=== PATIENT | female | born 1970 | race Caucasian/White ===

== ENCOUNTER 2020-02-22 18:00 | Emergency (ER) | payer SELFPAY ==
[2020-02-22 18:02] VITALS: BP 200/100; PULSE 97; RESP 18; TEMP 36.9; O2SAT 97; BMI 32.9
--- NOTE | 2020-02-22 18:05 | XRR_ITS ---
PROCEDURE INFORMATION: Exam: XR Right Foot Complete Exam date and time: 02/22/2020 7:10 PM Age: 49 years old Clinical indication: Other: Blister /sore right 4th toe; Patient HX: Noticed blister 02/21/20. Was cleaning it and it popped. HX of diabetic neuropathy. ; Additional info: Injury TECHNIQUE: Imaging protocol: XR Right foot. Views: Frontal, lateral, and oblique views. COMPARISON: No relevant prior studies available. FINDINGS: Bones/joints: Lateral soft tissue ulceration of the 4th digit at the level of the proximal interphalangeal joint. Bony destructive changes of the lateral proximal 4th middle phalanx. Ectopic soft tissue gas suggested medial to the 4th proximal interphalangeal joint. Nonspecific lucency medial 5th middle phalanx. Anterior tibial marginal hypertrophy at the tibiotalar articulation. A small Achilles' tendon enthesis of the calcaneus is present. Soft tissues: Fourth digit soft tissue swelling. XR/XR foot RT min 3V* [id number] IMPRESSION: 1. Fourth digit soft tissue swelling. Cellulitis not excluded. Clinical correlation is recommended. 2. Lateral soft tissue ulceration of the 4th digit. 3. Bony destructive changes proximal 4th middle phalanx. The findings are consistent with osteomyelitis. 4. Nonspecific lucency medial 5th middle phalanx. Comparison with prior studies recommended, if available. Otherwise followup may be helpful. 5. Tibiotalar primary osteoarthritis. 6. Achilles tendon insertional enthesopathy.
--- NOTE | 2020-02-22 18:51 | W.ED.WOUNDLC ---
HPI - Wound/Laceration General: Chief Complaint: Wound/Laceration Stated Complaint: right foot wound Time Seen by Provider: 02/22/20 18:49 History of Present Illness: HPI narrative: Patient is a 49-year-old female comes to the ED with a blister/sore on right fourth toe. Patient noticed blister yesterday and she cleaned it. Patient has a past medical history of diabetes with diabetic neuropathy of both feet.. Today patient was cleaning around the blister and it popped and clear fluid and bladder drained out. The blood has dried up and makes the blister looked black. Patient says the open blister is now causing her some pain and she currently rates it about an 8 out of 10. Denies any fever, chills, nausea, vomiting, chest pain, shortness of breath, abdominal pain, bladder or bowel symptoms. Associated symptoms: Denies chills, fever(s), nausea or vomiting Review of Systems Const: Denies: fever(s), chills or fatigue Eyes: Denies: change in vision or eye discomfort ENMT: Denies: throat pain, odynophagia, nasal discharge or nasal congestion Card: Denies: chest pain, palpitations, edema, swelling of feet/ankles, dyspnea on exertion or orthopnea Resp: Denies: dyspnea, productive cough or non-productive cough GI: Denies: abdominal pain, nausea, vomiting, diarrhea, constipation or hematochezia : Denies: flank pain, dysuria or hematuria Musc: Denies: neck pain, back pain or extremity swelling Skin/Breast: Reports: new lesions (wound/blister on right 4th toe.); Denies: rash Neuro: Denies: headache(s), numbness in extremities or weakness in extremities Physical Exam Const: COMMON NORMALS: no acute distress, patient oriented x3 and alert GENERAL APPEARANCE: cooperative and comfortable HENMT: COMMON NORMALS: normocephalic HEAD & SCALP: normocephalic MOUTH: Normal oral and palatal mucosa present THROAT: posterior oropharynx normal and uvula midline Eye: COMMON NORMALS: Equal, round and reactive pupils present PUPIL: Yes Equal, round and reactive pupils present Neck/C-Spine: COMMON NORMALS: supple GENERAL: Yes normal visual inspection Resp: COMMON NORMALS: normal respiratory effort, No retractions, No use of accessory muscles and clear to auscultation bilaterally AUSCULTATION: clear to auscultation bilaterally Cardio: COMMON NORMALS: regular rate, regular rhythm, S1 normal heart sound present, S2 normal heart sound present, No gallops present (Cardio), No clicks present (Cardio), No murmurs present (Cardio) and Peripheral pulses 2+ throughout RATE: regular rate RHYTHM: regular rhythm HEART SOUNDS: S1 normal heart sound present and S2 normal heart sound present PERIPHERAL PULSES: Peripheral pulses 2+ throughout GI: COMMON NORMALS: Normal to inspection, nondistended, normoactive bowel sounds present, Soft to palpation, non-tender and no masses PALPATION: Yes Soft to palpation : COMMON NORMALS: Yes no CVA tenderness BLADDER/KIDNEY EXAM: Yes no CVA tenderness Back/Pelvis: COMMON NORMALS: no CVA tenderness Extremity: COMMON NORMALS: capillary refill normal and no pedal edema RIGHT LOWER EXTREMITY: Yes foot & digits Right foot and digits: Yes inspection (Patient has an open blister on fourth digit right foot. There is dried blood in the blister that appears black. There is also some red blood that is dried up in between the fourth and fifth toe. Patient does have some erythema and warmth around blister area. Small red streak going up midfoot. No purulent drainage seen.), Yes palpation (tender over proximal aspect of 4th toe), Yes ROM (full) and Yes neurovascular exam (cap refill normal and pedal pulse normal. pt has no sensation to toes, but that is normal for her due to diabetic neuropathy.) Neuro: COMMON NORMALS: patient oriented x3 and moves all extremities SENSORIUM/ORIENTATION: Yes alert Skin: NARRATIVE SKIN EXAM: Blister and skin findings on right foot are detailed out in the extremity section of exam. Patient has an open blister with some surrounding erythema and warmth. GENERAL SKIN EXAM: dry skin Course Vital Signs: Vital signs: Vital Signs Temperature 98.5 F 02/22/20 18:02 Pulse Rate 81 02/22/20 22:45 Respiratory Rate 18 02/22/20 22:45 Blood Pressure 107/72 02/22/20 22:45 Pulse Oximetry 99 02/22/20 22:45 MDM - Wound/Laceration MDM Narrative: Medical decision making narrative: Patient is a 49-year-old female with past medical history of diabetes and diabetic neuropathy, who presents to the ED with sore on right fourth toe. Physical exam showed an open blister with surrounding erythema and warmth. White blood cell count 14.5, ESR 88 and CRP 93.6. XR of right foot showed no acute fractures or signs of osteomyelitis pending final radiology report. I placed an order with case management for patient to be set up with wound clinic. While here in the ED patient was given an IM dose of Rocephin and oral dose of Bactrim. Patient was told that Case management or [facility] wound care clinic will be contacting them in the next several days to set up an appointment. Patient was discharged with a prescription for Bactrim. Patient was told to return to ED if symptoms worsen. Patient understood and agreed with plan. Lab Data: Attestation: I reviewed the patient's lab results. Labs: Lab Results 02/22/20 02/22/20 02/22/20 Range/Units 19:15 19:15 19:15 WBC 14.5 H (4.0-10.0) 10^3/ uL RBC 4.95 (4.1-5.3) 10^6/u L Hgb 13.9 (11.5-15.3) g/dL Hct 43.5 (37.0-47.0) % MCV 87.9 (81-99) fL MCH 28.1 (28.0-34.0) pg MCHC 32.0 (30.0-36.0) g/dL RDW 12.9 (12.1-15.1) % Plt Count 353 (130-400) 10^3/c mm MPV 10.4 (7.4-10.4) fL Neut % (Auto) 70.3 % Lymph % (Auto) 22.2 % [place] % (Auto) 6.0 % Eos % (Auto) 0.8 % Baso % (Auto) 0.3 % Neut # (Auto) 10.2 H (1.8-7.7) 10^3/u L Lymph # (Auto) 3.2 (0.8-4.8) 10^3/u L [place] # (Auto) 0.9 (0.2-0.9) 10^3/u L Eos # (Auto) 0.1 (0.0-0.8) 10^3/u L Baso # (Auto) 0.0 (0.0-0.1) 10^3/u L Nucleated RBC % (a uto) 0 % Nucleated RBCs # 0.0 /100WBC ESR 88 H (0-15) mm/hr Sodium 133 L (136-145) mmol/L Potassium 3.9 (3.5-5.1) mmol/L Chloride 93 L (98-107) mmol/L Carbon Dioxide 25 (22-29) mmol/L Anion Gap 18.9 (5-19) BUN 14 (6-20) mg/dL Creatinine 0.9 (0.5-0.9) mg/dL GFR Calculation 66.8 L (90-130) mL/min Glucose 434 H (65-115) mg/dL Calculated Osmolal ity 291 (285-295) mOsm/k g Calcium 9.6 (8.5-10.5) mg/dL Total Bilirubin 0.3 (0.15-1.2) mg/dL AST 11 (0-32) U/L ALT 13 (0-33) U/L Alkaline Phosphata se 107 H (35-105) IU/L C-Reactive Protein 93.6 H (0.0-4.9) mg/L Total Protein 8.4 (6.6-8.7) g/dL Albumin 3.8 (3.5-5.2) g/dL Globulin 4.6 (1.3-4.6) g/dL Imaging Data^: Xray Ortho: Attestation: I personally reviewed and interpreted this imaging study as follows: My impression: Right foot x-ray shows no acute fractures. No signs of bone destruction on fourth digit seen. Pending final radiology report. Discharge Plan Discharge Patient Disposition: Home, Self-Care Clinical Impression: Diabetic ulcer of foot associated with diabetes mellitus due to underlying condition, limited to breakdown of skin Qualifiers: Diabetic foot ulcer location: toe Laterality: right Qualified Code(s): E08.621 - Diabetes mellitus due to underlying condition with foot ulcer Condition: Stable Prescriptions: New Bactrim DS 800-160 mg tablet 1 tab PO BID 14 Days Qty: 28 RF: 0 No Action ibuprofen 200 mg Tablet 200 mg PO Q6H PRN (Reason: Pain) RF: 0 Benicar See Rx Instructions .ROUTE .COMPLEX RF: 0 Discharge Orders: Discharge Order (Routine); Ordered 02/22/20 Ordered By: Guido Mckay: Jhoana Hennessy, [employer] FITTER[employer]nie[employer] [Primary Care Provider] - Discharge Diet: Regular Discharge Activity: Resume usual activity Patient Instructions: Diabetic Foot Ulcers (ED) Activity Restrictions/Additional Instructions: Follow-up with medical provider as directed. Someone should be contacting you in the next several days to set up an appointment with wound clinic. Take medications as prescribed. Take Tylenol for pain or fevers. Return to the ER or your medical provider if condition worsens. Please read and understand discharge instructions. If any questions ask please. Stand Alone Forms: Work/School Release Discharge Date/Time: 02/22/20 22:59 Coding Level of Care Code ED Riveter Hand for Chg Fwd Exam Comprehensive
[2020-02-22] MEDS: HYDROcodone-acetaminophen 7.5-325 mg Tablet 1 TAB PO ×2 (19:16→22:00)
[2020-02-22 19:20] VITALS: BP 149/85; PULSE 88; RESP 22; O2SAT 99
[2020-02-22 19:25] LABS: Basophils % 0.3 %; Eosinophils # 0.1 10^3/uL (0.0-0.8); Eosinophils % 0.8 %; Hematocrit 43.5 % (37.0-47.0); Hemoglobin 13.9 g/dL (11.5-15.3); Lymphocytes # 3.2 10^3/uL (0.8-4.8); Lymphocytes % 22.2 %; Mean Corpuscular Hemoglobin 28.1 pg (28.0-34.0); Mean Corpuscular Volume 87.9 fL (81-99); Mean Platelet Volume 10.4 fL (7.4-10.4); Monocytes # 0.9 10^3/uL (0.2-0.9); Neutrophils # 10.2 10^3/uL (1.8-7.7); Neutrophils % 70.3 %; Nucleated Red Blood Cells % 0 %; Platelet Count 353 10^3/cmm (130-400); Red Blood Count 4.95 10^6/uL (4.1-5.3); Red Cell Distribution Width 12.9 % (12.1-15.1); White Blood Count 14.5 10^3/uL (4.0-10.0)
[2020-02-22] MEDS: sulfamethoxazole-trimeth DS 160-800 mg Tablet 1 TAB PO (19:30)
[2020-02-22 19:42] LABS: Alanine Aminotransferase 13 U/L (0-33); Albumin Level 3.8 g/dL (3.5-5.2); Alkaline Phosphatase 107 IU/L (35-105); Anion Gap 18.9 (5-19); Aspartate Amino Transferase 11 U/L (0-32); Blood Urea Nitrogen 14 mg/dL (6-20); C Reactive Protein 93.6 mg/L (0.0-4.9); Calcium 9.6 mg/dL (8.5-10.5); Carbon Dioxide 25 mmol/L (22-29); Chloride 93 mmol/L (98-107); Globulin 4.6 g/dL (1.3-4.6); Glomerular Filtration Rate 66.8 mL/min (90-130); Glucose 434 mg/dL (65-115); Osmolality Calculated 291 mOsm/kg (285-295); Potassium 3.9 mmol/L (3.5-5.1); Sodium 133 mmol/L (136-145); Total Bilirubin 0.3 mg/dL (0.15-1.2); Total Protein 8.4 g/dL (6.6-8.7)
[2020-02-22 21:28] LABS: Erythrocyte Sedimentation Rate 88 mm/hr (0-15)
[2020-02-22] MEDS: lidocaine 1% INJ 20 mL 2.1 ML IM (21:50)
[2020-02-22] MEDS: cefTRIAXone 1,000 mg SDV 1000 MG IM (21:50)
[2020-02-22 22:45] VITALS: BP 107/72; PULSE 81; RESP 18; O2SAT 99
--- NOTE | 2020-02-23 08:56 | DCPLANNER ---
phone manager had message to schedule a follow up appointment for patient with Wound Care. phone manager called the Wound Care clinic, spoke with Marimar, gave clinic patients appointment information. A follow up appointment was scheduled for Friday, February 28, 2020 at 2:[address] Green. Clinic will call patient with appointment information.
--- NOTE | 2020-03-05 14:31 | DCPLANNER ---
Patient did attend appointment scheduled for 02.22.20 with Wound Care.
== END 2020-02-22 22:59 | disposition home or self-care (01) ==
PROVIDERS: Emergency Provider Physician Assistant; PCP Nurse Practitioner
DX: E08.621 Diabetes mellitus due to underlying condition with foot ulcer (principal)
CPT/HCPCS: 12345; 36415; 73630; 80053; 85025; 85651; 86140; 96372; 99281; 99283; J0696; J2001

== ENCOUNTER 2020-02-28 13:52 | Outpatient (CLI) | payer SELFPAY | END 2020-02-28 13:53 | disposition home or self-care (01) | LOC: WOUND 13:52 | PROVIDERS: PCP Nurse Practitioner; Visit Provider Surgery | DX: E11.621 Type 2 diabetes mellitus with foot ulcer (principal); L97.519 Non-pressure chronic ulcer of other part of right foot with unspecified severity | CPT/HCPCS: 11044; 87070; 87077; 87176; 87186; 87205; G0463 ==

== ENCOUNTER 2020-02-28 17:29 | Inpatient (IN) | payer SELFPAY ==
[2020-02-28 17:35] VITALS: BMI 32.9
[2020-02-28 17:38] VITALS: BP 148/79; PULSE 91; RESP 18; TEMP 37.1; O2SAT 99
[2020-02-28 18:27] LABS: Basophils % 0.2 %; Eosinophils # 0.1 10^3/uL (0.0-0.8); Eosinophils % 0.5 %; Hematocrit 44.6 % (37.0-47.0); Hemoglobin 14.1 g/dL (11.5-15.3); Lymphocytes # 2.6 10^3/uL (0.8-4.8); Mean Corpuscular HGB Conc 31.6 g/dL (30.0-36.0); Mean Corpuscular Volume 88.5 fL (81-99); Mean Platelet Volume 10.1 fL (7.4-10.4); Monocytes # 0.9 10^3/uL (0.2-0.9); Monocytes % 5.3 %; Neutrophils # 13.5 10^3/uL (1.8-7.7); Neutrophils % 78.5 %; Nucleated Red Blood Cells % 0 %; Platelet Count 478 10^3/cmm (130-400); Red Blood Count 5.04 10^6/uL (4.1-5.3); White Blood Count 17.2 10^3/uL (4.0-10.0)
--- NOTE | 2020-02-28 18:30 | ECG_ITS ---
[facility] Test Date: 2020-02-28 Pat Name: Adrianne Carranza Department: Room: Gender: Female Clerk Funeral Detail: : 1970 Requested By: Nikki Figueroa Order Number: [id number] Franklin MD: Trina Dillon M.D. Measurements Intervals [place] Rate: 89 P: 52 AL: 166 QRS: 34 QRSD: 109 T: 65 QT: 341 QTc: 416 Interpretive Statements SINUS RHYTHM POSSIBLE LEFT ATRIAL ENLARGEMENT [-0.1mV P WAVE IN V1/V2] Compared to ECG 11/27/2016 10:58:39 No significant changes Electronically Signed On 03-01-2020 17:13:48 CDT by Trina Dillon M.D. [email or web address] [email or web address]/store/[id number]
--- NOTE | 2020-02-28 18:31 | W.ED.EXTPRO ---
HPI - Extremity Problem General: Chief complaint: Extremity Injury, Lower Stated complaint: wound check Time Seen by Provider: 02/28/20 18:25 Source: patient Mode of arrival: ambulatory Limitations: no limitations History of Present Illness: HPI Narrative: Ms. Carranza is a very nice 49-year-old female who comes in complaining of a right fourth toe infection. Patient had a problem with a blister in the affected area since the very end of January. She was seen here on the first and felt to have just a small infection was placed on antibiotics and referred to wound care. Since that time the wound is become progressively more swollen and has areas of ecchymosis. Patient denies any fevers, chills, nausea or vomiting. She is unaware of anything that makes her symptoms better or worse. Patient was seen at wound care and felt that this was no longer amenable to outpatient therapy and she was referred here for admission with a consult by Dr. Bal for probable amputation. Associated symptoms: Deny chest pain or fever(s) Review of Systems Const: Denies: fever(s), chills, body aches, fatigue, malaise or diaphoresis Eyes: Denies: change in vision, blurry vision, blind spots, photophobia, eye discharge or eye redness ENMT: Denies: throat pain, odynophagia, hoarseness, swelling of lips/tongue, oral sores, ear or mastoid pain, ear discharge, change in hearing or nasal discharge Card: Denies: chest pain, palpitations, irregular heart rhythm, edema, lightheadedness, syncope, pre-syncope, dyspnea on exertion or orthopnea Resp: Denies: dyspnea, productive cough, non-productive cough, wheezing, hemoptysis or chest congestion GI: Denies: abdominal pain, nausea, vomiting, hematemesis, coffee ground emesis, heartburn, diarrhea, constipation, GI cramping, hematochezia or melena : Denies: flank pain, dysuria, urinary frequency, urinary urgency or hematuria Musc: Denies: neck pain, back pain, extremity pain, extremity swelling, joint pain, joint swelling, joint redness, joint warmth or joint stiffness Skin/Breast: Reports: other (See HPI) Neuro: Denies: headache(s), numbness in extremities, weakness in extremities, sensory changes, lack of coordination, difficulty walking, dizziness, vertigo, confusion, Slurred speech present or seizure-like activity Johnny/Lymph: Denies: easy bruising, easy bleeding, petechiae, purpura or enlarged lymph nodes All/Imm: Denies: urticaria, throat swelling, tongue swelling, facial swelling or acute wheezing PFSH ED PFSH: Medical History (Updated 02/28/20 @ 21:30 by Mayda Galicia MD) Diabetes mellitus, type II History of gestational diabetes Hypertension Surgical History (Updated 02/28/20 @ 20:29 by Mayda Galicia MD) History of 2 sections History of carpal tunnel repair bilateral Family History (Updated 02/28/20 @ 21:16 by Mayda Galicia MD) Other Diabetes Hypertension Lung disease Denies family history of CAD (coronary artery disease) Chronic kidney disease (CKD) Anesthesia complication Social History (Updated 02/28/20 @ 20:30 by Mayda Galicia MD) Smoking and tobacco status: current every day smoker cigarettes Number of cigarettes per day: 11-20 Alcohol intake: never Substance/Drug Use: never Household members: spouse, family and children Physical Exam Const: COMMON NORMALS: no acute distress, patient oriented x3, no limitations, healthy appearing and well nourished GENERAL APPEARANCE: cooperative, well kempt and well developed HENMT: COMMON NORMALS: normocephalic, atraumatic, external ears normal, EAC's normal and Normal external nose present HEAD & SCALP: normal to inspection, normocephalic and atraumatic FACE & SINUS: normal facial exam and face symmetric NOSE: Normal external nose present and Normal nares present EXTERNAL EAR: Yes external ears normal EXTERNAL AUDITORY CANAL: EAC's normal MOUTH: Normal oral and palatal mucosa present, lip normal and tongue normal Eye: COMMON NORMALS: Equal, round and reactive pupils present and conjunctivae normal GENERAL EYE: appearance normal, both eyes and all related structures ALIGNMENT: Yes alignment normal PERIORBITAL: periorbital findings normal EYELID: eyelids normal CONJUNCTIVA: Yes conjunctivae normal SCLERA: sclerae normal PUPIL: Yes Equal, round and reactive pupils present Neck/C-Spine: COMMON NORMALS: full ROM, no lymphadenopathy, supple, no meningeal signs and no JVD GENERAL: Yes normal visual inspection and Yes trachea midline Chest: COMMONS NORMALS: normal inspection of the chest and normal palpation of entire chest wall Resp: COMMON NORMALS: normal respiratory effort, No retractions and No use of accessory muscles EFFORT & INSPECTION: Yes able to speak in complete sentences and Yes symmetric chest movement AUSCULTATION: no crackles, no rales, no rhonchi and no wheezes Cardio: COMMON NORMALS: no JVD, regular rate, regular rhythm, S1 normal heart sound present and S2 normal heart sound present RATE: regular rate RHYTHM: regular rhythm HEART SOUNDS: S1 normal heart sound present, S2 normal heart sound present, no click, no gallops, no murmurs, no rubs and abnormal split S2 GI: COMMON NORMALS: Soft to palpation and No hepatosplenomegaly present PALPATION: Yes Soft to palpation, No Tenderness to palpation present (GI), No Guarding due to palpation present (GI), No Rigid due to palpation, Yes No hepatosplenomegaly present, No Hernia present, No Palpable mass present and No Pulsatile mass present : COMMON NORMALS: Yes no CVA tenderness BLADDER/KIDNEY EXAM: Yes no CVA tenderness EXTERNAL FEMALE EXAM: No Hernia present Back/Pelvis: COMMON NORMALS: no CVA tenderness, thoracic and lumbar spine normal to inspection, no thoracic nor lumbar tenderness and thoraco-lumbar ROM normal Extremity: COMMON NORMALS: normal to inspection, full ROM, capillary refill normal, no joint enlargement, no clubbing, cyanosis or edema and no calf tenderness Neuro: COMMON NORMALS: patient oriented x3, CN's II-XII intact bilaterally, moves all extremities, no focal motor deficits and no sensory deficits noted MENINGEAL SIGNS: Yes no meningeal signs SPEECH: speech normal Psych: COMMON NORMALS: mental status grossly normal, Normal thought process present, cooperative, normal affect, speech normal and activity/motor behavior normal APPEARANCE: Yes well kempt SPEECH: Yes normal speech THOUGHT PROCESS: Normal thought process present Skin: COMMON NORMALS: no rashes or lesions noted, turgor normal, no jaundice, no petechiae and no mottling NARRATIVE SKIN EXAM: Right fourth toe with ecchymosis and swelling. Obvious infection of the skin of the toe. GENERAL SKIN EXAM: no rashes or lesions noted and turgor normal Course Vital Signs: Vital signs: Vital Signs Temperature 99.0 F 02/28/20 23:53 Pulse Rate 69 02/28/20 23:53 Respiratory Rate 18 02/28/20 23:53 Blood Pressure 165/95 02/28/20 23:53 Pulse Oximetry 99 02/28/20 23:53 MDM - Extremity (Nontraumatic) MDM Narrative: Medical decision making narrative: Patient is a return to the ER/direct admit. Patient has obvious diabetic foot infection. The case was discussed with Dr. Bal and he wants the patient admitted to the hospitalist service and he will consult and plans to perform amputation. He agrees with vancomycin and Zosyn. Case will be reviewed with the night hospitalist with the above plan. Lab Data: Labs: Lab Results 02/28/20 02/28/20 02/28/20 Range/Units 18:05 18:05 18:05 WBC 17.2 H (4.0-10.0) 10^3/ uL RBC 5.04 (4.1-5.3) 10^6/u L Hgb 14.1 (11.5-15.3) g/dL Hct 44.6 (37.0-47.0) % MCV 88.5 (81-99) fL MCH 28.0 (28.0-34.0) pg MCHC 31.6 (30.0-36.0) g/dL RDW 13.0 (12.1-15.1) % Plt Count 478 H (130-400) 10^3/c mm MPV 10.1 (7.4-10.4) fL Neut % (Auto) 78.5 % Lymph % (Auto) 15.0 % [place] % (Auto) 5.3 % Eos % (Auto) 0.5 % Baso % (Auto) 0.2 % Neut # (Auto) 13.5 H (1.8-7.7) 10^3/u L Lymph # (Auto) 2.6 (0.8-4.8) 10^3/u L [place] # (Auto) 0.9 (0.2-0.9) 10^3/u L Eos # (Auto) 0.1 (0.0-0.8) 10^3/u L Baso # (Auto) 0.0 (0.0-0.1) 10^3/u L Nucleated RBC % (a uto) 0 % Nucleated RBCs # 0.0 /100WBC PT 13.40 H (10.5-13.3) SECO NDS INR 0.99 (0.8-1.2) APTT 31.3 (23.9-36.7) SECO NDS Sodium 132 L (136-145) mmol/L Potassium 4.2 (3.5-5.1) mmol/L Chloride 96 L (98-107) mmol/L Carbon Dioxide 22 (22-29) mmol/L Anion Gap 18.2 (5-19) BUN 24 H (6-20) mg/dL Creatinine 1.5 H (0.5-0.9) mg/dL GFR Calculation 37.1 L (90-130) mL/min Glucose 284 H (65-115) mg/dL Calculated Osmolal ity 281 L (285-295) mOsm/k g Calcium 10.2 (8.5-10.5) mg/dL Total Bilirubin 0.3 (0.15-1.2) mg/dL AST 11 (0-32) U/L ALT 11 (0-33) U/L Alkaline Phosphata se 107 H (35-105) IU/L Total Protein 9.0 H (6.6-8.7) g/dL Albumin 3.9 (3.5-5.2) g/dL Globulin 5.1 H (1.3-4.6) g/dL Discharge Plan Discharge Patient Disposition: Admitted As Inpatient Admit Provider: Mayda Galicia Clinical Impression: Diabetic ulcer of foot associated with diabetes mellitus due to underlying condition, limited to breakdown of skin Qualifiers: Diabetic foot ulcer location: toe Laterality: right Qualified Code(s): E08.621 - Diabetes mellitus due to underlying condition with foot ulcer Condition: Stable Referrals: Jhoana Hennessy, DEVELOPMENTAL SERVICES WORKER-C [Primary Care Provider] - Discharge Date/Time: 02/28/20 23:20 Coding Level of Care Code ED Egg Trayer for g Fwd Exam Comprehensive
[2020-02-28 18:42] LABS: Alanine Aminotransferase 11 U/L (0-33); Albumin Level 3.9 g/dL (3.5-5.2); Alkaline Phosphatase 107 IU/L (35-105); Anion Gap 18.2 (5-19); Aspartate Amino Transferase 11 U/L (0-32); Blood Urea Nitrogen 24 mg/dL (6-20); Calcium 10.2 mg/dL (8.5-10.5); Carbon Dioxide 22 mmol/L (22-29); Chloride 96 mmol/L (98-107); Globulin 5.1 g/dL (1.3-4.6); Glomerular Filtration Rate 37.1 mL/min (90-130); Glucose 284 mg/dL (65-115); Osmolality Calculated 281 mOsm/kg (285-295); Potassium 4.2 mmol/L (3.5-5.1); Sodium 132 mmol/L (136-145); Total Bilirubin 0.3 mg/dL (0.15-1.2)
[2020-02-28] MEDS: piperacillin-tazobactam 3.375 GM in sodium chloride 0.9% (plus) 50 ML IV (18:57)
[2020-02-28] MEDS: sodium chloride 0.9% 1,000 ML 100 ML IV (18:57)
--- NOTE | 2020-02-28 19:24 | PM.HP ---
Providers/Chief Complaint Admitting Physician: Mayda Galicia Primary Care Provider: Jhoana Henenssy, TITLE ASSISTANT-C Chief Complaint: wound check History of Present Illness Adrianne Carranza is a 49 year old female came from wound care clinic for admission. On February 21, noticed a blister on side of right 4th toe. Few days before had inadvertently had an extra sock in shoe and it rubbed on foot. Denies having had any other injuries to the foot that she is aware of. She works at [employer] and is on her feet a lot. Denies any history of swelling or pain in her feet prior to this event. On February 22, patient said that the blister she had seen popped. She showed me a picture. Tissue looked a bit necrotic at that point in time. Because of the underlying raw skin and pain that she developed, she came to the emergency room. She was evaluated and given a prescription for some Bactrim and referred to wound care clinic. With the weekend, she was seen in wound care clinic today. Dr. Bal saw her. Total was noted to be necrotic. Official read on the imaging of the right foot showed findings of osteomyelitis in the bone of the fourth digit. She was sent for admission with plan for surgical intervention/amputation in the morning. She denies any fevers. She has had some nausea and vomiting today. Also describes general malaise, aches, fatigue. She has a history of gestational diabetes. She has not been diagnosed with diabetes mellitus type 2 otherwise. She does try to follow a consistent carbohydrate diet. She has hypertension and she smokes. She describes having had what was probably ultrasound evaluation/ABIs at wound care clinic today. I do not have a formal report. She received some Zosyn in the emergency room and is being admitted for further care. Review of Systems Const: Reports: chills (in ED), body aches, change in appetite, fatigue and malaise; Denies: fever(s) Eyes: Denies: change in vision or blurry vision ENMT: Denies: throat pain or nasal discharge Card: Denies: chest pain or palpitations Resp: Denies: dyspnea GI: Reports: nausea and vomiting; Denies: abdominal pain, diarrhea or constipation : Denies: difficulty voiding or urinary frequency Musc: Reports: joint pain, joint swelling, joint redness and joint warmth Skin/Breast: Reports: new lesions; Denies: pruritus Neuro: Denies: headache(s), numbness in extremities or weakness in extremities Psych: Reports: other (anxiety and sad about situation) Johnny/Lymph: Denies: easy bruising or easy bleeding Medications/Allergies Home Medications Medication Instructions Recorded Confirmed Last Taken Type Benicar See Rx Instructions .ROUTE .COMPLEX 02/22/20 02/28/20 02/27/20 History ibuprofen 200 mg PO Q6H PRN 02/22/20 02/28/20 02/22/20 History sulfamethoxazole-trimethoprim 1 tab PO BID 14 Days #28 tab 02/22/20 02/28/20 02/27/20 Rx [Bactrim DS] Allergies Allergy/AdvReac Type Severity Reaction Status Date / Time morphine Allergy ALGY-Hives Verified 02/28/20 18:39 PFSH Acute PFSH: Medical History (Updated 02/28/20 @ 21:30 by Mayda Galicia MD) Diabetes mellitus, type II History of gestational diabetes Hypertension Surgical History (Updated 02/28/20 @ 20:29 by Mayda Galicia MD) History of 2 sections History of carpal tunnel repair bilateral Family History (Updated 02/28/20 @ 21:16 by Mayda Galicia MD) Other Diabetes Hypertension Lung disease Denies family history of CAD (coronary artery disease) Chronic kidney disease (CKD) Anesthesia complication Social History (Updated 02/28/20 @ 20:30 by Mayda Galicia MD) Smoking and tobacco status: current every day smoker cigarettes Number of cigarettes per day: 11-20 Alcohol intake: never Substance/Drug Use: never Household members: spouse, family and children Vitals/I&O/Wt Last Vital Signs Temp 98.7 F 02/28/20 17:38 Pulse 91 02/28/20 17:38 Resp 18 02/28/20 17:38 BP 148/79 02/28/20 17:38 Pulse Ox 99 02/28/20 17:38 Weight last 48 hrs Weight 81.647 kg Physical Exam Const: OTHER: Alert, oriented x3, cooperative HENMT: OTHER: Normocephalic atraumatic, moist mucus membranes, poor dentition with lots of broken/missing teeth. No posterior pharyngeal erythema. No significant nasal drainage. Eye: OTHER: Pupils equally round and reactive to light Neck/C-Spine: OTHER: Supple, no thyromegaly or lymphadenopathy Resp: OTHER: Clear to auscultation bilaterally, no rales, rhonchi or wheezes noted, no accessory muscle use noted Cardio: OTHER: Regular rate and rhythm, faint murmur, no gallops or rubs. 1+ dorsalis pedis right foot and left foot. 2+ radial pulses. GI: OTHER: Abdomen soft, nontender, nondistended with positive bowel sounds : OTHER: Deferred Extremity: NARRATIVE EXTREMITY EXAM: No edema. Right foot with erythema beyond base of 4th toe about 1 cm. Neuro: OTHER: Face symmetric, speech clear, moves all extremities Psych: OTHER: Appropriate affect, anxious and sad at times. Skin: NARRATIVE SKIN EXAM: Necrotic/gangrenous 4th toe right foot, malodorous, medial sides of surrounding toes with moisture and cracked skin in intertriginous spaces but do not look otherwise involved at moment. Erythema extends about 1 cm beyond base of toe both sides. Sore with scab left elbow 2cm x 1cm. Sore with scab 1cm x 2.5 cm lateral ankle above malleolus. Dried sore 1cm medial area above right ankle. Data : 02/28/20 18:05 02/28/20 18:05 Other Labs: Laboratory Tests 02/22/20 02/22/20 02/22/20 19:15 19:15 19:15 WBC 14.5 H ESR 88 H BUN 14 Creatinine 0.9 Glucose 434 H C-Reactive Protein 93.6 H Liver Function 02/28/20 Range/Units 18:05 Total Bilirubin 0.3 (0.15-1.2) mg/dL AST 11 (0-32) U/L ALT 11 (0-33) U/L Alkaline Phosphatase 107 H (35-105) IU/L Albumin 3.9 (3.5-5.2) g/dL Micro: Microbiology 02/28/20 18:06 Blood Culture - Preliminary Blood SPECIMEN COLLECTED 02/28/20 18:05 Blood Culture - Preliminary Blood SPECIMEN COLLECTED EKG 1: I personally reviewed and interpreted this EKG as follows: My Interpretation: Sinus rhythm 89, no ischemic changes noted, borderline criteria for LAE Other data: RIGHT foot xray from 02/22/2020 IMPRESSION: 1. Fourth digit soft tissue swelling. Cellulitis not excluded. Clinical correlation is recommended. 2. Lateral soft tissue ulceration of the 4th digit. 3. Bony destructive changes proximal 4th middle phalanx. The findings are consistent with osteomyelitis. 4. Nonspecific lucency medial 5th middle phalanx. Comparison with prior studies recommended, if available. Otherwise followup may be helpful. 5. Tibiotalar primary osteoarthritis. 6. Achilles tendon insertional enthesopathy. A&P Assessment and plan (1) Acute osteomyelitis of toe: With elevated ESR and CRP noted on 02/22/20. Has WBC of 17,000. Not currently exihibiting evidence of sepsis otherwise but high risk for progression to such. Status: Acute Qualifiers: Laterality: right Qualified Code(s): M86.171 - Other acute osteomyelitis, right ankle and foot (2) Diabetic ulcer of foot associated with diabetes mellitus due to underlying condition, with necrosis of bone: Status: Acute (3) Acute kidney injury: Likely related to Bactrim/motrin/infection Status: Acute (4) Diabetes mellitus, type II: new formal diagnosis Status: Acute Qualifiers: Diabetes mellitus complication detail: with foot ulcer Diabetes mellitus complication status: with skin complications Diabetes mellitus longterm insulin use: without termite exterminator helper use Qualified Code(s): E11.621 - Type 2 diabetes mellitus with foot ulcer; L97.509 - Non-pressure chronic ulcer of other part of unspecified foot with unspecified severity (5) Hypertension: usually on benicar Status: Acute Qualifiers: Hypertension type: essential hypertension Qualified Code(s): I10 - Essential (primary) hypertension (6) Nicotine dependence, cigarettes, uncomplicated: Status: Acute Additional A&P Information Inpatient admission Vancomycin and zosyn IVFs Dr Lagunas to consult Sounds like had vascular eval at wound care clinic today Plan is for OR in am NPO for procedure Hold for now on start of VTE prophylaxis due to planned procedure Check A1c Insulin acutely and will need start of oral diabetes control, education Hold home benicar currently given EDDI Monitor blood pressures for need to add interim coverage Pain control as needed Discussed with pt importance of smoking cessation in light of vascular issues, recommended otc options and/or working with pcp. 5 minutes discussion. Supportive care otherwise Plans discussed with patient and she was given opportunity to ask questions technical services specialist due to financial situation Full Code Anticipate DC home with follow up to wound care Attestations Medical Necessity Statement*: Dissipated stay greater than 2 midnights in a patient with gangrenous toe and evidence of osteomyelitis. She will undergo amputation. She needs to be started on insulin and will be on IV antibiotics. Additionally she will be on some IV fluids for acute kidney injury. She does have some evidence of systemic infection apparent today but will hopefully improve after surgery. Plans are as indicated. Coding Level of Care Code Acute Academic Services Professional for [facility] Fwd Diagnoses Acute osteomyelitis of toe M86.171 Laterality: right Diabetic ulcer of foot associated with diabetes mellitus due to underlying condition, with necrosis of bone E08.621; L97.504 Acute kidney injury N17.9 Diabetes mellitus, type II E11.621; L97.509 Diabetes mellitus complication detail: with foot ulcer Diabetes mellitus complication status: with skin complications Diabetes mellitus longterm insulin use: without termite exterminator helper use Hypertension I10 Hypertension type: essential hypertension Nicotine dependence, cigarettes, uncomplicated F17.210
[2020-02-28 19:48] VITALS: BP 136/72; PULSE 84; RESP 18; TEMP 37.3; O2SAT 99
--- NOTE | 2020-02-28 20:02 | PC.NURSE ---
Attempted to call report- no staff available @ 1954
[2020-02-28 20:03] VITALS: BP 110/74; PULSE 84; RESP 18
[2020-02-28 20:30] LABS: INR 0.99 (0.8-1.2); Partial Thromboplastin Time 31.3 SECONDS (23.9-36.7)
[2020-02-28 21:22] LABS: Glucose Point of Care 235 mg/dL (70-110)
[2020-02-28 22:50] VITALS: BP 152/75; PULSE 82; RESP 18; TEMP 36.6; O2SAT 100
[2020-02-28 23:51] VITALS: RESP 18; O2SAT 100
[2020-02-28] MEDS: HYDROmorphone 1 mg/mL INJ 1 mL 0.25 MG IVP (23:51)
--- NOTE | 2020-02-28 23:52 | PC.PHAR ---
Vancomycin is dosed at 100mg IVPB ever 24 hours to produce a predicted trough level of 14.04 (population based pharmacokinetic analysis). A trough level has been ordered from the lab to be obtained before the fourth dose to confirm and adjust if needed. The Zosyn is dosed at 3.375gm IVPB every 8 hours based on creatinine clearance of 45.4, each dose to be infused over four hours per extended infusion protocol.
[2020-02-28 23:53] VITALS: BP 165/95; PULSE 69; RESP 18; TEMP 37.2; O2SAT 99
[2020-02-29] VITALS (16 sets, daily range): BP systolic 99–185; BP diastolic 51–99; PULSE 62–82; RESP 12–20; TEMP 36.2–37.4; O2SAT 94–98
[2020-02-29] MEDS: sodium chlor 0.9% + KCl 20 mEq 20 MEQ/1,000 ML BAG 100 MEQ IV ×2 (00:13→13:32)
[2020-02-29] MEDS: vancomycin 1,000 MG in sodium chloride 0.9% 250 ML 250 MG IV (00:19)
[2020-02-29 00:45] LABS: Glucose Point of Care 258 mg/dL (70-110)
[2020-02-29 00:56] LABS: Vancomycin Trough < 4.0 ug/mL (10-15)
[2020-02-29] MEDS: piperacillin-tazobactam 3.375 GM in sodium chloride 0.9% (plus) 50 ML IV ×3 (02:23→18:17)
[2020-02-29 03:10] LABS: Anion Gap 16.9 (5-19); Blood Urea Nitrogen 25 mg/dL (6-20); Calcium 9.2 mg/dL (8.5-10.5); Carbon Dioxide 21 mmol/L (22-29); Chloride 100 mmol/L (98-107); Glomerular Filtration Rate 47.9 mL/min (90-130); Glucose 280 mg/dL (65-115); Osmolality Calculated 285 mOsm/kg (285-295); Potassium 3.9 mmol/L (3.5-5.1); Sodium 134 mmol/L (136-145)
[2020-02-29 03:21] LABS: Basophils # 0.1 10^3/uL (0.0-0.1); Basophils % 0.4 %; Eosinophils # 0.1 10^3/uL (0.0-0.8); Eosinophils % 0.4 %; Hematocrit 39.6 % (37.0-47.0); Hemoglobin 12.9 g/dL (11.5-15.3); Lymphocytes # 2.3 10^3/uL (0.8-4.8); Lymphocytes % 13.9 %; Mean Corpuscular HGB Conc 32.6 g/dL (30.0-36.0); Mean Corpuscular Hemoglobin 28.7 pg (28.0-34.0); Mean Platelet Volume 10.1 fL (7.4-10.4); Neutrophils # 13.1 10^3/uL (1.8-7.7); Neutrophils % 78.6 %; Nucleated Red Blood Cells % 0 %; Platelet Count 420 10^3/cmm (130-400); Red Cell Distribution Width 12.9 % (12.1-15.1); White Blood Count 16.6 10^3/uL (4.0-10.0)
[2020-02-29 05:10] LABS: Estmated Average Glucose 349; Hemoglobin A1C 13.8 % (4.0-6.0)
[2020-02-29] MEDS: ondansetron 2 mg/ML SDV 2 mL 4 MG IVP (05:35)
--- NOTE | 2020-02-29 05:38 | USCV_ITS ---
Adrianne Carranza Age: 49 Gender: F : 1970 Exam Date: 02/29/2020 09:27 Ordering Phys: Francisco Bal MD Technologist: Abbey Cannon [place] [facility] [place] Indication: GANGRENOUS CHANGES OF RIGHT FOURTH TOE Risk Factors: Previous Vascular Surgery: RIGHT LEFT BP: 172.0 / BP: 175.0/ 0 0 Waveform Velocity (cm/s) Velocity (cm/s) Waveform Triphasic 111.2 Iliac Prox 158.2 Biphasic Triphasic 105.7 Iliac Mid 174.0 Biphasic Triphasic 86.9 Iliac Distal 149.4 Biphasic Biphasic 90.4 GRASSROOTS ORGANIZER 116.0 Biphasic Monophasic 156.8 SFA Prox 76.9 Biphasic Monophasic 35.6 SFA Mid 79.9 Biphasic Monophasic SFA Dist Biphasic 87.5 72.4 Monophasic 56.7 POP 70.9 Biphasic Monophasic 48.1 PARTS SALVAGER 25.6 Monophasic Monophasic 21.1 DPA 15.3 Monophasic 0.8 RUBY 0.9 FINDINGS RT PARTS SALVAGER = 147, RT DPA = 124 LT PARTS SALVAGER = 154, LT DPA = 116 Mild to moderate diffuse plaques bilaterally in the iliac and the femoral arteries. Slightly diminished resting ABIs bilaterally CONCLUSIONS 1. Abnormal resting ABIs bilaterally, consistent with mild peripheral artery disease 2. Mild to moderate diffuse plaques in the iliac and femoral arteries bilaterally Dr Radha Grant MD [facility] (Electronically Signed) Final Date: 29 February 2020 17:37 S
--- NOTE | 2020-02-29 05:39 | P.PN_ITS ---
Subjective Subjective: Interval history: Patient overall complain of nausea Patient was seen and evaluated by me at the wound care center with a full H&P per Wound care records 02/28/20,patient reported that she had a trauma to her right foot and went to the emergency department February 22 and an x-ray was done that showed osteomyelitis of the right fourth toe, patient apparently was placed on oral antibiotics with the plan to follow-up at the wound care center,, yesterday she was seen by me and evaluated and I elected to send the patient for direct admission through the ER on the hospitalist service to start IV antibiotics and the plan is to take the patient for surgical intervention and amputate the right fourth toe. Currently the patient shows uncontrolled diabetes and not clear who is managing her as an outpatient. Dr. Galicia accepted the patient kindly to be admitted on her service and I will continue to follow as a consult Vitals/I&O/Wt Last Vital Signs Temp 99.0 F 02/28/20 23:53 Pulse 82 02/29/20 01:50 Resp 18 02/28/20 23:53 BP 165/95 02/28/20 23:53 Pulse Ox 98 02/29/20 01:50 02/28/20 02/28/20 02/29/20 14:59 22:59 06:59 Output Total 300 / 300 Balance -300 / -300 Weight last 48 hrs Weight 180 lb Physical Exam Narrative: EXAM NARRATIVE: Patient is conscious alert oriented X3 BMI 33 Head and neck examination PERRLA no masses no cervical lymphadenopathy no jaundice Right foot shows less cellulitis with worsening gangrenous changes of the right fourth toe with bone exposure on the lateral aspect. Data : 02/29/20 02:35 02/29/20 02:35 Micro: Microbiology 02/28/20 18:06 Blood Culture - Preliminary Blood SPECIMEN COLLECTED 02/28/20 18:05 Blood Culture - Preliminary Blood SPECIMEN COLLECTED A&P Assessment and plan (1) Diabetic ulcer of foot associated with diabetes mellitus due to underlying condition, with necrosis of bone: We will plan to send the patient for CT scan of the right foot with IV contrast to rule out other segments of osteomyelitis of the foot. The plan today to take the patient for surgery in the form of amputation of the right fourth toe after further evaluation of the CT scan. We will order bilateral duplex arterial studies. Pharmacologic DVT prophylaxis. Confirmation of tetanus update will defer to hospitalist service. I highly recommend to have the patient evaluated by cardiac services for potential revascularization of the foot. I do appreciate Dr. Galicia's input with regard to patient's diabetes management 06:[address] scan report comes back IMPRESSION: 1. Air and inflammation adjacent to the distal middle and to a lesser degree the proximal phalanges of the 4th ray. Poor cortical definition of the middle phalanx. Possible osteomyelitis. Consider MRI. 2. Remainder of the phalanges unremarkable. Metatarsals unremarkable. 3. Spur formation at the insertion of the Achilles' tendon and plantar aponeurosis. We will proceed with surgery Assurance and education All questions have been answered and all concerns have been addressed to patient's satisfaction. Status: Acute Attestations Medical Necessity Statement*: Medical necessity care is expected to cross 2 midnights Time Spent in Patient Care: 16 - 35 minutes (>than 50% of time spent in counselling and/or direct pt care on unit) . Coding Level of Care Code Acute Oyster Harvester for [facility] Diagnoses Diabetic ulcer of foot associated with diabetes mellitus due to underlying condition, with necrosis of bone E08.621; L97.504
--- NOTE | 2020-02-29 05:43 | CTR_ITS ---
PROCEDURE INFORMATION: Exam: CT Right Lower Extremity With Contrast, Foot Exam date and time: 02/29/2020 5:57 AM Age: 49 years old Clinical indication: Other: Osteomylitis 4th toe; Additional info: Osteomyelitis of the right fourth toe and concerning of other segments of the foot could potentially have TECHNIQUE: Imaging protocol: CT of the Right lower extremity with intravenous contrast was performed. Exam focused on the foot. Radiation optimization: All CT scans at this facility use at least one of these dose optimization techniques: automated exposure control; mA and/or kV adjustment per patient size (includes targeted exams where dose is matched to clinical indication); or iterative reconstruction. Contrast material: VISI; Contrast volume: 95 ml; Contrast route: INTRAVENOUS (IV); COMPARISON: CR XR foot RT min 3V* [id number] 02/22/2020 7:00 PM RADIATION DOSE METRICS: Total DLP (mGy-cm): 214.89 FINDINGS: Bones/joints: Air and inflammation adjacent to the distal middle and to a lesser degree the proximal phalanges of the 4th ray. Poor cortical definition of the middle phalanx. Possible osteomyelitis. Remainder of the phalanges unremarkable. Metatarsals unremarkable. Medial and lateral malleoli are normal. Ankle mortise is symmetrical. No fracture. Hindfoot is unremarkable. Tibiotalar joint and the subtalar joint appears normal. Soft tissues: Spur formation at the insertion of the Achilles' tendon and plantar aponeurosis. CT/CT foot RT w con [id number] IMPRESSION: 1. Air and inflammation adjacent to the distal middle and to a lesser degree the proximal phalanges of the 4th ray. Poor cortical definition of the middle phalanx. Possible osteomyelitis. Consider MRI. 2. Remainder of the phalanges unremarkable. Metatarsals unremarkable. 3. Spur formation at the insertion of the Achilles' tendon and plantar aponeurosis. Radiation Dose CTDIVOL = (mGy): DLP = 214.89 (mGy-cm)
[2020-02-29] MEDS: iodixanol 320 mg/mL 100mL Btl IV (05:55)
[2020-02-29] MEDS: HYDROmorphone 1 mg/mL INJ 1 mL 0.25 MG IVP ×4 (06:08→22:26)
[2020-02-29 06:39] LABS: Glucose Point of Care 239 mg/dL (70-110)
--- NOTE | 2020-02-29 09:54 | PC.CHAP ---
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 speed belt sander tender visit [] Patient/Family/Request visit [] Outpatient visit [] Follow-up visit [] Physician referral [] Code/Alert [x] Routine visit [] Staff referral [] Actively dying [] Patient sleeping [] Family support [] [] Out of room [] Palliative care [] [] Receiving care in room [] Pre-surgical visit [] Trauma [] Long length of stay [] ICU visit [] Other: Relational/Emotional Strength [] Patient feels connected with others/family/visitors/staff [] Distress [] Loneliness/isolation [] Abandonment Spirituality of Patient [] Person of Claritza [] Attends Druze of their Claritza [] Believes in Prayer [] Reads Bible or Congregation materials [] There are Spiritual issues to be addressed Radiologist Physician Interventions [x] Prayer [x] Active listening [x] Non-anxious presence [x] Spiritual/emotional support [] Crisis/trauma care [] Spiritual counseling [] Bereavement support [] Provided bereavement packet [] Provided Bible/devotional materials [] Provided toy/stuffed animal, coloring book to patient or family member [] Provided Communion [] Anointing/[place] [] Salvation [x] Completed spiritual assessment [] Other: Impact on Illness or Injury [] Angry [] Fearful [] Anxious [] Often cries [] Exhaustion [] Unable to work [] Unable to attend denominational [] Unable to walk/stand [] Unable to read [] Unable to drive [] Unable to eat/drink [] Unable to sleep [] Unable to be with family [] Patient intubated [] Other: Summary Patient receiving care in room. Time spent with patient 5 min
--- NOTE | 2020-02-29 10:34 | PC.NURSE ---
Patient to surgery at this time.
--- NOTE | 2020-02-29 10:43 | ANES.PREANE2 ---
Pre-Anesthetic Assessment Pre-Anesthetic Assessment: Height/Weight: Height 1.57 m Weight 81.647 kg Temp Pulse Resp BP Pulse Ox 98.8 F 73 12 144/79 97 02/29/20 07:45 02/29/20 07:45 02/29/20 07:45 02/29/20 07:45 02/29/20 07:45 Proposed Procedure: Operation Date: 02/29/20 10:45 Proposed Procedures p amputation of the right 4th toe(Right) - Francisco Bal MD Last intake: Intake Last Liquid Date 02/28/20 Last Liquid Time 23:50 Last Solid Date 02/28/20 Last Solid Time 23:50 Social: Social History: Tobacco and No alcohol Exam: Pre-Anes Outpt Exam: alert, oriented x 3, clear to auscultation bilaterally and regular rate & rhythm Airway: Submandibular: WNL Cervical ROM: WNL MP: 3 Dentition: Other (very poor dentation) History/ROS: No significant history except as noted Pulmonary: Pulmonary: None reported CV/HEM: CV/HEM: HTN : : None reported Hepatic: Hepatic: None reported GI: GI: None reported Metabolic: Metabolic: DM Musc/skel: Musc/skel: None reported Neuropsych: Neuropsych: Anxiety and Neuropathy (bilat feet) Anesthetic Plan: ASA status: 3 Anesthesia: Anesthesia Evaluation and General Risk of > 500 ml blood loss (7ml/kg in children): No Meds/Allergies Current Medications: Current Medications Generic Name Dose Route Start Last Admin Trade Name Freq PRN Reason Stop Dose Admin Docusate Sodium 100 mg 02/29/20 09:00 02/29/20 10:17 Colace PO Not Given BID LENA Heparin Sodium (Be ef Lung) 5,000 unit 02/29/20 06:30 02/29/20 10:16 Heparin SUBCUT Not Given Q12H LENA Hydromorphone HCl 0.25 mg 02/28/20 23:27 02/29/20 06:08 Dilaudid Inj IVP 0.25 mg Q4H PRN Administration SEVERE PAIN Potassium Chloride /Sodium Chloride 20 meq in 1,000 m ls @ 100 mls/hr 02/28/20 23:27 02/29/20 00:13 Sodium Chlor 0.9 % + Kcl 20 Meq IV 100 mls/hr .Q10H LENA Administration Vancomycin HCl 1,0 00 mg/ 250 mls @ 250 mls /hr 02/29/20 00:00 02/29/20 00:19 Sodium Chloride IV 250 mls/hr Q24H LENA Administration Protocol As Directed Piperacillin Sod/T azobactam 50 mls @ 12.5 mls /hr 02/29/20 02:30 02/29/20 02:23 Sod 3.375 gm/ So dium Chloride IV 12.5 mls/hr Q8H LENA Administration Protocol As Directed Insulin Aspart 0 unit 02/28/20 23:27 02/29/20 00:51 Novolog SUBCUT Not Given BEDTIME LENA Protocol Insulin Aspart 0 unit 02/29/20 08:00 02/29/20 10:16 Novolog SUBCUT Not Given TIDWM LENA Protocol Ondansetron HCl 4 mg 02/28/20 23:27 02/29/20 05:35 Zofran IVP 4 mg Q6H PRN Administration NAUSEA AND VOMITI NG PFSH Anesthesia PFSH: Medical History Diabetes mellitus, type II History of gestational diabetes Hypertension Surgical History History of 2 sections History of carpal tunnel repair bilateral Family History Other Diabetes Hypertension Lung disease Denies family history of CAD (coronary artery disease) Chronic kidney disease (CKD) Anesthesia complication Social History Smoking and tobacco status: current every day smoker cigarettes Number of cigarettes per day: 11-20 Alcohol intake: never Substance/Drug Use: never Household members: spouse, family and children Data Anesthesia CBC & Chem 7: 02/29/20 02:35 02/29/20 02:35 Other Labs: Laboratory Results - last 48 hr 02/28/20 02/28/20 02/28/20 18:05 18:05 18:05 WBC 17.2 H RBC 5.04 Hgb 14.1 Hct 44.6 MCV 88.5 MCH 28.0 MCHC 31.6 RDW 13.0 Plt Count 478 H MPV 10.1 Neut % (Auto) 78.5 Lymph % (Auto) 15.0 [place] % (Auto) 5.3 Eos % (Auto) 0.5 Baso % (Auto) 0.2 Neut # (Auto) 13.5 H Lymph # (Auto) 2.6 [place] # (Auto) 0.9 Eos # (Auto) 0.1 Baso # (Auto) 0.0 Nucleated RBC % (auto) 0 Nucleated RBCs # 0.0 PT 13.40 H INR 0.99 APTT 31.3 Sodium 132 L Potassium 4.2 Chloride 96 L Carbon Dioxide 22 Anion Gap 18.2 BUN 24 H Creatinine 1.5 H GFR Calculation 37.1 L Glucose 284 H POC Glucose Estimat Average Glucose Hemoglobin A1c Calculated Osmolality 281 L Calcium 10.2 Total Bilirubin 0.3 AST 11 ALT 11 Alkaline Phosphatase 107 H Total Protein 9.0 H Albumin 3.9 Globulin 5.1 H Vancomycin Trough 02/28/20 02/28/20 02/29/20 21:18 23:40 00:41 WBC RBC Hgb Hct MCV MCH MCHC RDW Plt Count MPV Neut % (Auto) Lymph % (Auto) [place] % (Auto) Eos % (Auto) Baso % (Auto) Neut # (Auto) Lymph # (Auto) [place] # (Auto) Eos # (Auto) Baso # (Auto) Nucleated RBC % (auto) Nucleated RBCs # PT INR APTT Sodium Potassium Chloride Carbon Dioxide Anion Gap BUN Creatinine GFR Calculation Glucose POC Glucose 235 258 Estimat Average Glucose Hemoglobin A1c Calculated Osmolality Calcium Total Bilirubin AST ALT Alkaline Phosphatase Total Protein Albumin Globulin Vancomycin Trough < 4.0 L 02/29/20 02/29/20 02/29/20 02:35 02:35 02:35 WBC 16.6 H RBC 4.50 Hgb 12.9 Hct 39.6 MCV 88.0 MCH 28.7 MCHC 32.6 RDW 12.9 Plt Count 420 H MPV 10.1 Neut % (Auto) 78.6 Lymph % (Auto) 13.9 [place] % (Auto) 6.0 Eos % (Auto) 0.4 Baso % (Auto) 0.4 Neut # (Auto) 13.1 H Lymph # (Auto) 2.3 [place] # (Auto) 1.0 H Eos # (Auto) 0.1 Baso # (Auto) 0.1 Nucleated RBC % (auto) 0 Nucleated RBCs # 0.0 PT INR APTT Sodium 134 L Potassium 3.9 Chloride 100 Carbon Dioxide 21 L Anion Gap 16.9 BUN 25 H Creatinine 1.2 H GFR Calculation 47.9 L Glucose 280 H POC Glucose Estimat Average Glucose 349 Hemoglobin A1c 13.8 H Calculated Osmolality 285 Calcium 9.2 Total Bilirubin AST ALT Alkaline Phosphatase Total Protein Albumin Globulin Vancomycin Trough 02/29/20 06:27 WBC RBC Hgb Hct MCV MCH MCHC RDW Plt Count MPV Neut % (Auto) Lymph % (Auto) [place] % (Auto) Eos % (Auto) Baso % (Auto) Neut # (Auto) Lymph # (Auto) [place] # (Auto) Eos # (Auto) Baso # (Auto) Nucleated RBC % (auto) Nucleated RBCs # PT INR APTT Sodium Potassium Chloride Carbon Dioxide Anion Gap BUN Creatinine GFR Calculation Glucose POC Glucose 239 Estimat Average Glucose Hemoglobin A1c Calculated Osmolality Calcium Total Bilirubin AST ALT Alkaline Phosphatase Total Protein Albumin Globulin Vancomycin Trough Micro: Microbiology 02/28/20 18:06 Blood Culture - Preliminary Blood SPECIMEN COLLECTED 02/28/20 18:05 Blood Culture - Preliminary Blood SPECIMEN COLLECTED Cardiac Studies: No Data to Display
[2020-02-29 11:13] LABS: Glucose Point of Care 241 mg/dL (70-110)
[2020-02-29] MEDS: sodium chloride 0.9% 1,000 ML 30 ML IV (11:26)
[2020-02-29] MEDS: insulin regular-human 100 units/1 mL 5 UNIT IVP (11:42)
--- NOTE | 2020-02-29 11:50 | P.PN_ITS ---
Subjective Subjective: Interval history: History and physical was reviewed. Patient reports she already feels a little bit better. She is awaiting surgery. Medications: Reviewed: Yes Vitals/I&O/Wt Last Vital Signs Temp 97.8 F 02/29/20 10:41 Pulse 79 02/29/20 10:41 Resp 18 02/29/20 10:41 BP 173/99 02/29/20 10:41 Pulse Ox 98 02/29/20 10:41 02/28/20 02/29/20 02/29/20 22:59 06:59 14:59 Intake Total 50 / 50 Output Total 300 / 300 Balance -300 / -300 50 / 50 Weight last 48 hrs Weight 81.647 kg Physical Exam Narrative: EXAM NARRATIVE: General exam no apparent distress Cardiovascular regular in rhythm without murmur Lungs clear Abdomen is soft with positive bowel sounds Extremities right fourth toe necrotic, with some surrounding erythema. Odor noted. Data : 02/29/20 02:35 02/29/20 02:35 Micro: Microbiology 02/28/20 18:06 Blood Culture - Preliminary Blood SPECIMEN COLLECTED 02/28/20 18:05 Blood Culture - Preliminary Blood SPECIMEN COLLECTED A&P Assessment and plan (1) Acute osteomyelitis of toe: No evidence of sepsis. White blood cell count is elevated. Continue vancomycin and Zosyn Status: Acute Qualifiers: Laterality: right Qualified Code(s): M86.171 - Other acute osteomyel itis, right ankle and foot (2) Diabetic ulcer of foot associated with diabetes mellitus due to underlying condition, with necrosis of bone: Surgery has been consulted. Amputation planned today. Arterial duplex has been ordered and pending. Status: Acute (3) Acute kidney injury: Likely related to Bactrim/motrin/infection Already improving Status: Acute (4) Diabetes mellitus, type II: Sliding scale insulin A1c 13.8 showing poor control New diagnosis and will need teaching, meds at discharge. Initiate Lantus at night Status: Acute Qualifiers: Diabetes mellitus senior living insulin use: without senior living use Diabetes mellitus complication status: with skin complications Diabetes mellitus complication detail: with foot ulcer Qualified Code(s): E11.621 - Type 2 diabetes mellitus with foot ulcer; L97.509 - Non-pressure chronic ulcer of other part of unspecified foot with unspecified severity (5) Hypertension: Significantly elevated. ARB being held secondary to renal injury. Start Norvasc. 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 [facility] Fwd Diagnoses Acute osteomyelitis of toe M86.171 Laterality: right Diabetic ulcer of foot associated with diabetes mellitus due to underlying condition, with necrosis of bone E08.621; L97.504 Acute kidney injury N17.9 Diabetes mellitus, type II E11.621; L97.509 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
[2020-02-29] MEDS: lidocaine 2% INJ 20 mL INJECTION (12:15)
--- NOTE | 2020-02-29 12:54 | P.OP_ITS ---
Operative Report Date of procedure: February 29, 2020 Pre-op Diagnosis: Osteomyelitis of the right fourth toe Post-op diagnosis: same Procedure Done: Ray amputation of right fourth toe Specimens removed/disposition: 1-tissues for cultures and sensitivities 2-right fourth toe to the level of the right fourth metatarsal bone 3-proximal right fourth metatarsal bone Surgeon: Francisco Bal Food Service Tray Attendant: Elmira Brown Circulating nurse Cee Anesthesia: MAC (Adrienne Cortes) Estimated blood loss (mL): 10 Complications: No immediate complication Condition: stable Disposition: floor Brief History: This is a pleasant 49 years old female patient with complicated diabetic foot infection with gangrenous changes in the form of what gangrene of the right fourth toe, patient presented to the wound care center yesterday giving a history of trauma and cellulitic changes was appreciated during clinical examination, I elected to send the patient immediately to the hospital for admission to receive parenteral antimicrobial therapy with the plan to perform amputation of the right fourth toe the following day. Informed consent per Procedure: Patient after being identified in the holding area and her right lower extremity was marked by me, and informed consent per chart ,patient was then taken back to the OR placed in supine position got IV propofol by the anesthesia provider. Time-out was done verifying the patient's name/date of /planned procedure and destination after the procedure, all were in agreement.patient was already on therapeutic antibiotics , and beta dena protocol was confirmed. prep and drape of the right lower extremity including the right foot was done under the usual sterile technique. I started by a mouth fish transverse incision,the skin incision was created at the base of the right fourth was done and extended for approximately onto the dorsal aspect of the base of the right fourth toe including infected skin that showed purulent discharge and macerated wet gangrenous tissues all the way to the bone, dissection was carried down all the way to the distal part of the right fourth metatarsal bone, soft tissues were retracted proximally using a freerer, to expose the healthy part of the mid metatarsal were a electric bone saw was applied to amputate the toe, the specimen was then passed to the circulating nurse for permanent pathology, yet I felt that there is a proximal part of the fourth metatarsal bone needed to be removed and I did that to allow soft tissue coverage of the remaining bone, a rongure was used to remove extra bone spur a bone rasp was then used to Sooth the edges of the amputated bone, hemostasis was achieved followed by Pulsavac using 3 L of irrigation, 3-0 PDS were used to cover the bone with the surrounding soft tissues, followed by mass closure using figure of 2-0 nylon sutures sparing as space enough to pack the wound with half inch iodophor gauze. That was followed by ABD ,Kerlix and Errol wrap. Specimens: 1-tissues for cultures and sensitivities 2-right fourth toe to the level of the right fourth metatarsal bone 3-proximal right fourth metatarsal bone Count was completed at the end of the procedure I was present for the whole entire procedure Patient was then taken to the recovery in stable condition
--- NOTE | 2020-02-29 13:21 | PC.NURSE ---
Patient returned from surgery at this time
--- NOTE | 2020-02-29 15:37 | PC.RESP ---
Smoking Cessation information and a schedule of classes sent to patient.
[2020-02-29 17:04] LABS: Glucose Point of Care 239 mg/dL (70-110)
[2020-02-29] MEDS: heparin 5,000 unit/mL INJ 1 mL 5000 UNIT SUBCUT (18:17)
[2020-02-29] MEDS: docusate sodium 100 mg Capsule PO (18:22)
[2020-02-29 21:12] LABS: Glucose Point of Care 203 mg/dL (70-110)
[2020-02-29] MEDS: insulin glargine 100 units/1 mL 10 UNIT SUBCUT (22:25)
[2020-03-01] MEDS: vancomycin 1,000 MG in sodium chloride 0.9% 250 ML 250 MG IV (00:48)
[2020-03-01] MEDS: sodium chlor 0.9% + KCl 20 mEq 20 MEQ/1,000 ML BAG 100 MEQ IV (02:22)
[2020-03-01] MEDS: piperacillin-tazobactam 3.375 GM in sodium chloride 0.9% (plus) 50 ML IV ×2 (02:23→10:34)
[2020-03-01 02:27] VITALS: RESP 18; O2SAT 95
[2020-03-01] MEDS: HYDROmorphone 1 mg/mL INJ 1 mL 0.25 MG IVP ×2 (02:27→07:48)
[2020-03-01 04:00] VITALS: BP 160/81; PULSE 74; RESP 13; TEMP 36.5; O2SAT 97
[2020-03-01 04:07] LABS: Basophils # 0.1 10^3/uL (0.0-0.1); Basophils % 0.4 %; Eosinophils # 0.2 10^3/uL (0.0-0.8); Eosinophils % 1.3 %; Hematocrit 35.6 % (37.0-47.0); Hemoglobin 11.2 g/dL (11.5-15.3); Lymphocytes # 2.7 10^3/uL (0.8-4.8); Lymphocytes % 21.5 %; Mean Corpuscular HGB Conc 31.5 g/dL (30.0-36.0); Mean Corpuscular Hemoglobin 28.1 pg (28.0-34.0); Mean Corpuscular Volume 89.2 fL (81-99); Mean Platelet Volume 10.2 fL (7.4-10.4); Monocytes # 0.9 10^3/uL (0.2-0.9); Monocytes % 7.2 %; Neutrophils # 8.59 10^3/uL (1.8-7.7); Neutrophils % 69.3 %; Nucleated Red Blood Cells % 0 %; Platelet Count 361 10^3/cmm (130-400); Red Blood Count 3.99 10^6/uL (4.1-5.3); Red Cell Distribution Width 12.8 % (12.1-15.1); White Blood Count 12.4 10^3/uL (4.0-10.0)
[2020-03-01 04:36] LABS: Anion Gap 12.5 (5-19); Blood Urea Nitrogen 17 mg/dL (6-20); Carbon Dioxide 22 mmol/L (22-29); Chloride 105 mmol/L (98-107); Glomerular Filtration Rate 59.2 mL/min (90-130); Glucose 163 mg/dL (65-115); Osmolality Calculated 280 mOsm/kg (285-295); Potassium 4.5 mmol/L (3.5-5.1); Sodium 135 mmol/L (136-145)
[2020-03-01] MEDS: heparin 5,000 unit/mL INJ 1 mL 5000 UNIT SUBCUT (05:36)
[2020-03-01] MEDS: TRAMadol 50 mg Tablet PO (05:39)
--- NOTE | 2020-03-01 06:18 | PM.PN ---
Subjective Subjective: Interval history: Patient overall feels better No acute events overnight Undergone an arterial duplex that showed: CONCLUSIONS 1. Abnormal resting ABIs bilaterally, consistent with mild peripheral artery disease 2. Mild to moderate diffuse plaques in the iliac and femoral arteries bilaterally Vitals/I&O/Wt Last Vital Signs Temp 97.7 F 03/01/20 04:00 Pulse 74 03/01/20 04:00 Resp 13 03/01/20 04:00 BP 160/81 03/01/20 04:00 Pulse Ox 97 03/01/20 04:00 02/29/20 02/29/20 03/01/20 14:59 22:59 06:59 Intake Total 1428.75 / 1428.75 50 / 1478.75 1000 / 2478.75 Output Total 1250 / 1260 Balance 1418.75 / 1418.75 -1200 / 218.75 1000 / 1218.75 Weight last 48 hrs Weight 180 lb Physical Exam Narrative: EXAM NARRATIVE: Patient is conscious alert oriented X3 BMI Head and neck examination PERRLA no masses no cervical lymphadenopathy no jaundice Right foot wound is clean and intact without surrounding cellulitis or drainage and sutures in place and no crepitus Capillary refill less than 3 seconds Dressing was done bedside by me the form of repacking of the wound with half-inch iodoform followed by ABDs Kerlix and Errol wrap. Data : 03/01/20 03:40 03/01/20 03:40 Micro: Microbiology 02/28/20 18:05 Blood Culture - Preliminary Blood NEGATIVE TO DATE 02/28/20 18:06 Blood Culture - Preliminary Blood NEGATIVE TO DATE 02/29/20 12:20 Gram Stain - Final Toe - #3 A&P Assessment and plan (1) Gangrenous toe: Condition resolved Per cardiology no intervention required at this point Open wound will require packing on daily basis at least once a day using half inch iodophor followed by ABD Kerlix and Errol wrap Non-weightbearing right forefoot Diabetes management and education Cessation of smoking Follow nutritious diet with particular focus on protein to help the healing process Will defer to hospitalist service for cultures and sensitivities narrow the patient's antimicrobial therapy upon discharge Return to wound care center upon discharge Assurance and education All questions have been answered and all concerns have been addressed to patient's satisfaction. Status: Resolved Attestations Medical Necessity Statement*: Per hospital service Time Spent in Patient Care: 16 - 35 minutes (>than 50% of time spent in counselling and/or direct pt care on unit). 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
[2020-03-01 06:36] LABS: Glucose Point of Care 134 mg/dL (70-110)
[2020-03-01 07:48] VITALS: RESP 16
[2020-03-01 08:00] VITALS: BP 185/97; PULSE 76; RESP 20; TEMP 36.9; O2SAT 96
--- NOTE | 2020-03-01 09:41 | P.DS_ITS ---
Discharge Providers Date of Admission: 02/28/20 18:46 Date of Discharge: March 01, 2020 Attending Provider at Admission: Mayda Galicia MD Attending Provider at Discharge: Alexis Brown MD Primary Care Provider: ROSMERY Goetz Diagnoses at Discharge Discharge Diagnosis (1) Gangrenous toe: Status: Resolved Problem details: Status post amputation Reason for Visit Reason for Visit: wound check Hospital Course Hospital Course: Adrianne is a 49-year-old white female who presents with a gangrenous right fourth toe. White blood cell count was elevated but she did not appear septic. Surgery was consulted, and took the patient to the OR on February 28 to a right fourth toe amputation at the level of the right fourth metatarsal bone. The following day the patient was doing well it was thought she could be discharged home. While in the hospital her GAIL inhibitor was held secondary to elevated creatinine. She was initiated on Norvasc. New diagnosis of diabetes was noted and a consistent carb diet started. Long-acting insulin Lantus was initiated. On discharge she will continue on Lantus, as well as metformin. GAIL inhibitor was changed to Norvasc for her hypertension. 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 She will follow-up with wound care next week. She will follow-up with her primary care provider in 3 to 5 days. She will need a BMP on follow- up. Blood cultures were negative at time of discharge and culture results pending. Arterial studies were done while patient was in the hospital, which d emonstrated mild to moderate peripheral vascular disease. Aspirin will be initiated. Statin will be initiated. Physical Exam Narrative: EXAM NARRATIVE: General exam no apparent distress Cardiovascular regular rate and rhythm without murmur Lungs clear Abdomen is soft and positive bowel sounds Extremities no cyanosis clubbing or edema, bandage in place right foot Discharge Data Data Completed and Pending: Completed Studies During Hospitalization Category Date Time Status CT foot RT w con [id number] Stat Cat Scan 02/29/20 05:43 [place] [id number] Rout ine Ultrasound 02/29/20 05:38 Completed Pending at discharge Category Date Time Status Blood Culture Sta t Lab 02/28/20 18:06 Results Tissue Culture an d Gram Stain Routi ne Lab 02/29/20 12:20 Results Vancomycin Trough Timed Lab 03/02/20 23:00 Ordered Pathology: Surgic al [PTH] Routine Pth 02/29/20 13:09 Ordered Labs from last 24 hours 03/01/20 03/01/20 03/01/20 06:22 03:40 03:40 WBC 12.4 H RBC 3.99 L Hgb 11.2 L Hct 35.6 L MCV 89.2 MCH 28.1 MCHC 31.5 RDW 12.8 Plt Count 361 MPV 10.2 Neut % (Auto) 69.3 Lymph % (Auto) 21.5 [place] % (Auto) 7.2 Eos % (Auto) 1.3 Baso % (Auto) 0.4 Neut # (Auto) 8.59 H Lymph # (Auto) 2.7 [place] # (Auto) 0.9 Eos # (Auto) 0.2 Baso # (Auto) 0.1 Nucleated RBC % (a uto) 0 Nucleated RBCs # 0.0 Sodium 135 L Potassium 4.5 Chloride 105 Carbon Dioxide 22 Anion Gap 12.5 BUN 17 Creatinine 1.0 H GFR Calculation 59.2 L Glucose 163 H POC Glucose 134 Calculated Osmolal ity 280 L Calcium 9.0 02/29/20 02/29/20 02/29/20 21:01 16:51 10:53 WBC RBC Hgb Hct MCV MCH MCHC RDW Plt Count MPV Neut % (Auto) Lymph % (Auto) [place] % (Auto) Eos % (Auto) Baso % (Auto) Neut # (Auto) Lymph # (Auto) [facility] # (Auto) Eos # (Auto) Baso # (Auto) Nucleated RBC % (a uto) Nucleated RBCs # Sodium Potassium Chloride Carbon Dioxide Anion Gap BUN Creatinine GFR Calculation Glucose POC Glucose 203 239 241 Calculated Osmolal ity Calcium Vitals: Last Vital Signs Temp 98.5 F 03/01/20 08:00 Pulse 76 03/01/20 08:00 Resp 20 H 03/01/20 08:00 BP 185/97 03/01/20 08:00 Pulse Ox 96 03/01/20 08:00 Discharge Plan Discharge Patient Disposition: Home, Self-Care Condition: Stable Prescriptions: New hydrocodone-acetaminophen 5-325 mg tablet 1 tab PO Q6H PRN (Reason: pain) Qty: 20 RF: 0 metformin 500 mg tablet 500 mg PO BID Qty: 60 RF: 0 sulfamethoxazole-trimethoprim [Bactrim DS] 800-160 mg tablet 1 tab PO BID Qty: 14 RF: 0 atorvastatin [Lipitor] 20 mg tablet 20 mg PO DAILY Qty: 30 RF: 0 amlodipine [Norvasc] 10 mg tablet 10 mg PO DAILY Qty: 30 RF: 0 Lantus Solostar U-100 Insulin 100 unit/mL (3 mL) insulin pen 10 unit SUBCUT DAILY Qty: 15 RF: 0 aspirin [Adult Aspirin Regimen] 81 mg tablet,delayed release (DR/EC) 81 mg PO DAILY Qty: 30 RF: 0 Discontinued ibuprofen 200 mg Tablet 200 mg PO Q6H PRN (Reason: Pain) RF: 0 sulfamethoxazole-trimethoprim [Bactrim DS] 800-160 mg tablet 1 tab PO BID 14 Days Qty: 28 RF: 0 Benicar 20 mg Tablet 20 mg PO DAILY RF: 0 Discharge Orders: Discharge Order (Routine); Ordered 03/01/20 Ordered By: Alexis Brown Referrals: Francisco Bal MD [Physician] - 7-10 days Jhoana Hennessy FNP-C [Primary Care Provider] - 4-7 days Discharge Diet: Diabetic Discharge Activity: Increase activity as tolerated and Limit activity as instructed Activity Restrictions/Additional Instructions: Weightbearing limitations as per surgery as well as packing instructions regarding wound.. Patient to receive packing daily. She will need to get a glucose monitor with test strips and lancets [id number] for monitoring blood sugars every morning before breakfast and every night before bed and bring to her primary care provider for further adjustment of insulin products Return for any worsening, fever, increased erythema at surgical site.. 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
[2020-03-01] MEDS: amlodipine 5 mg Tablet PO (10:15)
[2020-03-01] MEDS: docusate sodium 100 mg Capsule PO (10:15)
[2020-03-01 12:46] VITALS: BP 185/97; PULSE 76; RESP 20; TEMP 36.9; O2SAT 96
--- NOTE | 2020-03-01 12:47 | PC.NURSE ---
Patient discharged by Radha SALGUERO . Patient was taken to her to private car by this health science writer and assisted into her private car. IV was removed prior to discharge.
== END 2020-03-01 12:40 | disposition home or self-care (01) | DRG 256 ==
LOC: ER 18:59 → MEDSURG 19:37
PROVIDERS: Emergency Medicine; Surgery; Admitting Provider Hospitalist; PCP Nurse Practitioner; Visit Provider Internal Medicine
PROC: 0Y6V0Z0 Detachment at Right 4th Toe, Complete, Open Approach (ICD-10-PCS; principal; 2020-02-29 10:45)
DX: E11.52 Type 2 diabetes mellitus with diabetic peripheral angiopathy with gangrene (principal); I96 Gangrene, not elsewhere classified; N17.9 Acute kidney failure, unspecified; M86.8X8 Other osteomyelitis, other site; Z79.84 Long term (current) use of oral hypoglycemic drugs; I10 Essential (primary) hypertension; F17.210 Nicotine dependence, cigarettes, uncomplicated; E11.621 Type 2 diabetes mellitus with foot ulcer; L97.514 Non-pressure chronic ulcer 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; E11.69 Type 2 diabetes mellitus with other specified complication
CPT/HCPCS: 12345; 36415; 36416; 73701; 80048; 80053; 80202; 82962; 83036; 85025; 85610; 85730; 87040; 87070; 87077; 87176; 87186; 87205; 88304; 88305; 93005; 93925; 96365; 96372; 96374; 96375; 97161; 99283; J1170; J1644; J1815; J2001; J2405; J2543; J2704; J3010; J3370; J7030; J7050; L3260; Q9967

== ENCOUNTER → 2020-03-07 13:15 | Outpatient (BNVA) | payer SELFPAY | PROVIDERS: PCP Nurse Practitioner Family; Visit Provider Nurse Practitioner Family | DX: E11.621 Type 2 diabetes mellitus with foot ulcer (principal); L97.509 Non-pressure chronic ulcer of other part of unspecified foot with unspecified severity; I10 Essential (primary) hypertension; F17.210 Nicotine dependence, cigarettes, uncomplicated; L97.504 Non-pressure chronic ulcer of other part of unspecified foot with necrosis of bone | CPT/HCPCS: 80053; 85025 ==

== ENCOUNTER 2020-03-09 09:03 | Outpatient (CLI) | payer SELFPAY | END 2020-03-09 09:04 | disposition home or self-care (01) | LOC: WOUND 09:04 | PROVIDERS: PCP Nurse Practitioner Family; Visit Provider Surgery | DX: T81.89XA Other complications of procedures, not elsewhere classified, initial encounter (principal); Z89.421 Acquired absence of other right toe(s) | CPT/HCPCS: 11043 ==

== ENCOUNTER 2020-03-16 09:08 | Outpatient (CLI) | payer SELFPAY | END 2020-03-16 09:09 | disposition home or self-care (01) | LOC: WOUND 09:10 | PROVIDERS: PCP Nurse Practitioner Family; Visit Provider Surgery | DX: T81.89XA Other complications of procedures, not elsewhere classified, initial encounter (principal); E11.622 Type 2 diabetes mellitus with other skin ulcer; L97.812 Non-pressure chronic ulcer of other part of right lower leg with fat layer exposed | CPT/HCPCS: 11042; 11043 ==

== ENCOUNTER 2020-03-23 08:48 | Outpatient (CLI) | payer SELFPAY | END 2020-03-23 08:49 | disposition home or self-care (01) | LOC: WOUND 08:49 | PROVIDERS: PCP Nurse Practitioner Family; Visit Provider Surgery | DX: T81.89XA Other complications of procedures, not elsewhere classified, initial encounter (principal); E11.622 Type 2 diabetes mellitus with other skin ulcer; L97.812 Non-pressure chronic ulcer of other part of right lower leg with fat layer exposed | CPT/HCPCS: 11042; 11043 ==

== ENCOUNTER → 2020-03-26 10:55 | Outpatient (BNVA) | payer MEDICAID, SELFPAY | PROVIDERS: PCP Nurse Practitioner Family; Visit Provider Nurse Practitioner Family | DX: E08.621 Diabetes mellitus due to underlying condition with foot ulcer (principal); L97.504 Non-pressure chronic ulcer of other part of unspecified foot with necrosis of bone; I10 Essential (primary) hypertension | CPT/HCPCS: 80048; 85025 ==

== ENCOUNTER 2020-03-30 08:47 | Outpatient (CLI) | payer MEDICAID, SELFPAY | END 2020-03-30 08:48 | disposition home or self-care (01) | LOC: WOUND 08:47 | PROVIDERS: PCP Nurse Practitioner Family; Visit Provider Thoracic Surgery (Cardiothoracic Vascular Surgery) | DX: E11.621 Type 2 diabetes mellitus with foot ulcer (principal); L97.512 Non-pressure chronic ulcer of other part of right foot with fat layer exposed; E11.622 Type 2 diabetes mellitus with other skin ulcer; L97.812 Non-pressure chronic ulcer of other part of right lower leg with fat layer exposed; Z89.421 Acquired absence of other right toe(s) | CPT/HCPCS: 11043 ==

== ENCOUNTER 2020-04-06 08:42 | Outpatient (CLI) | payer MEDICAID, SELFPAY | END 2020-04-06 08:43 | disposition home or self-care (01) | LOC: WOUND 08:42 | PROVIDERS: PCP Nurse Practitioner Family; Visit Provider Surgery | DX: E11.621 Type 2 diabetes mellitus with foot ulcer (principal); L97.515 Non-pressure chronic ulcer of other part of right foot with muscle involvement without evidence of necrosis; E11.622 Type 2 diabetes mellitus with other skin ulcer; L97.812 Non-pressure chronic ulcer of other part of right lower leg with fat layer exposed; Z89.421 Acquired absence of other right toe(s) | CPT/HCPCS: 11042; 11043 ==

== ENCOUNTER 2020-04-13 09:04 | Outpatient (CLI) | payer MEDICAID, SELFPAY | END 2020-04-13 09:05 | disposition home or self-care (01) | LOC: WOUND 09:05 | PROVIDERS: PCP Nurse Practitioner Family; Visit Provider Surgery | DX: E11.621 Type 2 diabetes mellitus with foot ulcer (principal); L97.515 Non-pressure chronic ulcer of other part of right foot with muscle involvement without evidence of necrosis; Z89.421 Acquired absence of other right toe(s); E11.622 Type 2 diabetes mellitus with other skin ulcer; L97.812 Non-pressure chronic ulcer of other part of right lower leg with fat layer exposed | CPT/HCPCS: 11043 ==

== ENCOUNTER 2020-04-16 10:13 | Outpatient (CLI) | payer MEDICAID, SELFPAY | END 2020-04-16 10:14 | disposition home or self-care (01) | LOC: WOUND 10:13 | PROVIDERS: PCP Nurse Practitioner Family; Visit Provider Emergency Medicine | DX: E11.621 Type 2 diabetes mellitus with foot ulcer (principal); L97.512 Non-pressure chronic ulcer of other part of right foot with fat layer exposed; E11.622 Type 2 diabetes mellitus with other skin ulcer; L97.812 Non-pressure chronic ulcer of other part of right lower leg with fat layer exposed; Z89.421 Acquired absence of other right toe(s) | CPT/HCPCS: G0463 ==

== ENCOUNTER 2020-04-16 12:43 | Inpatient (IN) | payer MEDICAID, SELFPAY ==
[2020-04-16] VITALS (9 sets, daily range): BP systolic 100–172; BP diastolic 67–91; PULSE 71–94; RESP 14–20; TEMP 36.6–37.3; O2SAT 95–98; BMI 31.6
--- NOTE | 2020-04-16 13:03 | XRR_ITS ---
PROCEDURE INFORMATION: Exam: XR Right Foot Complete Exam date and time: 04/16/2020 1:14 PM Age: 50 years old Clinical indication: Condition or disease; Other: Foot ulcer; Patient HX: Ulcers on right foot, PT diabetic TECHNIQUE: Imaging protocol: XR Right foot. Views: 3 or more views. COMPARISON: CT foot RT w con [id number] 02/29/2020 5:43 AM FINDINGS: Bones/joints: Status post 4th toe transmetatarsal amputation. No obvious bony destruction to indicate acute osteomyelitis. Soft tissues: Apparent soft tissue wound or ulceration between the 3rd and 5th toes. XR/XR foot RT min 3V* [id number] IMPRESSION: Status post 4th toe transmetatarsal amputation. No obvious bony destruction to indicate acute osteomyelitis. Apparent soft tissue wound or ulceration between the 3rd and 5th toes.
--- NOTE | 2020-04-16 13:06 | ED_ITS ---
HPI - Skin/Abscess/Foreign Bdy General: Chief complaint: Skin/Abscess/Foreign Body Stated complaint: RIGHT FOOT PAIN Time Seen by Provider: 04/16/20 12:44 History of Present Illness: HPI narrative: 50 yo female presents emergency room with complaint of infection in her right foot she previously had a fourth toe amputation about 6 weeks ago there is a open wound on the dorsum of her foot that is packed as well as on the lateral aspect of her lower leg these were all dressed. She did have some osteomyelitis she has been off of antibiotics for the last 3 weeks. Her blood sugars have been fairly well controlled till this morning she had a blood sugar of 225 she denies any fever at home there is not really been any drainage the wounds have been open. She is concerned it may be infected and it is noted the left fifth toe is significantly discolored. complaint: abscess/boil Onset (ago): week(s) Location: R foot Severity: moderate Quality: sharp Pain Consistency: constant Relieving factors: none Exacerbating factors: none Context: none Associated symptoms: Reports arthralgias, chills and nausea Treatments prior to arrival: bandages and other (wound care clinic) Review of Systems Const: Reports: chills ENMT: Denies: throat pain, ear or mastoid pain, nasal discharge or nasal congestion Card: Denies: chest pain, edema, dyspnea on exertion or orthopnea Resp: Denies: dyspnea, productive cough or non-productive cough GI: Reports: nausea : Denies: flank pain, difficulty voiding, dysuria, urinary frequency or urinary urgency Skin/Breast: Denies: rash or pruritus PFSH ED PFSH: Medical History Diabetes mellitus, type II Gangrenous toe Status post amputation History of gestational diabetes Hypertension Surgical History History of 2 sections History of carpal tunnel repair bilateral Family History Other Diabetes Hypertension Lung disease Denies family history of CAD (coronary artery disease) Chronic kidney disease (CKD) Anesthesia complication Social History Smoking and tobacco status: current every day smoker cigarettes Packs smoked per day: 1 Years cigarettes smoked: 34 Second hand smoke exposure: Yes Alcohol intake: never Household members: spouse, family and children Current occupational status: employed Current occupation: [employer] History of recent travel: No Current gender identity: Female Physical Exam Const: COMMON NORMALS: no acute distress GENERAL APPEARANCE: cooperative and comfortable ORIENTATION/CONSCIOUSNESS: Yes awake, Yes oriented to person, Yes oriented to place and Yes oriented to time HENMT: COMMON NORMALS: normocephalic, atraumatic and hearing grossly normal bilaterally HEAD & SCALP: normocephalic and atraumatic Eye: COMMON NORMALS: Equal, round and reactive pupils present, EOMs intact bilaterally, conjunctivae normal and no scleral icterus CONJUNCTIVA: Yes conjunctivae normal PUPIL: Yes Equal, round and reactive pupils present Neck/C-Spine: COMMON NORMALS: full ROM, no lymphadenopathy, supple and no JVD Lymph: LYMPHATIC: no lymphadenopathy noted and no lymphedema noted Resp: COMMON NORMALS: normal respiratory effort, No retractions, No use of accessory muscles and clear to auscultation bilaterally AUSCULTATION: clear to auscultation bilaterally Cardio: COMMON NORMALS: no JVD, regular rate, regular rhythm and No murmurs present (Cardio) RATE: regular rate RHYTHM: regular rhythm GI: COMMON NORMALS: Soft to palpation and No hepatosplenomegaly present AUSCULTATION: Yes normoactive bowel sounds PALPATION: Yes Soft to palpation, No Tenderness to palpation present (GI), No Guarding due to palpation present (GI) and Yes No hepatosplenomegaly present Extremity: OTHER: Wound has a clean base with some mucousy eschar in place granulation tissue at the edges. There is dry black eschar on the wound on the lateral aspect of the leg no popliteal lymphadenopathy. The right fifth toe appears gangrenous is discolored dark across the entire toe. Neuro: SENSORIUM/ORIENTATION: Yes oriented to person, Yes oriented to place and Yes oriented to time Skin: COMMON NORMALS: no rashes or lesions noted GENERAL SKIN EXAM: no rashes or lesions noted Course Vital Signs: Vital signs: Vital Signs Temperature 98.2 F 04/17/20 04:00 Pulse Rate 69 04/17/20 04:00 Respiratory Rate 20 H 04/17/20 04:00 Blood Pressure 107/69 04/17/20 04:00 Pulse Oximetry 97 08/25/20 04:00 MDM - Skin/Abscess/Foreign Bdy MDM Narrative: Medical decision making narrative: CT shows osteomyelitis of the fifth digit. Patient been started on vancomycin will admit consult podiatry Lab Data: Labs: Lab Results 04/16/20 04/16/20 04/16/20 Range/Units 13:19 13:19 13:19 WBC 16.0 H (4.0-10.0) 10^3/ uL RBC 4.30 (4.1-5.3) 10^6/u L Hgb 12.0 (11.5-15.3) g/dL Hct 37.5 (37.0-47.0) % MCV 87.2 (81-99) fL MCH 27.9 L (28.0-34.0) pg MCHC 32.0 (30.0-36.0) g/dL RDW 13.8 (12.1-15.1) % Plt Count 458 H (130-400) 10^3/c mm MPV 9.5 (7.4-10.4) fL Neut % (Auto) 74.8 % Lymph % (Auto) 17.7 % [place] % (Auto) 5.6 % Eos % (Auto) 1.1 % Baso % (Auto) 0.4 % Neut # (Auto) 11.92 H (1.8-7.7) 10^3/u L Lymph # (Auto) 2.8 (0.8-4.8) 10^3/u L [place] # (Auto) 0.9 (0.2-0.9) 10^3/u L Eos # (Auto) 0.2 (0.0-0.8) 10^3/u L Baso # (Auto) 0.1 (0.0-0.1) 10^3/u L Nucleated RBC % (a uto) 0 % Nucleated RBCs # 0.0 /100WBC ESR (0-15) mm/hr Sodium 132 L (136-145) mmol/L Potassium 4.1 (3.5-5.1) mmol/L Chloride 96 L (98-107) mmol/L Carbon Dioxide 24 (22-29) mmol/L Anion Gap 16.1 (5-19) BUN 11 (6-20) mg/dL Creatinine 0.9 (0.5-0.9) mg/dL GFR Calculation 66.5 L (90-130) mL/min Glucose 200 H (65-115) mg/dL Calculated Osmolal ity 276 L (285-295) mOsm/k g Lactic Acid 2.6 H (0.5-2.2) mmol/L Calcium 9.8 (8.5-10.5) mg/dL Total Bilirubin 0.4 (0.15-1.2) mg/dL AST 16 (0-32) U/L ALT 21 (0-33) U/L Alkaline Phosphata se 104 (35-105) IU/L C-Reactive Protein (0.0-4.9) mg/L Total Protein 8.5 (6.6-8.7) g/dL Albumin 3.8 (3.5-5.2) g/dL Globulin 4.7 H (1.3-4.6) g/dL Procalcitonin (0-0.5) ng/mL TSH (0.27-4.20) uIU/ mL 04/16/20 04/16/20 04/16/20 Range/Units 13:19 13:19 13:19 WBC (4.0-10.0) 10^3/ uL RBC (4.1-5.3) 10^6/u L Hgb (11.5-15.3) g/dL Hct (37.0-47.0) % MCV (81-99) fL MCH (28.0-34.0) pg MCHC (30.0-36.0) g/dL RDW (12.1-15.1) % Plt Count (130-400) 10^3/c mm MPV (7.4-10.4) fL Neut % (Auto) % Lymph % (Auto) % [place] % (Auto) % Eos % (Auto) % Baso % (Auto) % Neut # (Auto) (1.8-7.7) 10^3/u L Lymph # (Auto) (0.8-4.8) 10^3/u L [place] # (Auto) (0.2-0.9) 10^3/u L Eos # (Auto) (0.0-0.8) 10^3/u L Baso # (Auto) (0.0-0.1) 10^3/u L Nucleated RBC % (a uto) % Nucleated RBCs # /100WBC ESR 56 H (0-15) mm/hr Sodium (136-145) mmol/L Potassium (3.5-5.1) mmol/L Chloride (98-107) mmol/L Carbon Dioxide (22-29) mmol/L Anion Gap (5-19) BUN (6-20) mg/dL Creatinine (0.5-0.9) mg/dL GFR Calculation (90-130) mL/min Glucose (65-115) mg/dL Calculated Osmolal ity (285-295) mOsm/k g Lactic Acid (0.5-2.2) mmol/L Calcium (8.5-10.5) mg/dL Total Bilirubin (0.15-1.2) mg/dL AST (0-32) U/L ALT (0-33) U/L Alkaline Phosphata se (35-105) IU/L C-Reactive Protein 102.2 H (0.0-4.9) mg/L Total Protein (6.6-8.7) g/dL Albumin (3.5-5.2) g/dL Globulin (1.3-4.6) g/dL Procalcitonin (0-0.5) ng/mL TSH 1.24 (0.27-4.20) uIU/ mL 04/16/20 Range/Units 13:19 WBC (4.0-10.0) 10^3/ uL RBC (4.1-5.3) 10^6/u L Hgb (11.5-15.3) g/dL Hct (37.0-47.0) % MCV (81-99) fL MCH (28.0-34.0) pg MCHC (30.0-36.0) g/dL RDW (12.1-15.1) % Plt Count (130-400) 10^3/c mm MPV (7.4-10.4) fL Neut % (Auto) % Lymph % (Auto) % [place] % (Auto) % Eos % (Auto) % Baso % (Auto) % Neut # (Auto) (1.8-7.7) 10^3/u L Lymph # (Auto) (0.8-4.8) 10^3/u L [place] # (Auto) (0.2-0.9) 10^3/u L Eos # (Auto) (0.0-0.8) 10^3/u L Baso # (Auto) (0.0-0.1) 10^3/u L Nucleated RBC % (a uto) % Nucleated RBCs # /100WBC ESR (0-15) mm/hr Sodium (136-145) mmol/L Potassium (3.5-5.1) mmol/L Chloride (98-107) mmol/L Carbon Dioxide (22-29) mmol/L Anion Gap (5-19) BUN (6-20) mg/dL Creatinine (0.5-0.9) mg/dL GFR Calculation (90-130) mL/min Glucose (65-115) mg/dL Calculated Osmolal ity (285-295) mOsm/k g Lactic Acid (0.5-2.2) mmol/L Calcium (8.5-10.5) mg/dL Total Bilirubin (0.15-1.2) mg/dL AST (0-32) U/L ALT (0-33) U/L Alkaline Phosphata se (35-105) IU/L C-Reactive Protein (0.0-4.9) mg/L Total Protein (6.6-8.7) g/dL Albumin (3.5-5.2) g/dL Globulin (1.3-4.6) g/dL Procalcitonin 0.05 (0-0.5) ng/mL TSH (0.27-4.20) uIU/ mL Discharge Plan Discharge Patient Disposition: Admitted As Inpatient Admit Provider: Jose Alfredo Smith Clinical Impression: Osteomyelitis Condition: Stable Discharge Diet: Advance as tolerated Discharge Activity: Increase activity as tolerated Interventions: ED Discharge Assessment Last Done: 04/16/20 17:09 ED Charges Last Done: 04/16/20 17:09 Discharge Date/Time: 04/16/20 17:19 Coding Level of Care Code ED Orthodontic Band Maker for Petrag Fwd Exam Comprehensive
[2020-04-16] MEDS: HYDROmorphone 1 mg/mL INJ 1 mL 0.5 MG IVP (13:22)
[2020-04-16 13:25] LABS: Basophils # 0.1 10^3/uL (0.0-0.1); Basophils % 0.4 %; Eosinophils # 0.2 10^3/uL (0.0-0.8); Eosinophils % 1.1 %; Hematocrit 37.5 % (37.0-47.0); Lymphocytes # 2.8 10^3/uL (0.8-4.8); Lymphocytes % 17.7 %; Mean Corpuscular Hemoglobin 27.9 pg (28.0-34.0); Mean Corpuscular Volume 87.2 fL (81-99); Mean Platelet Volume 9.5 fL (7.4-10.4); Monocytes # 0.9 10^3/uL (0.2-0.9); Monocytes % 5.6 %; Neutrophils # 11.92 10^3/uL (1.8-7.7); Neutrophils % 74.8 %; Nucleated Red Blood Cells % 0 %; Platelet Count 458 10^3/cmm (130-400); Red Cell Distribution Width 13.8 % (12.1-15.1)
--- NOTE | 2020-04-16 13:39 | CT_ITS ---
WS: [id number] Contrast-enhanced CT right foot TECHNIQUE: Contrast-enhanced with coronal and sagittal reformatted images. CLINICAL INFORMATION: abscess/ s/p amputation COMPARISON: CT February 29, 2020 DLP: 195.[address] scans at [facility] use at least one of these dose optimization techniques: automat ed exposure control; mA and/or kV adjustment per patient size (includes targeted exams where dose is matched to clinical indication); or iterative reconstruction. FINDINGS: Postoperative changes amputation of the fourth digits and metatarsal at the mid metatarsal shaft. Lar ge soft tissue defect with surrounding inflammatory stranding and edema. Small fluid collection or ab scess measuring 6 x 7 mm just deep to the soft tissue defect at the level of the fourth metatarsal am putation. Evidence of suspected osteomyelitis involving the base of the fifth proximal phalanx and he ad of the fifth metatarsal. Normal ankle mortise. Achilles enthesophyte. Small plantar calcaneal spur. CT/CT foot RT w con [id number] IMPRESSION: 1. Postoperative changes with a wide soft tissue defect at the mid fourth meta tarsal. 2. Small amount of fluid/abscess measuring 6 x 7 mm just deep to the soft tiss ue defect. Surrounding soft tissue induration and edema. 3. Suspected osteomyelitis involving the base of the fifth proximal phalanx an d head of the fifth metatarsal. Notified Abdelrahman Brown DO at 04/16/2020 2:47 PM.
[2020-04-16 13:43] LABS: Alanine Aminotransferase 21 U/L (0-33); Albumin Level 3.8 g/dL (3.5-5.2); Alkaline Phosphatase 104 IU/L (35-105); Anion Gap 16.1 (5-19); Aspartate Amino Transferase 16 U/L (0-32); Blood Urea Nitrogen 11 mg/dL (6-20); Calcium 9.8 mg/dL (8.5-10.5); Carbon Dioxide 24 mmol/L (22-29); Chloride 96 mmol/L (98-107); Globulin 4.7 g/dL (1.3-4.6); Glomerular Filtration Rate 66.5 mL/min (90-130); Glucose 200 mg/dL (65-115); Osmolality Calculated 276 mOsm/kg (285-295); Potassium 4.1 mmol/L (3.5-5.1); Sodium 132 mmol/L (136-145); Total Bilirubin 0.4 mg/dL (0.15-1.2); Total Protein 8.5 g/dL (6.6-8.7)
[2020-04-16 13:45] LABS: Lactic Sepsis W/Reflex 2.6 mmol/L (0.5-2.2)
[2020-04-16 14:03] LABS: C Reactive Protein 102.2 mg/L (0.0-4.9)
[2020-04-16] MEDS: iohexol 300 mg/mL 100 mL Btl IV (14:24)
[2020-04-16] MEDS: vancomycin 1,000 MG in sodium chloride 0.9% 250 ML 250 MG IV (14:33)
[2020-04-16 15:09] LABS: Reflex Lactate Order REFLEX LACTIC ORDERD
[2020-04-16] MEDS: HYDROcodone-acetaminophen 5-325 mg Tablet 2 TAB PO (15:36)
--- NOTE | 2020-04-16 16:46 | PM.HP ---
Providers/Chief Complaint Primary Care Provider: CLIFF Bellamy Chief Complaint: RIGHT FOOT PAIN History of Present Illness Adrianne Carranza is a 50 year old female with a past medical history of poorly controlled type 2 diabetes mellitus, last hemoglobin A1c 13.8, history of peripheral arterial disease, hypertension, hyperlipidemia, recent history of gangrenous toe right fourth fourth digit, status post amputation at the level of the fourth metatarsal bone by Dr. Bal. Patient is managed through wound care, was actually seen by Dr. Bal on Thursday, for the fourth metatarsal amputation site, received local debridement, according to patient and Dr. Bal area has been healing well, but there is been concern for poor blood flow and delayed healing given her her peripheral arterial disease. Patient states that over the weekend, particularly on Thursday, she noticed that the fifth digit on that foot started to look more kieran, this morning looked black, and the metatarsal amputation site had a more foul smell to it. No fevers, no chills, no nausea, no vomiting, no lightheadedness, dizziness. No significant cardiac history. No significant lung disease. But does have a over [id number] history of smoking. Currently has quit smoking, using a nicotine patch. Review of Systems Const: Denies: fever(s), chills, fatigue or malaise Eyes: Denies: change in vision or blurry vision ENMT: Denies: nasal congestion Resp: Denies: dyspnea, productive cough, non-productive cough or wheezing GI: Denies: abdominal pain, nausea, vomiting, hematemesis, diarrhea, constipation, hematochezia or melena : Denies: flank pain, dysuria or urinary frequency Musc: Denies: neck pain or back pain Skin/Breast: Denies: rash Neuro: Denies: headache(s), dizziness or vertigo Psych: Denies: anxiety or depression Endo: Denies: polyuria or polydipsia Medications/Allergies Home Medications Medication Instructions Recorded Confirmed Last Taken Type aspirin [Adult Aspirin Regimen] 81 mg PO DAILY #30 tab 03/01/20 04/16/20 04/16/20 Rx amlodipine 10 mg tablet 10 mg PO DAILY #30 tab 04/02/20 04/16/20 04/16/20 Rx atorvastatin 20 mg tablet 20 mg PO DAILY #30 tab 0804/16/20 04/16/20 Rx lisinopril 10 mg tablet 10 mg PO DAILY #30 tab 04/02/20 04/16/20 04/16/20 Rx metformin 500 mg tablet 500 mg PO BID #60 tab 04/02/20 04/16/20 04/16/20 Rx insulin glargine [Lantus Solostar 10 unit SUBCUT BEDTIME 04/16/20 04/16/20 04/15/20 History U-100 Insulin] Allergies Allergy/AdvReac Type Severity Reaction Status Date / Time morphine Allergy ALGY-Hives Verified 04/16/20 13:37 PFSH Acute PFSH: Medical History Diabetes mellitus, type II Gangrenous toe Status post amputation History of gestational diabetes Hypertension Surgical History History of 2 sections History of carpal tunnel repair bilateral Family History Other Diabetes Hypertension Lung disease Denies family history of CAD (coronary artery disease) Chronic kidney disease (CKD) Anesthesia complication Social History Smoking and tobacco status: current every day smoker cigarettes Packs smoked per day: 1 Years cigarettes smoked: 34 Second hand smoke exposure: Yes Alcohol intake: never Household members: spouse, family and children Current occupational status: employed Current occupation: [employer] History of recent travel: No Current gender identity: Female Vitals/I&O/Wt Last Vital Signs Temp 99.1 F 04/16/20 12:48 Pulse 86 04/16/20 14:00 Resp 16 04/16/20 13:22 BP 130/85 04/16/20 14:00 Pulse Ox 97 04/16/20 14:00 Weight last 48 hrs Weight 78.471 kg Physical Exam Const: COMMON NORMALS: no acute distress and patient oriented x3 GENERAL APPEARANCE: cooperative and comfortable HENMT: COMMON NORMALS: normocephalic HEAD & SCALP: normocephalic Eye: COMMON NORMALS: Equal, round and reactive pupils present and EOMs intact bilaterally GENERAL EYE: appearance normal, both eyes and all related structures PUPIL: Yes Equal, round and reactive pupils present Neck/C-Spine: COMMON NORMALS: full ROM, no lymphadenopathy, no JVD and Thyroid normal THYROID: Thyroid normal Lymph: LYMPHATIC: no lymphadenopathy noted Resp: COMMON NORMALS: normal respiratory effort, No retractions, No use of accessory muscles and clear to auscultation bilaterally AUSCULTATION: clear to auscultation bilaterally Cardio: COMMON NORMALS: no JVD, regular rate, regular rhythm, S1 normal heart sound present, S2 normal heart sound present, No gallops present (Cardio), No clicks present (Cardio) and No murmurs present (Cardio) RATE: regular rate RHYTHM: regular rhythm HEART SOUNDS: S1 normal heart sound present and S2 normal heart sound present GI: COMMON NORMALS: Normal to inspection, nondistended, normoactive bowel sounds present, Soft to palpation, non-tender and No hepatosplenomegaly present PALPATION: Yes Soft to palpation and Yes No hepatosplenomegaly present Extremity: COMMON NORMALS: normal to inspection, full ROM and no pedal edema NARRATIVE EXTREMITY EXAM: Right foot fifth digit, dusky in appearance, black, gangrenous Right foot fourth digit amputation site, at the level of metatarsal, has serosanguineous discharge, foul order Neuro: COMMON NORMALS: patient oriented x3, CN's II-XII intact bilaterally, moves all extremities and no focal motor deficits Psych: COMMON NORMALS: mental status grossly normal, Normal thought process present and cooperative THOUGHT PROCESS: Normal thought process present Data : 04/16/20 13:19 04/16/20 13:19 Micro: Microbiology 04/16/20 13:15 Blood Culture - Preliminary Blood SPECIMEN COLLECTED 04/16/20 13:19 Blood Culture - Preliminary Blood SPECIMEN COLLECTED A&P Assessment and plan (1) Toe gangrene: -Right foot, fifth digit, toe gangrene -Right foot, fourth digit amputation site, base of metatarsal, serosanguineous discharge, foul odor -Foot CT showed suspected osteomyelitis involving the base of the fifth proximal phalanx and the head of the fifth metatarsal -White blood cell count 16.0, lactic acid 2.6, CRP 102.2 he, hemodynamically stable -Cultures in the past have grown Enterococcus faecalis, staph epidermidis, strep group B, blood cultures negative for last admission -ABIs showed abnormal resting ABIs bilaterally, consistent with mild peripheral arterial disease, -Concerns for right foot, fifth digit, toe gangrene, osteomyelitis, poor blood flow with peripheral arterial disease Plan: -I have consulted Dr. Vance from podiatry for surgical intervention -I have consulted Dr. Preciado from cardiology for vascular intervention -Place the patient on broad-spectrum antibiotics vancomycin and Zosyn -Blood cultures, wound cultures -Monitor clinical response, monitor hemodynamics, monitor for fevers -Needs better blood sugar control -We will get ESR, pro-Glenn Status: Acute (2) Toe osteomyelitis, right: Status: Acute (3) Diabetes mellitus, type II: -Continue Lantus 10 units at bedtime, low-dose sliding scale, uptitrate insulin based on blood sugars Status: Acute Qualifiers: Diabetes mellitus watermelon inspector insulin use: without watermelon inspector use Diabetes mellitus complication status: with skin complications Diabetes mellitus complication detail: with foot ulcer Qualified Code(s): E11.621 - Type 2 diabetes mellitus with foot ulcer; L97.509 - Non-pressure chronic ulcer of other part of unspecified foot with unspecified severity (4) Hypertension: Status: Acute Qualifiers: Hypertension type: essential hypertension Qualified Code(s): I10 - Essential (primary) hypertension (5) Hyperlipidemia: Status: Acute (6) Peripheral arterial disease: Status: Acute Additional A&P Information Full code, heparin for DVT prophylaxis Attestations Medical Necessity Statement*: Requires hospitalization, inpatient, greater than 2 midnights, right foot toe gangrene, osteomyelitis Coding Level of Care Code Acute Telephonic Nurse Case Manager for [facility] Diagnoses Toe gangrene I96 Toe osteomyelitis, right M86.9 Diabetes mellitus, type II E11.621; L97.509 Diabetes mellitus fdc insulin use: without watermelon inspector use Diabetes mellitus complication status: with skin complications Diabetes mellitus complication detail: with foot ulcer Hypertension I10 Hypertension type: essential hypertension Hyperlipidemia E78.5 Peripheral arterial disease I73.9
--- NOTE | 2020-04-16 17:55 | P.CONIM_ITS ---
Providers/Reason For Consult Consulting Physican/Specialty*: Barber Vance D.P.M. Reason for Consult*: Right foot and leg wound Attending Physician: Jose Alfredo Smith MD Primary Care Provider: CLIFF Bellamy History of Present Illness History of Present Illness Adrianne Carranza is a 50 year old poorly controlled diabetic female with history of peripheral arterial disease admitted for ischemic changes of her right fifth toe. She was seen by wound care today and subsequently referred to the emergency department for possible surgical intervention. Patient has a wound at surgical amputation site healing by means of secondary intention, right fourth toe and partial fourth metatarsal amputated on 02/29/2020 secondary to osteomyelitis. Patient endorses ischemic type pain states that if she holds her foot externally rotated and in a gravity dependent position her pain is more m anageable in this position. Patient states she has a history of smoking for over 30 years pack a day she is currently made efforts to quit she is utilizing a nicotine patch however she ran out of patches yesterday states that she smoked 1 cigarette yesterday. Last A1c 13.8 on 02/29/2020. Patient denies any subjective nausea, vomiting, fever, chills, shortness of breath or chest pain. Review of Systems General: Reports: 10 or more systems reviewed and unremarkable except in HPI and below Const: Denies: fever(s) or chills Card: Denies: chest pain or palpitations Resp: Denies: productive cough GI: Denies: abdominal pain, nausea or vomiting : Denies: flank pain Musc: Reports: extremity swelling, joint pain, joint stiffness, limited range of motion and deformity Skin/Breast: Reports: skin tenderness, sores, dry skin, surgical incision, nail changes and change in hair Neuro: Reports: numbness in extremities, sensory changes and difficulty walking Psych: Denies: suicidal ideation Johnny/Lymph: Denies: easy bruising Meds/Allergies Home Medications and Allergies Home Medications Medication Instructions Recorded Confirmed Last Taken Type aspirin [Adult Aspirin Regimen] 81 mg PO DAILY #30 tab 03/01/20 04/16/20 04/16/20 Rx amlodipine 10 mg tablet 10 mg PO DAILY #30 tab 04/02/20 04/16/20 04/16/20 Rx atorvastatin 20 mg tablet 20 mg PO DAILY #30 tab 04/02/20 04/16/20 04/16/20 Rx lisinopril 10 mg tablet 10 mg PO DAILY #30 tab 04/02/20 04/16/20 04/16/20 Rx metformin 500 mg tablet 500 mg PO BID #60 tab 04/02/20 04/16/20 04/16/20 Rx insulin glargine [Lantus Solostar 10 unit SUBCUT BEDTIME 04/16/20 04/16/20 04/15/20 History U-100 Insulin] Allergies Allergy/AdvReac Type Severity Reaction Status Date / Time morphine Allergy ALGY-Hives Verified 04/16/20 13:37 PFSH Acute PFSH: Medical History Diabetes mellitus, type II Gangrenous toe Status post amputation History of gestational diabetes Hypertension Surgical History History of 2 sections History of carpal tunnel repair bilateral Family History Other Diabetes Hypertension Lung disease Denies family history of CAD (coronary artery disease) Chronic kidney disease (CKD) Anesthesia complication Social History Smoking and tobacco status: current every day smoker cigarettes Packs smoked per day: 1 Years cigarettes smoked: 34 Second hand smoke exposure: Yes Alcohol intake: never Household members: spouse, family and children Current occupational status: employed Current occupation: [employer] History of recent travel: No Current gender identity: Female Vitals/I&O/Wt Last Vital Signs Temp 98.6 F 04/16/20 17:19 Pulse 79 04/16/20 17:19 Resp 20 H 04/16/20 17:19 BP 100/67 04/16/20 17:19 Pulse Ox 98 04/16/20 17:19 Weight last 48 hrs Weight 173 lb Physical Exam Narrative: EXAM NARRATIVE: GENERAL: Patient is alert and oriented ?3 and in no acute distress. The following is a focused bilateral lower extremity exam. VASCULAR: Dorsalis pedis and posterior tibial arteries nonpalpable. Capillary refill time less than 5 seconds to the distal hallux bilaterally. Calf is supple and nontender proximally and distally. Diminished hair growth at bilateral legs and feet. Unable to palpate popliteal artery at the right lower extremity. NEUROLOGICAL: Protective sensation intact 0/10 sites, tested with [place] Valerie monofilament to bilateral feet. DERMATOLOGICAL: Thickened with wound at right leg and right foot. Right leg wound is located at the distal lateral aspect measures 3.2 cm x 2.4 cm x 0.2 cm has eschar and fibrotic base without purulent drainage there is localized periwound erythema without proximal lymphangitic streaking, no underlying flu ctuance palpated. Her right foot wound is at the level of amputation of the right fourth toe and distal fourth metatarsal has a mixture of fibrotic and granular base with serous drainage no regulo purulence or malodor has epithelialized margin. Diffusely dry skin to bilateral feet. Dystrophic nail changes at remaining toenails x9. Lower extremity integument is thin and atrophic has shiny appearance is decreased texture and turgor. Decreased elasticity noted. Right fifth toe is cool to the touch compared to contralateral limb is dusky purple and ischemic in appearance. Dependent rubor to the right lateral foot without proximal lymphangitic streaking. MUSCULOSKELETAL: Post partial right fifth ray resection, right foot. Tenderness to palp patient at right foot laterally as well as right lateral leg. Ankle joint dorsiflexion is to neutral bilaterally. Data Micro: Micro: Microbiology 04/16/20 13:15 Blood Culture - Pr eliminary Blood [facility] 04/16/20 13:19 Blood Culture - Pr eliminary Blood SPE[facility] A&P Assessment and plan (1) Peripheral arterial disease: Status: Acute (2) 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: Status: Acute Qualifiers: Diabetes mellitus type: type 2 Diabetes mellitus detention insulin use: with detention use Qualified Code(s): E11.52 - Type 2 diabetes mellitus with diabetic peripheral angiopathy with gangrene; Z79.4 - terminal clerk (current) use of insulin (3) Non-pressure chronic ulcer 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: Status: Acute Ms. Carranza is a 50-year-old poorly controlled diabetic female with ischemic changes to her right fifth toe. X-ray and CT scan positive for osteo myelitis at the proximal phalanx and fifth metatarsal head, to me this appears low-grade and chronic in nature changes were appreciated on x-ray dated 02/22 2020 most notably at the medial aspect of the fifth metatarsal head. Patient has clinically stable gangrenous changes at her right fifth toe I would avoid surgical intervention at this time and recommend vascular work-up. She did have a duplex scan performed 02/29/2020 which demonstrated monophasic popliteal, posterior tibial artery and dorsalis pedis arteries with abnormal resting ABIs bilaterally. Approximately 6-week status post partial fourth ray amputation of the right foot healing by secondary intention currently being followed at wound care. I explained to the patient that there is a high likelihood of transmetatarsal amputation versus below-knee amputation given her ischemic wounds both at her forefoot as well as lateral leg. Recommend vascular work-up prior to proceeding for any level of amputation at this time as she is clinically stable. Recommend following up in wound care at currently scheduled follow-up appointment. Consult Attestations Medical Necessity Statement: Right foot wound with ischemia Coding Level of Care Code Acute [employer] for [employer] Diagnoses Peripheral arterial disease I73.9 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 E11.52; Z79.4 Diabetes mellitus type: type 2 Diabetes mellitus detention insulin use: with detention use Non-pressure chronic ulcer 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 L97.514
[2020-04-16 18:05] LABS: Procalcitonin 0.05 ng/mL (0-0.5)
[2020-04-16 18:10] LABS: Thyroid Stimulating Hormone 1.24 uIU/mL (0.27-4.20)
[2020-04-16 18:11] LABS: Glucose Point of Care 117 mg/dL (70-110)
[2020-04-16] MEDS: piperacillin-tazobactam 3.375 GM in sodium chloride 0.9% (plus) 50 ML IV (18:16)
[2020-04-16] MEDS: heparin 5,000 unit/mL INJ 1 mL 5000 UNIT SUBCUT (18:18)
[2020-04-16 19:10] LABS: Erythrocyte Sedimentation Rate 56 mm/hr (0-15)
--- NOTE | 2020-04-16 19:22 | P.CONIM_ITS ---
Providers/Reason For Consult Consulting Physican/Specialty*: Interventional cardiology Reason for Consult*: Worsening of right foot ulcer, fourth metatarsal status post amputation, dusky black gangrenous fifth toe with possibility of gangrene Requesting Physcian: Dr. Veliz Attending Physician: Jose Alfredo Smith MD Primary Care Provider: CLIFF Bellamy History of Present Illness History of Present Illness Adrianne Carranza is a 50 year old female past medical history significant for continuous tobacco abuse, uncontrolled diabetes mellitus hypertension hyperlipidemia history of gangrenous right foot status post amputation of fourth metatarsal and now presented with gangrenous fifth toe and intubated wound healing suspicious for vascular compromise. In February patient had RUBY 0.8 0.9 right and left respectively. There is monophasic flow below right femoral and iliac vessels all the way from SFA popliteal to distal arteries. Patient admits to pain at rest. Right leg appears to be warm and of normal color. Right foot is wrapped dressing. Review of Systems General: Reports: 10 or more systems reviewed and unremarkable except in HPI and below Const: Denies: fever(s), chills, fatigue or malaise Eyes: Denies: change in vision, blurry vision or photophobia ENMT: Denies: throat pain, ear or mastoid pain, nasal discharge or nasal congestion Card: Denies: chest pain, palpitations, edema, dyspnea on exertion or orthopnea Resp: Denies: dyspnea, productive cough, non-productive cough or wheezing GI: Denies: abdominal pain, nausea, vomiting, hematemesis, diarrhea, constipation, hematochezia or melena : Denies: flank pain, difficulty voiding, dysuria, urinary frequency or urinary urgency Musc: Reports: extremity swelling, joint pain, joint warmth, joint stiffness, limited range of motion and deformity; Denies: neck pain or back pain Skin/Breast: Reports: skin tenderness, sores, dry skin, surgical incision, nail changes and change in hair; Denies: rash or pruritus Neuro: Reports: numbness in extremities, sensory changes and difficulty walking; Denies: headache(s), dizziness or vertigo Psych: Denies: anxiety, depression or suicidal ideation Endo: Denies: polyuria or polydipsia Johnny/Lymph: Denies: easy bruising All/Imm: Denies: acute wheezing Meds/Allergies Home Medications and Allergies Home Medications Medication Instructions Recorded Confirmed Last Taken Type aspirin [Adult Aspirin Regimen] 81 mg PO DAILY #30 tab 03/01/20 04/16/20 04/16/20 Rx amlodipine 10 mg tablet 10 mg PO DAILY #30 tab 04/02/20 04/16/20 04/16/20 Rx atorvastatin 20 mg tablet 20 mg PO DAILY #30 tab 04/02/20 04/16/20 04/16/20 Rx lisinopril 10 mg tablet 10 mg PO DAILY #30 tab 04/02/20 04/16/20 04/16/20 Rx metformin 500 mg tablet 500 mg PO BID #60 tab 04/02/20 04/16/20 04/16/20 Rx insulin glargine [Lantus Solostar 10 unit SUBCUT BEDTIME 04/16/20 04/16/20 04/15/20 History U-100 Insulin] Allergies Allergy/AdvReac Type Severity Reaction Status Date / Time morphine Allergy ALGY-Hives Verified 04/16/20 13:37 Current Medications Current Medications Generic Name Dose Route Start Last Admin Trade Name Peyton PRN Reason Stop Dose Admin Heparin Sodium (Beef Lung) 5,000 unit 04/16/20 17:19 04/16/20 18:18 Heparin SUBCUT 5,000 unit Q12H LENA Administration Piperacillin Sod/Tazobactam 50 mls @ 12.5 mls/hr 04/16/20 18:00 04/16/20 18:16 Sod 3.375 gm/ Sodium Chloride IV 12.5 mls/hr Q8H LENA Administration Protocol Insulin Aspart 0 unit 04/16/20 18:00 04/16/20 18:12 Novolog SUBCUT Not Given TIDWM LENA Protocol PFSH Acute PFSH: Medical History Diabetes mellitus, type II Gangrenous toe Status post amputation History of gestational diabetes Hypertension Surgical History History of 2 sections History of carpal tunnel repair bilateral Family History Other Diabetes Hypertension Lung disease Denies family history of CAD (coronary artery disease) Chronic kidney disease (CKD) Anesthesia complication Social History Smoking and tobacco status: current every day smoker cigarettes Packs smoked per day: 1 Years cigarettes smoked: 34 Second hand smoke exposure: Yes Alcohol intake: never Household members: spouse, family and children Current occupational status: employed Current occupation: [employer] History of recent travel: No Current gender identity: Female Female Reproductive History: Date of last menstrual period: 03/24/18 Vitals/I&O/Wt Last Vital Signs Temp 98.6 F 04/16/20 17:19 Pulse 79 04/16/20 17:19 Resp 20 H 04/16/20 17:19 BP 100/67 04/16/20 17:19 Pulse Ox 98 04/16/20 17:19 Weight last 48 hrs Weight 173 lb Physical Exam Narrative: EXAM NARRATIVE: GENERAL: Patient is alert, awake and oriented x3. NECK: No jugular vein distension. HEENT: No cyanosis. No icterus. No pallor. HEART: Regular S1 and S2. No murmur, rub or gallop. LUNGS: Clear to auscultate bilaterally. ABDOMEN: Soft, nontender and nondistended. Positive bowel sounds. No guarding, rebound or tenderness. CENTRAL NERVOUS SYSTEM: Grossly nonfocal. EXTREMITIES: Lower extremities without edema bilaterally. Right foot wrapped. Black eschar leg wound with amputated unhealed wound of right fourth metatarsal with gangrenous fifth toe Data Micro: Micro: Microbiology 04/16/20 13:15 Blood Culture - Pr eliminary Blood SPE[facility] 04/16/20 13:19 Blood Culture - Pr eliminary Blood [facility] A&P Assessment and plan (1) Toe gangrene: Patient has monophasic flow by RUBY couple of months ago below right common femoral. Patient has worsening of right foot wound with gangrenous toe. It is suspicious for vascular insufficiency. Continue antibiotics. We will proceed with peripheral angiogram and intervention if indicated. I have detailed discussion with the patient regarding risk-benefit and alternative for the procedure. She understand the risk of further vascular compromise after intervention through embolic phenomena, she is aware of risk of her acute leg leading to urgent/emergent vascular surgery and in worse case scenario loss of limb. She would like to proceed with it. We will schedule her for peripheral angiogram in the morning. Further plan will be advised as per progress of the patient. Patient has been consented for drug-coated balloon. She understand the risk of the drug-coated balloon use understand the FDA warning regarding increased mortality in that subgroup. She would like to use it if required Status: Acute (2) Diabetes mellitus, type II: As per medicine Status: Acute Qualifiers: Diabetes mellitus superintendent terminal insulin use: without superintendent terminal use Diabetes mellitus complication status: with skin complications Diabetes mellitus complication detail: with foot ulcer Qualified Code(s): E11.621 - Type 2 diabetes mellitus with foot ulcer; L97.509 - Non-pressure chronic ulcer of other part of unspecified foot with unspecified severity Coding Level of Care Code New Pt Acute Cable [facility]ager for [facility] Fwd Patient Type New History Expanded Problem Focused Exam Expanded Problem Focused Medical Decision Making Moderate Complexity Diagnoses Toe gangrene I96 Diabetes mellitus, type II E11.621; L97.509 Diabetes mellitus superintendent terminal insulin use: without halfway use Diabetes mellitus complication status: with skin complications Diabetes mellitus complication detail: with foot ulcer
[2020-04-16] MEDS: ondansetron 2 mg/ML SDV 2 mL 4 MG IVP (19:29)
[2020-04-16] MEDS: HYDROmorphone 1 mg/mL INJ 1 mL 2 MG IVP (19:30)
[2020-04-16 19:49] LABS: Glucose Point of Care 137 mg/dL (70-110)
[2020-04-17] VITALS (16 sets, daily range): BP systolic 107–179; BP diastolic 69–103; PULSE 64–81; RESP 5–23; TEMP 36.6–36.8; O2SAT 92–97
[2020-04-17] MEDS: HYDROmorphone 1 mg/mL INJ 1 mL 2 MG IVP ×2 (01:47→08:03)
[2020-04-17] MEDS: vancomycin 1,000 MG in sodium chloride 0.9% 250 ML 250 MG IV ×2 (02:06→15:31)
[2020-04-17] MEDS: piperacillin-tazobactam 3.375 GM in sodium chloride 0.9% (plus) 50 ML IV ×3 (03:49→21:00)
[2020-04-17] MEDS: heparin 5,000 unit/mL INJ 1 mL 5000 UNIT SUBCUT (04:24)
[2020-04-17 06:07] LABS: Basophils # 0.1 10^3/uL (0.0-0.1); Basophils % 0.4 %; Eosinophils # 0.3 10^3/uL (0.0-0.8); Eosinophils % 2.4 %; Hematocrit 34.3 % (37.0-47.0); Hemoglobin 10.7 g/dL (11.5-15.3); Lymphocytes # 3.1 10^3/uL (0.8-4.8); Lymphocytes % 25.1 %; Mean Corpuscular HGB Conc 31.2 g/dL (30.0-36.0); Mean Corpuscular Hemoglobin 27.6 pg (28.0-34.0); Mean Corpuscular Volume 88.4 fL (81-99); Mean Platelet Volume 9.8 fL (7.4-10.4); Monocytes # 0.8 10^3/uL (0.2-0.9); Monocytes % 6.7 %; Neutrophils # 7.92 10^3/uL (1.8-7.7); Neutrophils % 65.2 %; Nucleated Red Blood Cells % 0 %; Platelet Count 430 10^3/cmm (130-400); Red Blood Count 3.88 10^6/uL (4.1-5.3); Red Cell Distribution Width 13.9 % (12.1-15.1); White Blood Count 12.2 10^3/uL (4.0-10.0)
[2020-04-17 06:17] LABS: INR 1.04 (0.8-1.2)
[2020-04-17 06:33] LABS: Alanine Aminotransferase 17 U/L (0-33); Albumin Level 3.4 g/dL (3.5-5.2); Alkaline Phosphatase 80 IU/L (35-105); Anion Gap 14.1 (5-19); Aspartate Amino Transferase 13 U/L (0-32); Blood Urea Nitrogen 15 mg/dL (6-20); Calcium 8.8 mg/dL (8.5-10.5); Carbon Dioxide 25 mmol/L (22-29); Chloride 98 mmol/L (98-107); Globulin 4.8 g/dL (1.3-4.6); Glomerular Filtration Rate 88.9 mL/min (90-130); Glucose 140 mg/dL (65-115); Osmolality Calculated 275 mOsm/kg (285-295); Potassium 4.1 mmol/L (3.5-5.1); Sodium 133 mmol/L (136-145); Total Bilirubin 0.3 mg/dL (0.15-1.2); Total Protein 8.2 g/dL (6.6-8.7)
[2020-04-17 06:48] LABS: Glucose Point of Care 152 mg/dL (70-110)
[2020-04-17 06:54] LABS: Chol HDL Ratio 4.95 mg/dL (0.0-4.40); Cholesterol 94 mg/dL (0-200); HDL Cholesterol 19 mg/dL (60-100); LDL Cholesterol Calculated 48 mg/dL (50-129); LDL HDL Ratio 2.53 RATIO (0.00-3.22); Magnesium 1.6 mg/dL (1.7-2.3); Phosphorus 4.1 mg/dL (2.5-4.5); Triglycerides 134 mg/dL (0-150)
--- NOTE | 2020-04-17 09:37 | PC.NURSE ---
Chad SALGUERO from [employer] here to transfer patient for Angio. Patient transported via wheelchair
--- NOTE | 2020-04-17 09:39 | XACV_ITS ---
Ht: 157 cm Wt: 79 kg BSA: 1.88 m2 Any Known Allergies: Morphine Gender: Female : 1970 Exam Type: Invasive Peripheral Vascular Procedure(s): Procedure Description: Peripheral Cath Diagnostic Procedure Procedure Description: Abdominal aortic angiography Procedure Description: Lower extremities' angiography Exam Priority: Routine Conclusions Indication for peripheral angiogram: Osteomyelitis nonhealing ulcer of right foot with critical limb ischemiaLeft common femoral artery was used for abdominal aortogram. Abdominal aorta has luminal irregularity without significant stenosis or aneurysm. Bilateral renal arteries are patent without significant stenosis. Bilateral common iliac, internal and external iliac artery has luminal irregularities. Bilateral common femoral artery has luminal irregularities. Left SFA has distal right significant stenosis at the junction of popliteal artery. Right superficial femoral artery has luminal irregularity. Bilateral profunda femoral arteries has luminal irregularities. Right tibioperoneal trunk has moderate disease. Two-vessel runoff was noted below right knee. Right anterior tibial artery has long proximal chronic occlusion which reconstitute at the mid through collaterals. Right posterior tibial and peroneal artery has luminal irregularity with good flow until the foot. Lateral part of foot does not have good blood supply due to the small vessel disease not amenable to treatment.Left below the knee two-vessel runoff noted. Recommendations Usual post-cath care, follow-up with wound care and surgery . Continue medical management. Hemodynamic Data Phase:Rest AO : 144.0 mmHg / 73.0 mmHg ( 101.0 mmHg ) @ 5:23:00 AM Access Site Site: Left Femoral artery Sheath Size: 6 Fr Hemost... Method: Manual Compression Hemost... Success: Successful Procedure Details Findings Procedure Consent Obtained. Pre-Procedure Time Out. Identified patient by full name and date of as verbalized by the patient/guarantor. Does the consent match the physician's order: Yes. Accurate & Complete Informed Consent: Yes. Inpatient/Outpatient History & Physical on Chart: Yes. If H&P is completed, is and addenduem needed: No; If yes, is the addendum complete: N/A. Visualize and Verify Site with Patient/Guarantor: N/A. Relevant Radiology Images available: N/A. Pre-op teaching completed and patient verbalized understanding. The risks, benefits, and alternatives of sedation and/or procedure were discussed by physician. The patient agrees to continue. Procedure started. Correct patient, site and procedure confirmed by cath team. PERRLA. Strong, equal hand auto service dispatcher bilaterally. Lungs clear x 5 lobes. IV Site on Arrival: 20 gauge in the left wrist. IV Fluids: 0.9% NaCl at KVO. 0 mL infused prior to collaborative physician. Pre Procedural Pulses: bilateral dorsalis pedis was Doppled. Pre Procedural Pulses: bilateral posterior tibial was Doppled. Oxygen started at 2liters/min via nasal canula. bilateral groins was prepped with chloroprep then draped in the usual sterile fashion. Baseline sample Acquired. HR: 72 BPM. Equipment: Peripheral. Cardiac Cath Pack. ACIST Manifold Kit Model BT 2000. Heparinized Saline (2 units/mL), 1000 mL bag. Physician notified. Physician arrived. Physician scrubbed in. Time out performed with cath team. Lidocaine 1% infiltrated to the left groin. Arterial access obtained with micropuncture set. Inventory is JJ 6F 11cm Krystal Plus Sheath. A CORDIS 5F UF catheter 65cm was advanced over the wire and used for Lower extremity arteriography. Abdominal aortogram performed in AP @ 10 mL/sec for a total of 30 mL. Catheter removed over the glide wire. A JJ 5F RIM 65 cm Diagnostic Catheter was advanced over the wire and used for Lower extremity arteriography. Glidewire out. Right leg runoff 10 ml for total of 15 ml. Digital picture right lower leg. Digital picture of right ankle. Digital picture of right foot. Left leg runoff through sheath 10 ml for total of 30 ml. Physician scrubbed out. A Manual Compression was successful obtaining hemostatsis at the Left Femoral artery insertion site. Sheath(s) removed and manual pressure held until hemostasis was achieved. Sterile 4x4 and Op-site applied to the puncture site. No oozing or hematoma noted. Post sheath removal instructions were given and the patient verbalized understanding. Post Procedure: Pulses reassessed and unchanged. PERRLA. Strong, equal hand auto service dispatcher bilaterally. No VTE prophylaxis required. Medication's Wasted: Lidocaine 1% = 2 mL. Medication's Wasted: Heparin = 1000 units. Total IV fluids: 60 mL. Medication's Wasted: Other = versed 1 mg. Contrast type used: Visipaque 320 mgI/mL, 500 mL bottle. Complications: none. Post-op diagnosis: critical limb ischemia, PVD. Estimated blood loss: 5mL-10mL. Procedure completed. Patient transferred by bed to 1st floor. Vital chart was stopped. Procedure Medications Start: 9:59 AM Stop: 9:59 AM Medication: Versed Amount: 1 mg Route: I.V. Start: 9:59 AM Stop: 9:59 AM Medication: Fentanyl Amount: 50 mcg Route: I.V. Start: 10:06 AM Stop: 10:06 AM Medication: Versed Amount: 1 mg Route: I.V. Start: 10:06 AM Stop: 10:06 AM Medication: Fentanyl Amount: 50 mcg Route: I.V. Start: 10:20 AM Stop: 10:20 AM Medication: Versed Amount: 1 mg Route: I.V. Start: 10:20 AM Stop: 10:20 AM Medication: Fentanyl Amount: 50 mcg Route: I.V. Start: 10:43 AM Stop: 10:43 AM Medication: Fentanyl Amount: 50 mcg Route: I.V. I, the attending physician, have reviewed and verified all procedure medications. Yes, all medications given per verbal order History/Risk Factors Hypertension: Yes Dyslipidemia: Yes Diabetic Therapy: Oral Peripheral Arterial Disease (PAD): Yes Myocardial Infarction (OK): No Obesity: No Renal Disease: No Tobacco Use: Current/Recent(w/in 1 year) Prior Interventions PCI: No CABG: No Valve Surgery: No Report Signatures Finalized by:Asha Quan MD on 05/02/2020 12:55:14 PM
--- NOTE | 2020-04-17 10:59 | PM.PN ---
Subjective Subjective: Interval history: Patient is status post peripheral angiogram which showed no significant obstruction and iliac, femoral, SFA, popliteal tibial anterior tibial arteries. There is a good two-vessel runoff noted up to the foot. There appeared to be reasonable good blood supply of the arch. Small vessel disease in 4th-5th toe when lateral part of the foot noted which is almost avascular. Findings were discussed with Dr. Bal and Dr. Vance. Since it is a small vessel disease involving digital and small vessel in the foot . Vitals/I&O/Wt Last Vital Signs Temp 98.2 F 04/17/20 04:00 Pulse 69 04/17/20 04:00 Resp 20 H 04/17/20 08:03 BP 107/69 04/17/20 04:00 Pulse Ox 97 04/17/20 04:00 04/16/20 04/17/20 04/17/20 22:59 06:59 14:59 Intake Total 50 / 50 Output Total 350 / 350 800 / 1150 Balance -300 / -300 -800 / -1100 Weight last 48 hrs Weight 173 lb Physical Exam Narrative: EXAM NARRATIVE: GENERAL: Patient is alert, awake and oriented x3. NECK: No jugular vein distension. HEENT: No cyanosis. No icterus. No pallor. HEART: Regular S1 and S2. No murmur, rub or gallop. LUNGS: Clear to auscultate bilaterally. ABDOMEN: Soft, nontender and nondistended. Positive bowel sounds. No guarding, rebound or tenderness. CENTRAL NERVOUS SYSTEM: Grossly nonfocal. EXTREMITIES: Lower extremities without edema bilaterally. Right foot wrapped. Black eschar leg wound with amputated unhealed wound of right fourth metatarsal with gangrenous fifth toe Data : 04/17/20 05:17 04/17/20 05:17 Micro: Microbiology 04/16/20 18:00 Gram Stain - Final Toe - #1 04/16/20 13:15 Blood Culture - Preliminary Blood SPECIMEN COLLECTED 04/16/20 13:19 Blood Culture - Preliminary Blood SPECIMEN COLLECTED A&P Assessment and plan (1) Toe gangrene: Patient is status post peripheral angiogram which showed no significant obstruction and iliac, femoral, SFA, popliteal tibial anterior tibial arteries. There is a good two-vessel runoff noted up to the foot. There appeared to be reasonable good blood supply of the arch. Small vessel disease in 4th-5th toe when lateral part of the foot noted which is almost avascular. Findings were discussed with Dr. Bal and Dr. Vance. Since it is a small vessel disease involving digital and small vessel in the foot . Continue medical treatment and debridement Status: Acute (2) Diabetes mellitus, type II: As per medicine Status: Acute Qualifiers: Diabetes mellitus intermediate insulin use: without intermediate use Diabetes mellitus complication status: with skin complications Diabetes mellitus complication detail: with foot ulcer Qualified Code(s): E11.621 - Type 2 diabetes mellitus with foot ulcer; L97.509 - Non-pressure chronic ulcer of other part of unspecified foot with unspecified severity Attestations Medical Necessity Statement*: Require continuation hospitalization for above defined care. 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
[2020-04-17 11:14] LABS: Glucose Point of Care 127 mg/dL (70-110)
--- NOTE | 2020-04-17 11:40 | PM.PN ---
Subjective Subjective: Interval history: This morning patient was examined in the second floor, just before her peripheral angiogram procedure, she states that she was not able to sleep much last night, has no particular complaints this morning, no nausea, no vomiting, no lightheadedness, no dizziness, no chest pain, no palpitations Vitals/I&O/Wt Last Vital Signs Temp 98.2 F 04/17/20 04:00 Pulse 69 04/17/20 04:00 Resp 20 H 04/17/20 08:03 BP 107/69 04/17/20 04:00 Pulse Ox 97 04/17/20 04:00 04/16/20 04/17/20 04/17/20 22:59 06:59 14:59 Intake Total 50 / 50 Output Total 350 / 350 800 / 1150 Balance -300 / -300 -800 / -1100 Weight last 48 hrs Weight 78.471 kg Physical Exam Const: COMMON NORMALS: no acute distress and patient oriented x3 HENMT: COMMON NORMALS: normocephalic HEAD & SCALP: normocephalic Neck/C-Spine: COMMON NORMALS: no JVD Resp: COMMON NORMALS: normal respiratory effort, No retractions, No use of accessory muscles and clear to auscultation bilaterally AUSCULTATION: clear to auscultation bilaterally Cardio: COMMON NORMALS: no JVD, regular rate, regular rhythm, S1 normal heart sound present and S2 normal heart sound present RATE: regular rate RHYTHM: regular rhythm HEART SOUNDS: S1 normal heart sound present and S2 normal heart sound present GI: COMMON NORMALS: Normal to inspection, nondistended, normoactive bowel sounds present, Soft to palpation, non-tender, No hepatosplenomegaly present, no masses and no bruits PALPATION: Yes Soft to palpation and Yes No hepatosplenomegaly present Extremity: NARRATIVE EXTREMITY EXAM: Right lower extremity currently in a dressing, right fifth digit dusky and black appearance, gangrenous, fourth digit metatarsal site, currently clean and dry Neuro: COMMON NORMALS: patient oriented x3 Psych: COMMON NORMALS: mental status grossly normal Data : 04/17/20 05:17 04/17/20 05:17 Micro: Microbiology 04/16/20 18:00 Gram Stain - Final Toe - #1 04/16/20 13:15 Blood Culture - Preliminary Blood SPECIMEN COLLECTED 04/16/20 13:19 Blood Culture - Preliminary Blood SPECIMEN COLLECTED A&P Assessment and plan (1) Toe gangrene: -Right foot, fifth digit, toe gangrene -Right foot, fourth digit amputation site, base of metatarsal, serosanguineous discharge, foul odor -Foot CT showed suspected osteomyelitis involving the base of the fifth proximal phalanx and the head of the fifth metatarsal -White blood cell count 12.2, ESR 56 CRP 102.2, is hemodynamically stable -Cultures in the past have grown Enterococcus faecalis, staph epidermidis, strep group B, blood cultures negative for last admission -ABIs showed abnormal resting ABIs bilaterally, consistent with mild peripheral arterial disease, -Concerns for right foot, fifth digit, toe gangrene, osteomyelitis, poor blood flow with peripheral arterial disease Plan: -I have consulted Dr. Vance from podiatry for surgical intervention -I have consulted Dr. Preciado from cardiology for vascular intervention -Place the patient on broad-spectrum antibiotics vancomycin and Zosyn -Blood cultures, wound cultures -Monitor clinical response, monitor hemodynamics, monitor for fevers -Needs better blood sugar control Status: Acute (2) Toe osteomyelitis, right: Status: Acute (3) Diabetes mellitus, type II: -Continue Lantus 10 units at bedtime, low-dose sliding scale, uptitrate insulin based on blood sugars Status: Acute Qualifiers: Diabetes mellitus shelter insulin use: without shelter use Diabetes mellitus complication status: with skin complications Diabetes mellitus complication detail: with foot ulcer Qualified Code(s): E11.621 - Type 2 diabetes mellitus with foot ulcer; L97.509 - Non-pressure chronic ulcer of other part of unspecified foot with unspecified severity (4) Hypertension: Status: Acute Qualifiers: Hypertension type: essential hypertension Qualified Code(s): I10 - Essential (primary) hypertension (5) Hyperlipidemia: Status: Acute (6) Peripheral arterial disease: Status: Acute Additional A&P Information Full code, heparin for DVT prophylaxis Attestations Medical Necessity Statement*: Patient requires hospitalization for toe gangrene, peripheral arterial disease Coding Level of Care Code 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
--- NOTE | 2020-04-17 12:47 | PC.NURSE ---
Patient arrived to [facility] at 1111. Left femoral access site covered in dressing. Sheath removed in cathlab. Pulses present. No bleeding or hematoma.
[2020-04-17] MEDS: HYDROmorphone 1 mg/mL INJ 1 mL IVP ×2 (14:02→20:19)
[2020-04-17 14:25] LABS: Vancomycin Trough 12.1 ug/mL (10-15)
--- NOTE | 2020-04-17 14:28 | PC.NURSE ---
All v/s WNL and femoral site still dry and intact, no bleeding or hematoma. Orders to transfer back to [facility] floor. Brisa Gonzalez RN called report to [facility] at [phone].
--- NOTE | 2020-04-17 17:38 | P.PN_ITS ---
Subjective Subjective: Interval history: Patient seen bedside today. Underwent angiography with intervention. Two-vessel runoff appreciated at the right lower extremity with adequate flow to the plantar arch artery. Compromised flow at the microvasculature to the fourth and fifth metatarsals distally. Patient states that she is doing well denies any pain to the right lower extremity at this time. Patient denies any subjective nausea, vomiting, fever, chills, shortness of breath or chest pain. Vitals/I&O/Wt Last Vital Signs Temp 97.9 F 04/17/20 12:00 Pulse 76 04/17/20 14:00 Resp 13 04/17/20 14:02 BP 136/89 04/17/20 14:00 Pulse Ox 93 04/17/20 12:00 04/17/20 04/17/20 04/17/20 06:59 14:59 22:59 Intake Total 250 / 300 290 / 290 Output Total 800 / 1150 Balance -550 / -850 290 / 290 Weight last 48 hrs Weight 173 lb Physical Exam Narrative: EXAM NARRATIVE: GENERAL: Patient is alert and oriented ?3 and in no acute distress. The following is a focused bilateral lower extremity exam. VASCULAR: Dorsalis pedis nonpalpable, posterior tibial artery palpable. Capillary refill time less than 5 seconds to the distal hallux bilaterally. Calf is supple and nontender proximally and distally. Diminished hair growth at bilateral legs and feet. NEUROLOGICAL: Protective sensation intact 0/10 sites, tested with [place] Valerie monofilament to bilateral feet. DERMATOLOGICAL: Thickened with wound at right leg and right foot. Right leg wound is located at the distal lateral aspect measures 3.2 cm x 2.4 cm x 0.2 cm has eschar and fibrotic base without purulent drainage there is localized periwound erythema without proximal lymphangitic streaking, no underlying fluctuance palpated. Her right foot wound is at the level of amputation of the right fourth toe and distal fourth metatarsal has a mixture of fibrotic and granular base with serous drainage no regulo purulence or malodor has epithelialized margin. Diffusely dry skin to bilateral feet. Dystrophic nail changes at remaining toenails x9. Lower extremity integument is thin and atrophic has shiny appearance is decreased texture and turgor. Decreased elasticity noted. Right fifth toe is cool to the touch compared to contralateral limb is dusky purple and ischemic in appearance. Dependent rubor to the right lateral foot without proximal lymphangitic streaking. MUSCULOSKELETAL: Post partial right fifth ray resection, right foot. Tenderness to palp patient at right foot laterally as well as right lateral leg. Ankle joint dorsiflexion is to neutral bilaterally. Data : 04/17/20 05:17 04/17/20 05:17 Micro: Microbiology 04/16/20 13:15 Blood Culture - Preliminary Blood NEGATIVE TO DATE 04/16/20 13:19 Blood Culture - Preliminary Blood NEGATIVE TO DATE 04/16/20 18:00 Gram Stain - Final Toe - #1 A&P Assessment and plan (1) Toe gangrene: Status: Acute (2) Diabetes mellitus, type II: Status: Acute Qualifiers: Diabetes mellitus complication detail: with foot ulcer Diabetes mellitus complication status: with skin complications Diabetes mellitus jail insulin use: without intermodal truck driver use Qualified Code(s): E11.621 - Type 2 diabetes mellitus with foot ulcer; L97.509 - Non-pressure chronic ulcer of other part of unspecified foot with unspecified severity (3) Peripheral arterial disease: Status: Acute Patient seen bedside this afternoon status post angiography shows two- vessel runoff with patent posterior tibial artery with and perfusion through the plantar arch artery of the right lower extremity. I discussed various options with the patient including following up wound care, this will likely yield poor results with delayed and nonhealing right distal forefoot wound. Also offered transmetatarsal amputation given her angiography results she has a potential for healing at a transmetatarsal level of amputation. Also discussed below-knee amputation is a viable option. Patient expressed interest in a transmetatarsal amputation. She would like to discuss this with her and son who she lives with. I was very explicit with the patient that a transmetatarsal amputation still has potential for nonhealing delayed healing and persistent infection requiring below the knee amputation she is prepared to move forward with understanding this risk and states that the below-knee amputation as a fallback plan would be acceptable she would like to preserve as much of her legs possible and is willing to undergo transmetatarsal amputation as initial procedure. Should she wish to proceed I would plan for surgery on morning with primary closure versus delayed closure pending intraoperative findings. 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
[2020-04-17 17:49] LABS: Glucose Point of Care 150 mg/dL (70-110)
[2020-04-17] MEDS: sodium chloride 0.9% 1,000 ML 100 ML IV (21:02)
[2020-04-17 21:56] LABS: Glucose Point of Care 142 mg/dL (70-110)
[2020-04-17] MEDS: insulin glargine 100 units/1 mL 10 UNIT SUBCUT (22:31)
[2020-04-18] VITALS (26 sets, daily range): BP systolic 120–163; BP diastolic 57–87; PULSE 66–78; RESP 10–20; TEMP 36.7–37.3; O2SAT 93–100
[2020-04-18] MEDS: HYDROmorphone 1 mg/mL INJ 1 mL IVP ×5 (00:44→18:54)
[2020-04-18] MEDS: vancomycin 1,000 MG in sodium chloride 0.9% 250 ML 250 MG IV (01:08)
[2020-04-18] MEDS: piperacillin-tazobactam 3.375 GM in sodium chloride 0.9% (plus) 50 ML IV ×2 (04:01→20:25)
[2020-04-18 05:20] LABS: Basophils # 0.1 10^3/uL (0.0-0.1); Basophils % 0.5 %; Eosinophils # 0.2 10^3/uL (0.0-0.8); Eosinophils % 1.7 %; Hematocrit 35.8 % (37.0-47.0); Hemoglobin 11.4 g/dL (11.5-15.3); Lymphocytes # 2.5 10^3/uL (0.8-4.8); Lymphocytes % 21.7 %; Mean Corpuscular HGB Conc 31.8 g/dL (30.0-36.0); Mean Corpuscular Hemoglobin 28.4 pg (28.0-34.0); Mean Corpuscular Volume 89.1 fL (81-99); Mean Platelet Volume 9.6 fL (7.4-10.4); Monocytes # 0.8 10^3/uL (0.2-0.9); Monocytes % 7.1 %; Neutrophils # 7.86 10^3/uL (1.8-7.7); Neutrophils % 68.4 %; Nucleated Red Blood Cells % 0 %; Platelet Count 417 10^3/cmm (130-400); Red Blood Count 4.02 10^6/uL (4.1-5.3); Red Cell Distribution Width 13.6 % (12.1-15.1); White Blood Count 11.5 10^3/uL (4.0-10.0)
[2020-04-18 05:44] LABS: Magnesium 1.8 mg/dL (1.7-2.3); Phosphorus 3.7 mg/dL (2.5-4.5)
[2020-04-18 05:45] LABS: Alanine Aminotransferase 19 U/L (0-33); Albumin Level 3.4 g/dL (3.5-5.2); Alkaline Phosphatase 92 IU/L (35-105); Anion Gap 14.2 (5-19); Aspartate Amino Transferase 16 U/L (0-32); Blood Urea Nitrogen 13 mg/dL (6-20); Calcium 8.7 mg/dL (8.5-10.5); Carbon Dioxide 24 mmol/L (22-29); Chloride 100 mmol/L (98-107); Globulin 4.8 g/dL (1.3-4.6); Glomerular Filtration Rate 76.2 mL/min (90-130); Glucose 140 mg/dL (65-115); Osmolality Calculated 276 mOsm/kg (285-295); Potassium 4.2 mmol/L (3.5-5.1); Sodium 134 mmol/L (136-145); Total Bilirubin 0.3 mg/dL (0.15-1.2); Total Protein 8.2 g/dL (6.6-8.7)
--- NOTE | 2020-04-18 07:12 | PM.PN ---
Subjective Subjective: Interval history: Patient seen bedside this morning to further discuss treatment options. Denies any acute events overnight. Endorses pain to the right foot. Deep throbbing pain consistent with ischemia. Pain is localized at her fifth toe. She discussed treatment options with her and she would like to proceed with a transmetatarsal amputation with the understanding that due to underlying arterial disease this may not heal requiring a below-knee amputation. She has been n.p.o. since midnight. Vitals/I&O/Wt Last Vital Signs Temp 98.3 F 04/18/20 07:07 Pulse 74 04/18/20 07:07 Resp 18 04/18/20 07:07 BP 143/76 04/18/20 07:07 Pulse Ox 97 04/18/20 07:07 04/17/20 04/18/20 04/18/20 22:59 06:59 14:59 Intake Total 300 / 590 50 / 640 Output Total 1200 / 1200 550 / 1750 Balance -900 / -610 -500 / -1110 Weight last 48 hrs Weight 173 lb Physical Exam Narrative: EXAM NARRATIVE: GENERAL: Patient is alert and oriented ?3 and in no acute distress. The following is a focused bilateral lower extremity exam. VASCULAR: Dorsalis pedis nonpalpable, posterior tibial artery palpable. Capillary refill time less than 5 seconds to the distal hallux bilaterally. Calf is supple and nontender proximally and distally. Diminished hair growth at bilateral legs and feet. NEUROLOGICAL: Protective sensation intact 0/10 sites, tested with [place] Valerie monofilament to bilateral feet. DERMATOLOGICAL: Full-thickness wound at right leg and right foot. Right leg wound is located at the distal lateral aspect measures 3.2 cm x 2.4 cm x 0.2 cm has eschar and fibrotic base without purulent drainage there is localized periwound erythema without proximal lymphangitic streaking, no underlying fluctuance palpated. Her right foot wound is at the level of amputation of the right fourth toe and distal fourth metatarsal has a mixture of fibrotic and granular base with serous drainage no regulo purulence or malodor has epithelialized margin. Malodor present to amputation site. Diffusely dry skin to bilateral feet. Dystrophic nail changes at remaining toenails x9. Lower extremity integument is thin and atrophic has shiny appearance is decreased texture and turgor. Decreased elasticity noted. Right fifth toe is cool to the touch compared to contralateral limb is dusky purple and ischemic in appearance. Dependent rubor to the right lateral foot without proximal lymphangitic streaking. MUSCULOSKELETAL: Post partial right fifth ray resection, right foot. Tenderness to palp patient at right foot laterally as well as right lateral leg. Ankle joint dorsiflexion is to neutral bilaterally. Data : 04/18/20 04:59 04/18/20 04:59 Micro: Microbiology 04/16/20 13:15 Blood Culture - Preliminary Blood NEGATIVE TO DATE 04/16/20 13:19 Blood Culture - Preliminary Blood NEGATIVE TO DATE 04/16/20 18:00 Gram Stain - Final Toe - #[address]: My impression: Osteolysis medial aspect of right fifth metatarsal head with erosive changes also appreciated at the medial condyle at the base of the proximal phalanx of the fifth toe consistent with osteomyelitis this is advanced from previous images in comparison to CT scan on 02/29/2020. Radiologist's impression: CT/CT foot RT w con [id number] IMPRESSION: 1. Postoperative changes with a wide soft tissue defect at the mid fourth metatarsal. 2. Small amount of fluid/abscess measuring 6 x 7 mm just deep to the soft tissue defect. Surrounding soft tissue induration and edema. 3. Suspected osteomyelitis involving the base of the fifth proximal phalanx and head of the fifth metatarsal. Dictated By: Gagan Luque MD Other Xray: Radiologist's impression: XR/XR foot RT min 3V* [id number] IMPRESSION: Status post 4th toe transmetatarsal amputation. No obvious bony destruction to indicate acute osteomyelitis. Apparent soft tissue wound or ulceration between the 3rd and 5th toes. Dictated By: Albert Clifton MD Signed By: Albert Clifton MD Signed Date/Time: 04/16/20 1339 Vascular: Radiologist's impression: Ordering Provider/Ordering MD: Francisco Bal MD Date of Service: 02/29/20 Procedure(s): [place] [id number] Accession Number(s): [id number] Report Number: [id number] Adrianne Carranza Age: 49 Gender: F : 1970 Exam Date: 02/29/2020 09:27 Ordering Phys: Francisco Bal MD Technologist: Abbey Cannon Exam Location: [facility] [place]_ Indication: GANGRENOUS CHANGES OF RIGHT FOURTH TOE Risk Factors: Previous Vascular Surgery: RIGHT LEFT BP: 172.0 / BP: 175.0/ 0 0 Waveform Velocity (cm/s) Velocity (cm/s) Waveform Triphasic 111.2 Iliac Prox 158.2 Biphasic Triphasic 105.7 Iliac Mid 174.0 Biphasic Triphasic 86.9 Iliac Distal 149.4 Biphasic Biphasic 90.4 CAP PARTS CUTTER 116.0 Biphasic Monophasic 156.8 SFA Prox 76.9 Biphasic Monophasic 35.6 SFA Mid 79.9 Biphasic Monophasic SFA Dist Biphasic 87.5 72.4 Monophasic 56.7 POP 70.9 Biphasic Monophasic 48.1 COMMERCIAL OR INSTITUTIONAL CLEANER 25.6 Monophasic Monophasic 21.1 DPA 15.3 Monophasic 0.8 RUBY 0.9 FINDINGS RT COMMERCIAL OR INSTITUTIONAL CLEANER = 147, RT DPA = 124 LT COMMERCIAL OR INSTITUTIONAL CLEANER = 154, LT DPA = 116 Mild to moderate diffuse plaques bilaterally in the iliac and the femoral arteries. Slightly diminished resting ABIs bilaterally CONCLUSIONS 1. Abnormal resting ABIs bilaterally, consistent with mild peripheral artery disease 2. Mild to moderate diffuse plaques in the iliac and femoral arteries bilaterally Dr Radha Grant MD [facility] (Electronically Signed) Final Date: 29 February 2020 A&P Assessment and plan (1) Toe gangrene: Status: Acute (2) Diabetes mellitus, type II: Status: Acute Qualifiers: Diabetes mellitus group home insulin use: without group home use Diabetes mellitus complication status: with skin complications Diabetes mellitus complication detail: with foot ulcer Qualified Code(s): E11.621 - Type 2 diabetes mellitus with foot ulcer; L97.509 - Non-pressure chronic ulcer of other part of unspecified foot with unspecified severity (3) Peripheral arterial disease: Status: Acute Status post angiography 04/17/2020 shows two-vessel runoff with patent posterior tibial artery with and perfusion through the plantar arch artery of the right lower extremity. I discussed various options with the patient including following up wound care, this will likely yield poor results with delayed and nonhealing right distal forefoot wound. Also offered transmetatarsal amputation given her angiography results she has a potential for healing at a transmetatarsal level of amputation. Also discussed below-knee amputation is a viable option. After discussion and speaking with her family patient wishes to proceed with transmetatarsal amputation of her right foot with full understanding that this may not heal due to underlying peripheral arterial disease and infection and she is willing to move forward with a below-knee amputation should that happen. She has been n.p.o. since midnight in preparation for surgery today she is scheduled for right TMA at noon. I explained risks include pain, bleeding, numbness, infection, delayed healing, dehiscence, need for antibiotic therapy, loss of function, transfer pressure and development of new ulcerations, need for higher level of amputation. Also risks for DVT, PE, heart attack and stroke. She wishes to proceed. 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
[2020-04-18 07:16] LABS: Glucose Point of Care 122 mg/dL (70-110)
[2020-04-18] MEDS: sodium chloride 0.9% 1,000 ML 100 ML IV ×2 (09:05→21:52)
--- NOTE | 2020-04-18 09:11 | PC.NURSE ---
Hibiclens soap wash completed at this time.
[2020-04-18] MEDS: amlodipine 10 mg Tablet PO (09:39)
--- NOTE | 2020-04-18 11:04 | PC.NURSE ---
Patient to surgery at this time.
[2020-04-18 11:09] LABS: Glucose Point of Care 161 mg/dL (70-110)
--- NOTE | 2020-04-18 11:38 | ANES.PREANE2 ---
Pre-Anesthetic Assessment Pre-Anesthetic Assessment: Height/Weight: Height 1.57 m Weight 78.471 kg Temp Pulse Resp BP Pulse Ox 98.2 F 72 16 160/84 97 04/18/20 11:09 04/18/20 11:09 04/18/20 11:09 04/18/20 11:09 04/18/20 11:09 Preop Diagnosis: Osteomyelitis of the right fourth toe Proposed Procedure: Operation Date: 04/17/20 10:00 Proposed Procedures p Peripheral Diagnostic(Right) - Asha Quan MD Operation Date: 04/18/20 11:30 Proposed Procedures p Transmetatarsal Amputation of Right foot(Right) - Barber Vance DPM Familial anesthetic complications: none Was Beta Marky taken within 24 hours: N/A Last intake: Intake Last Liquid Date 04/17/20 Last Liquid Time 20:00 Last Solid Date 04/17/20 Last Solid Time 20:00 Social: Social History: Tobacco and No alcohol Comment: quit 3 weeksk ago Exam: Pre-Anes Outpt Exam: alert, oriented x 3, clear to auscultation bilaterally and regular rate & rhythm Airway: Cervical ROM: WNL MP: 2 Dentition: Other (missing) Pulmonary: Pulmonary: None reported CV/HEM: CV/HEM: None reported : : None reported Metabolic: Metabolic: DM and Hyperlipidemia Musc/skel: Musc/skel: None reported Neuropsych: Neuropsych: None reported Anesthetic Plan: ASA status: 3 Anesthesia: General Risk of > 500 ml blood loss (7ml/kg in children): No Meds/Allergies Current Medications: Current Medications Generic Name Dose Route Start Last Admin Trade Name Peyton PRN Reason Stop Dose Admin Amlodipine Besylat e 10 mg 04/17/20 09:00 04/18/20 09:39 Norvasc PO 10 mg DAILY [facility] Administration Aspirin 81 mg 04/17/20 09:00 04/17/20 10:02 Aspirin Ec PO Not Given DAILY [facility] Atorvastatin Calci um 20 mg 04/17/20 09:00 04/17/20 10:01 Lipitor PO Not Given DAILY [facility] Heparin Sodium (Be ef Lung) 5,000 unit 04/16/20 17:19 04/18/20 06:26 Heparin SUBCUT Not Given Q12H [facility] Hydromorphone HCl 1 mg 04/17/20 21:09 04/18/20 09:05 Dilaudid Inj IVP 1 mg Q4H PRN Administration [facility] Piperacillin Sod/T azobactam 50 mls @ 12.5 mls /hr 04/16/20 18:00 04/18/20 04:01 Sod 3.375 gm/ So dium Chloride IV 12.5 mls/hr Q8H [facility] Administration Protocol Vancomycin HCl 1,0 00 mg/ 250 mls @ 250 mls /hr 04/17/20 02:00 04/18/20 01:08 Sodium Chloride IV 250 mls/hr Q12H LENA Administration Protocol Sodium Chloride 1,000 mls @ 100 m ls/hr 04/17/20 11:15 04/18/20 09:05 Sodium Chloride 0.9% IV 100 mls/hr .Q10H LENA Administration Insulin Aspart 0 unit 04/16/20 18:00 04/18/20 09:02 Novolog SUBCUT Not Given TIDWM LENA Protocol Insulin Glargine 10 unit 04/16/20 21:00 04/17/20 22:31 Lantus SUBCUT 10 unit BEDTIME [facility] Administration Lisinopril 10 mg 04/17/20 09:00 04/17/20 10:02 Prinivil PO Not Given DAILY [facility] Ondansetron HCl 4 mg 04/16/20 17:19 04/16/20 19:29 Zofran IVP 4 mg Q8H PRN Administration vomiting, or N/V if npo PFSH Anesthesia PFSH: Medical History Diabetes mellitus, type II Gangrenous toe Status post amputation History of gestational diabetes Hypertension Surgical History History of 2 sections History of carpal tunnel repair bilateral Family History Other Diabetes Hypertension Lung disease Denies family history of CAD (coronary artery disease) Chronic kidney disease (CKD) Anesthesia complication Social History Smoking and tobacco status: current every day smoker cigarettes Packs smoked per day: 1 Years cigarettes smoked: 34 Second hand smoke exposure: Yes Alcohol intake: never Household members: spouse, family and children Current occupational status: employed Current occupation: [employer] History of recent travel: No Current gender identity: Female Female Reproductive History: Date of last menstrual period: 03/24/18 Data Anesthesia CBC & Chem 7: 04/18/20 04:59 04/18/20 04:59 Other Labs: Laboratory Results - last 48 hr 04/16/20 04/16/20 04/16/20 13:19 13:19 13:19 WBC 16.0 H RBC 4.30 Hgb 12.0 Hct 37.5 MCV 87.2 MCH 27.9 L MCHC 32.0 RDW 13.8 Plt Count 458 H MPV 9.5 Neut % (Auto) 74.8 Lymph % (Auto) 17.7 [place] % (Auto) 5.6 Eos % (Auto) 1.1 Baso % (Auto) 0.4 Neut # (Auto) 11.92 H Lymph # (Auto) 2.8 [place] # (Auto) 0.9 Eos # (Auto) 0.2 Baso # (Auto) 0.1 Nucleated RBC % (auto) 0 Nucleated RBCs # 0.0 ESR PT INR Sodium 132 L Potassium 4.1 Chloride 96 L Carbon Dioxide 24 Anion Gap 16.1 BUN 11 Creatinine 0.9 GFR Calculation 66.5 L Glucose 200 H POC Glucose Calculated Osmolality 276 L Lactic Acid 2.6 H Calcium 9.8 Phosphorus Magnesium Total Bilirubin 0.4 AST 16 ALT 21 Alkaline Phosphatase 104 C-Reactive Protein Total Protein 8.5 Albumin 3.8 Globulin 4.7 H Triglycerides Cholesterol LDL Cholesterol, Calc HDL Cholesterol LDL/HDL Ratio Cholesterol/HDL Ratio Procalcitonin TSH Vancomycin Trough 04/16/20 04/16/20 04/16/20 13:19 13:19 13:19 WBC RBC Hgb Hct MCV MCH MCHC RDW Plt Count MPV Neut % (Auto) Lymph % (Auto) [place] % (Auto) Eos % (Auto) Baso % (Auto) Neut # (Auto) Lymph # (Auto) [place] # (Auto) Eos # (Auto) Baso # (Auto) Nucleated RBC % (auto) Nucleated RBCs # ESR 56 H PT INR Sodium Potassium Chloride Carbon Dioxide Anion Gap BUN Creatinine GFR Calculation Glucose POC Glucose Calculated Osmolality Lactic Acid Calcium Phosphorus Magnesium Total Bilirubin AST ALT Alkaline Phosphatase C-Reactive Protein 102.2 H Total Protein Albumin Globulin Triglycerides Cholesterol LDL Cholesterol, Calc HDL Cholesterol LDL/HDL Ratio Cholesterol/HDL Ratio Procalcitonin TSH 1.24 Vancomycin Trough 04/16/20 04/16/20 04/16/20 13:19 18:07 19:33 WBC RBC Hgb Hct MCV MCH MCHC RDW Plt Count MPV Neut % (Auto) Lymph % (Auto) [place] % (Auto) Eos % (Auto) Baso % (Auto) Neut # (Auto) Lymph # (Auto) [place] # (Auto) Eos # (Auto) Baso # (Auto) Nucleated RBC % (auto) Nucleated RBCs # ESR PT INR Sodium Potassium Chloride Carbon Dioxide Anion Gap BUN Creatinine GFR Calculation Glucose POC Glucose 117 137 Calculated Osmolality Lactic Acid Calcium Phosphorus Magnesium Total Bilirubin AST ALT Alkaline Phosphatase C-Reactive Protein Total Protein Albumin Globulin Triglycerides Cholesterol LDL Cholesterol, Calc HDL Cholesterol LDL/HDL Ratio Cholesterol/HDL Ratio Procalcitonin 0.05 TSH Vancomycin Trough 04/17/20 04/17/20 04/17/20 05:17 05:17 05:17 WBC 12.2 H RBC 3.88 L Hgb 10.7 L Hct 34.3 L MCV 88.4 MCH 27.6 L MCHC 31.2 RDW 13.9 Plt Count 430 H MPV 9.8 Neut % (Auto) 65.2 Lymph % (Auto) 25.1 [place] % (Auto) 6.7 Eos % (Auto) 2.4 Baso % (Auto) 0.4 Neut # (Auto) 7.92 H Lymph # (Auto) 3.1 [place] # (Auto) 0.8 Eos # (Auto) 0.3 Baso # (Auto) 0.1 Nucleated RBC % (auto) 0 Nucleated RBCs # 0.0 ESR PT 13.90 INR 1.04 Sodium 133 L Potassium 4.1 Chloride 98 Carbon Dioxide 25 Anion Gap 14.1 BUN 15 Creatinine 0.7 GFR Calculation 88.9 L Glucose 140 H POC Glucose Calculated Osmolality 275 L Lactic Acid Calcium 8.8 Phosphorus Magnesium Total Bilirubin 0.3 AST 13 ALT 17 Alkaline Phosphatase 80 C-Reactive Protein Total Protein 8.2 Albumin 3.4 L Globulin 4.8 H Triglycerides Cholesterol LDL Cholesterol, Calc HDL Cholesterol LDL/HDL Ratio Cholesterol/HDL Ratio Procalcitonin TSH Vancomycin Trough 04/17/20 04/17/20 04/17/20 05:17 05:17 06:36 WBC RBC Hgb Hct MCV MCH MCHC RDW Plt Count MPV Neut % (Auto) Lymph % (Auto) [place] % (Auto) Eos % (Auto) Baso % (Auto) Neut # (Auto) Lymph # (Auto) [place] # (Auto) Eos # (Auto) Baso # (Auto) Nucleated RBC % (auto) Nucleated RBCs # ESR PT INR Sodium Potassium Chloride Carbon Dioxide Anion Gap BUN Creatinine GFR Calculation Glucose POC Glucose 152 Calculated Osmolality Lactic Acid Calcium Phosphorus 4.1 Magnesium 1.6 L Total Bilirubin AST ALT Alkaline Phosphatase C-Reactive Protein Total Protein Albumin Globulin Triglycerides 134 Cholesterol 94 LDL Cholesterol, Calc 48 L HDL Cholesterol 19 L LDL/HDL Ratio 2.53 Cholesterol/HDL Ratio 4.95 H Procalcitonin TSH Vancomycin Trough 04/17/20 04/17/20 04/17/20 11:11 13:09 13:45 WBC RBC Hgb Hct MCV MCH MCHC RDW Plt Count MPV Neut % (Auto) Lymph % (Auto) [place] % (Auto) Eos % (Auto) Baso % (Auto) Neut # (Auto) Lymph # (Auto) [place] # (Auto) Eos # (Auto) Baso # (Auto) Nucleated RBC % (auto) Nucleated RBCs # ESR PT INR Sodium Potassium Chloride Carbon Dioxide Anion Gap BUN Creatinine GFR Calculation Glucose POC Glucose 127 Calculated Osmolality Lactic Acid Calcium Phosphorus Magnesium Total Bilirubin AST ALT Alkaline Phosphatase C-Reactive Protein Total Protein Albumin Globulin Triglycerides Cholesterol LDL Cholesterol, Calc HDL Cholesterol LDL/HDL Ratio Cholesterol/HDL Ratio Procalcitonin TSH Vancomycin Trough Cancelled 12.1 04/17/20 04/17/20 04/18/20 17:46 21:11 04:59 WBC 11.5 H RBC 4.02 L Hgb 11.4 L Hct 35.8 L MCV 89.1 MCH 28.4 MCHC 31.8 RDW 13.6 Plt Count 417 H MPV 9.6 Neut % (Auto) 68.4 Lymph % (Auto) 21.7 [place] % (Auto) 7.1 Eos % (Auto) 1.7 Baso % (Auto) 0.5 Neut # (Auto) 7.86 H Lymph # (Auto) 2.5 [place] # (Auto) 0.8 Eos # (Auto) 0.2 Baso # (Auto) 0.1 Nucleated RBC % (auto) 0 Nucleated RBCs # 0.0 ESR PT INR Sodium Potassium Chloride Carbon Dioxide Anion Gap BUN Creatinine GFR Calculation Glucose POC Glucose 150 142 Calculated Osmolality Lactic Acid Calcium Phosphorus Magnesium Total Bilirubin AST ALT Alkaline Phosphatase C-Reactive Protein Total Protein Albumin Globulin Triglycerides Cholesterol LDL Cholesterol, Calc HDL Cholesterol LDL/HDL Ratio Cholesterol/HDL Ratio Procalcitonin TSH Vancomycin Trough 04/18/20 04/18/20 04/18/20 04:59 04:59 07:09 WBC RBC Hgb Hct MCV MCH MCHC RDW Plt Count MPV Neut % (Auto) Lymph % (Auto) [place] % (Auto) Eos % (Auto) Baso % (Auto) Neut # (Auto) Lymph # (Auto) [place] # (Auto) Eos # (Auto) Baso # (Auto) Nucleated RBC % (auto) Nucleated RBCs # ESR PT INR Sodium 134 L Potassium 4.2 Chloride 100 Carbon Dioxide 24 Anion Gap 14.2 BUN 13 Creatinine 0.8 GFR Calculation 76.2 L Glucose 140 H POC Glucose 122 Calculated Osmolality 276 L Lactic Acid Calcium 8.7 Phosphorus 3.7 Magnesium 1.8 Total Bilirubin 0.3 AST 16 ALT 19 Alkaline Phosphatase 92 C-Reactive Protein Total Protein 8.2 Albumin 3.4 L Globulin 4.8 H Triglycerides Cholesterol LDL Cholesterol, Calc HDL Cholesterol LDL/HDL Ratio Cholesterol/HDL Ratio Procalcitonin TSH Vancomycin Trough 04/18/20 10:59 WBC RBC Hgb Hct MCV MCH MCHC RDW Plt Count MPV Neut % (Auto) Lymph % (Auto) [place] % (Auto) Eos % (Auto) Baso % (Auto) Neut # (Auto) Lymph # (Auto) [place] # (Auto) Eos # (Auto) Baso # (Auto) Nucleated RBC % (auto) Nucleated RBCs # ESR PT INR Sodium Potassium Chloride Carbon Dioxide Anion Gap BUN Creatinine GFR Calculation Glucose POC Glucose 161 Calculated Osmolality Lactic Acid Calcium Phosphorus Magnesium Total Bilirubin AST ALT Alkaline Phosphatase C-Reactive Protein Total Protein Albumin Globulin Triglycerides Cholesterol LDL Cholesterol, Calc HDL Cholesterol LDL/HDL Ratio Cholesterol/HDL Ratio Procalcitonin TSH Vancomycin Trough Micro: Microbiology 04/16/20 13:15 Blood Culture - Preliminary Blood NEGATIVE TO DATE 04/16/20 13:19 Blood Culture - Preliminary Blood NEGATIVE TO DATE 04/16/20 18:00 Gram Stain - Final Toe - #1 Cardiac Studies: No Data to Display
[2020-04-18] MEDS: sodium chloride 0.9% 1,000 ML 30 ML IV (11:52)
--- NOTE | 2020-04-18 12:39 | PM.PN ---
Subjective Subjective: Interval history: Patient is going down for [facility] by Dr. Vance, has no complaints overnight, blood sugars here have been reasonable Vitals/I&O/Wt Last Vital Signs Temp 98.2 F 04/18/20 11:09 Pulse 72 04/18/20 11:09 Resp 16 04/18/20 11:09 BP 160/84 04/18/20 11:09 Pulse Ox 97 04/18/20 11:09 04/17/20 04/18/20 04/18/20 22:59 06:59 14:59 Intake Total 300 / 590 50 / 640 1000 / 1000 Output Total 1200 / 1200 550 / 1750 500 / 500 Balance -900 / -610 -500 / -1110 500 / 500 Weight last 48 hrs Weight 78.471 kg Physical Exam Const: COMMON NORMALS: no acute distress and patient oriented x3 HENMT: COMMON NORMALS: normocephalic HEAD & SCALP: normocephalic Neck/C-Spine: COMMON NORMALS: no JVD Resp: COMMON NORMALS: normal respiratory effort, No retractions, No use of accessory muscles and clear to auscultation bilaterally AUSCULTATION: clear to auscultation bilaterally Cardio: COMMON NORMALS: no JVD, regular rate, regular rhythm, S1 normal heart sound present and S2 normal heart sound present RATE: regular rate RHYTHM: regular rhythm HEART SOUNDS: S1 normal heart sound present and S2 normal heart sound present GI: COMMON NORMALS: Normal to inspection, nondistended, normoactive bowel sounds present, Soft to palpation, non-tender, No hepatosplenomegaly present, no masses and no bruits PALPATION: Yes Soft to palpation and Yes No hepatosplenomegaly present Extremity: COMMON NORMALS: capillary refill normal, no clubbing, cyanosis or edema, no calf tenderness and no pedal edema NARRATIVE EXTREMITY EXAM: Right lower extremity currently in a dressing, right fifth digit dusky and black appearance, gangrenous, fourth digit metatarsal site, currently clean and dry Neuro: COMMON NORMALS: patient oriented x3 Psych: COMMON NORMALS: mental status grossly normal Data : 04/18/20 04:59 04/18/20 04:59 Micro: Microbiology 04/16/20 13:15 Blood Culture - Preliminary Blood NEGATIVE TO DATE 04/16/20 13:19 Blood Culture - Preliminary Blood NEGATIVE TO DATE 04/16/20 18:00 Gram Stain - Final Toe - #1 A&P Assessment and plan (1) Toe gangrene: -Right foot, fifth digit, toe gangrene -Right foot, fourth digit amputation site, base of metatarsa -Foot CT showed suspected osteomyelitis involving the base of the fifth proximal phalanx and the head of the fifth metatarsal -White blood cell count 11.5 ESR 56 CRP 102.2, is hemodynamically stable -Cultures in the past have grown Enterococcus faecalis, staph epidermidis, strep group B, blood cultures negative for last admission -ABIs showed abnormal resting ABIs bilaterally, consistent with mild peripheral arterial disease -Angiography on 04/17/2020, shows two-vessel runoff shows compromised flow to the fourth and fifth metatarsals, awaiting official report -Concerns for right foot, fifth digit, toe gangrene, osteomyelitis, poor blood flow with peripheral arterial disease Plan: -I have consulted Dr. Vance from podiatry for surgical intervention, patient has agreed to TMA -I have consulted Dr. Diaz from cardiology for vascular intervention -Place the patient on broad-spectrum antibiotics vancomycin and Zosyn -Blood cultures, wound cultures -Monitor clinical response, monitor hemodynamics, monitor for fevers -Needs better blood sugar control Status: Acute (2) Toe osteomyelitis, right: Status: Acute (3) Diabetes mellitus, type II: -Continue Lantus 10 units at bedtime, low-dose sliding scale, uptitrate insulin based on blood sugars Status: Acute Qualifiers: Diabetes mellitus joint terminal attack controller insulin use: without joint terminal attack controller use Diabetes mellitus complication status: with skin complications Diabetes mellitus complication detail: with foot ulcer Qualified Code(s): E11.621 - Type 2 diabetes mellitus with foot ulcer; L97.509 - Non-pressure chronic ulcer of other part of unspecified foot with unspecified severity (4) Hypertension: Status: Acute Qualifiers: Hypertension type: essential hypertension Qualified Code(s): I10 - Essential (primary) hypertension (5) Hyperlipidemia: Status: Acute (6) Peripheral arterial disease: Status: Acute Additional A&P Information Full code, heparin for DVT prophylaxis Attestations Medical Necessity Statement*: She requires continued hospitalization for right lower extremity osteomyelitis, concerns for ischemia, undergoing right TMA Coding Level of Care Code 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
[2020-04-18] MEDS: mupirocin oint 22 gm 1 APPLIC TOPICAL (13:15)
--- NOTE | 2020-04-18 13:29 | P.OP_ITS ---
Operative Report Date of procedure: April 18, 2020 Pre-op Diagnosis: Osteomyelitis right fifth metatarsal and proximal phalanx of fifth toe. Diabetic foot infection exposed bone with peripheral arterial disease right lower extremity. Post-op diagnosis: same Procedure Done: Right transmetatarsal amputation CPT code 80960 Implants: 2-0 Vicryl 3-0 nylon Specimens removed/disposition: Fifth metatarsal head right foot sent to microbiology for Gram stain and culture Pathology: Right forefoot remaining sent to pathology for permanent Surgeon: Barber Vance D.P.M. Gelatin Plant Supervisor: Bobbi Anesthesia: MAC Estimated blood loss: 50 mL Tourniquet time: No tourniquet utilized IV fluids: None Urine output: None Complications: None Findings: Clean margin at transmetatarsal appendectomy site at soft tissue and bone. Moderate bleeding at skin margins. Condition: stable Disposition: floor Brief History: Ms. Carranza is a 50-year-old diabetic female with history of smoking. Has peripheral arterial disease. Status post angiography performed 04/17/2020. As noted in progress note dated today I had lengthy discussion with the patient regarding her options. She is opted for transmetatarsal imitation with a full understanding that this may fail and require below-knee amputation she is willing to take this risk. She has been n.p.o. since midnight in preparation for right transmetatarsal amputation. Denies any concerns or complaints, ready to proceed. Procedure: Under mild sedation the patient was brought to the operating room and placed on the operating table in supine position. A timeout was performed. Anesthesia was administered by the anesthesia service. Local anesthesia was injected by myself consisting of 3.5% Marcaine plain total of 30 cc utilized for a right ankle block. Well-padded pneumatic tourniquet applied to high calf right lower extremity however this was never inflated or utilized during the duration of the procedure. The right lower extremity was scrubbed, prepped and draped utilizing normal aseptic technique. Attention was directed to the right foot where bony landmarks were palpated fifth metatarsal base and first metatarsal base/cuneiform joint. Skin marker was utilized to draw out a fishmouth incision maintaining a long plantar flap. Full-thickness incision was performed with a #10 blade down to bone and dorsal aspect of metatarsals 1 through 5 were exposed utilizing gentile elevator. Metatarsal parabola maintained and a transmetatarsal mutation carried out through metatarsals 1, 2, 3, 4 and 5 utilizing a sagittal saw and the forefoot was excised and passed to the operative field. Pulsatile bleeders at the dorsalis pedis and plan arch artery were tied off utilizing Vicryl. Copious amounts of sterile saline solution were utilized to irrigate the incision. No further pulsatile bleeders appreciated there was bleeding at the skin margin circumferentially. This was minimal but present. No devitalized bone or soft tissue within the incision remaining. All extensor and flexor tendons transected at the most proximal margin. Further irrigation performed with sterile saline solution followed by closure utilizing 2-0 Vicryl and 3-0 nylon. Incision was dressed with bacitracin, Adaptic, sterile 4 x 4's, ABD pad and Kerli, Errol wrap utilized without compression. Postop shoe applied. Patient tolerated the procedure well and was transferred to the PACU with vital signs stable vascular status intact. Following a period of postop monitoring she will be transferred back to the floor to continue empiric IV antibiotics. I am guarded on her ability to heal will monitor her closely with close follow-up on discharge. Okay for discharge from podiatry standpoint will follow-up on Thursday next week in podiatry clinic. She is to be nonweightbearing to the right lower extremity at this time may heel touch only for transfers. She is to elevate her right foot while at rest.
--- NOTE | 2020-04-18 13:41 | XRR_ITS ---
PROCEDURE INFORMATION: Exam: XR Right Foot Complete Exam date and time: 04/18/2020 2:09 PM Age: 50 years old Clinical indication: Condition or disease; Other: Post op; Prior surgery; Surgery date: Post-operative (0-2 days) TECHNIQUE: Imaging protocol: XR Right foot. Views: 3 or more views. COMPARISON: CT foot RT w con [id number] 04/16/2020 2:17 PM FINDINGS: Bones/joints: Status post interval transmetatarsal amputation. No radiographic evidence of acute fracture or dislocation. Alignment anatomic. Mild degenerative changes. No acute erosive or destructive changes. No lytic or blastic lesion. Small plantar calcaneal spur. Soft tissues: Soft tissue swelling and gas at the operative site. Mild enthesopathy at the Achilles insertion. XR/XR foot RT min 3V* [id number] IMPRESSION: Postsurgical changes associated with interval transmetatarsal amputation.
[2020-04-18] MEDS: ondansetron 2 mg/ML SDV 2 mL 4 MG IVP (13:46)
--- NOTE | 2020-04-18 14:21 | PC.NURSE ---
Patient returned to the floor at this time.
[2020-04-18 17:15] LABS: Glucose Point of Care 127 mg/dL (70-110)
[2020-04-18] MEDS: heparin 5,000 unit/mL INJ 1 mL 5000 UNIT SUBCUT (17:40)
--- NOTE | 2020-04-18 19:03 | PC.NURSE ---
End of shift summary Patient returned from surgery around 1430. Patient's daughter did visit today which helped patient's spirts. Patient's dressing is dry and intact. Patient is A&Ox3. Respirations even and non-labored on room air. Patient has been controlled on her pain today with the Dilaudid. Report to Dariana BRANCH.
[2020-04-18 20:51] LABS: Glucose Point of Care 174 mg/dL (70-110)
[2020-04-18] MEDS: insulin glargine 100 units/1 mL 10 UNIT SUBCUT (21:51)
[2020-04-19] VITALS (8 sets, daily range): BP systolic 138–150; BP diastolic 74–83; PULSE 60–82; RESP 16–24; TEMP 36.8–37.2; O2SAT 92–99
[2020-04-19] MEDS: HYDROmorphone 1 mg/mL INJ 1 mL IVP ×4 (00:39→12:22)
[2020-04-19] MEDS: ALPRAZolam 0.25 mg Tablet PO (00:43)
[2020-04-19] MEDS: vancomycin 1,000 MG in sodium chloride 0.9% 250 ML 250 MG IV (02:44)
[2020-04-19] MEDS: piperacillin-tazobactam 3.375 GM in sodium chloride 0.9% (plus) 50 ML IV (04:25)
[2020-04-19 05:50] LABS: Basophils # 0.1 10^3/uL (0.0-0.1); Basophils % 0.6 %; Eosinophils # 0.2 10^3/uL (0.0-0.8); Eosinophils % 1.5 %; Hematocrit 33.3 % (37.0-47.0); Hemoglobin 10.5 g/dL (11.5-15.3); Lymphocytes # 2.5 10^3/uL (0.8-4.8); Lymphocytes % 22.9 %; Mean Corpuscular HGB Conc 31.5 g/dL (30.0-36.0); Mean Corpuscular Hemoglobin 27.9 pg (28.0-34.0); Mean Corpuscular Volume 88.3 fL (81-99); Mean Platelet Volume 9.4 fL (7.4-10.4); Monocytes # 0.8 10^3/uL (0.2-0.9); Monocytes % 7.1 %; Neutrophils # 7.42 10^3/uL (1.8-7.7); Neutrophils % 67.5 %; Nucleated Red Blood Cells % 0 %; Platelet Count 444 10^3/cmm (130-400); Red Blood Count 3.77 10^6/uL (4.1-5.3); Red Cell Distribution Width 13.5 % (12.1-15.1)
[2020-04-19] MEDS: heparin 5,000 unit/mL INJ 1 mL 5000 UNIT SUBCUT (06:04)
[2020-04-19 06:18] LABS: Alanine Aminotransferase 24 U/L (0-33); Albumin Level 3.4 g/dL (3.5-5.2); Alkaline Phosphatase 104 IU/L (35-105); Anion Gap 12.9 (5-19); Aspartate Amino Transferase 27 U/L (0-32); Blood Urea Nitrogen 9 mg/dL (6-20); Calcium 8.6 mg/dL (8.5-10.5); Carbon Dioxide 25 mmol/L (22-29); Chloride 101 mmol/L (98-107); Globulin 4.2 g/dL (1.3-4.6); Glomerular Filtration Rate 66.5 mL/min (90-130); Glucose 145 mg/dL (65-115); Osmolality Calculated 279 mOsm/kg (285-295); Potassium 3.9 mmol/L (3.5-5.1); Sodium 135 mmol/L (136-145); Total Bilirubin 0.3 mg/dL (0.15-1.2); Total Protein 7.6 g/dL (6.6-8.7)
[2020-04-19 06:29] LABS: Glucose Point of Care 125 mg/dL (70-110)
[2020-04-19 07:03] LABS: Magnesium 1.8 mg/dL (1.7-2.3); Phosphorus 3.2 mg/dL (2.5-4.5)
--- NOTE | 2020-04-19 07:04 | PM.PN ---
Subjective Subjective: Interval history: 1 day status post transmetatarsal imitation right lower extremity. Patient denies any acute events overnight. States that her pain is well managed. Patient is afebrile, no leukocytosis. Vitals/I&O/Wt Last Vital Signs Temp 99.0 F 04/19/20 03:28 Pulse 82 04/19/20 03:28 Resp 18 04/19/20 04:51 BP 145/77 04/19/20 03:28 Pulse Ox 95 04/19/20 03:28 04/18/20 04/19/20 04/19/20 22:59 06:59 14:59 Intake Total 1240 / 2290 290 / 2580 Output Total 1700 / 2850 1150 / 4000 Balance -460 / -560 -860 / -1420 Physical Exam Narrative: EXAM NARRATIVE: GENERAL: Patient is alert and oriented ?3 and in no acute distress. The following is a focused bilateral lower extremity exam. VASCULAR: Dorsalis pedis nonpalpable, posterior tibial artery palpable. Capillary refill time less than 5 seconds to the left distal hallux. Calf is supple and nontender proximally and distally. Diminished hair growth at bilateral legs and feet. NEUROLOGICAL: Protective sensation intact 0/10 sites. DERMATOLOGICAL: Dressings left intact transmetatarsal amputation site right foot no strikethrough bleeding, no proximal majority streaking. Dressings are clean and dry. Ulceration at the right lateral leg has granular base, epithelialized margin without purulent drainage or proximal streaking. MUSCULOSKELETAL: Status post right transmetatarsal amputation. No pain with posterior calf squeeze, right. Ankle joint dorsiflexion is to neutral bilaterally. Data : 04/19/20 05:17 04/19/20 05:17 Micro: Microbiology 04/18/20 13:38 Gram Stain - Final Toe - #1 04/16/20 18:00 Gram Stain - Final Toe - #1 Wound Culture - Preliminary Gram Negative Rods Staphylococcus species Corynebacterium species A&P Assessment and plan (1) Toe gangrene: Status: Acute (2) Diabetes mellitus, type II: Status: Acute Qualifiers: Diabetes mellitus snf insulin use: without snf use Diabetes mellitus complication status: with skin complications Diabetes mellitus complication detail: with foot ulcer Qualified Code(s): E11.621 - Type 2 diabetes mellitus with foot ulcer; L97.509 - Non-pressure chronic ulcer of other part of unspecified foot with unspecified severity (3) Peripheral arterial disease: Status: Acute Patient is 1 day status post transmetatarsal mutation of the right foot. Doing well postoperatively, hemodynamically stable, he she is afebrile no leukocytosis. States her pain is under control. -Patient okay for discharge from podiatry standpoint no further surgical intervention anticipated during this hospitalization. -She is fitted for a cam boot to the right lower extremity this was for positioning only. She is to remain strict nonweightbearing to the right lower extremity may heel touch only for transfers. -Patient to elevate her right foot while at rest. -2 weeks of oral antibiotics on discharge. -Patient to follow-up in podiatry clinic 04/26/2020 at 10:30 AM. Please leave amputation site dressings intact until follow-up visit 04/26/2020. Will require daily dressing change at her right lateral leg wound Santyl, 4 x 4, Kerlix and tape. Attestations Medical Necessity Statement*: Diabetic foot infection with osteomyelitis right foot. 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
[2020-04-19] MEDS: atorvastatin 40 mg Tablet 20 MG PO (08:38)
[2020-04-19] MEDS: aspirin 81 mg EC Tablet PO (08:38)
[2020-04-19] MEDS: lisinopril 10 mg Tablet PO (08:38)
[2020-04-19] MEDS: amlodipine 10 mg Tablet PO (08:38)
[2020-04-19] MEDS: collagenase oint 30 gm 1 APPLIC TOPICAL (10:49)
[2020-04-19] MEDS: sodium chloride 0.9% 1,000 ML 100 ML IV (10:53)
[2020-04-19 11:07] LABS: Glucose Point of Care 207 mg/dL (70-110)
--- NOTE | 2020-04-19 11:34 | PC.CHAP ---
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 lock tender chief operator visit [] Patient/Family/Request visit [] Outpatient visit [] Follow-up visit [] Physician referral [] Code/Alert [x] Routine visit [] Staff referral [] Actively dying [] Patient sleeping [] Family support [] [] Out of room [] Palliative care [] [] Receiving care in room [] Pre-surgical visit [] Trauma [] Long length of stay [] ICU visit [] Other: Relational/Emotional Strength [x] Patient feels connected with others/family/visitors/staff [] Distress [] Loneliness/isolation [] Abandonment Spirituality of Patient [x] Person of Claritza [] Attends Jain of their Claritza [] Believes in Prayer [] Reads Bible or Sabianism materials [] There are Spiritual issues to be addressed Brand Development Manager Interventions [x] Prayer [x] Active listening [x] Non-anxious presence [x] Spiritual/emotional support [] Crisis/trauma care [] Spiritual counseling [] Bereavement support [] Provided bereavement packet [] Provided Bible/devotional materials [] Provided toy/stuffed animal, coloring book to patient or family member [] Provided Communion [] Anointing/Atkins [] Salvation [] Completed spiritual assessment [] Other: Impact on Illness or Injury [] Angry [] Fearful [] Anxious [] Often cries [] Exhaustion [] Unable to work [] Unable to attend samaritan [] Unable to walk/stand [] Unable to read [] Unable to drive [] Unable to eat/drink [] Unable to sleep [] Unable to be with family [] Patient intubated [x] Other: Summary Patient was in distressful pain. Prayer was provided. Time spent with patient 2 minutes
--- NOTE | 2020-04-19 11:38 | P.DS_ITS ---
Discharge Providers Date of Admission: 04/16/20 15:56 Date of Discharge: April 19, 2020 Attending Provider at Admission: Jose Alfredo Smith MD Attending Provider at Discharge: Jose Alfredo Smith MD Primary Care Provider: CLIFF Bellamy Diagnoses at Discharge Discharge Diagnosis (1) Toe gangrene: Status: Acute (2) Toe osteomyelitis, right: Status: Acute (3) Diabetes mellitus, type II: Status: Acute Qualifiers: Diabetes mellitus longterm insulin use: without longterm use Diabetes mellitus complication status: with skin complications Diabetes mellitus complication detail: with foot ulcer Qualified Code(s): E11.621 - Type 2 diabetes mellitus with foot ulcer; L97.509 - Non-pressure chronic ulcer of other part of unspecified foot with unspecified severity (4) Hypertension: Status: Acute Qualifiers: Hypertension type: essential hypertension Qualified Code(s): I10 - Essential (primary) hypertension (5) Hyperlipidemia: Status: Acute (6) Peripheral arterial disease: Status: Acute Reason for Visit Reason for Visit: RIGHT FOOT PAIN Hospital Course Discharge Summary: This is a 50-year-old female with a past medical history of poorly controlled type 2 diabetes mellitus, last hemoglobin A1c 13.8, history of peripheral arterial disease, hypertension, hyperlipidemia, recent history of gangrenous toe right fourth digit status post amputation at the level of the fourth metatarsal bone by Dr. Bal, managed through wound care, who presents to [facility] due to concerns for fifth digit right foot gangrene, dusky appearance. Patient was admitted to [facility] for right foot fifth digit toe gangrene with underlying osteomyelitis, and concerns for ischemia. Patient was admitted to general medical floors, received IV fluids, broad-spectrum antibiotics, pain control. Dr. Diaz from cardiology was consulted for vascular intervention, patient had a peripheral angiogram performed, which showed small vessel disease in the fourth, fifth toe. Dr. Vance was consulted, patient underwent a transmetatarsal amputation, tolerated surgery well, received inpatient physical therapy, IV antibiotics as above. Patient will be discharged home, with oral antibiotics Levaquin and doxycycline for the next 14 days, follow-up with wound care, Dr. Vance as outpatient. For peripheral arterial disease discharged on aspirin, statin. For type 2 diabetes mellitus, patient was advised of the strict blood sugar control, I have discharged her on insulin sliding scale on top of her Lantus, per follow-up primary care in 1 to 2 weeks. Physical Exam Const: COMMON NORMALS: no acute distress and patient oriented x3 HENMT: COMMON NORMALS: normocephalic HEAD & SCALP: normocephalic Neck/C-Spine: COMMON NORMALS: no JVD Resp: COMMON NORMALS: normal respiratory effort, No retractions, No use of accessory muscles and clear to auscultation bilaterally AUSCULTATION: clear to auscultation bilaterally Cardio: COMMON NORMALS: no JVD, regular rate, regular rhythm, S1 normal heart sound present and S2 normal heart sound present RATE: regular rate RHYTHM: regular rhythm HEART SOUNDS: S1 normal heart sound present and S2 normal heart sound present GI: COMMON NORMALS: Normal to inspection, nondistended, normoactive bowel sounds present, Soft to palpation, non-tender, No hepatosplenomegaly present, no masses and no bruits PALPATION: Yes Soft to palpation and Yes No hepatosplenomegaly present Extremity: COMMON NORMALS: no calf tenderness and no pedal edema NARRATIVE EXTREMITY EXAM: Right lower extremity wrapped and bandaged in dressing, clean and dry Neuro: COMMON NORMALS: patient oriented x3 Psych: COMMON NORMALS: mental status grossly normal Discharge Data Data Completed and Pending: Completed Studies During Hospitalization Category Date Time Status CT foot RT w con [id number] Urgent Cat Scan 04/16/20 13:39 Completed XR foot RT min 3V * [id number] Routine Exams 04/18/20 13:41 Completed XR foot RT min 3V * [id number] Stat Exams 04/16/20 13:03 Completed Pending at discharge Category Date Time Status 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 Routin e Exams 04/17/20 09:39 Taken Blood Culture Sta t Lab 04/16/20 13:15 Results Complete Blood Co unt w/Auto AM LABS Lab 04/20/20 04:00 Ordered Comprehensive Met abolic Panel AM LA BS Lab 04/20/20 04:00 Ordered Tissue Culture an d Gram Stain Routi ne Lab 04/18/20 13:38 Results Wound Culture and Gram Stain Stat Lab 04/16/20 18:00 Results Pathology: Surgic al [PTH] Routine Pth 04/18/20 13:20 Received Labs from last 24 hours 04/19/20 04/19/20 04/19/20 10:45 06:15 05:17 WBC RBC Hgb Hct MCV MCH MCHC RDW Plt Count MPV Neut % (Auto) Lymph % (Auto) [place] % (Auto) Eos % (Auto) Baso % (Auto) Neut # (Auto) Lymph # (Auto) [place] # (Auto) Eos # (Auto) Baso # (Auto) Nucleated RBC % (a uto) Nucleated RBCs # Sodium Potassium Chloride Carbon Dioxide Anion Gap BUN Creatinine GFR Calculation Glucose POC Glucose 207 125 Calculated Osmolal ity Calcium Phosphorus 3.2 Magnesium 1.8 Total Bilirubin AST ALT Alkaline Phosphata se Total Protein Albumin Globulin 04/19/20 04/19/20 04/18/20 05:17 05:17 20:47 WBC 11.0 H RBC 3.77 L Hgb 10.5 L Hct 33.3 L MCV 88.3 MCH 27.9 L MCHC 31.5 RDW 13.5 Plt Count 444 H MPV 9.4 Neut % (Auto) 67.5 Lymph % (Auto) 22.9 [place] % (Auto) 7.1 Eos % (Auto) 1.5 Baso % (Auto) 0.6 Neut # (Auto) 7.42 Lymph # (Auto) 2.5 [place] # (Auto) 0.8 Eos # (Auto) 0.2 Baso # (Auto) 0.1 Nucleated RBC % (a uto) 0 Nucleated RBCs # 0.0 Sodium 135 L Potassium 3.9 Chloride 101 Carbon Dioxide 25 Anion Gap 12.9 BUN 9 Creatinine 0.9 GFR Calculation 66.5 L Glucose 145 H POC Glucose 174 Calculated Osmolal ity 279 L Calcium 8.6 Phosphorus Magnesium Total Bilirubin 0.3 AST 27 ALT 24 Alkaline Phosphata se 104 Total Protein 7.6 Albumin 3.4 L Globulin 4.2 04/18/20 17:06 WBC RBC Hgb Hct MCV MCH MCHC RDW Plt Count MPV Neut % (Auto) Lymph % (Auto) [place] % (Auto) Eos % (Auto) Baso % (Auto) Neut # (Auto) Lymph # (Auto) [place] # (Auto) Eos # (Auto) Baso # (Auto) Nucleated RBC % (a uto) Nucleated RBCs # Sodium Potassium Chloride Carbon Dioxide Anion Gap BUN Creatinine GFR Calculation Glucose POC Glucose 127 Calculated Osmolal ity Calcium Phosphorus Magnesium Total Bilirubin AST ALT Alkaline Phosphata se Total Protein Albumin Globulin Vitals: Last Vital Signs Temp 98.5 F 04/19/20 11:31 Pulse 74 04/19/20 11:31 Resp 17 04/19/20 11:31 BP 146/74 04/19/20 11:31 Pulse Ox 96 04/19/20 11:31 Discharge Plan Discharge Patient Disposition: Home Condition: Stable Prescriptions: New Santyl 250 unit/gram Ointment 1 applic topical DAILY Qty: 90 RF: 0 levofloxacin [Levaquin] 750 mg tablet 750 mg PO Q24H 14 Days Qty: 14 RF: 0 doxycycline hyclate 100 mg capsule 100 mg PO BID 14 Days Qty: 28 RF: 0 Continued Norvasc 10 mg tablet 10 mg PO DAILY Qty: 30 RF: 2 Lipitor 20 mg tablet 20 mg PO DAILY Qty: 30 RF: 2 lisinopril 10 mg tablet 10 mg PO DAILY Qty: 30 RF: 2 Lantus Solostar U-100 Insulin 100 unit/mL (3 mL) insulin pen 10 unit SUBCUT BEDTIME RF: 0 aspirin [Adult Aspirin Regimen] 81 mg tablet,delayed release (DR/EC) 81 mg PO DAILY Qty: 30 RF: 0 Changed metformin 500 mg tablet 1,000 mg PO BID Qty: 60 RF: 2 Discharge Orders: Discharge Order (Routine); Ordered 04/19/20 Ordered By: Jose Alfredo Smith Other Ambulatory Orders: Complete Blood Count w/Auto (Routine) Timeframe: 1 Week Location: Determined by Patient Ordered By: Jose Alfredo Smith Comprehensive Metabolic Panel (Routine) Timeframe: 1 Week Facility: [facility] - Location: Lab - Main Lab Ordered By: Jose Alfredo Smith Referrals: Barber Vance DPM [Physician] - 2 weeks [facility], [Staff Physician] - 1-3 days Discharge Diet: Advance as tolerated Discharge Activity: Increase activity as tolerated Discharge Attestations Time Spent in Discharge Care*: less than 30 min Quality Metrics Clinical Quality Measures During this hospital stay, did patient experience: None Coding Level of Care Code Acute Gauger Chief for 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
--- NOTE | 2020-04-19 12:10 | ANE.PACU2 ---
Inpatient post-anesthesia follow up: Airway intact: Yes Vital signs: Temperature 98.5 F Pulse Rate [Monito r] 94 Pulse Rate 74 Respiratory Rate 17 Blood Pressure [Le ft Arm] 172/91 Blood Pressure 146/74 Pulse Oximetry 96 Oxygen Delivery Me thod Room Air Oxygen Flow Rate 8 Fraction of Inspir ed Oxygen Hydration adequate: Yes Nausea and vomiting: No Pain level: 7 Mental status: Baseline
--- NOTE | 2020-04-19 13:30 | PC.NURSE ---
Reviewed patient's discharge with patient at this time. Patient verbalized understanding of follow ups and discharge instructions including how to take her medications. Patient received all her discharge medications here except her Hydrocodone because the [facility] pharmacy is out of Hydrocodone. Patient signed her discharge papers in front of me and this technical document writer left it on her bedside table to retrieve when I returned from taking her out to private car. When I returned the paperwork had accidentally been thrown in the shred box by environmental services so I am unable to place it in the chart. Patient is A&Ox3. Respirations even and non-labored on room air.
--- NOTE | 2020-04-20 08:39 | PC.RESP ---
SMOKING CESSATION INFORMATION SENT TO PATIENT.
--- NOTE | 2020-04-20 11:54 | PC.SOCIAL ---
[facility] called to indicate they have a narcotic script for [place] 1 tab Q8H that was printed on script paper but at bottom indicates COPY-Not valid for dispensing. Reviewed with Dr Smith and request he resend this script electronically to [facility]. He will do so once he has an opportunity. Updated MJ at [facility].
== END 2020-04-19 13:30 | disposition home or self-care (01) | DRG 617 ==
LOC: ER 16:08 → MEDSURG 16:57 → CSU 04-17 11:15 → MEDSURG 04-17 15:05
PROVIDERS: Family Medicine; Internal Medicine Cardiovascular Disease; Podiatrist Foot & Ankle Surgery; Admitting Provider Family Medicine; PCP Nurse Practitioner Family; Visit Provider Family Medicine
PROC: B41DYZZ Fluoroscopy of Aorta and Bilateral Lower Extremity Arteries using Other Contrast (ICD-10-PCS; principal; 2020-04-17 10:00)
PROC: 0Y6M0Z9 Detachment at Right Foot, Partial 1st Ray, Open Approach (ICD-10-PCS; principal; 2020-04-18 11:30)
DX: E11.69 Type 2 diabetes mellitus with other specified complication (principal); E11.52 Type 2 diabetes mellitus with diabetic peripheral angiopathy with gangrene; I96 Gangrene, not elsewhere classified; M86.9 Osteomyelitis, unspecified; I10 Essential (primary) hypertension; E78.5 Hyperlipidemia, unspecified; Z89.421 Acquired absence of other right toe(s); F17.210 Nicotine dependence, cigarettes, uncomplicated; E11.621 Type 2 diabetes mellitus with foot ulcer; L97.514 Non-pressure chronic ulcer 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; Z79.82 Long term (current) use of aspirin; Z79.4 Long term (current) use of insulin
CPT/HCPCS: 12345; 36415; 36416; 73630; 73701; 75625; 75716; 80053; 80061; 80202; 82962; 83605; 83735; 84100; 84145; 84443; 85025; 85610; 85651; 86140; 87040; 87070; 87077; 87176; 87186; 87205; 88305; 96372; 96375; 97161; 97760; 99282; C1769; C1887; C1894; J1170; J1644; J1815 ×2; J2250; J2405; J2543; J2704; J3010; J3370; J3490; J7030; J7050; L4361; Q9967

== ENCOUNTER → 2020-05-24 15:29 | Outpatient (BNVA) | payer MEDICAID, SELFPAY | PROVIDERS: PCP Nurse Practitioner Family; Visit Provider Podiatrist Foot & Ankle Surgery | DX: S99.921A Unspecified injury of right foot, initial encounter (principal); X58.XXXA Exposure to other specified factors, initial encounter; M79.89 Other specified soft tissue disorders | CPT/HCPCS: 73630 ==

== ENCOUNTER 2020-05-24 16:45 | Outpatient (CLI) | payer MEDICAID, SELFPAY | END 2020-05-24 16:46 | disposition home or self-care (01) | LOC: SPT 16:46 | PROVIDERS: PCP Nurse Practitioner Family; Visit Provider Podiatrist Foot & Ankle Surgery | DX: Z47.89 Encounter for other orthopedic aftercare (principal); L97.312 Non-pressure chronic ulcer of right ankle with fat layer exposed; Z89.431 Acquired absence of right foot; L97.514 Non-pressure chronic ulcer 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 | CPT/HCPCS: 97760; L4361 ==

== ENCOUNTER → 2020-06-06 15:37 | Outpatient (BNVA) | payer MEDICAID, SELFPAY | PROVIDERS: PCP Nurse Practitioner Family; Visit Provider Podiatrist Foot & Ankle Surgery | DX: L97.312 Non-pressure chronic ulcer of right ankle with fat layer exposed (principal); Z89.431 Acquired absence of right foot; L97.514 Non-pressure chronic ulcer 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; E11.52 Type 2 diabetes mellitus with diabetic peripheral angiopathy with gangrene; Z79.4 Long term (current) use of insulin; T81.32XA Disruption of internal operation (surgical) wound, not elsewhere classified, initial encounter | CPT/HCPCS: 73630 ==

== ENCOUNTER → 2020-06-11 10:03 | Outpatient (BNVA) | payer MEDICAID, SELFPAY | PROVIDERS: PCP Nurse Practitioner Family; Visit Provider Podiatrist Foot & Ankle Surgery | DX: L97.312 Non-pressure chronic ulcer of right ankle with fat layer exposed (principal); Z89.431 Acquired absence of right foot; L97.514 Non-pressure chronic ulcer 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; E11.52 Type 2 diabetes mellitus with diabetic peripheral angiopathy with gangrene; Z79.4 Long term (current) use of insulin; T81.32XA Disruption of internal operation (surgical) wound, not elsewhere classified, initial encounter | CPT/HCPCS: 73630; 87635 ==

== ENCOUNTER 2020-06-13 05:43 | Day surgery (SDC) | payer MEDICAID, SELFPAY ==
[2020-06-12 10:55] VITALS: BMI 31.6
[2020-06-13 06:04] VITALS: BP 145/92; PULSE 96; RESP 18; TEMP 36.6; O2SAT 97
[2020-06-13] MEDS: sodium chloride 0.9% 1,000 ML 30 ML IV (06:27)
[2020-06-13 06:29] LABS: Glucose Point of Care 115 mg/dL (70-110)
--- NOTE | 2020-06-13 06:38 | P.ANESASSM_ITS ---
Pre-Anesthetic Assessment Pre-Anesthetic Assessment: Height/Weight: Height 1.57 m Weight 78.471 kg Temp Pulse Resp BP Pulse Ox 97.8 F 96 18 145/92 97 06/13/20 06:04 06/13/20 06:04 06/13/20 06:04 06/13/20 06:04 06/13/20 06:04 Preop Diagnosis: Dehiscence of surgical stump Proposed Procedure: Operation Date: 06/13/20 07:20 Proposed Procedures p Lisfranc Amputation 79139 T81.3(Right) - Barber Vance DPM Familial anesthetic complications: none Was Beta Marky taken within 24 hour s: N/A Last intake: Intake Last Liquid Date 06/12/20 Last Liquid Time 22:30 Last Solid Date 06/12/20 Last Solid Time 22:30 Social: Social History: Tobacco and No alcohol Exam: Pre-Anes Outpt Exam: alert, oriented x 3, clear to auscultation bilaterally and regular rate & rhythm Airway: Cervical ROM: WNL MP: 3 Dentition: Chipped and Other (misisng) CV/HEM: CV/HEM: HTN Metabolic: Metabolic: DM and Hyperlipidemia Anesthetic Plan: ASA status: 3 Anesthesia: MAC Risk of > 500 ml blood loss (7ml/kg in children): No Meds/Allergies Current Medications: Current Medications Generic Name Dose Route Start Last Admin Trade Name Freq PRN Reason Stop Dose Admin Sodium Chloride 1,000 mls @ 30 ml s/hr 06/13/20 05:45 06/13/20 06:27 Sodium Chloride 0.9% IV 06/14/20 05:44 30 mls/hr .Q24H LENA Administration PFSH Anesthesia PFSH: Medical History Diabetes mellitus, type II Gangrenous toe Status post amputation History of gestational diabetes Hypertension Surgical History History of 2 sections History of carpal tunnel repair bilateral Family History Other Diabetes Hypertension Lung disease Denies family history of CAD (coronary artery disease) Chronic kidney disease (CKD) Anesthesia complication Social History Smoking and tobacco status: current every day smoker cigarettes Packs smoked per day: 1 Years cigarettes smoked: 34 Second hand smoke exposure: Yes Alcohol intake: never Household members: spouse, family and children Current occupational status: employed Current occupation: [employer] History of recent travel: No Current gender identity: Female Female Reproductive History: Date of last menstrual period: 03/24/18 Data Anesthesia Other Labs: Laboratory Results - last 48 hr 06/13/20 06:25 POC Glucose 115 Cardiac Studies: No Data to Display
--- NOTE | 2020-06-13 06:38 | W.PM.OPSUD ---
Surgery/Procedure H&P Update DATE OF PROCEDURE: June 13, 2020 DATE H&P PERFORMED: 06/11/20 H&P UPDATE INFORMATION: I have reviewed H&P completed within last 30 days, I have examined patient prior to procedure, No changes to prior documentation and H&P is in [facility] EMR on date indicated PREOP DIAGNOSIS: Dehiscence of surgical stump PLANNED PROCEDURE: Operation Date: 06/13/20 07:20 Proposed Procedures p Lisfranc Amputation 12706 T81.3(Right) - Barber Vance DPM
--- NOTE | 2020-06-13 06:39 | P.OP_ITS ---
Operative Report Date of procedure: June 13, 2020 Pre-op Diagnosis: Dehiscence of surgical stump Post-op diagnosis: same Post-op Findings: Devitalized tissue down to and including bone of the right foot. Procedure Done: Right Lisfranc Amputation [id number] Implants: 2-0 Vicryl, 3-0 nylon. Specimens removed/disposition: Metatarsal base 1, 2, 3, 4, 5 sent to microbiology for Gram stain and culture. Pathology: none sent Surgeon: Barber Vance D.P.M. 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 She has not open to below-knee amputation at this time would like to make all salvage efforts recommending Lisfranc amputation for more proximal margin and goal of bleeding skin margins. Risks include pain, bleeding, numbness, infection, loss of function, need for advanced bracing, transfer pressure, transfer lesion, need for higher level of amputation need for antibiotic therapy. Patient is agreeable wishes to proceed. Procedure: Under mild sedation the patient was brought to the operating room and placed on the operating table in supine position. A timeout was performed. Ane sthesia was then administered by the anesthesia service. Local anesthesia injected by myself 20 cc of 0.5% Marcaine plain and a right ankle block fashion. Well-padded pneumatic tourniquet was applied to the right ankle this was never inflated or utilized throughout the duration of the procedure. Right lower extremity was scrubbed, prepped and draped utilizing normal aseptic technique. Attention was directed to the transmetatarsal amputation stump of the right foot and was able to appreciate full-thickness dehiscence down to bone with devitalized tissue down to and including bone at the metatarsal remaining distally 1 through 5. Bone quality is poor density and slightly discolored. Lisfranc disarticulation was performed with a osteotome and a gentile elevator and metatarsal bases were sent to microbiology for Gram stain and culture. All bleeders were ligated and cauterized as necessary extensor and flexor tendons were transected at the most proximal margin. Incision site was flushed with copious amounts of sterile saline solution. Fresh margins of skin were incised to the level where the plantar flap was still closed without tension there was some skin bleeding appreciated. Peroneal brevis tendon was sutured to periosteum of the cuboid as a place singh. Further irrigation performed to the right foot with copious amounts of sterile saline solution. Myofascial and subcutaneous layer reapproximated utilizing 2-0 Vicryl. Skin reapproximated lysing 3-0 nylon. Incision site was dressed with Adaptic, sterile 4 x 4's, Kerlix and Errol wrap. Right lateral ankle wound covered with OpSite. Patient tolerated the procedure well and was transferred to the PACU with vital signs stable and vascular status intact. Following a period of postop monitoring she will be discharged home is to remain strict nonweightbearing to the right foot and elevate the right foot at all times while at rest encourage smoking cessation, adherence to diabetic medication regimen, nutritional diet and adequate hydration. Patient will follow up in podiatry clinic 06/20/2020 at 2 PM. She will continue her currently prescribed oral antibiotics which may be adjusted appropriately once current intraoperative cultures are finalized.
--- NOTE | 2020-06-13 07:52 | XRR_ITS ---
PROCEDURE INFORMATION: Exam: XR Right Foot Complete Exam date and time: 06/13/2020 8:06 AM Age: 50 years old Clinical indication: Condition or disease; Other: Post op; Prior surgery TECHNIQUE: Imaging protocol: XR Right foot. Views: 3 or more views. COMPARISON: CR (LOW EXM, ) 06/11/2020 10:08 AM FINDINGS: Bones/joints: Since the previous radiographs the patient has undergone additional amputation now through the level of the tarsal metatarsal joint space. Some gas is present in the soft tissues is distal to the metatarsal bones consistent with recent surgery. No acute fractures or definite destructive bony changes are seen. Soft tissues: There is soft tissue gas most likely due to the recent surgery. XR/XR foot RT min 3V* [id number] IMPRESSION: Since previous study the patient has undergone additional amputation now through the level of the tarsal metatarsal joints.
[2020-06-13 08:02] VITALS: BP 109/78; PULSE 105; RESP 18; TEMP 36.2; O2SAT 94
[2020-06-13 08:25] VITALS: BP 129/96; PULSE 95; RESP 18; O2SAT 96
--- NOTE | 2020-06-13 08:30 | ANE.PACU2 ---
Inpatient post-anesthesia follow up: Airway intact: Yes Vital signs: Temperature 97.2 F Pulse Rate 95 Respiratory Rate 18 Blood Pressure 129/96 Pulse Oximetry 96 Oxygen Delivery Me thod Room Air Oxygen Flow Rate Fraction of Inspir ed Oxygen Hydration adequate: Yes Nausea and vomiting: No Pain level: 1 Mental status: Baseline
== END 2020-06-13 08:33 | disposition home or self-care (01) ==
PROVIDERS: PCP Nurse Practitioner Family; Visit Provider Podiatrist Foot & Ankle Surgery
PROC: (CPT 28800; principal; 2020-06-13 07:00)
DX: T87.81 Dehiscence of amputation stump (principal); I10 Essential (primary) hypertension; E11.9 Type 2 diabetes mellitus without complications; E78.5 Hyperlipidemia, unspecified; F17.210 Nicotine dependence, cigarettes, uncomplicated
CPT/HCPCS: 28800; 12345; 36416; 73630; 82962; 87070; 87077; 87176; 87186; 87205; J0690; J2704; J3010; J3490; J7030

== ENCOUNTER → 2020-09-04 11:16 | Outpatient (BNVA) | payer MEDICAID, SELFPAY | PROVIDERS: PCP Nurse Practitioner Family; Visit Provider Nurse Practitioner Family | DX: E11.52 Type 2 diabetes mellitus with diabetic peripheral angiopathy with gangrene (principal); Z79.4 Long term (current) use of insulin; E11.621 Type 2 diabetes mellitus with foot ulcer; L97.509 Non-pressure chronic ulcer of other part of unspecified foot with unspecified severity; I10 Essential (primary) hypertension; F41.9 Anxiety disorder, unspecified; F32.9 Major depressive disorder, single episode, unspecified; G62.9 Polyneuropathy, unspecified | CPT/HCPCS: 80053; 80061; 82043; 83036; 84443; 85025 ==

== ENCOUNTER → 2020-09-17 13:30 | Outpatient (BNVA) | payer MEDICAID, SELFPAY | PROVIDERS: PCP Nurse Practitioner Family; Visit Provider Podiatrist Foot & Ankle Surgery | DX: Z89.431 Acquired absence of right foot; L97.312 Non-pressure chronic ulcer of right ankle with fat layer exposed; L97.514 Non-pressure chronic ulcer 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; E11.52 Type 2 diabetes mellitus with diabetic peripheral angiopathy with gangrene; Z79.4 Long term (current) use of insulin; Z48.89 Encounter for other specified surgical aftercare; L97.412 Non-pressure chronic ulcer of right heel and midfoot with fat layer exposed; L97.512 Non-pressure chronic ulcer of other part of right foot with fat layer exposed; T81.32XA Disruption of internal operation (surgical) wound, not elsewhere classified, initial encounter | CPT/HCPCS: 73630 ==

== ENCOUNTER → 2020-12-20 11:01 | Outpatient (BNVA) | payer MEDICAID, SELFPAY | PROVIDERS: PCP Nurse Practitioner Family; Visit Provider Nurse Practitioner Family | DX: E78.5 Hyperlipidemia, unspecified (principal); E11.621 Type 2 diabetes mellitus with foot ulcer; L97.509 Non-pressure chronic ulcer of other part of unspecified foot with unspecified severity; E11.42 Type 2 diabetes mellitus with diabetic polyneuropathy; E11.52 Type 2 diabetes mellitus with diabetic peripheral angiopathy with gangrene; F41.9 Anxiety disorder, unspecified; F32.9 Major depressive disorder, single episode, unspecified; I10 Essential (primary) hypertension; Z79.4 Long term (current) use of insulin | CPT/HCPCS: 80053; 80061; 83036; 85025 ==

== ENCOUNTER 2021-02-18 14:36 | Inpatient (IN) | payer MEDICAID, SELFPAY ==
[2021-02-18 15:16] VITALS: BP 72/53; PULSE 101; RESP 18; TEMP 36.9; O2SAT 100; BMI 31.8
[2021-02-18 15:22] VITALS: BP 96/49; PULSE 94; RESP 15; O2SAT 99
[2021-02-18 15:33] LABS: Glucose Point of Care 226 mg/dL (70-110)
--- NOTE | 2021-02-18 15:39 | XRR_ITS ---
PROCEDURE INFORMATION: Exam: XR Chest Exam date and time: 02/18/2021 3:39 PM Age: 50 years old Clinical indication: Shortness of breath and other: Dizziness; Patient HX: SOB x 3 days TECHNIQUE: Imaging protocol: XR of the chest. Views: 1 view. COMPARISON: CR Chest [address] [place] [id number] 11/27/2016 10:56 AM FINDINGS: Lungs: Lungs are clear bilaterally. Pleural spaces: No pleural effusion. No pneumothorax. Heart/Mediastinum: The cardiac silhouette and mediastinal contours are unremarkable. Bones/joints: Unremarkable for age. XR/XR chest 1V portable [id number] IMPRESSION: No acute cardiopulmonary process.
--- NOTE | 2021-02-18 15:41 | ECG_ITS ---
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 Measurements Intervals [place] Rate: 91 P: 55 WV: 157 QRS: 22 QRSD: 106 T: 65 QT: 356 QTc: 438 Interpretive Statements SINUS RHYTHM LOW QRS VOLTAGE [QRS DEFLECTION < 0.5/1.0 mV IN LIMB/CHEST LEADS] Possible old inferior wall MT PROBABLE LATERAL MYOCARDIAL INFARCTION [35 ms Q WAVE IN I/aVL/V5/V6], PROBABLY OLD Compared to ECG 02/28/2020 18:54:33 Low QRS voltage now present Myocardial infarct finding now present Electronically Signed On 02-18-2021 21:18:13 CDT by Radha Grant M.D. [email or web address] [email or web address].[employer]/[email or web address]/[id number]
[2021-02-18] MEDS: sodium chloride 0.9% 1,000 ML 999 ML IV ×2 (15:47→17:15)
[2021-02-18 15:57] LABS: Basophils # 0.1 10^3/uL (0.0-0.1); Basophils % 0.6 %; Eosinophils # 0.1 10^3/uL (0.0-0.8); Eosinophils % 0.8 %; Hematocrit 23.3 % (37.0-47.0); Hemoglobin 7.7 g/dL (11.5-15.3); Lymphocytes # 3.4 10^3/uL (0.8-4.8); Mean Corpuscular Hemoglobin 29.1 pg (28.0-34.0); Mean Corpuscular Volume 87.9 fL (81-99); Mean Platelet Volume 10.2 fL (7.4-10.4); Monocytes # 0.9 10^3/uL (0.2-0.9); Monocytes % 5.9 %; Neutrophils # 9.76 10^3/uL (1.8-7.7); Neutrophils % 68.3 %; Nucleated Red Blood Cells % 0 %; Platelet Count 406 10^3/cmm (130-400); Red Blood Count 2.65 10^6/uL (4.1-5.3); White Blood Count 14.3 10^3/uL (4.0-10.0)
[2021-02-18 16:08] LABS: Lactate (Lactic Acid level) 3.2 mmol/L (0.5-2.2)
[2021-02-18 16:11] VITALS: BP 104/70; PULSE 97; RESP 15; O2SAT 100
--- NOTE | 2021-02-18 16:14 | NUR.SHIFT ---
notified patient of need for urine specimen.
[2021-02-18 16:28] LABS: Troponin(5th) Baseline 50 ng/L (0-10)
--- NOTE | 2021-02-18 16:30 | W.ED.DIZZY ---
HPI - Dizziness General: Chief Complaint: ER Hold Stated Complaint: low BP, Dizzy, Lethargic Time Seen by Provider: 02/18/21 15:24 Source: patient Mode of arrival: wheelchair Limitations: no limitations History of Present Illness: HPI Narrative: Patient is a 50-year-old female with a history of diabetes mellitus status post partial foot amputation of her right lower extremity. She presents to the emergency department with complaints of nausea and vomiting of 3 days duration. She has multiple episodes of vomiting per day. She denies chest pain, shortness of breath, fever. She has not taken her medications in the last 3 days she says because she has been vomiting so much. On arrival to the emergency department her systolic blood pressure was in the 70s and she needed to be assisted to get into the bed. She endorses urinary frequency and urgency. MD elicited complaint: dizziness and near syncope Onset (ago): day(s) (3) Timing: gradual onset Severity: severe Description: lightheadedness Context: recent illness and other (nausea and vomiting) History of similar symptoms: No Exacerbating factors: nothing Relieving factors: nothing Associated symptoms: Reports malaise, nausea, vomiting and weakness; Denies abnormal vaginal bleeding, change in hearing, chest pain, chills, cough, diaphoresis, ear discharge, ear pressure, fevers/chills, headache(s), nasal congestion, palpitations, rash, short of breath, syncope or tinnitus Review of Systems General: Reports: 10 or more systems reviewed and unremarkable except in HPI and below Const: Reports: malaise; Denies: chills or diaphoresis ENMT: Denies: ear discharge, change in hearing, tinnitus or nasal congestion Card: Denies: chest pain, palpitations or syncope GI: Reports: nausea and vomiting Neuro: Denies: headache(s) 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 Diabetes mellitus, type II Diabetic peripheral neuropathy associated with type 2 diabetes mellitus Diabetic ulcer of foot associated with diabetes mellitus due to underlying condition, with necrosis of bone Dry gangrene Gangrenous toe Status post amputation History of gestational diabetes Hyperlipidemia Hypertension Nicotine dependence Nicotine dependence, cigarettes, uncomplicated Non-pressure chronic ulcer 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 Non-pressure chronic ulcer of right ankle with fat layer exposed Peripheral arterial disease Peripheral neuropathy Toe osteomyelitis, right Surgical History H/O esophagogastroduodenoscopy (02/20/21) History of 2 sections History of carpal tunnel repair bilateral Status post colonoscopy (02/20/21) Repeat in 10 years Status post transmetatarsal amputation of right foot Family History Other Diabetes Hypertension Lung disease Denies family history of CAD (coronary artery disease) Chronic kidney disease (CKD) Anesthesia complication Social History Smoking and tobacco status: former smoker Quit status (tobacco): has tried quititng Second hand smoke exposure: Yes Alcohol intake: never Substance/Drug Use: never Lives independently: Yes Household members: spouse, family and children Marital status: service: No Current occupational status: unemployed History of recent travel: No Current gender identity: Female Female Reproductive History: Date of last menstrual period: 03/24/18 Physical Exam Const: COMMON NORMALS: no acute distress, average body habitus, patient oriented x3, no limitations, healthy appearing, alert and well nourished HENMT: COMMON NORMALS: normocephalic, atraumatic and moist oral mucous membranes HEAD & SCALP: normocephalic and atraumatic Eye: COMMON NORMALS: Equal, round and reactive pupils present, EOMs intact bilaterally, conjunctivae normal and no scleral icterus CONJUNCTIVA: Yes conjunctivae normal PUPIL: Yes Equal, round and reactive pupils present Neck/C-Spine: COMMON NORMALS: no meningeal signs and no JVD Resp: COMMON NORMALS: normal respiratory effort, No retractions, No use of accessory muscles, clear to auscultation bilaterally and percussion normal AUSCULTATION: clear to auscultation bilaterally PERCUSSION: percussion normal Cardio: COMMON NORMALS: no JVD, regular rate, regular rhythm, S1 normal heart sound present, S2 normal heart sound present, No gallops present (Cardio), No clicks present (Cardio), No murmurs present (Cardio), No rub (Cardio) and Peripheral pulses 2+ throughout RATE: regular rate RHYTHM: regular rhythm HEART SOUNDS: S1 normal heart sound present and S2 normal heart sound present PERIPHERAL PULSES: Peripheral pulses 2+ throughout GI: COMMON NORMALS: Normal to inspection, nondistended, normoactive bowel sounds present, Soft to palpation, non-tender, No hepatosplenomegaly present, no masses and no bruits PALPATION: Yes Soft to palpation and Yes No hepatosplenomegaly present RECTAL EXAM: heme positive stool Extremity: COMMON NORMALS: normal to inspection, full ROM, capillary refill normal, no calf tenderness and no pedal edema Neuro: COMMON NORMALS: patient oriented x3 SENSORIUM/ORIENTATION: Yes alert MENINGEAL SIGNS: Yes no meningeal signs Skin: COMMON NORMALS: turgor normal, no jaundice, no petechiae and no mottling GENERAL SKIN EXAM: turgor normal Course Consultations: Consultation #1: Discussed the patient with Dr. Owens, hospitalist and he kindly accepted the patient to his service. Time: 20:10 Vital Signs: Vital signs: Vital Signs Temperature 98.7 F 02/20/21 18:49 Pulse Rate 75 02/20/21 18:49 Respiratory Rate 14 02/20/21 18:49 Blood Pressure 137/79 02/20/21 18:49 Pulse Oximetry 100 02/20/21 18:49 MDM - Dizziness MDM Narrative: Medical decision making narrative: 50-year-old female patient who presented today with complaints of nausea vomiting. In the emergency department she was noted to be hypotensive, tachycardic, has mild lactic acidosis, has a urinary tract infection. She meets the criteria for sepsis. She was given fluid resuscitation and started on IV antibiotics. In the emergency department occult blood was positive and she will be evaluated by the surgeon while she is in the hospital. Lab Data: Labs: Lab Results 02/18/21 02/18/21 02/18/21 Range/Units 15:30 15:30 15:30 WBC 14.3 H (4.0-10.0) 10^3/ uL RBC 2.65 L (4.1-5.3) 10^6/u L Hgb 7.7 L (11.5-15.3) g/dL Hct 23.3 L (37.0-47.0) % MCV 87.9 (81-99) fL MCH 29.1 (28.0-34.0) pg MCHC 33.0 (30.0-36.0) g/dL RDW 14.0 (12.1-15.1) % Plt Count 406 H (130-400) 10^3/c mm MPV 10.2 (7.4-10.4) fL Neut % (Auto) 68.3 % Lymph % (Auto) 24.0 % [place] % (Auto) 5.9 % Eos % (Auto) 0.8 % Baso % (Auto) 0.6 % Neut # (Auto) 9.76 H (1.8-7.7) 10^3/u L Lymph # (Auto) 3.4 (0.8-4.8) 10^3/u L [place] # (Auto) 0.9 (0.2-0.9) 10^3/u L Eos # (Auto) 0.1 (0.0-0.8) 10^3/u L Baso # (Auto) 0.1 (0.0-0.1) 10^3/u L Nucleated RBC % (a uto) 0 % Nucleated RBCs # 0.0 /100WBC Sodium 133 L (136-145) mmol/L Potassium 5.2 H (3.5-5.1) mmol/L Chloride 97 L (98-107) mmol/L Carbon Dioxide 20 L (22-29) mmol/L Anion Gap 21.2 H (5-19) BUN 69 H (6-20) mg/dL Creatinine 1.1 H (0.5-0.9) mg/dL GFR Calculation 52.8 L (90-130) mL/min Glucose 219 H (65-115) mg/dL POC Glucose 226 H (70-110) mg/dL Calculated Osmolal ity 303 H (285-295) mOsm/k g Lactate (0.5-2.2) mmol/L Calcium 9.1 (8.5-10.5) mg/dL Total Bilirubin 0.2 (0.15-1.2) mg/dL AST 11 (0-32) U/L ALT 12 (0-33) U/L Alkaline Phosphata se 72 (35-105) IU/L Creatine Kinase 31 (26-192) U/L Troponin T Baselin e (0-10) ng/L Troponin T 120 [place] (0-10) ng/L Delta Troponin T (0-10) ABS# Troponin T Hi Sens 6Hr (0-10) ng/L Troponin T Hi Sens 6Hr Delta (0-12) ng/L C-Reactive Protein 14.6 H (0.0-4.9) mg/L NT-Pro-B Natriuret Pep 68 (0-125) pg/mL Total Protein 6.7 (6.6-8.7) g/dL Albumin 3.7 (3.5-5.2) g/dL Globulin 3.0 (1.3-4.6) g/dL Lipase 17 (13-60) U/L Procalcitonin 0.06 (0-0.5) ng/mL Urine Color (Yellow) Urine Appearance (CLEAR) Urine pH (5-7) Ur Specific Gravit y (1.005-1.030) Urine Protein (Negative) Urine Glucose (UA) (Normal) Urine Ketones (Negative) Urine Blood (Negative) Urine Nitrate (Negative) Urine Bilirubin (Negative) Urine Urobilinogen (Negative) mg/dL Ur Leukocyte Charity ase (Negative) Urine RBC (0-2) /hpf Urine WBC (0-5) /hpf Ur Squamous Epith Cells (0-5) /hpf Amorphous Sediment Urine Bacteria (NONE) /hpf SARS-CoV-2 Ag (Rap id) (Negative) Blood Type Rho(D) Type Antibody Screen Crossmatch 02/18/21 02/18/21 02/18/21 Range/Units 15:30 15:30 16:50 WBC (4.0-10.0) 10^3/ uL RBC (4.1-5.3) 10^6/u L Hgb (11.5-15.3) g/dL Hct (37.0-47.0) % MCV (81-99) fL MCH (28.0-34.0) pg MCHC (30.0-36.0) g/dL RDW (12.1-15.1) % Plt Count (130-400) 10^3/c mm MPV (7.4-10.4) fL Neut % (Auto) % Lymph % (Auto) % [place] % (Auto) % Eos % (Auto) % Baso % (Auto) % Neut # (Auto) (1.8-7.7) 10^3/u L Lymph # (Auto) (0.8-4.8) 10^3/u L [place] # (Auto) (0.2-0.9) 10^3/u L Eos # (Auto) (0.0-0.8) 10^3/u L Baso # (Auto) (0.0-0.1) 10^3/u L Nucleated RBC % (a uto) % Nucleated RBCs # /100WBC Sodium (136-145) mmol/L Potassium (3.5-5.1) mmol/L Chloride (98-107) mmol/L Carbon Dioxide (22-29) mmol/L Anion Gap (5-19) BUN (6-20) mg/dL Creatinine (0.5-0.9) mg/dL GFR Calculation (90-130) mL/min Glucose (65-115) mg/dL POC Glucose (70-110) mg/dL Calculated Osmolal ity (285-295) mOsm/k g Lactate 3.2 H (0.5-2.2) mmol/L Calcium (8.5-10.5) mg/dL Total Bilirubin (0.15-1.2) mg/dL AST (0-32) U/L ALT (0-33) U/L Alkaline Phosphata se (35-105) IU/L Creatine Kinase (26-192) U/L Troponin T Baselin e 50 H (0-10) ng/L Troponin T 120 [place] (0-10) ng/L Delta Troponin T (0-10) ABS# Troponin T Hi Sens 6Hr (0-10) ng/L Troponin T Hi Sens 6Hr Delta (0-12) ng/L C-Reactive Protein (0.0-4.9) mg/L NT-Pro-B Natriuret Pep (0-125) pg/mL Total Protein (6.6-8.7) g/dL Albumin (3.5-5.2) g/dL Globulin (1.3-4.6) g/dL Lipase (13-60) U/L Procalcitonin (0-0.5) ng/mL Urine Color Yellow (Yellow) Urine Appearance Hazy A (CLEAR) Urine pH 5 (5-7) Ur Specific Gravit y 1.010 (1.005-1.030) Urine Protein Neg (Negative) Urine Glucose (UA) Norm (Normal) Urine Ketones Negative (Negative) Urine Blood Trace H (Negative) Urine Nitrate Negative (Negative) Urine Bilirubin Neg (Negative) Urine Urobilinogen Norm (Negative) mg/dL Ur Leukocyte Charity ase 1+ H (Negative) Urine RBC None (0-2) /hpf Urine WBC 25-40 H (0-5) /hpf Ur Squamous Epith Cells 25-40 H (0-5) /hpf Amorphous Sediment Not Reportable Urine Bacteria 2+ H (NONE) /hpf SARS-CoV-2 Ag (Rap id) (Negative) Blood Type Rho(D) Type Antibody Screen Crossmatch 02/18/21 02/18/21 02/18/21 Range/Units 17:33 17:39 19:32 WBC (4.0-10.0) 10^3/ uL RBC (4.1-5.3) 10^6/u L Hgb (11.5-15.3) g/dL Hct (37.0-47.0) % MCV (81-99) fL MCH (28.0-34.0) pg MCHC (30.0-36.0) g/dL RDW (12.1-15.1) % Plt Count (130-400) 10^3/c mm MPV (7.4-10.4) fL Neut % (Auto) % Lymph % (Auto) % [place] % (Auto) % Eos % (Auto) % Baso % (Auto) % Neut # (Auto) (1.8-7.7) 10^3/u L Lymph # (Auto) (0.8-4.8) 10^3/u L [place] # (Auto) (0.2-0.9) 10^3/u L Eos # (Auto) (0.0-0.8) 10^3/u L Baso # (Auto) (0.0-0.1) 10^3/u L Nucleated RBC % (a uto) % Nucleated RBCs # /100WBC Sodium (136-145) mmol/L Potassium (3.5-5.1) mmol/L Chloride (98-107) mmol/L Carbon Dioxide (22-29) mmol/L Anion Gap (5-19) BUN (6-20) mg/dL Creatinine (0.5-0.9) mg/dL GFR Calculation (90-130) mL/min Glucose (65-115) mg/dL POC Glucose (70-110) mg/dL Calculated Osmolal ity (285-295) mOsm/k g Lactate 2.0 (0.5-2.2) mmol/L Calcium (8.5-10.5) mg/dL Total Bilirubin (0.15-1.2) mg/dL AST (0-32) U/L ALT (0-33) U/L Alkaline Phosphata se (35-105) IU/L Creatine Kinase (26-192) U/L Troponin T Baselin e (0-10) ng/L Troponin T 120 [place] 49.36 H (0-10) ng/L Delta Troponin T -0.64 L (0-10) ABS# Troponin T Hi Sens 6Hr (0-10) ng/L Troponin T Hi Sens 6Hr Delta (0-12) ng/L C-Reactive Protein (0.0-4.9) mg/L NT-Pro-B Natriuret Pep (0-125) pg/mL Total Protein (6.6-8.7) g/dL Albumin (3.5-5.2) g/dL Globulin (1.3-4.6) g/dL Lipase (13-60) U/L Procalcitonin (0-0.5) ng/mL Urine Color (Yellow) Urine Appearance (CLEAR) Urine pH (5-7) Ur Specific Gravit y (1.005-1.030) Urine Protein (Negative) Urine Glucose (UA) (Normal) Urine Ketones (Negative) Urine Blood (Negative) Urine Nitrate (Negative) Urine Bilirubin (Negative) Urine Urobilinogen (Negative) mg/dL Ur Leukocyte Charity ase (Negative) Urine RBC (0-2) /hpf Urine WBC (0-5) /hpf Ur Squamous Epith Cells (0-5) /hpf Amorphous Sediment Urine Bacteria (NONE) /hpf SARS-CoV-2 Ag (Rap id) Negative (Negative) Blood Type Rho(D) Type Antibody Screen Crossmatch 06/28/21 06/28/21 06/28/21 Range/Units 21:33 22:00 22:34 WBC (4.0-10.0) 10^3/ uL RBC (4.1-5.3) 10^6/u L Hgb 6.7 L (11.5-15.3) g/dL Hct 20.5 L* (37.0-47.0) % MCV (81-99) fL MCH (28.0-34.0) pg MCHC (30.0-36.0) g/dL RDW (12.1-15.1) % Plt Count (130-400) 10^3/c mm MPV (7.4-10.4) fL Neut % (Auto) % Lymph % (Auto) % [place] % (Auto) % Eos % (Auto) % Baso % (Auto) % Neut # (Auto) (1.8-7.7) 10^3/u L Lymph # (Auto) (0.8-4.8) 10^3/u L [place] # (Auto) (0.2-0.9) 10^3/u L Eos # (Auto) (0.0-0.8) 10^3/u L Baso # (Auto) (0.0-0.1) 10^3/u L Nucleated RBC % (a uto) % Nucleated RBCs # /100WBC Sodium (136-145) mmol/L Potassium (3.5-5.1) mmol/L Chloride (98-107) mmol/L Carbon Dioxide (22-29) mmol/L Anion Gap (5-19) BUN (6-20) mg/dL Creatinine (0.5-0.9) mg/dL GFR Calculation (90-130) mL/min Glucose (65-115) mg/dL POC Glucose (70-110) mg/dL Calculated Osmolal ity (285-295) mOsm/k g Lactate (0.5-2.2) mmol/L Calcium (8.5-10.5) mg/dL Total Bilirubin (0.15-1.2) mg/dL AST (0-32) U/L ALT (0-33) U/L Alkaline Phosphata se (35-105) IU/L Creatine Kinase (26-192) U/L Troponin T Baselin e (0-10) ng/L Troponin T 120 [place] (0-10) ng/L Delta Troponin T (0-10) ABS# Troponin T Hi Sens 6Hr 42.45 H (0-10) ng/L Troponin T Hi Sens 6Hr Delta -7.55 L (0-12) ng/L C-Reactive Protein (0.0-4.9) mg/L NT-Pro-B Natriuret Pep (0-125) pg/mL Total Protein (6.6-8.7) g/dL Albumin (3.5-5.2) g/dL Globulin (1.3-4.6) g/dL Lipase (13-60) U/L Procalcitonin (0-0.5) ng/mL Urine Color (Yellow) Urine Appearance (CLEAR) Urine pH (5-7) Ur Specific Gravit y (1.005-1.030) Urine Protein (Negative) Urine Glucose (UA) (Normal) Urine Ketones (Negative) Urine Blood (Negative) Urine Nitrate (Negative) Urine Bilirubin (Negative) Urine Urobilinogen (Negative) mg/dL Ur Leukocyte Charity ase (Negative) Urine RBC (0-2) /hpf Urine WBC (0-5) /hpf Ur Squamous Epith Cells (0-5) /hpf Amorphous Sediment Urine Bacteria (NONE) /hpf SARS-CoV-2 Ag (Rap id) (Negative) Blood Type O Positive Rho(D) Type Positive / 4+ Antibody Screen Negative Crossmatch See Detail Imaging Data^: CT Abd/Pel: Attestation: I personally reviewed and interpreted this imaging study as follows: Radiologist's impression: [address] [id number] Scan ReportSigned Patient: Adrianne Carranza #: [id number]: 1970Acct#:[id number]/Sex: 50 / FADM Date: 02/18/21Loc: ERRoom/Bed:Attending Dr: Ordering Provider/Ordering MD: Katrin Casarez MD, [facility] Date of Service: 02/18/21 Procedure(s): CT abdomen pelvis w con* [id number] Accession Number(s): [id number] Report Number: [id number] PROCEDURE INFORMATION: Exam: CT Abdomen And Pelvis With Contrast Exam date and time: 02/18/2021 6:40 PM Age: 50 years old Clinical indication: Nausea and vomiting and other: Lethargy, weak, pale; Prior surgery; Surgery type: ; Additional info: Vomiting, sepsis TECHNIQUE: Imaging protocol: Computed tomography of the abdomen and pelvis with contrast. Sagittal and coronal reformatted images were created and reviewed. Radiation optimization: All CT scans at this facility use at least one of these dose optimization techniques: automated exposure control; mA and/or kV adjustment per patient size (includes targeted exams where dose is matched to clinical indication); or iterative reconstruction. Contrast material: OMNI 350; Contrast volume: 95 ml; Contrast route: INTRAVENOUS (IV); COMPARISON: CR Hips Huy 5v wwo Pelvis* [id number] 09/09/2016 3:04 PM RADIATION DOSE METRICS: Total DLP (mGy-cm): 1788.41 FINDINGS: Lungs: Visualized lungs are clear. Pleural spaces: No pleural effusion. Heart: Visualized portions of the heart are unremarkable. Liver: The liver is unremarkable. Gallbladder and bile ducts: The gallbladder is unremarkable. No biliary ductal dilatation. Pancreas: The pancreas is unremarkable. No pancreatic ductal dilatation. Spleen: The spleen is unremarkable. Adrenal glands: The right and left adrenal glands are unremarkable. Kidneys and ureters: The right and left kidneys are unremarkable. The right and left ureters are unremarkable. Stomach and bowel: Fluid within the small bowel without evidence of bowel wall thickening. No acute abnormality in the colon. Appendix: The appendix is visualized and is unremarkable. No findings to suggest acute appendicitis. Intraperitoneal space: No free intraperitoneal air. No ascites. No loculated fluid collections to suggest an abscess. Vasculature: Moderate calcified and moderate to severe noncalcified atherosclerotic disease. At least 75% stenosis in the visualized right femoral artery and 50% stenosis in the visualized left femoral artery. At least 60% stenosis in the right and left internal iliac arteries. No evidence for aortic aneurysm or aortic dissection. Hepatic veins, portal veins, splenic vein, and SMV are patent. Lymph nodes: No lymphadenopathy. Urinary bladder: Diffuse, mild wall thickening of the bladder. Reproductive: The uterus, right ovary, and left ovary are unremarkable. Bones/joints: Mild degenerative changes at both the right and left hips. Multilevel degenerative changes of varying severity in the visualized spine. Bilateral pars defects at L5-S1 with grade 1 anterolisthesis of L5 on S1. Mild spinal canal stenosis at L2-L3, L3-L4, and L4-L5. Multilevel foraminal stenosis of varying severity in the lumbar spine. Soft tissues: No acute abnormality in the extra-abdominal soft tissues. CT/CT abdomen pelvis w con* [id number] IMPRESSION: 1. Fluid within the small bowel without evidence of bowel wall thickening. This may reflect viral gastroenteritis in the appropriate clinical situation. 2. Diffuse, mild wall thickening of the bladder. In the correct clinical setting, this may suggest cystitis. Recommend correlation with laboratory findings. Alternatively, this may be secondary to chronic outlet obstruction. 3. Atherosclerotic disease. At least 75% stenosis in the visualized right femoral artery and 50% stenosis in the visualized left femoral artery. At least 60% stenosis in the right and left internal iliac arteries. 4. Incidental/nonacute findings are listed in the report. Radiation Dose CTDIVOL = (mGy): DLP = 1788.41 (mGy-cm) Dictated By:Viviana Jackson MDSigned By:Viviana Jackson MDSigned Date/Time:02/18/211919DD/ 17 CXR: Attestation: I personally reviewed and interpreted this imaging study as follows: Radiologist's impression: [email or web address] [address]ETxz ReportSigned Patient: Adrianne Carranza #: [id number]: 1970Acct#:[id number]/Sex: 50 / FADM Date: 02/18/21Loc: ERRoom/Bed:Attending Dr: Ordering Provider/Ordering MD: Katrin Casarez MD, [facility] Date of Service: 02/18/21 Procedure(s): XR chest 1V portable [id number] Accession Number(s): [id number] Report Number: [id number] PROCEDURE INFORMATION: Exam: XR Chest Exam date and time: 02/18/2021 3:39 PM Age: 50 years old Clinical indication: Shortness of breath and other: Dizziness; Patient HX: SOB x 3 days TECHNIQUE: Imaging protocol: XR of the chest. Views: 1 view. COMPARISON: CR Chest 1 [place] [id number] 11/27/2016 10:56 AM FINDINGS: Lungs: Lungs are clear bilaterally. Pleural spaces: No pleural effusion. No pneumothorax. Heart/Mediastinum: The cardiac silhouette and mediastinal contours are unremarkable. Bones/joints: Unremarkable for age. XR/XR chest 1V portable [id number] IMPRESSION: No acute cardiopulmonary process. Dictated By:Viviana Jackson MDSigned By:Viviana Jackson MDSigned Date/Time:02/18/211656DD/ 55 EKG Data^: EKG 1: Attestation: I personally reviewed and interpreted this EKG as follows: EKG interpretation date: 02/18/21 EKG interpretation time: 16:07 Prior EKG tracings: not available for review Interpretation: Sinus rhythm. Heart rate [address] changes. EKG 2: Attestation: I personally reviewed and interpreted this EKG as follows: EKG interpretation date: 02/18/21 EKG interpretation time: 18:01 Prior EKG tracings: available for review Interpretation: Sinus rhythm heart rate [address] changes no significant changes from earlier EKG 3: Attestation: I personally reviewed and interpreted this EKG as follows: EKG interpretation date: 02/18/21 EKG interpretation time: 21:24 Prior EKG tracings: available for review Interpretation: sinus rhythm hr [address] changes. no significant changes from earlier Critical Care Time Critical Care Time: Critical Care Time: Yes Total Critical Care Time: 60 Attestation: This case had a high probability of a clinically significant, sudden, or life threatening deterioration of this patient's condition which required my full and direct attention, intervention and personal management. Discharge Plan Discharge Patient Disposition: Admitted As Inpatient Admit Provider: Asha Owens Clinical Impression: Cystitis, Gastroenteritis, Anemia Sepsis Qualifiers: Sepsis type: sepsis due to unspecified organism Sepsis acute organ dysfunction status: with acute organ dysfunction Severe sepsis acute organ dysfunction type: acute renal failure Acute renal failure type: unspecified Severe sepsis shock status: with septic shock Qualified Code(s): A41.9 - Sepsis, unspecified organism Condition: Stable Discharge Diet: Advance as tolerated, Cardiac, Diabetic and Full LIquid Discharge Activity: Resume usual activity Coding Level of Care Code ED Physician'S Assistant for Chg Jorge
[2021-02-18 16:38] LABS: NT Pro B Type Natriuretic Pept 68 pg/mL (0-125); Procalcitonin 0.06 ng/mL (0-0.5)
[2021-02-18 16:59] LABS: Alanine Aminotransferase 12 U/L (0-33); Albumin Level 3.7 g/dL (3.5-5.2); Alkaline Phosphatase 72 IU/L (35-105); Anion Gap 21.2 (5-19); Aspartate Amino Transferase 11 U/L (0-32); Blood Urea Nitrogen 69 mg/dL (6-20); C Reactive Protein 14.6 mg/L (0.0-4.9); Calcium 9.1 mg/dL (8.5-10.5); Carbon Dioxide 20 mmol/L (22-29); Chloride 97 mmol/L (98-107); Creatine Phosphokinase 31 U/L (26-192); Glomerular Filtration Rate 52.8 mL/min (90-130); Glucose 219 mg/dL (65-115); Lipase 17 U/L (13-60); Osmolality Calculated 303 mOsm/kg (285-295); Potassium 5.2 mmol/L (3.5-5.1); Sodium 133 mmol/L (136-145); Total Bilirubin 0.2 mg/dL (0.15-1.2); Total Protein 6.7 g/dL (6.6-8.7)
[2021-02-18 17:30] LABS: Add Urine Microscopic? YES; Bilirubin Urine Neg (Negative); Blood Urine Trace (Negative); Glucose Urine UA Norm (Normal); Ketones Urine Negative (Negative); Leukocyte Esterase Urine 1+ (Negative); Nitrate Urine Negative (Negative); Protein Urine Neg (Negative); Urine Appearance Hazy (CLEAR); Urine Color Yellow (Yellow); Urobilinogen Urine Norm (Negative); pH Urine 5 (5-7)
[2021-02-18 17:32] LABS: Add Urine Culture? No; Bacteria Urine 2+ /hpf; Squamous Epithelial Cell Urine 25-40 /hpf (0-5); WBC Urine 25-40 /hpf (0-5)
--- NOTE | 2021-02-18 17:41 | ECG_ITS ---
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 Measurements Intervals [place] Rate: 85 P: 60 UT: 184 QRS: 39 QRSD: 90 T: 64 QT: 372 QTc: 444 Interpretive Statements SINUS RHYTHM LOW QRS VOLTAGE IN EXTREMITY LEADS [QRS DEFLECTION < 0.5 mV IN LIMB LEADS] Possible old inferior wall [place] Compared to ECG 02/18/2021 16:07:11 Myocardial infarct finding no longer present Electronically Signed On 02-20-2021 0:43:38 CDT by Radha Garnt M.D. [email or web address] health st[id number]
[2021-02-18 18:07] LABS: SARS Covid-2 Antigen Negative (Negative)
[2021-02-18 18:09] LABS: Troponin 5 2HR 49.36 ng/L (0-10); Troponin 5 2HR Delta -0.64 ABS# (0-10)
[2021-02-18 18:24] VITALS: BP 125/82; PULSE 88; RESP 16; O2SAT 100
--- NOTE | 2021-02-18 18:40 | CTR_ITS ---
PROCEDURE INFORMATION: Exam: CT Abdomen And Pelvis With Contrast Exam date and time: 02/18/2021 6:40 PM Age: 50 years old Clinical indication: Nausea and vomiting and other: Lethargy, weak, pale; Prior surgery; Surgery type: ; Additional info: Vomiting, sepsis TECHNIQUE: Imaging protocol: Computed tomography of the abdomen and pelvis with contrast. Sagittal and coronal reformatted images were created and reviewed. Radiation optimization: All CT scans at this facility use at least one of these dose optimization techniques: automated exposure control; mA and/or kV adjustment per patient size (includes targeted exams where dose is matched to clinical indication); or iterative reconstruction. Contrast material: OMNI 350; Contrast volume: 95 ml; Contrast route: INTRAVENOUS (IV); COMPARISON: CR Hips Huy 5v wwo Pelvis* [id number] 09/09/2016 3:04 PM RADIATION DOSE METRICS: Total DLP (mGy-cm): 1788.41 FINDINGS: Lungs: Visualized lungs are clear. Pleural spaces: No pleural effusion. Heart: Visualized portions of the heart are unremarkable. Liver: The liver is unremarkable. Gallbladder and bile ducts: The gallbladder is unremarkable. No biliary ductal dilatation. Pancreas: The pancreas is unremarkable. No pancreatic ductal dilatation. Spleen: The spleen is unremarkable. Adrenal glands: The right and left adrenal glands are unremarkable. Kidneys and ureters: The right and left kidneys are unremarkable. The right and left ureters are unremarkable. Stomach and bowel: Fluid within the small bowel without evidence of bowel wall thickening. No acute abnormality in the colon. Appendix: The appendix is visualized and is unremarkable. No findings to suggest acute appendicitis. Intraperitoneal space: No free intraperitoneal air. No ascites. No loculated fluid collections to suggest an abscess. Vasculature: Moderate calcified and moderate to severe noncalcified atherosclerotic disease. At least 75% stenosis in the visualized right femoral artery and 50% stenosis in the visualized left femoral artery. At least 60% stenosis in the right and left internal iliac arteries. No evidence for aortic aneurysm or aortic dissection. Hepatic veins, portal veins, splenic vein, and SMV are patent. Lymph nodes: No lymphadenopathy. Urinary bladder: Diffuse, mild wall thickening of the bladder. Reproductive: The uterus, right ovary, and left ovary are unremarkable. Bones/joints: Mild degenerative changes at both the right and left hips. Multilevel degenerative changes of varying severity in the visualized spine. Bilateral pars defects at L5-S1 with grade 1 anterolisthesis of L5 on S1. Mild spinal canal stenosis at L2-L3, L3-L4, and L4-L5. Multilevel foraminal stenosis of varying severity in the lumbar spine. Soft tissues: No acute abnormality in the extra-abdominal soft tissues. CT/CT abdomen pelvis w con* [id number] IMPRESSION: 1. Fluid within the small bowel without evidence of bowel wall thickening. This may reflect viral gastroenteritis in the appropriate clinical situation. 2. Diffuse, mild wall thickening of the bladder. In the correct clinical setting, this may suggest cystitis. Recommend correlation with laboratory findings. Alternatively, this may be secondary to chronic outlet obstruction. 3. Atherosclerotic disease. At least 75% stenosis in the visualized right femoral artery and 50% stenosis in the visualized left femoral artery. At least 60% stenosis in the right and left internal iliac arteries. 4. Incidental/nonacute findings are listed in the report. Radiation Dose CTDIVOL = (mGy): DLP = 1788.41 (mGy-cm)
[2021-02-18] MEDS: iohexol 300 mg/mL 100 mL Btl IV (18:57)
[2021-02-18 19:34] VITALS: BP 95/57; PULSE 93; RESP 21; O2SAT 100
[2021-02-18] MEDS: cefTRIAXone 1,000 MG in sodium chloride 0.9% (plus) 50 ML 100 MG IV (20:29)
--- NOTE | 2021-02-18 20:41 | PM.HP ---
Providers/Chief Complaint Primary Care Provider: CLIFF Bellamy Chief Complaint: low BP, Dizzy, Lethargic History of Present Illness Adrianne Carranza is a 50 year old female who presented today with chief complaint of recurrent nausea vomiting. Patient is stating that her symptoms started on with nausea and vomiting. In total she has had 5 episodes of emesis. She has not noticed any fever, blood in stool. No recent use of antibiotics. She ate chicken from [employer] on Thursday, no one else is sick at home. She has not noticed any chest pain, shortness of breath. Because of recurrent emesis she decided to come to the hospital for further evaluation. Diagnostics in the ER revealed hypotension her systolic blood pressure was in 70s which improved after 3 L of normal saline current blood pressure 125/88 mmHg, she is afebrile mild EDDI, clinically looks dehydrated, her tachycardia improved with fluid resuscitation, has leukocytosis without increasing lactic acid, EDDI with hyperkalemia, hyperglycemia without DKA, high anion gap secondary to lactic acid troponin trending down, UA shows pyuria with positive leukocyte esterase Patient is denying dysuria however endorsing urinary frequency and urgency. 1. Fluid within the small bowel without evidence of bowel wall thickening. This may reflect viral gastroenteritis in the appropriate clinical situation. 2. Diffuse, mild wall thickening of the bladder. In the correct clinical setting, this may suggest cystitis. Recommend correlation with laboratory findings. Alternatively, this may be secondary to chronic outlet obstruction. 3. Atherosclerotic disease. At least 75% stenosis in the visualized right femoral artery and 50% stenosis in the visualized left femoral artery. At least 60% stenosis in the right and left internal iliac arteries. 4. Incidental/nonacute findings are listed in the repo Review of Systems Const: Reports: chills, body aches and fatigue; Denies: fever(s) Eyes: Denies: change in vision ENMT: Denies: throat pain Card: Denies: chest pain Resp: Denies: dyspnea GI: Reports: nausea and vomiting; Denies: abdominal pain : Denies: flank pain Musc: Denies: neck pain Skin/Breast: Denies: rash Neuro: Denies: headache(s) Psych: Denies: anxiety Endo: Denies: polyuria Johnny/Lymph: Reports: easy bruising All/Imm: Denies: urticaria Medications/Allergies Home Medications Medication Instructions Recorded Confirmed Last Taken Type aspirin [Adult Aspirin Regimen] 81 mg PO DAILY #30 tab 03/01/20 02/18/21 02/16/21 Rx CAM WALKER #1 each 05/24/20 02/18/21 Unknown Rx DIABETIC SHOES #1 ea 11/28/20 02/18/21 Unknown Rx amlodipine 10 mg tablet 10 mg PO DAILY #30 tab 12/20/20 02/18/21 02/15/21 Rx atorvastatin 20 mg tablet 20 mg PO DAILY #30 tab 12/20/20 02/18/21 02/16/21 Rx lisinopril 20 mg tablet 20 mg PO DAILY #30 tab 12/20/20 02/18/21 02/15/21 Rx metformin 1,000 mg tablet 1,000 mg PO BID #60 tab 12/20/20 02/18/21 02/16/21 Rx sertraline 50 mg tablet 50 mg PO DAILY #30 tab 12/20/20 02/18/21 02/16/21 Rx insulin glargine 100 unit/mL (3 30 unit SUBCUT QPM #15 ml 12/24/20 02/18/21 02/16/21 Rx mL) subcutaneous pen clopidogrel 75 mg PO DAILY 02/18/21 02/18/21 02/16/21 History gabapentin 300 mg PO TID 02/18/21 02/18/21 02/16/21 History insulin aspart U-100 [Novolog 6 unit SUBCUT TID 02/18/21 02/18/21 02/16/21 History Flexpen U-100 Insulin] Allergies Allergy/AdvReac Type Severity Reaction Status Date / Time morphine Allergy ALGY-Hives Verified 02/18/21 15:16 PFSH Acute PFSH: Medical History 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 Controlled diabetes mellitus with diabetic polyneuropathy Diabetes mellitus, type II Diabetic peripheral neuropathy associated with type 2 diabetes mellitus Gangrenous toe Status post amputation History of gestational diabetes Hypertension Nicotine dependence Non-pressure chronic ulcer of right ankle with fat layer exposed Peripheral neuropathy Surgical History History of 2 sections History of carpal tunnel repair bilateral Status post transmetatarsal amputation of right foot Family History Other Diabetes Hypertension Lung disease Denies family history of CAD (coronary artery disease) Chronic kidney disease (CKD) Anesthesia complication Social History Smoking and tobacco status: current every day smoker cigarettes Packs smoked per day: 1 Years cigarettes smoked: 34 Quit status (tobacco): has tried quititng Second hand smoke exposure: Yes Alcohol intake: never Household members: spouse, family and children Current occupational status: unemployed Current occupation: [employer] History of recent travel: No Current gender identity: Female Female Reproductive History: Date of last menstrual period: 03/24/18 Vitals/I&O/Wt Last Vital Signs Temp 98.5 F 02/18/21 15:16 Pulse 93 02/18/21 19:34 Resp 21 H 02/18/21 19:34 BP 95/57 02/18/21 19:34 Pulse Ox 100 02/18/21 19:34 02/18/21 02/18/21 02/18/21 06:59 14:59 22:59 Intake Total 1999 Balance 1999 Weight last 48 hrs Weight 81.647 kg Physical Exam Narrative: EXAM NARRATIVE: Pleasant cooperative middle-aged female Clinically looks dehydrated no active abdominal pain signs of peritonitis, S1, S2 sinus tachycardia Soft abdomen Low symmetry no edema gangrene ulcer Right foot metatarsal amputation noted no active cellulitis or edema Dry mucous membranes, sunken eyes No active stridor or wheezing no acute respiratory distress Appropriate mood and affect EOMI, PERRLA GCS 15 awake alert oriented x3 Data : 02/18/21 22:00 02/18/21 15:30 A&P Assessment and plan (1) Cystitis: Status: Acute (2) Gastroenteritis: Status: Acute (3) EDDI (acute kidney injury): Status: Acute (4) Dehydration: Status: Acute Additional A&P Information Gastroenteritis Patient is endorsing nausea vomiting, she is afebrile, no active sepsis, lactic acid is normal, complaining of urinary urgency and frequency as well, start ceftriaxone, her blood pressure improved after 2 L normal saline fluid resuscitation in the ER, continue normal saline maintenance rate Requested urine culture, stool studies, no recent use of antibiotics, FOBT positive Normocytic anemia Hypotension improved with fluid resuscitation She has leukocytosis without active signs of peritonitis her abdominal exam is benign, her lactic acid is normal I do not suspect mesenteric ischemia at this point We will keep her n.p.o. FOBT positive, ER doctor notified and consulted Dr. Shoemaker Protonix 40 IV twice daily no previous history of liver disorders or portal hypertension EDDI secondary to dehydration continue maintenance fluid rate anticipating provement with resuscitation Hyperkalemia, stop lisinopril, this seems secondary to nephrotoxic agents and dehydration Full code N.p.o. DVT prophylaxis SCD Attestations Medical Necessity Statement*: Anticipating stay in the hospital cross more than 2 midnights for dehydration, hypertension, active anemia requiring blood Time Spent in Patient Care: 30mins Coding Level of Care Code Acute Pulp Machine Operator for Chg Fwd Diagnoses Cystitis N30.90 Gastroenteritis K52.9 EDDI (acute kidney injury) N17.9 Dehydration E86.0
--- NOTE | 2021-02-18 21:41 | ECG_ITS ---
[facility] Test Date: 2021-02-18 Pat Name: Adrianne Carranza Department: Room: Gender: Female [employer] Designer: : 1970 Requested By: Katrin Casarez I Order Number: [id number] Noemi MD: Radha Grant M.D. Measurements Intervals Harrison Rate: 91 P: 49 OK: 166 QRS: 22 QRSD: 102 T: 57 QT: 377 QTc: 465 Interpretive Statements SINUS RHYTHM LOW QRS VOLTAGE IN PRECORDIAL LEADS [QRS DEFLECTION < 1.0 mV IN CHEST LEADS] Possible old inferior HI Compared to ECG 02/18/2021 18:01:36 No significant changes Electronically Signed On 02-20-2021 0:48:12 CDT by Radha Grant M.D. [id number]
[2021-02-18 21:57] LABS: Troponin 5 6HR 42.45 ng/L (0-10)
[2021-02-18 22:01] LABS: Troponin 5 6HR Delta -7.55 ng/L (0-12)
[2021-02-18 22:09] LABS: Hemoglobin 6.7 g/dL (11.5-15.3)
[2021-02-18 22:22] LABS: Hematocrit 20.5 % (37.0-47.0)
[2021-02-18 22:27] VITALS: BP 139/63; PULSE 95; RESP 17; O2SAT 100
[2021-02-19] VITALS (11 sets, daily range): BP systolic 100–140; BP diastolic 67–87; PULSE 80–97; RESP 12–23; TEMP 37.1–37.4; O2SAT 97–100
[2021-02-19] MEDS: dextrose 5%-sod chloride 0.45% 1,000 ML 75 ML IV ×2 (02:21→15:52)
[2021-02-19] MEDS: pantoprazole 40 mg SDV IVP ×2 (02:21→14:29)
[2021-02-19 02:36] LABS: Glucose Point of Care 193 mg/dL (70-110)
[2021-02-19 05:15] LABS: Basophils # 0.1 10^3/uL (0.0-0.1); Basophils % 0.6 %; Eosinophils # 0.1 10^3/uL (0.0-0.8); Eosinophils % 1.3 %; Hematocrit 23.6 % (37.0-47.0); Hemoglobin 7.7 g/dL (11.5-15.3); Mean Corpuscular HGB Conc 32.6 g/dL (30.0-36.0); Mean Corpuscular Hemoglobin 29.4 pg (28.0-34.0); Mean Corpuscular Volume 90.1 fL (81-99); Monocytes # 0.8 10^3/uL (0.2-0.9); Monocytes % 7.4 %; Neutrophils # 7.04 10^3/uL (1.8-7.7); Neutrophils % 63.3 %; Nucleated Red Blood Cells % 0 %; Platelet Count 302 10^3/cmm (130-400); Red Blood Count 2.62 10^6/uL (4.1-5.3); White Blood Count 11.1 10^3/uL (4.0-10.0)
[2021-02-19 05:31] LABS: Anion Gap 15.2 (5-19); Blood Urea Nitrogen 44 mg/dL (6-20); Calcium 7.7 mg/dL (8.5-10.5); Carbon Dioxide 21 mmol/L (22-29); Chloride 107 mmol/L (98-107); Glomerular Filtration Rate 58.9 mL/min (90-130); Glucose 164 mg/dL (65-115); Osmolality Calculated 303 mOsm/kg (285-295); Potassium 4.2 mmol/L (3.5-5.1); Sodium 139 mmol/L (136-145)
[2021-02-19 07:47] LABS: Glucose Point of Care 153 mg/dL (70-110)
--- NOTE | 2021-02-19 12:00 | PC.NURSE ---
HAND OF REPORT CALLED TO JOSE M DONG.
[2021-02-19] MEDS: magnesium citrate Btl 296 mL PO ×2 (13:07→20:01)
--- NOTE | 2021-02-19 13:09 | P.CONIM_ITS ---
Providers/Reason For Consult Consulting Physician/Specialty*: General Surgery Dr. Shoemaker Reason for Consult*: Anemia Attending Physician: Kain Lopez MD Primary Care Provider: CLIFF Bellamy History of Present Illness History of Present Illness Adrianen Carranza is a 50 year old female to the emergency room last night with dizziness. Apparently she has been in bed for the last 3 days. The patient denies abdominal pain, nausea, vomiting, loss of appetite, change in bowel habits, blood in stools, weight loss, constipation or diarrhea. The patient has no family history of colon cancer and has never had a colonoscopy before. She denies any melena or hematemesis. No prior EGD or history of peptic ulcer disease. Review of Systems General: Reports: 10 or more systems reviewed and unremarkable except in HPI and below Meds/Allergies Home Medications and Allergies Home Medications Medication Instructions Recorded Confirmed Last Taken Type aspirin [Adult Aspirin Regimen] 81 mg PO DAILY #30 tab 03/01/20 02/18/21 02/16/21 Rx CAM WALKER #1 each 05/24/20 02/18/21 Unknown Rx DIABETIC SHOES #1 ea 11/28/20 02/18/21 Unknown Rx amlodipine 10 mg tablet 10 mg PO DAILY #30 tab 12/20/20 02/18/21 02/15/21 Rx atorvastatin 20 mg tablet 20 mg PO DAILY #30 tab 12/20/20 02/18/21 02/16/21 Rx lisinopril 20 mg tablet 20 mg PO DAILY #30 tab 12/20/20 02/18/21 02/15/21 Rx metformin 1,000 mg tablet 1,000 mg PO BID #60 tab 12/20/20 02/18/21 02/16/21 Rx sertraline 50 mg tablet 50 mg PO DAILY #30 tab 12/20/20 02/18/21 02/16/21 Rx insulin glargine 100 unit/mL (3 30 unit SUBCUT QPM #15 ml 12/24/20 02/18/21 02/16/21 Rx mL) subcutaneous pen clopidogrel 75 mg PO DAILY 02/18/21 02/18/21 02/16/21 History gabapentin 300 mg PO TID 02/18/21 02/18/21 02/16/21 History insulin aspart U-100 [Novolog 6 unit SUBCUT TID 0602/18/21 02/16/21 History Flexpen U-100 Insulin] Allergies Allergy/AdvReac Type Severity Reaction Status Date / Time morphine Allergy ALGY-Hives Verified 02/18/21 15:16 Current Medications Current Medications Generic Name Dose Route Start Last Admin Trade Name Freq PRN Reason Stop Dose Admin Dextrose/Sodium Chloride 1,000 mls @ 75 mls/hr 02/19/21 01:23 02/19/21 02:21 Dextrose 5%-Sod Chloride 0.45% IV 75 mls/hr .[id number] LENA Administration Insulin Aspart 0 unit 02/19/21 02:00 02/19/21 07:54 Insulin Aspart 100 Unit/1 Ml SUBCUT 2 unit Q6H LENA Administration Protocol Magnesium Citrate 296 ml 02/19/21 12:00 02/19/21 13:07 Magnesium Citrate Btl 296 Ml PO 02/19/21 20:01 296 ml 1200,2000 LENA Administration Pantoprazole Sodium 40 mg 02/19/21 02:00 02/19/21 02:21 Pantoprazole 40 Mg Sdv IVP 40 mg Q12H LENA Administration PFSH Acute PFSH: Medical History 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 Controlled diabetes mellitus with diabetic polyneuropathy Diabetes mellitus, type II Diabetic peripheral neuropathy associated with type 2 diabetes mellitus Gangrenous toe Status post amputation History of gestational diabetes Hypertension Nicotine dependence Non-pressure chronic ulcer of right ankle with fat layer exposed Peripheral neuropathy Surgical History History of 2 sections History of carpal tunnel repair bilateral Status post transmetatarsal amputation of right foot Family History Other Diabetes Hypertension Lung disease Denies family history of CAD (coronary artery disease) Chronic kidney disease (CKD) Anesthesia complication Social History Smoking and tobacco status: current every day smoker cigarettes Packs smoked per day: 1 Years cigarettes smoked: 34 Quit status (tobacco): has tried quititng Second hand smoke exposure: Yes Alcohol intake: never Household members: spouse, family and children Current occupational status: unemployed Current occupation: [employer] History of recent travel: No Current gender identity: Female Female Reproductive History: Date of last menstrual period: 03/24/18 Vitals/I&O/Wt Last Vital Signs Temp 98.7 F 02/19/21 09:59 Pulse 93 02/19/21 11:19 Resp 15 02/19/21 11:19 BP 125/78 02/19/21 11:19 Pulse Ox 99 02/19/21 09:59 02/18/21 02/19/21 02/19/21 22:59 06:59 14:59 Intake Total 2000 / 2400 400 / 2400 Balance 2000 / 2400 400 / 2400 Weight last 48 hrs Weight 180 lb Physical Exam Narrative: EXAM NARRATIVE: HEENT: Normocephalic Eye: Sclera /conjunctiva normal Respiratory and chest: Bilateral clear breath sounds on auscultation Cardiovascular: Normal S1 and S2 heart sounds Abdomen: Soft to palpation Neurological: Oriented to place person and time Skin: Intact, no lesions appreciated on gross exam A&P Assessment and plan (1) Anemia: 50-year-old female who presents with 3-day history of weakness and dizziness noted to have a hemoglobin of 7.7. No evidence of active GI bleed The patient is scheduled for EGD/colonoscopy under MAC tomorrow. The procedure risks and benefits, including infection, bleeding and bowel injury, has been explained to the patient, who has consented to the procedure. Information about the prep has been provided to the patient. 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
[2021-02-19] MEDS: bisacodyl 5 mg Tablet 40 MG PO (14:24)
--- NOTE | 2021-02-19 15:44 | P.PN_ITS ---
Subjective Subjective: Interval history: Admitted overnight. Attempting abdomen. Patient uncomfortable in bed. Denies any further nausea, vomiting, diarrhea. Denies abdominal pain. States feeling okay today without any dizziness. Denies any sick contacts or anybody else in house having similar problems. Vitals/I&O/Wt Last Vital Signs Temp 98.7 F 02/19/21 15:14 Pulse 80 02/19/21 15:14 Resp 17 02/19/21 15:14 BP 100/67 02/19/21 15:14 Pulse Ox 100 02/19/21 15:14 02/19/21 02/19/21 02/19/21 06:59 14:59 22:59 Intake Total 400 / 2400 Balance 400 / 2400 Weight last 48 hrs Weight 81.647 kg Physical Exam Narrative: EXAM NARRATIVE: Pleasant cooperative middle-aged female S1, S2 sinus tachycardia Soft abdomen, bowel sounds sluggish Low symmetry no edema gangrene ulcer Right foot metatarsal amputation noted no active cellulitis or edema Dry mucous membranes, sunken eyes No active stridor or wheezing no acute respiratory distress Appropriate mood and affect EOMI, PERRLA GCS 15 awake alert oriented x3 Data : 02/19/21 05:08 02/19/21 05:08 A&P Assessment and plan (1) Cystitis: Status: Acute (2) Gastroenteritis: Status: Acute (3) EDDI (acute kidney injury): Status: Acute (4) Dehydration: Status: Acute Additional A&P Information Gastroenteritis: Patient is endorsing nausea vomiting, she is afebrile, no active sepsis, lactic acid is normal, complaining of urinary urgency and frequency as well, Switch over to Zosyn. Continue with IV fluids 75 cc/h. Stool studies, blood culture, urine culture. Normocytic anemia: No active bleeding. FOBT positive. Surgery consulted. Plan for EGD/colonoscopy. Protonix 40 mg twice daily. Check iron panel, vitamin B12, folate levels to the first labs from yesterday. Hypotension: Secondary to dehydration. Improved with fluid resuscitation. Continue with IV fluids. EDDI secondary to dehydration: Baseline creatinine 0.9. Resolving. Continue maintenance normal saline at 75 cc/h. Medical reconciliation done for nephrotoxic drugs. Hyperkalemia: Stop lisinopril, this seems secondary to nephrotoxic agents and dehydration. Hypertension: Continue to hold off on antihypertensive because of hypotension admission. Type II diabetes mellitus: Insulin sliding scale every 6 hours patient is n.p.o. Continue other chronic oral medications including sertraline, atorvastatin, gabapentin. Full code N.p.o. DVT prophylaxis SCD Attestations Medical Necessity Statement*: Requires further hospitalization for management of gastroenteritis, acute blood loss anemia requiring EGD/colonoscopy. Time Spent in Patient Care: Greater than 35 minutes (>than 50% of time spent in counselling and/or direct pt care on unit) . Coding Level of Care Code Acute Outpatient Surgery Rn for Chg Fwd Diagnoses Cystitis N30.90 Gastroenteritis K52.9 EDDI (acute kidney injury) N17.9 Dehydration E86.0
[2021-02-19] MEDS: piperacillin-tazobactam 3.375 GM in sodium chloride 0.9% (plus) 50 ML IV (15:52)
[2021-02-19 17:05] LABS: Folate Level 14.6 ng/mL (4.8-37.3)
[2021-02-19 17:06] LABS: Iron 43 ug/dL (37-145); Percent Saturation 17.2 % (20-50); Total Iron Binding Capacity 250 mcg/dl; Unsaturated Iron Binding 207 ug/dL (112-347); Vitamin B12 160 pg/mL (232-1245)
[2021-02-19 18:22] LABS: Glucose Point of Care 223 mg/dL (70-110)
[2021-02-19] MEDS: gabapentin 300 mg Capsule PO (20:24)
[2021-02-19 20:46] LABS: Glucose Point of Care 236 mg/dL (70-110)
[2021-02-20] VITALS (13 sets, daily range): BP systolic 92–159; BP diastolic 57–82; PULSE 72–82; RESP 14–18; TEMP 36.1–37.1; O2SAT 99–100
[2021-02-20] MEDS: piperacillin-tazobactam 3.375 GM in sodium chloride 0.9% (plus) 50 ML IV (00:19)
[2021-02-20] MEDS: pantoprazole 40 mg SDV IVP ×2 (03:43→14:06)
[2021-02-20] MEDS: dextrose 5%-sod chloride 0.45% 1,000 ML 75 ML IV (05:25)
--- NOTE | 2021-02-20 05:48 | PC.NURSE ---
SHIFT SUMMARY Pt was moved at beginning of shift due to roommate being disruptive. Has had prep for Colonoscopy with many liquid BM's. Stool is tarry black colored. Has been NPO since midnight. Has denied pain. IV fluids infusing without difficulty and receiving IV antibiotics
[2021-02-20 06:19] LABS: Glucose Point of Care 147 mg/dL (70-110)
[2021-02-20] MEDS: sodium chloride 0.9% 1,000 ML 30 ML IV (08:00)
--- NOTE | 2021-02-20 08:15 | ANES.PREANE2 ---
Pre-Anesthetic Assessment Pre-Anesthetic Assessment: Height/Weight: Height 1.6 m Weight 81.647 kg Temp Pulse Resp BP Pulse Ox 97.7 F 75 16 135/76 100 02/20/21 08:12 02/20/21 08:12 02/20/21 08:12 02/20/21 08:12 02/20/21 08:12 Preop Diagnosis: anemia Proposed Procedure: Operation Date: 02/20/21 08:00 Proposed Procedures p EGD(Not Applicable) - Armen Shoemaker MD s Colonoscopy(Not Applicable) - Armen Shoemaker MD Was Beta Marky taken within 24 hours: N/A Was Clonidine taken within 24 hours: N/A Last intake: Intake Last Liquid Date 02/19/21 Last Liquid Time 23:50 Last Solid Date 02/18/21 Social: Social History: Tobacco and No alcohol Airway: Submandibular: WNL Cervical ROM: WNL MP: 2 Dentition: Chipped Additional comments: Poor dentition, multiple missing Pulmonary: Pulmonary: COPD CV/HEM: CV/HEM: Anemia, HTN and PVD Metabolic: Metabolic: DM, Hyperlipidemia and Morbid obesity Neuropsych: Neuropsych: Anxiety and Depression Anesthetic Plan: ASA status: 3 Anesthesia: MAC Risk of > 500 ml blood loss (7ml/kg in children): No Meds/Allergies Current Medications: Current Medications Generic Name Dose Route Start Last Admin Trade Name Freq PRN Reason Stop Dose Admin Gabapentin 300 mg 02/19/21 21:00 02/19/21 20:24 Gabapentin 300 M g Capsule PO 300 mg TID LENA Administration Dextrose/Sodium Ch loride 1,000 mls @ 75 ml s/hr 02/19/21 01:23 02/20/21 05:25 Dextrose 5%-Sod Chloride 0.45% IV 75 mls/hr .[id number] LENA Administration Sodium Chloride 1,000 mls @ 30 ml s/hr 02/19/21 12:18 02/19/21 20:16 Sodium Chloride 0.9% IV 02/20/21 12:17 Not Given .Q24H ONE Piperacillin Sod/T azobactam 50 mls @ 12.5 mls /hr 02/19/21 16:00 02/20/21 05:24 Sod 3.375 gm/ So dium Chloride IV Infused Q8H LENA Infusion Protocol Insulin Aspart 0 unit 02/19/21 18:00 02/19/21 21:29 Insulin Aspart 1 00 Unit/1 Ml SUBCUT 6 unit WM&BEDTIME LENA Administration Protocol Pantoprazole Sodiu m 40 mg 02/19/21 02:00 02/20/21 03:43 Pantoprazole 40 Mg Sdv IVP 40 mg Q12H LENA Administration PFSH Anesthesia PFSH: Medical History 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 Controlled diabetes mellitus with diabetic polyneuropathy Diabetes mellitus, type II Diabetic peripheral neuropathy associated with type 2 diabetes mellitus Gangrenous toe Status post amputation History of gestational diabetes Hypertension Nicotine dependence Non-pressure chronic ulcer of right ankle with fat layer exposed Peripheral neuropathy Surgical History History of 2 sections History of carpal tunnel repair bilateral Status post transmetatarsal amputation of right foot Family History Other Diabetes Hypertension Lung disease Denies family history of CAD (coronary artery disease) Chronic kidney disease (CKD) Anesthesia complication Social History Smoking and tobacco status: current every day smoker cigarettes Packs smoked per day: 1 Years cigarettes smoked: 34 Quit status (tobacco): has tried quititng Second hand smoke exposure: Yes Alcohol intake: never Household members: spouse, family and children Current occupational status: unemployed Current occupation: [employer] History of recent travel: No Current gender identity: Female Female Reproductive History: Date of last menstrual period: 03/24/18 Data Anesthesia CBC & Chem 7: 02/19/21 05:08 02/19/21 05:08 Other Labs: Laboratory Results - last 48 hr 02/18/21 02/18/21 02/18/21 15:30 15:30 15:30 WBC 14.3 H RBC 2.65 L Hgb 7.7 L Hct 23.3 L MCV 87.9 MCH 29.1 MCHC 33.0 RDW 14.0 Plt Count 406 H MPV 10.2 Neut % (Auto) 68.3 Lymph % (Auto) 24.0 Ralls % (Auto) 5.9 Eos % (Auto) 0.8 Baso % (Auto) 0.6 Neut # (Auto) 9.76 H Lymph # (Auto) 3.4 Ralls # (Auto) 0.9 Eos # (Auto) 0.1 Baso # (Auto) 0.1 Nucleated RBC % (auto) 0 Nucleated RBCs # 0.0 Sodium 133 L Potassium 5.2 H Chloride 97 L Carbon Dioxide 20 L Anion Gap 21.2 H BUN 69 H Creatinine 1.1 H GFR Calculation 52.8 L Glucose 219 H POC Glucose 226 H Calculated Osmolality 303 H Lactate Calcium 9.1 Iron TIBC % Saturation Unsat Iron Binding Total Bilirubin 0.2 AST 11 ALT 12 Alkaline Phosphatase 72 Creatine Kinase 31 Troponin T Baseline Troponin T 120 Minute Delta Troponin T Troponin T Hi Sens 6Hr Troponin T Hi Sens 6Hr Delta C-Reactive Protein 14.6 H NT-Pro-B Natriuret Pep 68 Total Protein 6.7 Albumin 3.7 Globulin 3.0 Lipase 17 Vitamin B12 Folate Procalcitonin 0.06 Urine Color Urine Appearance Urine pH Ur Specific [place] Urine Protein Urine Glucose (UA) Urine Ketones Urine Blood Urine Nitrate Urine Bilirubin Urine Urobilinogen Ur Leukocyte Esterase Urine RBC Urine WBC Ur Squamous Epith Cells Amorphous Sediment Urine Bacteria SARS-CoV-2 Ag (Rapid) Blood Type Rho(D) Type Antibody Screen Crossmatch 02/18/21 02/18/21 02/18/21 15:30 15:30 16:50 WBC RBC Hgb Hct MCV MCH MCHC RDW Plt Count MPV Neut % (Auto) Lymph % (Auto) Ralls % (Auto) Eos % (Auto) Baso % (Auto) Neut # (Auto) Lymph # (Auto) Ralls # (Auto) Eos # (Auto) Baso # (Auto) Nucleated RBC % (auto) Nucleated RBCs # Sodium Potassium Chloride Carbon Dioxide Anion Gap BUN Creatinine GFR Calculation Glucose POC Glucose Calculated Osmolality Lactate 3.2 H Calcium Iron TIBC % Saturation Unsat Iron Binding Total Bilirubin AST ALT Alkaline Phosphatase Creatine Kinase Troponin T Baseline 50 H Troponin T 120 Minute Delta Troponin T Troponin T Hi Sens 6Hr Troponin T Hi Sens 6Hr Delta C-Reactive Protein NT-Pro-B Natriuret Pep Total Protein Albumin Globulin Lipase Vitamin B12 Folate Procalcitonin Urine Color Yellow Urine Appearance Hazy A Urine pH 5 Ur Specific [place] 1.010 Urine Protein Neg Urine Glucose (UA) Norm Urine Ketones Negative Urine Blood Trace H Urine Nitrate Negative Urine Bilirubin Neg Urine Urobilinogen Norm Ur Leukocyte Esterase 1+ H Urine RBC None Urine WBC 25-40 H Ur Squamous Epith Cells 25-40 H Amorphous Sediment Not Reportable Urine Bacteria 2+ H SARS-CoV-2 Ag (Rapid) Blood Type Rho(D) Type Antibody Screen Crossmatch 02/18/21 02/18/21 02/18/21 17:33 17:39 19:32 WBC RBC Hgb Hct MCV MCH MCHC RDW Plt Count MPV Neut % (Auto) Lymph % (Auto) Ralls % (Auto) Eos % (Auto) Baso % (Auto) Neut # (Auto) Lymph # (Auto) Ralls # (Auto) Eos # (Auto) Baso # (Auto) Nucleated RBC % (auto) Nucleated RBCs # Sodium Potassium Chloride Carbon Dioxide Anion Gap BUN Creatinine GFR Calculation Glucose POC Glucose Calculated Osmolality Lactate 2.0 Calcium Iron TIBC % Saturation Unsat Iron Binding Total Bilirubin AST ALT Alkaline Phosphatase Creatine Kinase Troponin T Baseline Troponin T 120 Minute 49.36 H Delta Troponin T -0.64 L Troponin T Hi Sens 6Hr Troponin T Hi Sens 6Hr Delta C-Reactive Protein NT-Pro-B Natriuret Pep Total Protein Albumin Globulin Lipase Vitamin B12 Folate Procalcitonin Urine Color Urine Appearance Urine pH Ur Specific [place] Urine Protein Urine Glucose (UA) Urine Ketones Urine Blood Urine Nitrate Urine Bilirubin Urine Urobilinogen Ur Leukocyte Esterase Urine RBC Urine WBC Ur Squamous Epith Cells Amorphous Sediment Urine Bacteria SARS-CoV-2 Ag (Rapid) Negative Blood Type Rho(D) Type Antibody Screen Crossmatch 02/18/21 02/18/21 02/18/21 21:33 22:00 22:34 WBC RBC Hgb 6.7 L Hct 20.5 L* MCV MCH MCHC RDW Plt Count MPV Neut % (Auto) Lymph % (Auto) Ralls % (Auto) Eos % (Auto) Baso % (Auto) Neut # (Auto) Lymph # (Auto) Ralls # (Auto) Eos # (Auto) Baso # (Auto) Nucleated RBC % (auto) Nucleated RBCs # Sodium Potassium Chloride Carbon Dioxide Anion Gap BUN Creatinine GFR Calculation Glucose POC Glucose Calculated Osmolality Lactate Calcium Iron TIBC % Saturation Unsat Iron Binding Total Bilirubin AST ALT Alkaline Phosphatase Creatine Kinase Troponin T Baseline Troponin T 120 Minute Delta Troponin T Troponin T Hi Sens 6Hr 42.45 H Troponin T Hi Sens 6Hr Delta -7.55 L C-Reactive Protein NT-Pro-B Natriuret Pep Total Protein Albumin Globulin Lipase Vitamin B12 Folate Procalcitonin Urine Color Urine Appearance Urine pH Ur Specific [place] Urine Protein Urine Glucose (UA) Urine Ketones Urine Blood Urine Nitrate Urine Bilirubin Urine Urobilinogen Ur Leukocyte Esterase Urine RBC Urine WBC Ur Squamous Epith Cells Amorphous Sediment Urine Bacteria SARS-CoV-2 Ag (Rapid) Blood Type O Positive Rho(D) Type Positive / 4+ Antibody Screen Negative Crossmatch See Detail 02/19/21 02/19/21 02/19/21 02:32 05:08 05:08 WBC 11.1 H RBC 2.62 L Hgb 7.7 L Hct 23.6 L MCV 90.1 MCH 29.4 MCHC 32.6 RDW 14.0 Plt Count 302 MPV 10.0 Neut % (Auto) 63.3 Lymph % (Auto) 27.0 Ralls % (Auto) 7.4 Eos % (Auto) 1.3 Baso % (Auto) 0.6 Neut # (Auto) 7.04 Lymph # (Auto) 3.0 Ralls # (Auto) 0.8 Eos # (Auto) 0.1 Baso # (Auto) 0.1 Nucleated RBC % (auto) 0 Nucleated RBCs # 0.0 Sodium 139 Potassium 4.2 Chloride 107 Carbon Dioxide 21 L Anion Gap 15.2 BUN 44 H Creatinine 1.0 H GFR Calculation 58.9 L Glucose 164 H POC Glucose 193 H Calculated Osmolality 303 H Lactate Calcium 7.7 L Iron TIBC % Saturation Unsat Iron Binding Total Bilirubin AST ALT Alkaline Phosphatase Creatine Kinase Troponin T Baseline Troponin T 120 Minute Delta Troponin T Troponin T Hi Sens 6Hr Troponin T Hi Sens 6Hr Delta C-Reactive Protein NT-Pro-B Natriuret Pep Total Protein Albumin Globulin Lipase Vitamin B12 Folate Procalcitonin Urine Color Urine Appearance Urine pH Ur Specific [place] Urine Protein Urine Glucose (UA) Urine Ketones Urine Blood Urine Nitrate Urine Bilirubin Urine Urobilinogen Ur Leukocyte Esterase Urine RBC Urine WBC Ur Squamous Epith Cells Amorphous Sediment Urine Bacteria SARS-CoV-2 Ag (Rapid) Blood Type Rho(D) Type Antibody Screen Crossmatch 02/19/21 02/19/21 02/19/21 07:43 15:30 15:30 WBC RBC Hgb Hct MCV MCH MCHC RDW Plt Count MPV Neut % (Auto) Lymph % (Auto) Ralls % (Auto) Eos % (Auto) Baso % (Auto) Neut # (Auto) Lymph # (Auto) Ralls # (Auto) Eos # (Auto) Baso # (Auto) Nucleated RBC % (auto) Nucleated RBCs # Sodium Potassium Chloride Carbon Dioxide Anion Gap BUN Creatinine GFR Calculation Glucose POC Glucose 153 H Calculated Osmolality Lactate Calcium Iron 43 TIBC 250 % Saturation 17.2 L Unsat Iron Binding 207 Total Bilirubin AST ALT Alkaline Phosphatase Creatine Kinase Troponin T Baseline Troponin T 120 Minute Delta Troponin T Troponin T Hi Sens 6Hr Troponin T Hi Sens 6Hr Delta C-Reactive Protein NT-Pro-B Natriuret Pep Total Protein Albumin Globulin Lipase Vitamin B12 160 L Folate 14.6 Procalcitonin Urine Color Urine Appearance Urine pH Ur Specific [place] Urine Protein Urine Glucose (UA) Urine Ketones Urine Blood Urine Nitrate Urine Bilirubin Urine Urobilinogen Ur Leukocyte Esterase Urine RBC Urine WBC Ur Squamous Epith Cells Amorphous Sediment Urine Bacteria SARS-CoV-2 Ag (Rapid) Blood Type Rho(D) Type Antibody Screen Crossmatch 02/19/21 02/19/21 02/20/21 18:18 20:41 06:15 WBC RBC Hgb Hct MCV MCH MCHC RDW Plt Count MPV Neut % (Auto) Lymph % (Auto) Ralls % (Auto) Eos % (Auto) Baso % (Auto) Neut # (Auto) Lymph # (Auto) Ralls # (Auto) Eos # (Auto) Baso # (Auto) Nucleated RBC % (auto) Nucleated RBCs # Sodium Potassium Chloride Carbon Dioxide Anion Gap BUN Creatinine GFR Calculation Glucose POC Glucose 223 H 236 H 147 H Calculated Osmolality Lactate Calcium Iron TIBC % Saturation Unsat Iron Binding Total Bilirubin AST ALT Alkaline Phosphatase Creatine Kinase Troponin T Baseline Troponin T 120 Minute Delta Troponin T Troponin T Hi Sens 6Hr Troponin T Hi Sens 6Hr Delta C-Reactive Protein NT-Pro-B Natriuret Pep Total Protein Albumin Globulin Lipase Vitamin B12 Folate Procalcitonin Urine Color Urine Appearance Urine pH Ur Specific [place] Urine Protein Urine Glucose (UA) Urine Ketones Urine Blood Urine Nitrate Urine Bilirubin Urine Urobilinogen Ur Leukocyte Esterase Urine RBC Urine WBC Ur Squamous Epith Cells Amorphous Sediment Urine Bacteria SARS-CoV-2 Ag (Rapid) Blood Type Rho(D) Type Antibody Screen Crossmatch Micro: Microbiology 02/19/21 18:25 Stool Lactoferrin - Final Stool Occult Blood (FIT) - Final 02/19/21 16:00 Blood Culture - Preliminary Blood SPECIMEN COLLECTED 02/19/21 15:50 Blood Culture - Preliminary Blood SPECIMEN COLLECTED Cardiac Studies: No Data to Display
--- NOTE | 2021-02-20 08:39 | P.PN_ITS ---
Subjective Subjective: Interval history: patient had bowel prep , still had dark stools Vitals/I&O/Wt Last Vital Signs Temp 97.7 F 02/20/21 08:12 Pulse 75 02/20/21 08:12 Resp 16 02/20/21 08:12 BP 135/76 02/20/21 08:12 Pulse Ox 100 02/20/21 08:12 02/19/21 02/20/21 02/20/21 22:59 06:59 14:59 Intake Total 1840 / 3140 1300 / 3140 Output Total 200 / 607 407 / 607 Balance 1640 / 2533 893 / 2533 Weight last 48 hrs Weight 180 lb Physical Exam Narrative: EXAM NARRATIVE: Abdomen : soft Data : 02/19/21 05:08 02/19/21 05:08 Micro: Microbiology 02/19/21 18:25 Stool Lactoferrin - Final Stool Occult Blood (FIT) - Final 02/19/21 16:00 Blood Culture - Preliminary Blood SPECIMEN COLLECTED 02/19/21 15:50 Blood Culture - Preliminary Blood SPECIMEN COLLECTED A&P Assessment and plan (1) Anemia: Plan for EGD/colonoscopy under MAC today Status: Acute Attestations Medical Necessity Statement*: as per primary Coding Level of Care Code Acute Job Order Clerk for [facility] Fwd Diagnoses Anemia D64.9
--- NOTE | 2021-02-20 09:50 | PC.CHAP ---
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 inspector balance truing visit [] Patient/Family/Request visit [] Outpatient visit [] Follow-up visit [] Physician referral [] Code/Alert [x] Routine visit [] Staff referral [] Actively dying [] Patient sleeping [] Family support [] [x] Out of room [] Palliative care [] [] Receiving care in room [] Pre-surgical visit [] Trauma [] Long length of stay [] ICU visit [] Other: Relational/Emotional Strength [] Patient feels connected with others/family/visitors/staff [] Distress [] Loneliness/isolation [] Abandonment Spirituality of Patient [] Person of Clar[place]za [] Attends Lutheran of their [place] [] Believes in Prayer [] Reads Bible or Uatsdin materials [] There are Spiritual issues to be addressed Processing Manager Interventions [] Prayer [] Active listening [] Non-anxious presence [] Spiritual/emotional support [] Crisis/trauma care [] Spiritual counseling [] Bereavement support [] Provided bereavement packet [] Provided Bible/devotional materials [] Provided toy/stuffed animal, coloring book to patient or family member [] Provided Communion [] Anointing/[place] [] Salvation [] Completed spiritual assessment [] Other: Impact on Illness or Injury [] Angry [] Fearful [] Anxious [] Often cries [] Exhaustion [] Unable to work [] Unable to attend mandaeism [] Unable to walk/stand [] Unable to read [] Unable to drive [] Unable to eat/drink [] Unable to sleep [] Unable to be with family [] Patient intubated [] Other: Summary Time spent with patient
--- NOTE | 2021-02-20 13:11 | PM.DCS ---
Discharge Providers Date of Admission: 02/19/21 00:45 Date of Discharge: February 20, 2021 Attending Provider at Admission: Asha Owens MD Attending Provider at Discharge: Kain Lopez MD Primary Care Provider: CLIFF Bellamy Diagnoses at Discharge Discharge Diagnosis (1) Anemia: Status: Acute Reason for Visit Reason for Visit: low BP, Dizzy, Lethargic Hospital Course Hospital Course Adrianne Carranza is a 50 year old female who presented today with chief complaint of recurrent nausea vomiting. Patient is stating that her symptoms started on with nausea and vomiting. In total she has had 5 episodes of emesis. She has not noticed any fever, blood in stool. No recent use of antibiotics. She ate chicken from [employer] on Thursday, no one else is sick at home. She has not noticed any chest pain, shortness of breath. Because of recurrent emesis she decided to come to the hospital for further evaluation. Diagnostics in the ER revealed hypotension her systolic blood pressure was in 70s which improved after 3 L of normal saline current blood pressure 125/88 mmHg, she is afebrile mild EDDI, clinically looks dehydrated, her tachycardia improved with fluid resuscitation, has leukocytosis without increasing lactic acid, EDDI with hyperkalemia, hyperglycemia without DKA, high anion gap secondary to lactic acid troponin trending down, UA shows pyuria with positive leukocyte esterase. Patient admitted to the hospital for further management of hypertension because of acute blood loss anemia. Blood pressure was resuscitated with IV fluids. She received 1 unit of blood transfusion after which her hemoglobin stabilized at 7.7. Surgery was consulted and she underwent scoping which showed small internal nonbleeding hemorrhoids, EGD showing a 1.5 cm gastric ulcer with no active evidence of bleeding. Hemoglobin 9 stable. Blood work showed low vitamin B12 levels. Patient was advanced on clear liquid diet which he tolerated well and discharged hemodynamically stable condition. Patient has been advised to hold off on taking her antihypertensives including amlodipine and lisinopril for next 1 week. She is advised to check her blood pressures twice daily and maintain a blood pressure diary and to start amlodipine if blood pressures are more than 140/90 mmHg. She is advised to follow-up with a primary care provider within next 1 week with a blood pressure diary for further adjustment of antihypertensives. Patient is advised to hold taking aspirin for next 10 days. She is restart her aspirin back on March 02. She is to check her CBC again in a week after starting aspirin. Patient is to follow-up with Dr. Shoemaker in 1 month. Patient is to take Protonix and Carafate as directed. Physical Exam Narrative: EXAM NARRATIVE: Pleasant cooperative middle-aged female S1, S2 sinus tachycardia Soft abdomen, bowel sounds sluggish Low symmetry no edema gangrene ulcer Right foot metatarsal amputation noted no active cellulitis or edema Dry mucous membranes, sunken eyes No active stridor or wheezing no acute respiratory distress Appropriate mood and affect EOMI, PERRLA GCS 15 awake alert oriented x3 Discharge Data Data Completed and Pending: Completed Studies During Hospitalization Category Date Time Status CT abdomen pelvis w con* [id number] Stat Cat Scan 02/18/21 18:40 Completed XR chest 1V tam ble [id number] Urgent Exams 02/18/21 15:39 Completed Pending at discharge Category Date Time Status Blood Culture Sta t Lab 02/19/21 16:00 Results Clostridioides Di fficile PCR Routin e Lab 02/19/21 18:25 Results Complete Blood Co unt w/Auto Routine Lab 02/20/21 13:10 Ordered Enteric Bacterial Panel by PCR Rout ine Lab 02/19/21 18:25 Results Enteric Parasite Panel by PCR Routi ne Lab 02/19/21 18:25 Results Immunochemical Fe matthew OCB Routine Lab 02/19/21 18:25 Results Lactoferrin Routi ne Lab 02/19/21 18:25 Results Leukocyte Reduced RBC Stat Lab 02/18/21 22:34 Results Type and Screen S tat Lab 02/18/21 22:34 Results Urine Culture Sta t Lab 02/19/21 15:11 Received Pathology: Surgic al [PTH] Routine Pth 02/20/21 09:06 Received Labs from last 24 hours 02/20/21 02/19/21 02/19/21 06:15 20:41 18:18 POC Glucose 147 H 236 H 223 H Iron TIBC % Saturation Unsat Iron Binding Vitamin B12 Folate Blood Type Rho(D) Type Antibody Screen Crossmatch 02/19/21 02/19/21 02/18/21 15:30 15:30 22:34 POC Glucose Iron 43 TIBC 250 % Saturation 17.2 L Unsat Iron Binding 207 Vitamin B12 160 L Folate 14.6 Blood Type O Positive Rho(D) Type Positive / 4+ Antibody Screen Negative Crossmatch See Detail Addt'l Data from Hospital Stay: Laboratory Results WBC 11.1 10^3/uL (4.0 -10.0) H 02/19/21 05:08 RBC 2.62 10^6/uL (4.1 -5.3) L 02/19/21 05:08 Hgb 7.7 g/dL (11.5-15 .3) L 02/19/21 05:08 Hct 23.6 % (37.0-47.0 ) L 02/19/21 05:08 MCV 90.1 fL (81-99) 02/19/21 05:08 MCH 29.4 pg (28.0-34. 0) 02/19/21 05:08 MCHC 32.6 g/dL (30.0-3 6.0) 02/19/21 05:08 RDW 14.0 % (12.1-15.1 ) 02/19/21 05:08 Plt Count 302 10^3/cmm (130 -400) 02/19/21 05:08 MPV 10.0 fL (7.4-10.4 ) 02/19/21 05:08 Neut % (Auto) 63.3 % 02/19/21 05:08 Lymph % (Auto) 27.0 % 02/19/21 05:08 Howard % (Auto) 7.4 % 02/19/21 05:08 Eos % (Auto) 1.3 % 02/19/21 05:08 Baso % (Auto) 0.6 % 02/19/21 05:08 Neut # (Auto) 7.04 10^3/uL (1.8 -7.7) 02/19/21 05:08 Lymph # (Auto) 3.0 10^3/uL (0.8- 4.8) 02/19/21 05:08 Howard # (Auto) 0.8 10^3/uL (0.2- 0.9) 02/19/21 05:08 Eos # (Auto) 0.1 10^3/uL (0.0- 0.8) 02/19/21 05:08 Baso # (Auto) 0.1 10^3/uL (0.0- 0.1) 02/19/21 05:08 Nucleated RBC % (a uto) 0 % 02/19/21 05:08 Nucleated RBCs # 0.0 /100WBC 02/19/21 05:08 Sodium 139 mmol/L (136-1 45) 02/19/21 05:08 Potassium 4.2 mmol/L (3.5-5 .1) 02/19/21 05:08 Chloride 107 mmol/L (98-10 7) 02/19/21 05:08 Carbon Dioxide 21 mmol/L (22-29) L 02/19/21 05:08 Anion Gap 15.2 (5-19) 02/19/21 05:08 BUN 44 mg/dL (6-20) H 02/19/21 05:08 Creatinine 1.0 mg/dL (0.5-0. 9) H 02/19/21 05:08 GFR Calculation 58.9 mL/min (90-1 30) L 02/19/21 05:08 Glucose 164 mg/dL (65-115 ) H 02/19/21 05:08 POC Glucose 147 mg/dL (70-110 ) H 02/20/21 06:15 Calculated Osmolal ity 303 mOsm/kg (285- 295) H 02/19/21 05:08 Lactate 2.0 mmol/L (0.5-2 .2) 02/18/21 19:32 Calcium 7.7 mg/dL (8.5-10 .5) L 02/19/21 05:08 Iron 43 ug/dL (37-145) 02/19/21 15:30 TIBC 250 mcg/dl 02/19/21 15:30 % Saturation 17.2 % (20-50) L 02/19/21 15:30 Unsat Iron Binding 207 ug/dL (112-34 7) 02/19/21 15:30 Total Bilirubin 0.2 mg/dL (0.15-1 .2) 02/18/21 15:30 AST 11 U/L (0-32) 02/18/21 15:30 ALT 12 U/L (0-33) 02/18/21 15:30 Alkaline Phosphata se 72 IU/L (35-105) 02/18/21 15:30 Creatine Kinase 31 U/L (26-192) 02/18/21 15:30 Troponin T Baselin e 50 ng/L (0-10) H 02/18/21 15:30 Troponin T 120 Min tiffany 49.36 ng/L (0-10) H 02/18/21 17:39 Delta Troponin T -0.64 ABS# (0-10) L 02/18/21 17:39 Troponin T Hi Sens 6Hr 42.45 ng/L (0-10) H 02/18/21 21:33 Troponin T Hi Sens 6Hr Delta -7.55 ng/L (0-12) L 02/18/21 21:33 C-Reactive Protein 14.6 mg/L (0.0-4. 9) H 02/18/21 15:30 NT-Pro-B Natriuret Pep 68 pg/mL (0-125) 02/18/21 15:30 Total Protein 6.7 g/dL (6.6-8.7 ) 02/18/21 15:30 Albumin 3.7 g/dL (3.5-5.2 ) 02/18/21 15:30 Globulin 3.0 g/dL (1.3-4.6 ) 02/18/21 15:30 Lipase 17 U/L (13-60) 02/18/21 15:30 Vitamin B12 160 pg/mL (232-12 45) L 02/19/21 15:30 Folate 14.6 ng/mL (4.8-3 7.3) 02/19/21 15:30 Procalcitonin 0.06 ng/mL (0-0.5 ) 02/18/21 15:30 Urine Color Yellow (Yellow) 02/18/21 16:50 Urine Appearance Hazy (CLEAR) A 02/18/21 16:50 Urine pH 5 (5-7) 02/18/21 16:50 Ur Specific Gravit y 1.010 (1.005-1.0 30) 02/18/21 16:50 Urine Protein Neg (Negative) 02/18/21 16:50 Urine Glucose (UA) Norm (Normal) 02/18/21 16:50 Urine Ketones Negative (Negati ve) 02/18/21 16:50 Urine Blood Trace (Negative) H 02/18/21 16:50 Urine Nitrate Negative (Negati ve) 02/18/21 16:50 Urine Bilirubin Neg (Negative) 02/18/21 16:50 Urine Urobilinogen Norm mg/dL (Negat xiomara) 02/18/21 16:50 Ur Leukocyte Charity ase 1+ (Negative) H 02/18/21 16:50 Urine RBC None /hpf (0-2) 02/18/21 16:50 Urine WBC 25-40 /hpf (0-5) H 02/18/21 16:50 Ur Squamous Epith Cells 25-40 /hpf (0-5) H 02/18/21 16:50 Amorphous Sediment Not Reportable 02/18/21 16:50 Urine Bacteria 2+ /hpf (NONE) H 02/18/21 16:50 SARS-CoV-2 Ag (Rap id) Negative (Negati ve) 02/18/21 17:33 Blood Type O Positive 02/18/21 22:34 Rho(D) Type Positive / 4+ 02/18/21 22:34 Antibody Screen Negative 02/18/21 22:34 Crossmatch See Detail 02/18/21 22:34 Impressions Chest X-Ray 02/18/21 15:39 IMPRESSION: No acute cardiopulmonary process. Abdomen/Pelvis CT 02/18/21 18:40 IMPRESSION: 1. Fluid within the small bowel without evidence of bowel wall thickening. This may reflect viral gastroenteritis in the appropriate clinical situation. 2. Diffuse, mild wall thickening of the bladder. In the correct clinical setting, this may suggest cystitis. Recommend correlation with laboratory findings. Alternatively, this may be secondary to chronic outlet obstruction. 3. Atherosclerotic disease. At least 75% stenosis in the visualized right femoral artery and 50% stenosis in the visualized left femoral artery. At least 60% stenosis in the right and left internal iliac arteries. 4. Incidental/nonacute findings are listed in the report. Radiation Dose CTDIVOL = (mGy): DLP = 1788.41 (mGy-cm) Vitals: Last Vital Signs Temp 97.0 F L 02/20/21 09:15 Pulse 74 02/20/21 11:10 Resp 18 02/20/21 09:30 BP 112/76 02/20/21 09:30 Pulse Ox 100 02/20/21 11:10 Discharge Plan Discharge Patient Disposition: Home Condition: Stable Prescriptions: New sucralfate 100 mg/mL Suspension 1 g PO TID 14 Days Qty: 420 RF: 0 ciprofloxacin HCl 500 mg tablet 500 mg PO BID Qty: 14 RF: 0 Flagyl 500 mg tablet 500 mg PO BID 7 Days Qty: 14 RF: 0 Protonix 40 mg tablet,delayed release (DR/EC) 40 mg PO BID 30 Days Qty: 60 RF: 0 Continued (DME) CAM WALKER See Rx Instructions .ROUTE .MEDSUPPLY Qty: 1 RF: 0 Lipitor 20 mg tablet 20 mg PO DAILY Qty: 30 RF: 2 metformin 1,000 mg tablet 1,000 mg PO BID Qty: 60 RF: 2 sertraline [Zoloft] 50 mg tablet 50 mg PO DAILY Qty: 30 RF: 2 (DME) DIABETIC SHOES See Rx Instructions .ROUTE .MEDSUPPLY Qty: 1 RF: 0 Lantus Solostar U-100 Insulin 100 unit/mL (3 mL) insulin pen 30 unit SUBCUT QPM Qty: 15 RF: 2 clopidogrel 75 mg tablet 75 mg PO DAILY RF: 0 Novolog Flexpen U-100 Insulin 100 unit/mL (3 mL) insulin pen 6 unit SUBCUT TID RF: 0 gabapentin 300 mg capsule 300 mg PO TID RF: 0 Held Norvasc 10 mg tablet 10 mg PO DAILY Qty: 30 RF: 2 Hold Instructions: Resume on 02/27/21. lisinopril 20 mg tablet 20 mg PO DAILY Qty: 30 RF: 2 Hold Instructions: Resume on 02/27/21. aspirin [Adult Aspirin Regimen] 81 mg tablet,delayed release (DR/EC) 81 mg PO DAILY Qty: 30 RF: 0 Hold Instructions: Resume on 03/02/21. Discharge Orders: Discharge Order (Routine); Ordered 02/20/21 Ordered By: Kain Lopez Referrals: Armen Shoemaker MD [Physician] - 1 month Grazyna Bonner FNP [Primary Care Provider] - 4-7 days (Repeat CBC) Discharge Diet: Advance as tolerated, Cardiac, Diabetic and Full LIquid Discharge Activity: Resume usual activity Patient Instructions: GI Discharge Instructions, Opioid Safety Activity Restrictions/Additional Instructions: Please hold off on taking aspirin, lisinopril and amlodipine for now. Please check your blood pressures twice a day and maintain a blood pressure diary and follow-up with your primary care provider within next 1 week for further adjustment of antihypertensives. If your blood pressures are more than 140/90 mmHg you can start amlodipine. Please hold off on taking aspirin for next 10 days. Please check hemoglobin 7 days after starting aspirin. Please follow-up with Dr. Shoemaker in 1 week. Please advance your diet gradually from full liquid diet to soft within 1 week as tolerated. Discharge Attestations Time Spent in Discharge Care*: greater than 30 min Specific Discharge Activities: educating patient, educating and/or supporting family/caregiver, discussing with pcp/other providers, discussing with supportive employment case manager/social workers/dc planners, documenting/other paperwork and evaluating patient/reviewing data Status at Discharge: Cognitive status at discharge: cognitively intact, Behavioral status at discharge: cooperative, Functional status at discharge: independent ambulation Overall status at discharge: patient is back to baseline Quality Metrics Clinical Quality Measures During this hospital stay, did patient experience: None Coding Level of Care Code Acute [facility] note Diagnoses Anemia D64.9
[2021-02-20] MEDS: gabapentin 300 mg Capsule PO (14:06)
[2021-02-20] MEDS: cyanocobalamin 1,000 mcg/mL SDV 1000 MCG IM (14:06)
[2021-02-20] MEDS: sucralfate 1 gm/10 mL Oral Liq UDC PO (14:06)
--- NOTE | 2021-02-20 14:28 | ANE.PACU2 ---
Inpatient post-anesthesia follow up: Airway intact: Yes Vital signs: Temperature 98.4 F Pulse Rate [Monito r] 101 Pulse Rate 74 Respiratory Rate 18 Blood Pressure [Le ft Arm] 72/53 Blood Pressure 131/78 Pulse Oximetry 100 Oxygen Delivery Me thod [ Room Air Current Rate & Del rola] Oxygen Delivery Me thod Room Air Oxygen Flow Rate 4 Fraction of Inspir ed Oxygen Hydration adequate: Yes Nausea and vomiting: No Pain level: 1 Mental status: Baseline
[2021-02-20 14:41] LABS: Glucose Point of Care 204 mg/dL (70-110)
[2021-02-20 17:55] LABS: Glucose Point of Care 136 mg/dL (70-110)
--- NOTE | 2021-02-20 18:49 | PC.NURSE ---
patient verbalized understanding of discharge instructions.
--- NOTE | 2021-02-22 07:48 | PC.RESP ---
SMOKING CESSATION INFORMATION SENT TO PATIENT.
== END 2021-02-20 17:35 | disposition home or self-care (01) | DRG 812 ==
LOC: ER 15:24 → ER IP 02-19 00:45 → MEDSURG 02-19 11:53
PROVIDERS: Surgery; Admitting Provider Internal Medicine; Emergency Provider Family Medicine; PCP Nurse Practitioner Family; Visit Provider Student in an Organized Health Care Education/Training Program
PROC: 0DJ08ZZ Inspection of Upper Intestinal Tract, Via Natural or Artificial Opening Endoscopic (ICD-10-PCS; CPT 43235; principal; 2021-02-20 08:00)
PROC: 0DJD8ZZ Inspection of Lower Intestinal Tract, Via Natural or Artificial Opening Endoscopic (ICD-10-PCS; CPT 45378; 2021-02-20 08:00)
DX: D62 Acute posthemorrhagic anemia (principal); N17.9 Acute kidney failure, unspecified; L97.312 Non-pressure chronic ulcer of right ankle with fat layer exposed; N30.00 Acute cystitis without hematuria; I95.9 Hypotension, unspecified; E86.0 Dehydration; E87.5 Hyperkalemia; E11.65 Type 2 diabetes mellitus with hyperglycemia; E11.42 Type 2 diabetes mellitus with diabetic polyneuropathy; E11.622 Type 2 diabetes mellitus with other skin ulcer; I10 Essential (primary) hypertension; F17.210 Nicotine dependence, cigarettes, uncomplicated; Z89.411 Acquired absence of right great toe; Z89.421 Acquired absence of other right toe(s); K52.9 Noninfective gastroenteritis and colitis, unspecified; K25.9 Gastric ulcer, unspecified as acute or chronic, without hemorrhage or perforation; K20.90 Esophagitis, unspecified without bleeding; Z79.4 Long term (current) use of insulin; E53.8 Deficiency of other specified B group vitamins; K64.8 Other hemorrhoids
CPT/HCPCS: 36416; 36430; 43239; 45378; 71045; 74177; 80048; 80053; 81001; 82274; 82550; 82607; 82746; 82962; 83540; 83550; 83605; 83630; 83690; 83880; 84145; 84484; 85014; 85018; 85025; 86140; 86850; 86900; 86920; 87040; 87077; 87086; 87186; 87426; 87493; 87506; 88305; 93005; 96361; 96365; 96372; 99285; C9113; J0696; J1815; J2543; J2704; J3420; J7030; J7799; P9016; P9058; Q9967

== ENCOUNTER → 2021-02-26 13:09 | Outpatient (BNVA) | payer MEDICAID, SELFPAY | PROVIDERS: PCP Nurse Practitioner Family; Visit Provider Nurse Practitioner Family | DX: D64.9 Anemia, unspecified (principal); K52.9 Noninfective gastroenteritis and colitis, unspecified; I10 Essential (primary) hypertension | CPT/HCPCS: 80048; 82607; 85025 ==

== ENCOUNTER → 2021-03-22 11:46 | Outpatient (BNVA) | payer MEDICAID, SELFPAY | PROVIDERS: PCP Nurse Practitioner Family; Visit Provider Nurse Practitioner Family | DX: N30.90 Cystitis, unspecified without hematuria (principal); E11.9 Type 2 diabetes mellitus without complications; E78.5 Hyperlipidemia, unspecified; F41.9 Anxiety disorder, unspecified; Z79.4 Long term (current) use of insulin; I10 Essential (primary) hypertension; F32.9 Major depressive disorder, single episode, unspecified; G62.9 Polyneuropathy, unspecified | CPT/HCPCS: 80053; 80061; 81003; 82043; 83036; 85025 ==

== ENCOUNTER 2021-04-08 11:41 | Inpatient (IN) | payer MEDICAID, SELFPAY ==
[2021-04-08] VITALS (8 sets, daily range): BP systolic 141–173; BP diastolic 75–82; PULSE 83–93; RESP 14–18; TEMP 37.2–37.6; O2SAT 98–100; BMI 31.1
--- NOTE | 2021-04-08 11:50 | ED_ITS ---
HPI - General Adult General: Chief complaint: Skin/Abscess/Foreign Body Stated complaint: Blackening toe on left foot Time Seen by Provider: 04/08/21 11:49 History of Present Illness: HPI narrative: Ms. Carranza is a 51-year-old lady with significant past medical history of diabetes and history of osteomyelitis requiring right transmetatarsal amputation who presents emergency department due to left toe color change. She reports a few weeks ago an object was dropped on her toe and she immediately had pain though this was limited secondary to moderate to severe neuropathy. She was evaluated but did not have an x-ray performed at that time and started on antibiotics. The past few days she has noticed mild increased throbbing sensation and 2 days ago started noticed color change of the left great toe. She denies signs of systemic illness. Overall the intensity symptoms is moderate and the course for worsening. There are no other specific exacerbating or alleviating factors that she can identify. Review of Systems General: Reports: 10 or more systems reviewed and unremarkable except in HPI and below Narrative: CONSTITUTIONAL: denies fever, fatigue, weakness EYES - denies pain, denies loss of vision EARS - denies ear issues. NOSE - denies congestion or rhinorrhea. THROAT - denies sore throat or difficulty swallowing. CARDIOVASCULAR - denies chest pain and palpitations RESPIRATORY - denies shortness of breath and cough GASTROINTESTINAL - denies abdominal pain, no nausea vomiting, no changes in bowel habits GENITOURINARY - denies dysuria or urinary frequency MUSCULOSKELETAL-see HPI. SKIN -color change noted in the left great toe. NEUROLOGIC - denies focal weakness. Diabetic neuropathy present. HEMATOLOGIC/LYMPHATIC - denies easy bruising or lymphadenopathy. 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 Diabetes mellitus, type II Diabetic peripheral neuropathy associated with type 2 diabetes mellitus Diabetic ulcer of foot associated with diabetes mellitus due to underlying condition, with necrosis of bone Dry gangrene Gangrenous toe Status post amputation History of gestational diabetes Hyperlipidemia Hypertension Nicotine dependence Nicotine dependence, cigarettes, uncomplicated Non-pressure chronic ulcer 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 Non-pressure chronic ulcer of right ankle with fat layer exposed Peripheral arterial disease Peripheral neuropathy Toe osteomyelitis, right Surgical History H/O esophagogastroduodenoscopy (02/20/21) History of 2 sections History of carpal tunnel repair bilateral Status post colonoscopy (02/20/21) Repeat in 10 years Status post transmetatarsal amputation of right foot Family History Other Diabetes Hypertension Lung disease Denies family history of CAD (coronary artery disease) Chronic kidney disease (CKD) Anesthesia complication Social History Smoking and tobacco status: current every day smoker (1/2 pack a day) cigarettes Packs smoked per day: 1 Years cigarettes smoked: 34 Quit status (tobacco): has tried quititng Second hand smoke exposure: Yes Alcohol intake: never Lives independently: Yes Household members: spouse, family and children Marital status: service: No Current occupational status: unemployed History of recent travel: No Current gender identity: Female Female Reproductive History: Date of last menstrual period: 03/24/18 Physical Exam Narrative: EXAM NARRATIVE: GENERAL/CONSTITUTIONAL -mild chronically ill- appearing. No acute distress. Eyes - PERRL, no conjunctival injection ENMT - Atraumatic external nose and ears. Moist mucous membranes NECK - supple. trachea midline CARDIOVASCULAR - regular rate and rhythm. Unable to palpate peripheral pulses though microvascular intact with good cap refill of blanched skin. RESPIRATORY -clear to auscultation bilaterally. No retractions or accessory muscle use. ABDOMEN/GI - Nontender/Nondistended. No tenderness to percussion or evidence of peritonitis MSK -left great toe necrosis with area of dry eschar, no obvious spreading erythema. SKIN - Warm, Dry NEURO - alert and appropriately oriented. strength and sensation intact. Moves all extremities equally. PSYCH - Appropriate mood and affect Course ED course: - Patient was seen and evaluated by me at bedside - Patient placed on cardiac monitors, IV access obtained - Initial evaluation notable for neck necrotic left toe as noted above. There are no palpable DP or PT pulses however given physical exam appearance and quick return of color after skin blanching there is likely significant collaterals and there is no evidence of acute limb ischemia. - Labs and imaging obtained and reviewed - Labs notable for leukocytosis of 14 and elevated inflammatory markers. - Imaging notable for no evidence of underlying fracture, radiology read notable for likely necrotizing infection however there is no evidence of tracking gas or spreading erythema, patient is nontoxic in appearance. Ultrasound results notable for monophasic flow and RUBY 0.21. -Antibiotics given -Orthopedic service consulted and patient will be admitted to the internal medicine service - Upon serial reexamination after treatment the patient was similar - Based on patient history, evaluation, labs, and imaging as interpreted the most likely cause of the patient's condition is gangrene in the context of peripheral arterial disease and diabetes. - The results of ED evaluation were discussed with the patient including plan for admission due to requirement for level of care not available if discharged to prevent significant worsening/deterioration. -Hospitalist service consulted and agreed admit the patient. - Patient was admitted without further deterioration or significant events. Vital Signs: Vital signs: Vital Signs Temperature 98.3 F 04/10/21 10:00 Pulse Rate 70 04/10/21 11:40 Respiratory Rate 18 04/10/21 11:40 Blood Pressure 135/76 04/10/21 11:40 Pulse Oximetry 96 04/10/21 11:40 MDM - General Adult Medical Records: Attestation: I reviewed the patient's medical records. Lab Data: Attestation: I reviewed the patient's lab results. Labs: Lab Results 04/08/21 04/08/21 04/08/21 Range/Units 12:25 13:08 13:08 WBC 14.0 H (4.0-10.0) 10^3/ uL RBC 3.90 L (4.1-5.3) 10^6/u L Hgb 10.3 L (11.5-15.3) g/dL Hct 34.6 L (37.0-47.0) % MCV 88.7 (81-99) fl MCH 26.4 L (28.0-34.0) pg MCHC 29.8 L (30.0-36.0) g/dL RDW 15.3 H (12.1-15.1) % Plt Count 477 H (130-400) 10^3/c mm MPV 9.4 (7.4-10.4) fL Neut % (Auto) 76.5 % Lymph % (Auto) 14.9 % [place] % (Auto) 6.1 % Eos % (Auto) 1.4 % Baso % (Auto) 0.4 % Neut # (Auto) 10.68 H (1.8-7.7) 10^3/u L Lymph # (Auto) 2.1 (0.8-4.8) 10^3/u L [place] # (Auto) 0.9 (0.2-0.9) 10^3/u L Eos # (Auto) 0.2 (0.0-0.8) 10^3/u L Baso # (Auto) 0.1 (0.0-0.1) 10^3/u L Nucleated RBC % (a uto) 0 % Nucleated RBCs # 0.0 /100WBC ESR 117 H (0-15) mm/hr Sodium (136-145) mmol/L Potassium (3.5-5.1) mmol/L Chloride (98-107) mmol/L Carbon Dioxide (22-29) mmol/L Anion Gap (5-19) BUN (6-20) mg/dL Creatinine (0.5-0.9) mg/dL GFR Calculation (90-130) mL/min Glucose (65-115) mg/dL POC Glucose 209 H (70-110) mg/dL Calculated Osmolal ity (285-295) mOsm/k g Lactate (0.5-2.2) mmol/L Calcium (8.5-10.5) mg/dL Total Bilirubin (0.15-1.2) mg/dL AST (0-32) U/L ALT (0-33) U/L Alkaline Phosphata se (35-105) IU/L C-Reactive Protein (0.0-4.9) mg/L Total Protein (6.6-8.7) g/dL Albumin (3.5-5.2) g/dL Globulin (1.3-4.6) g/dL 04/08/21 04/08/21 Range/Units 13:08 13:08 WBC (4.0-10.0) 10^3/ uL RBC (4.1-5.3) 10^6/u L Hgb (11.5-15.3) g/dL Hct (37.0-47.0) % MCV (81-99) fl MCH (28.0-34.0) pg MCHC (30.0-36.0) g/dL RDW (12.1-15.1) % Plt Count (130-400) 10^3/c mm MPV (7.4-10.4) fL Neut % (Auto) % Lymph % (Auto) % [place] % (Auto) % Eos % (Auto) % Baso % (Auto) % Neut # (Auto) (1.8-7.7) 10^3/u L Lymph # (Auto) (0.8-4.8) 10^3/u L [place] # (Auto) (0.2-0.9) 10^3/u L Eos # (Auto) (0.0-0.8) 10^3/u L Baso # (Auto) (0.0-0.1) 10^3/u L Nucleated RBC % (a uto) % Nucleated RBCs # /100WBC ESR (0-15) mm/hr Sodium 136 (136-145) mmol/L Potassium 4.6 (3.5-5.1) mmol/L Chloride 100 (98-107) mmol/L Carbon Dioxide 26 (22-29) mmol/L Anion Gap 14.6 (5-19) BUN 13 (6-20) mg/dL Creatinine 0.7 (0.5-0.9) mg/dL GFR Calculation 88.6 L (90-130) mL/min Glucose 164 H (65-115) mg/dL POC Glucose (70-110) mg/dL Calculated Osmolal ity 286 (285-295) mOsm/k g Lactate 1.8 (0.5-2.2) mmol/L Calcium 8.6 (8.5-10.5) mg/dL Total Bilirubin 0.2 (0.15-1.2) mg/dL AST 25 (0-32) U/L ALT 30 (0-33) U/L Alkaline Phosphata se 117 H (35-105) IU/L C-Reactive Protein 144.0 H (0.0-4.9) mg/L Total Protein 8.0 (6.6-8.7) g/dL Albumin 3.5 (3.5-5.2) g/dL Globulin 4.5 (1.3-4.6) g/dL Discharge Plan Discharge Patient Disposition: Admitted As Inpatient Admit Provider: Jason Moss Clinical Impression: Necrosis of toe, Osteomyelitis Condition: Stable Discharge Diet: Diabetic and Low Cholesterol Discharge Activity: Limit activity as instructed Coding Level of Care Code ED [employer] Multiple Spindle for Harley Patel
--- NOTE | 2021-04-08 11:58 | XRR_ITS ---
PROCEDURE INFORMATION: Exam: XR Left Foot Exam date and time: 04/08/2021 11:58 AM Age: 51 years old Clinical indication: Injury or trauma; Other: Dropped something on foot; Blunt trauma; Toes; Injury details: History--had something get dropped on left great toe. Blood blister popped up and now 2 days later-toe is black and swollen. ; Additional info: Left great toe necrosis after trauma TECHNIQUE: Imaging protocol: XR Left foot. Views: 3 or more views. COMPARISON: CR Foot 3 views, LEFT* [id number] 05/08/2019 11:41 AM FINDINGS: Bones/joints: No fracture or destructive bone lesion. Soft tissues: Soft tissue swelling and soft tissue air/gas in the great toe. XR/XR foot LT min 3V* [id number] IMPRESSION: Findings consistent with necrotizing soft tissue infection in the great toe.
--- NOTE | 2021-04-08 11:58 | USCV_ITS ---
Carranza Adrianne Age: 51 Gender: F : 1970 Exam Date: 04/08/2021 12:23 Ordering Phys: Raz Smith MD Technologist: Cindi Pedroza Exam Location: [facility] [place]_ Indication: gangrene lt great toe, DM, cant palpate pulses Risk Factors: Previous Vascular Surgery: RIGHT LEFT BP: 141.0 / 75.00 BP: / 0 Waveform Velocity (cm/s) Velocity (cm/s) Waveform Iliac Prox 233.9 Biphasic Iliac Mid 239.3 Biphasic Iliac Distal 249.3 Biphasic SITE ACQUISITION SPECIALIST Biphasic 129.0 SFA Prox 116.5 Biphasic SFA Mid 89.3 Biphasic SFA Dist 83.8 Biphasic POP 59.0 Biphasic FINANCIAL AID 38.8 Monophasic DPA 25.1 Monophasic RUBY 0.2 FINDINGS Moderate severe diffuse plaques in the iliac artery on the left side Moderate diffuse plaques in the femoral and popliteal artery Abnormal resting RUBY of 0.2. CONCLUSIONS Abnormal RUBY and Doppler signals suggesting severe peripheral artery disease, possibly multisegmental. No similar previous studies are available for comparison Dr Radha Grant MD [facility] (Electronically Signed) Final Date: 09 April 2021 00:16 S
[2021-04-08 12:28] LABS: Glucose Point of Care 209 mg/dL (70-110)
[2021-04-08 13:17] LABS: Basophils # 0.1 10^3/uL (0.0-0.1); Basophils % 0.4 %; Eosinophils # 0.2 10^3/uL (0.0-0.8); Eosinophils % 1.4 %; Hematocrit 34.6 % (37.0-47.0); Hemoglobin 10.3 g/dL (11.5-15.3); Lymphocytes # 2.1 10^3/uL (0.8-4.8); Lymphocytes % 14.9 %; Mean Corpuscular HGB Conc 29.8 g/dL (30.0-36.0); Mean Corpuscular Hemoglobin 26.4 pg (28.0-34.0); Mean Corpuscular Volume 88.7 fl (81-99); Mean Platelet Volume 9.4 fL (7.4-10.4); Monocytes # 0.9 10^3/uL (0.2-0.9); Monocytes % 6.1 %; Neutrophils # 10.68 10^3/uL (1.8-7.7); Neutrophils % 76.5 %; Nucleated Red Blood Cells % 0 %; Platelet Count 477 10^3/cmm (130-400); Red Cell Distribution Width 15.3 % (12.1-15.1)
[2021-04-08 13:47] LABS: Lactate (Lactic Acid level) 1.8 mmol/L (0.5-2.2)
[2021-04-08 13:48] LABS: Alanine Aminotransferase 30 U/L (0-33); Albumin Level 3.5 g/dL (3.5-5.2); Alkaline Phosphatase 117 IU/L (35-105); Anion Gap 14.6 (5-19); Aspartate Amino Transferase 25 U/L (0-32); Blood Urea Nitrogen 13 mg/dL (6-20); Calcium 8.6 mg/dL (8.5-10.5); Carbon Dioxide 26 mmol/L (22-29); Chloride 100 mmol/L (98-107); Creatinine Clr Calc Pharmacy 92.4442; Globulin 4.5 g/dL (1.3-4.6); Glomerular Filtration Rate 88.6 mL/min (90-130); Glucose 164 mg/dL (65-115); Osmolality Calculated 286 mOsm/kg (285-295); Potassium 4.6 mmol/L (3.5-5.1); Sodium 136 mmol/L (136-145); Total Bilirubin 0.2 mg/dL (0.15-1.2)
[2021-04-08 14:07] LABS: Erythrocyte Sedimentation Rate 117 mm/hr (0-15)
[2021-04-08] MEDS: piperacillin-tazobactam 4.5 GM in sodium chloride 0.9% (plus) 50 ML IV (14:46)
[2021-04-08] MEDS: clindamycin 600 MG/50 ML PREMIX 100 MG IV (15:18)
--- NOTE | 2021-04-08 17:01 | P.HP_ITS ---
Providers/Chief Complaint Admitting Physician: Jason Moss Primary Care Provider: CLIFF Bellamy Chief Complaint: Blackening toe on left foot History of Present Illness Pleasant 51-year-old lady current smoker with history of PAD, diabetes, HTN, CVA, with history of TMA due to foot infection, abscess on the right side, several weeks ago her niece had dropped a chair on her left big toe. She was treated for 10 days with Augmentin by her primary provider for resulting cellulitis. However, toe color change has not improved, getting worse, currently with flores discoloration distally, black discoloration of the midportion of the toe. Surrounding erythema more proximally. The foot is warm. She has not had any drainage. There is an odor. No tenderness. She does feel touch, but does have neuropathy chronically as well. States otherwise does not walk barefoot at home. She has been afebrile, temperature in ER 99 Fahrenheit, WBC 14,000. Foot x-ray shows necrotizing soft tissue infection of the great toe. Blood cultures were collected. She received vancomycin, Zosyn, clindamycin, although per discussion with ER physician necrotizing fasciitis is not suspected. Orthopedic surgery was consulted from ER, will be seen patient for definitive treatment. She is also being evaluated by arterial duplex of left lower extremity. Prior evaluation for PAD with peripheral angiogram on 04/17/[address] Quan revealed bilateral common iliac, internal and external iliac with luminal irregularities, left SFA with distal stenosis at the junction of popliteal artery. Left below knee two-vessel runoff noted. Study was performed due to infection in the right side which was the focus. She smokes half a pack a day. Review of Systems Const: Denies: fever(s), chills, body aches or malaise Eyes: Denies: change in vision or eye redness ENMT: Denies: throat pain, oral sores or ear or mastoid pain Card: Denies: chest pain, edema, pre-syncope or dyspnea on exertion Resp: Denies: dyspnea, productive cough, change in phlegm color or hemoptysis GI: Denies: abdominal pain, nausea, vomiting, diarrhea, constipation, hematochezia or melena : Denies: flank pain, urinary frequency or hematuria Musc: Denies: back pain, joint swelling or joint redness Skin/Breast: Reports: erythema, new lesions and other (Black and flores L big toe, surrounding erythema) Neuro: Denies: headache(s), numbness in extremities, weakness in extremities, dizziness, confusion or seizure-like activity Endo: Denies: polyuria or polydipsia Johnny/Lymph: Denies: easy bleeding or purpura All/Imm: Denies: urticaria, throat swelling or tongue swelling Medications/Allergies Home Medications Medication Instructions Recorded Confirmed Last Taken Type CAM WALKER #1 each 05/24/20 04/08/21 Unknown Rx DIABETIC SHOES #1 ea 11/28/20 04/08/21 Unknown Rx Adult Aspirin Regimen 81 mg PO QAM 04/08/21 04/08/21 04/07/21 History Lantus Solostar U-100 Insulin 30 unit SUBCUT BEDTIME 04/08/21 04/08/21 04/07/21 History Norvasc 10 mg PO DAILY PRN 04/08/21 04/08/21 Unknown History Zoloft 50 mg PO QAM 04/08/21 04/08/21 04/07/21 History atorvastatin [Lipitor] 20 mg PO BEDTIME 04/08/21 04/08/21 04/07/21 History clopidogrel 75 mg PO QAM 04/08/21 04/08/21 04/07/21 History gabapentin 300 mg PO TID 04/08/21 04/08/21 04/07/21 History insulin aspart U-100 [Novolog 6 unit SUBCUT .BEFORE MEALS TID 04/08/21 04/08/21 04/07/21 History Flexpen U-100 Insulin] metformin 1,000 mg PO BID 04/08/21 04/08/21 04/07/21 History Allergies Allergy/AdvReac Type Severity Reaction Status Date / Time morphine Allergy ALGY-Hives Verified 04/08/21 11:53 PFSH Acute PFSH: Medical History Anxiety and depression 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 Diabetes mellitus, type II Diabetic peripheral neuropathy associated with type 2 diabetes mellitus Diabetic ulcer of foot associated with diabetes mellitus due to underlying condition, with necrosis of bone Dry gangrene Gangrenous toe Status post amputation History of gestational diabetes Hyperlipidemia Hypertension Nicotine dependence Nicotine dependence, cigarettes, uncomplicated Non-pressure chronic ulcer 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 Non-pressure chronic ulcer of right ankle with fat layer exposed Peripheral arterial disease Peripheral neuropathy Toe osteomyelitis, right Surgical History H/O esophagogastroduodenoscopy (02/20/21) History of 2 sections History of carpal tunnel repair bilateral Status post colonoscopy (02/20/21) Repeat in 10 years Status post transmetatarsal amputation of right foot Family History Other Diabetes Hypertension Lung disease Denies family history of CAD (coronary artery disease) Chronic kidney disease (CKD) Anesthesia complication Social History Smoking and tobacco status: current every day smoker (1/2 pack a day) cigarettes Packs smoked per day: 1 Years cigarettes smoked: 34 Quit status (tobacco): has tried quititng Second hand smoke exposure: Yes Alcohol intake: never Lives independently: Yes Household members: spouse, family and children Marital status: service: No Current occupational status: unemployed History of recent travel: No Current gender identity: Female Female Reproductive History: Date of last menstrual period: 03/24/18 Vitals/I&O/Wt Last Vital Signs Temp 99.0 F 04/08/21 11:49 Pulse 88 04/08/21 15:00 Resp 15 04/08/21 15:00 BP 147/75 04/08/21 16:17 Pulse Ox 100 04/08/21 16:17 04/08/21 04/08/21 04/08/21 06:59 14:59 22:59 Intake Total 100 / 100 Balance 100 / 100 Weight last 48 hrs Weight 77.111 kg Physical Exam Const: COMMON NORMALS: no acute distress and patient oriented x3 HENMT: COMMON NORMALS: oropharynx normal Neck/C-Spine: COMMON NORMALS: no JVD Resp: COMMON NORMALS: normal respiratory effort and clear to auscultation bilaterally AUSCULTATION: clear to auscultation bilaterally Cardio: COMMON NORMALS: no JVD, regular rhythm, S1 normal heart sound present, S2 normal heart sound present and No murmurs present (Cardio) RHYTHM: regular rhythm HEART SOUNDS: S1 normal heart sound present and S2 normal heart sound present GI: COMMON NORMALS: Normal to inspection, nondistended, normoactive bowel sounds present, Soft to palpation and non-tender PALPATION: Yes Soft to palpation Extremity: COMMON NORMALS: no joint enlargement and no pedal edema Neuro: COMMON NORMALS: patient oriented x3 and moves all extremities Skin: COMMON NORMALS: no rashes or lesions noted GENERAL SKIN EXAM: no rashes or lesions noted OTHER: Flores appearing distal first left toe, black midportion, proximal erythema of the foot, warm, no mottling Data : 04/08/21 13:08 04/08/21 13:08 Micro: Microbiology 04/08/21 14:50 Blood Culture - Preliminary Blood SPECIMEN COLLECTED 04/08/21 14:45 Blood Culture - Preliminary Blood SPECIMEN COLLECTED A&P Assessment and plan (1) Necrosis of toe: Orthopedics is going to be seeing her with regards to definitive therapy. Otherwise for infection, surrounding cellulitis continue vancomycin. To try to avoid kidney injury continue gram-negative coverage with cefepime, anaerobic coverage with Flagyl. Follow-up arterial duplex done in ER. Prior evaluation for PAD with peripheral angiogram on 04/17/[address] Quan revealed bilateral common iliac, internal and external iliac with luminal irregularities, left SFA with distal stenosis at the junction of popliteal artery. Left below knee two-vessel runoff noted. Follow-up blood cultures. Continue insulin. Status: Acute (2) Diabetes mellitus, type II: Most recent A1c is 7.2. Continue Lantus. Short acting sliding scale. Status: Acute Qualifiers: Diabetes mellitus termite exterminator helper insulin use: without mcfp use Diabetes mellitus complication status: with skin complications Diabetes mellitus complication detail: with foot ulcer Qualified Code(s): E11.621 - Type 2 diabetes mellitus with foot ulcer; L97.509 - Non-pressure chronic ulcer of other part of unspecified foot with unspecified severity (3) PAD (peripheral artery disease): Follow-up arterial duplex. Continue antiplatelet. Is normally on both aspirin and Plavix for history of CVA. Reports CVA was at the beginning of January. Is outside the 21-day window. Anticipation of surgery continue aspirin 81 mg alone for now. Consider resuming Plavix as well once she is out of acute illness,. She denies having any peripheral cardiac stents. Status: Acute (4) Peripheral neuropathy: Continue gabapentin Status: Acute Qualifiers: Peripheral neuropathy type: polyneuropathy, unspecified Qualified Code(s): G62.9 - Polyneuropathy, unspecified (5) Smoking addiction: Discussed with her smoking cessation for 4 minutes. She states she has been trying to quit. She is down to half pack per day. Discussed with her risk of progression of peripheral arterial disease, limb ischemia and further tissue loss. Discussed other risks including PR, CVA. She intends to continue her attempts to quit. We will provide nicotine replacement in case of withdrawal symptoms. Status: Acute (6) Cellulitis: As above. Status: Acute Additional A&P Information Leukocytosis: Secondary to gangrene, surrounding infection of the left big toe, cellulitis of distal foot, at this time does not fit sepsis criteria. Attestations Medical Necessity Statement*: Admission of over 2 midnights is going to be needed for assessment of management of left big toe gangrene with surrounding cellulitis with underlying diabetes, closer assessment of PAD in a lady who is an active smoker Coding Level of Care Code Acute Network Director for [facility] Diagnoses Necrosis of toe I96 Diabetes mellitus, type II E11.621; L97.509 Diabetes mellitus termite exterminator helper insulin use: without mcfp use Diabetes mellitus complication status: with skin complications Diabetes mellitus complication detail: with foot ulcer PAD (peripheral artery disease) I73.9 Peripheral neuropathy G62.9 Peripheral neuropathy type: polyneuropathy, unspecified Smoking addiction F17.200 Cellulitis L03.90
[2021-04-08 17:46] LABS: Glucose Point of Care 148 mg/dL (70-110)
[2021-04-08] MEDS: acetaminophen 325 mg Tablet 650 MG PO (18:08)
[2021-04-08] MEDS: heparin 5,000 unit/mL INJ 1 mL 5000 UNIT SUBCUT (18:14)
[2021-04-08] MEDS: insulin glargine 100 units/1 mL 30 UNIT SUBCUT (20:09)
[2021-04-08] MEDS: HYDROcodone-acetaminophen 5-325 mg Tablet 1 TAB PO (20:09)
[2021-04-08] MEDS: gabapentin 300 mg Capsule PO (20:09)
--- NOTE | 2021-04-08 20:25 | PC.NURSE ---
i reported high temp 99.7 to nurse
[2021-04-08] MEDS: metroNIDAZOLE IV 500 MG/100 ML PREMIX 100 MG IV (21:17)
[2021-04-09] VITALS (42 sets, daily range): BP systolic 129–168; BP diastolic 68–112; PULSE 48–83; RESP 12–26; TEMP 36.5–37.1; O2SAT 91–99
[2021-04-09] MEDS: metroNIDAZOLE IV 500 MG/100 ML PREMIX 100 MG IV ×3 (03:36→21:07)
[2021-04-09 04:21] LABS: Basophils # 0.1 10^3/uL (0.0-0.1); Basophils % 0.8 %; Eosinophils # 0.4 10^3/uL (0.0-0.8); Eosinophils % 2.8 %; Hematocrit 33.8 % (37.0-47.0); Lymphocytes # 2.7 10^3/uL (0.8-4.8); Lymphocytes % 20.5 %; Mean Corpuscular HGB Conc 29.6 g/dL (30.0-36.0); Mean Corpuscular Hemoglobin 26.5 pg (28.0-34.0); Mean Corpuscular Volume 89.7 fl (81-99); Mean Platelet Volume 9.4 fL (7.4-10.4); Monocytes # 0.9 10^3/uL (0.2-0.9); Monocytes % 6.6 %; Neutrophils # 8.96 10^3/uL (1.8-7.7); Neutrophils % 68.7 %; Nucleated Red Blood Cells % 0 %; Platelet Count 441 10^3/cmm (130-400); Red Blood Count 3.77 10^6/uL (4.1-5.3); Red Cell Distribution Width 15.2 % (12.1-15.1)
[2021-04-09] MEDS: vancomycin 1,500 MG/300 ML PIGGYBACK 200 MG IV ×2 (04:40→17:47)
[2021-04-09 04:50] LABS: Alanine Aminotransferase 26 U/L (0-33); Albumin Level 2.9 g/dL (3.5-5.2); Alkaline Phosphatase 93 IU/L (35-105); Anion Gap 14.3 (5-19); Aspartate Amino Transferase 20 U/L (0-32); Blood Urea Nitrogen 16 mg/dL (6-20); Calcium 9.1 mg/dL (8.5-10.5); Carbon Dioxide 24 mmol/L (22-29); Chloride 101 mmol/L (98-107); Creatinine Clr Calc Pharmacy 92.4442; Globulin 5.4 g/dL (1.3-4.6); Glomerular Filtration Rate 88.6 mL/min (90-130); Glucose 99 mg/dL (65-115); Osmolality Calculated 281 mOsm/kg (285-295); Potassium 4.3 mmol/L (3.5-5.1); Sodium 135 mmol/L (136-145); Total Bilirubin 0.2 mg/dL (0.15-1.2); Total Protein 8.3 g/dL (6.6-8.7)
[2021-04-09 05:48] LABS: Glucose Point of Care 137 mg/dL (70-110)
[2021-04-09] MEDS: sertraline 50 mg Tablet PO (06:43)
--- NOTE | 2021-04-09 08:29 | CT_ITS ---
WS: [id number] CT ANGIOGRAPHY OF THE ABDOMINAL AORTA WITH RUNOFF TO THE ANKLES HISTORY: LLE - PAD, toe gangrene TECHNIQUE: Arterial injection is performed during imaging to evaluate the aorta and runoff vessels to the ankles. MIP and volume rendering imaging has also been performed. All images are reviewed. All C T scans at [facility] use at least one of these dose optimization techniques: automated ex posure control; mA and/or kV adjustment per patient size (includes targeted exams where dose is match ed to clinical indication); or iterative reconstruction. Contrast: Omnipaque 350; 95 mL IV. DLP: 1855.87 mGy.cm COMPARISON: None available. Abdominal aorta: Mild atherosclerotic plaque and intimal thickening. Plaque burden becomes greatest d istally with mild narrowing of the lumen. Celiac axis and SMA are widely patent. Bilateral renal sobia morales are patent. Inferior mesenteric artery is patent. RIGHT lower extremity arterial system: Mild stenosis proximal RIGHT common iliac artery. Moderate alex unt of intimal thickening and calcified plaque. Multifocal areas of mild stenosis throughout the exte rnal and internal iliac artery. Stenosis near 50% at multiple areas. Calcified plaque and intimal thi ckening throughout the common femoral artery. 70% stenosis proximal SFA. Very small caliber SFA with multiple areas of stenosis through Zachery's canal. Deep profundas intact. Normal sized popliteal sobia ry. Moderately calcified and intermittently visualized anterior tibial artery. There is complete occl usion proximally with reconstitution distally. Very small caliber runoff to the ankle. LEFT lower extremity arterial system: Calcified plaque and intimal thickening in the common and inter nal/external common iliac arteries. Stenosis range from 50-60%, greatest in the distal LEFT external iliac artery. Additional areas of significant stenosis in the femoral artery. Small caliber SFA with calcified plaque and intimal thickening throughout. 70% stenosis Zachery's canal. 60% stenosis poplite al artery. Obstructed anterior tibial artery. Small caliber posterior and peroneal arteries. Small hiatal hernia. Hepatic steatosis. No adenopathy or ascites. Constipation. Grade 1 anterolisthesis of L5 without pars defects. CT/CT angio abd aorta runof 16258 IMPRESSION: 1. Atherosclerotic plaque throughout the abdominal aorta with no aneurysm. Mil d narrowing of the lumen in the infrarenal aorta. 2. Diffuse mild to moderate atherosclerotic changes with intimal thickening a nd plaque and multilevel level areas of stenosis from the RIGHT common iliac ar radha to Zachery's canal. 3. RIGHT proximal SFA stenosis 70%. 4. Small vessel runoff to the RIGHT ankle was intermittently visualized and oc cluded anterior tibial artery. 5. Diffuse mild to moderate atherosclerotic plaque throughout the LEFT lower e xtremity arteries. 70% stenosis SFA in Zachery's canal and 60% in the popliteal artery. Additional multi focal areas of 50% stenosis in the LEFT iliac arteries . 6. Occluded LEFT anterior tibial artery.
--- NOTE | 2021-04-09 08:29 | PC.CHAP ---
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 resort desk clerk visit [] Patient/Family/Request visit [] Outpatient visit [] Follow-up visit [] Physician referral [] Code/Alert [x Routine visit [] Staff referral [] Actively dying [x] Patient sleeping [] Family support [] [] Out of room [] Palliative care [] [] Receiving care in room [] Pre-surgical visit [] Trauma [] Long length of stay [] ICU visit [] Other: Relational/Emotional Strength [] Patient feels connected with others/family/visitors/staff [] Distress [] Loneliness/isolation [] Abandonment Spirituality of Patient [] Person of Claritza [] Attends Muslim of their Claritza [] Believes in Prayer [] Reads Bible or Adventism materials [] There are Spiritual issues to be addressed Mechanic Welder Interventions [] Prayer [] Active listening [] Non-anxious presence [] Spiritual/emotional support [] Crisis/trauma care [] Spiritual counseling [] Bereavement support [] Provided bereavement packet [] Provided Bible/devotional materials [] Provided toy/stuffed animal, coloring book to patient or family member [] Provided Communion [] Anointing/Marks [] Salvation [] Completed spiritual assessment [] Other: Impact on Illness or Injury [] Angry [] Fearful [] Anxious [] Often cries [] Exhaustion [] Unable to work [] Unable to attend protestant [] Unable to walk/stand [] Unable to read [] Unable to drive [] Unable to eat/drink [] Unable to sleep [] Unable to be with family [] Patient intubated [] Other: Summary Time spent with patient
[2021-04-09] MEDS: iohexol 350 mg/mL 100 mL Btl IV (08:55)
--- NOTE | 2021-04-09 08:58 | PM.CONSULT ---
Providers/Reason For Consult Consulting Physician/Specialty*: Clive Campbell MD; orthopedic surgery Reason for Consult*: Ischemic left lower extremity Attending Physician: Jason Moss Primary Care Provider: CLIFF Bellamy History of Present Illness History of Present Illness Adrianne Carranza is a 51 year old female who I am asked to see for us who is seen for gangrene of her left big toe. She is not a great historian. She apparently was seen by her primary care physician 10 days ago and treated with Augmentin. The family is noted necrosis the big toe since last week. The infection on the pictures from Thursday showing the total unchanged. She had a previous right transmetatarsal amputation complicated by dehiscence and slow healing. Previous peripheral angiogram on 04/17/[address] Preciado revealed bilateral common iliac internal and external iliac luminal irregularities, a left SFA with distal stenosis at the junction of the popliteal artery. She continues to smoke 1/2 pack a day Meds/Allergies Home Medications and Allergies Home Medications Medication Instructions Recorded Confirmed Last Taken Type CAM WALKER #1 each 05/24/20 04/08/21 Unknown Rx DIABETIC SHOES #1 ea 11/28/20 04/08/21 Unknown Rx Adult Aspirin Regimen 81 mg PO QAM 04/08/21 04/08/21 04/07/21 History Lantus Solostar U-100 Insulin 30 unit SUBCUT BEDTIME 04/08/21 04/08/21 04/07/21 History Norvasc 10 mg PO DAILY PRN 04/08/21 04/08/21 Unknown History Zoloft 50 mg PO QAM 04/08/21 04/08/21 04/07/21 History atorvastatin [Lipitor] 20 mg PO BEDTIME 04/08/21 04/08/21 04/07/21 History clopidogrel 75 mg PO QAM 04/08/21 04/08/21 04/07/21 History gabapentin 300 mg PO TID 04/08/21 04/08/21 04/07/21 History insulin aspart U-100 [Novolog 6 unit SUBCUT .BEFORE MEALS TID 04/08/21 04/08/21 04/07/21 History Flexpen U-100 Insulin] metformin 1,000 mg PO BID 04/08/21 04/08/21 04/07/21 History Allergies Allergy/AdvReac Type Severity Reaction Status Date / Time morphine Allergy ALGY-Hives Verified 04/08/21 11:53 Current Medications Current Medications Generic Name Dose Route Start Last Admin Trade Name Freq PRN Reason Stop Dose Admin Acetaminophen 650 mg 04/08/21 17:46 04/08/21 18:08 Acetaminophen 325 Mg Tablet PO 650 mg Q6H PRN Administration Mild/Mod Pain Or Temp >/= 101 Hydrocodone Bitart/Acetaminophen 1 tab 04/08/21 19:37 04/08/21 20:09 Hydrocodone-Acetaminophen 5-325 Mg Tablet PO 1 tab Q4H PRN Administration MODERATE PAIN Aspirin 81 mg 04/09/21 06:00 04/09/21 07:08 Aspirin 81 Mg Ec Tablet PO Not Given QAM LENA Gabapentin 300 mg 04/08/21 21:00 04/08/21 20:09 Gabapentin 300 Mg Capsule PO 300 mg TID LENA Administration Cefepime HCl 2,000 mg/ Sodium 100 mls @ 200 mls/hr 04/08/21 19:00 04/08/21 21:41 Chloride IV Infused Q12H LENA Infusion Protocol Metronidazole 500 mg in 100 mls @ 100 mls/hr 04/08/21 18:00 04/09/21 04:45 Flagyl Iv IV Infused Q8H LENA Infusion Protocol Vancomycin/PEG/NADA/Lysine/Water 1,500 mg in 300 mls @ 200 mls/hr 04/09/21 05:00 04/09/21 06:34 Vancocin IV Infused Q12H LENA Infusion Insulin Aspart 0 unit 04/08/21 18:00 04/09/21 08:45 Insulin Aspart 100 Unit/1 Ml SUBCUT Not Given TIDWM LENA Protocol Insulin Glargine 30 unit 04/08/21 21:00 04/08/21 20:09 Insulin Glargine 100 Units/1 Ml SUBCUT 30 unit BEDTIME LENA Administration Sertraline HCl 50 mg 04/09/21 06:00 04/09/21 06:43 Sertraline 50 Mg Tablet PO 50 mg QAM LENA Administration PFSH Acute PFSH: Medical History Anxiety and depression 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 Diabetes mellitus, type II Diabetic peripheral neuropathy associated with type 2 diabetes mellitus Diabetic ulcer of foot associated with diabetes mellitus due to underlying condition, with necrosis of bone Dry gangrene Gangrenous toe Status post amputation History of gestational diabetes Hyperlipidemia Hypertension Nicotine dependence Nicotine dependence, cigarettes, uncomplicated Non-pressure chronic ulcer 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 Non-pressure chronic ulcer of right ankle with fat layer exposed Peripheral arterial disease Peripheral neuropathy Toe osteomyelitis, right Surgical History H/O esophagogastroduodenoscopy (02/20/21) History of 2 sections History of carpal tunnel repair bilateral Status post colonoscopy (02/20/21) Repeat in 10 years Status post transmetatarsal amputation of right foot Family History Other Diabetes Hypertension Lung disease Denies family history of CAD (coronary artery disease) Chronic kidney disease (CKD) Anesthesia complication Social History Smoking and tobacco status: current every day smoker (1/2 pack a day) cigarettes Packs smoked per day: 1 Years cigarettes smoked: 34 Quit status (tobacco): has tried quititng Second hand smoke exposure: Yes Alcohol intake: never Lives independently: Yes Household members: spouse, family and children Marital status: service: No Current occupational status: unemployed History of recent travel: No Current gender identity: Female Female Reproductive History: Date of last menstrual period: 03/24/18 Vitals/I&O/Wt Last Vital Signs Temp 98.7 F 04/09/21 07:21 Pulse 73 04/09/21 07:21 Resp 17 04/09/21 07:21 BP 163/84 04/09/21 07:21 Pulse Ox 96 04/09/21 07:21 04/08/21 04/09/21 04/09/21 22:59 06:59 14:59 Intake Total 800 / 800 400 / 1200 Output Total 1000 / 1000 Balance 800 / 800 -600 / 200 Weight last 48 hrs Weight 170 lb Weight 170 lb Physical Exam Narrative: EXAM NARRATIVE: On examination the patient's left foot is he has a gangrenous left big toe and mild reactive erythema extending approximately to the level of the mid foot. I cannot feel a palpable dorsalis pedis or tibialis posterior pulse although her foot feels reasonably warm. She has absent sensation to the level of the midcalf. Data Micro: Micro: Microbiology 04/08/21 14:50 Blood Culture - Pr eliminary Blood SPECIMEN [facility] 04/08/21 14:45 Blood Culture - Pr eliminary Blood SPECIMEN [facility] Imaging^: Xray Ortho: My impression: 3 views left foot are interpreted dated 04/08/2021. There are soft tissue irregularities on the dorsum of the big toe. I can see no destructive processes of bone. A&P Assessment and plan (1) Diabetes mellitus, type II: Status: Acute Qualifiers: Diabetes mellitus terminal manager insulin use: without group home use Diabetes mellitus complication status: with skin complications Diabetes mellitus complication detail: with foot ulcer Qualified Code(s): E11.621 - Type 2 diabetes mellitus with foot ulcer; L97.509 - Non-pressure chronic ulcer of other part of unspecified foot with unspecified severity (2) PAD (peripheral artery disease): Status: Acute (3) Necrosis of toe: I do not see anything that looks obviously acutely infected. Certainly there is some reactive erythema. Arterial studies in 2019 did reveal some large vessel disease. She had difficulty healing her right-sided surgery. I think with her current vascular status she has a very high likelihood of failure at a transmetatarsal amputation. I will ask cardiology to follow-up with the patient to see if they have anything to add to improve her vascular status. Will require amputation some point although I do not think this needs to be done on an acute basis. This plan was discussed with the emergency room physician last night. I told them that in the absence of significant infection this could be done on an outpatient basis. Status: Acute Coding Level of Care Code Acute Flying Squad Salesperson for [facility] Diagnoses Diabetes mellitus, type II E11.621; L97.509 Diabetes mellitus group home insulin use: without group home use Diabetes mellitus complication status: with skin complications Diabetes mellitus complication detail: with foot ulcer PAD (peripheral artery disease) I73.9 Necrosis of toe I96
[2021-04-09] MEDS: gabapentin 300 mg Capsule PO ×3 (09:18→21:07)
[2021-04-09] MEDS: HYDROcodone-acetaminophen 5-325 mg Tablet 1 TAB PO ×2 (09:19→19:58)
--- NOTE | 2021-04-09 10:03 | XACV_ITS ---
Ht: 157 cm Wt: 77 kg BSA: 1.87 m2 Any Known Allergies: Morphine Gender: Female : 1970 Exam Type: Invasive Peripheral Vascular Procedure(s): Procedure Description: Peripheral Cath Diagnostic Procedure Procedure Description: Lower extremities' angiography Procedure Description: Peripheral vascular Intervention Procedure Description: PV Balloon Procedure Description: PV Atherectomy Exam Priority: Routine Lower Extremity Interventional Findings Intervention: Throug long 6 Yoruba sheath we were able to cross with the help of Glidewire. Distal left SFA and proximal popliteal artery was treated with balloon angioplasty. Excellent angiographic result was achieved. Moderate to severe lesion was reduced to mild. Good two-vessel runoff was noted below the knee. No complication noted.. Conclusions For lifestyle limiting claudication patient underwent peripheral angiogram. Left common femoral was selectively engaged through right common femoral approach. Peripheral angiogram was consistent with normal left common femoral, normal left profundofemoral. Left proximal to mid SFA has shown luminal irregularity. Distal left SFA at the start of popliteal showed significant moderate to severe stenosis. Left tibioperoneal trunk has luminal irregularity. Below the knee two-vessel runoff was noted all the way to the left foot.. null was treated with Balloon. Recommendations Continue medical management and usual post peripheral angiogram care. Hemodynamic Data Phase:Rest AO : 140.0 / 72.0 ( 100.0 ) @ 9:59:00 AM 203.0 / 130.0 ( 124.0 ) @ 10:07:00 AM 113.0 / 67.0 ( 88.0 ) @ 10:22:00 AM Access Site Site: Right Femoral artery Sheath Size: 6 Fr Hemost... Method: Suture Hemost... Success: Successful Procedure Details Findings Procedure Consent Obtained. Yenifer Hernandez RN Circulating with Ingrid Escalera RN, [facility]. Pre-Procedure Time Out. Identified patient by full name and date of as verbalized by the patient/guarantor. Does the consent match the physician's order: Yes. Accurate & Complete Informed Consent: Yes. Inpatient/Outpatient History & Physical on Chart: Yes. If H&P is completed, is and addenduem needed: No. Visualize and Verify Site with Patient/Guarantor: N/A. Relevant Radiology Images available: Yes. The risks, benefits, and alternatives of sedation and/or procedure were discussed by physician. The patient agrees to continue. Procedure started. Correct patient, site and procedure confirmed by cath team. Current diagnosis: PVD. PERRLA. Strong, equal hand preschool teacher's assistant bilaterally. Lungs clear x 5 lobes. Pre Procedural Pulses: bilateral radial was 2+. Pre Procedural Pulses: bilateral posterior tibial was 2+. Pre Procedural Pulses: right dorsalis pedis was Absent. Pre Procedural Pulses: right posterior tibial was Doppled. Oxygen started at 2liters/min via nasal canula. bilateral groins was prepped with chloroprep then draped in the usual sterile fashion. Physician notified. Physician arrived. Equipment: 6F - Femoral. Cardiac Cath Pack. ACIST Manifold Kit Model BT 2000. Heparinized Saline (2 units/mL), 1000 mL bag. Kit, Micropuncture. Physician scrubbed in. Time out performed with cath team. Baseline sample Acquired. HR: 73 BPM. IV Site on Arrival: 20 gauge in the left anticubital. IV Fluids: 0.9% NaCl at KVO. 0 mL infused prior to screedman/laborer. Baseline sample Acquired. HR: 73 BPM. Lidocaine 1% infiltrated to the right groin. Arterial access obtained with micropuncture set. A 5FrFr RIM catheter in over the glidewire. Glidewire out, hand injection performed. Glidewire in. RIM catheter out over the glidewire. Sheath upsized to a 6 Fr. Left common iliac selected and arteriogram with runoff performed @ 10 mL/sec for a total of 30 mL. Seeker Support catheter in over the glidewire. Glidewire out. Viperwire in. Seeker Support catheter out over the Viperwire. 2.0 Towanda inserted over the Viperwire. Orbital Atherectomy of the left Distal SFA performed. 2.0 Ar out over the Viperwire. VIperwire out. Glidewire in. Inflation number : 1 A AB ARMADA 35 OTW [id number] was prepped and advanced across the Distal Superficial Femoral, Left , then inflated to 12 [place] for 2:00 seconds. Balloon out over the Glidewire. Left superficial femoral selected and arteriogram with runoff performed @ 10 mL/sec for a total of 30 mL. Sheath upsized to a 6 Fr. Glidewire out. Sheath(s) sutured into position with 2-0 silk and sterile 4x4's and Op-site applied over the site. No oozing or signs and symptoms of hematoma noted. Post Procedure: Pulses reassessed and unchanged. PERRLA. Strong, equal hand preschool teacher's assistant bilaterally. No VTE prophylaxis required. Medication's Wasted: Nitro = 49.6 mg. Total IV fluids: 100 mL. Vital chart was stopped. Post-op diagnosis: Severe PAD with orbital atherectomy and balloon angioplasty of the distal left SFA. Complications: none. Estimated blood loss: 5mL-10mL. Medication's Wasted: Heparin = 4000 Units. Procedure completed. Patient transferred by bed to 1st floor. A Suture was successful obtaining hemostatsis at the Right Femoral artery insertion site. Procedure Medications Start: 10:44 AM Stop: 10:44 AM Medication: Versed Amount: 1 mg Route: I.V. Start: 10:44 AM Stop: 10:44 AM Medication: Fentanyl Amount: 50 mcg Route: I.V. Start: 10:49 AM Stop: 10:49 AM Medication: Versed Amount: 1 mg Route: I.V. Start: 11:09 AM Stop: 11:09 AM Medication: Heparin Amount: 5000 units Route: I.V. Start: 11: AM Stop: : AM Medication: Nitrogylcerin Amount: 400 mcg Route: I.A. I, the attending physician, have reviewed and verified all procedure medications. Yes, all medications given per verbal order History/Risk Factors Hypertension: Yes Dyslipidemia: Yes Peripheral Arterial Disease (PAD): Yes Obesity: No Renal Disease: No Tobacco Use: Current/Recent(w/in 1 year) Prior Interventions PCI: No CABG: No Valve Surgery: No Report Signatures Finalized by Asha Quan MD on 04/22/2021 09:42 PM
--- NOTE | 2021-04-09 10:19 | PM.CONSULT ---
Providers/Reason For Consult Consulting Physician/Specialty*: Interventional cardiology Reason for Consult*: Limb salvage/gangrene of the left toe Attending Physician: Jason Moss Primary Care Provider: CLIFF Bellamy History of Present Illness History of Present Illness Adrianne Carranza is a 51 year old female past medical history significant for severe peripheral vascular disease, diabetes mellitus hypertension hyperlipidemia continous tobacco abuse and history of osteomyelitis requiring amputation incision and drainage admitted with left greater toe gangrene requiring possible amputation. We have been asked by Dr. Campbell if we can revascularize her before amputation of the left toe. CTA was performed which showed moderate to severe disease in the left SFA popliteal vessel and below the knee completely occluded left anterior tibial vessel. Patient requires revascularization before proceeding with amputation in order to improve the chances for wound healing and infection. I have detailed discussion with the patient regarding all risk benefit and alternative for the procedure. She understand the risk first contrast-induced nephropathy, distal embolic phenomena leading to acute limb threatening ischemia, limb loss due to vascular damage, infection and bleeding. She would like to proceed with it. Review of Systems General: Reports: 10 or more systems reviewed and unremarkable except in HPI and below Narrative: CONSTITUTIONAL: denies fever, fatigue, weakness EYES - denies pain, denies loss of vision EARS - denies ear issues. NOSE - denies congestion or rhinorrhea. THROAT - denies sore throat or difficulty swallowing. CARDIOVASCULAR - denies chest pain and palpitations RESPIRATORY - denies shortness of breath and cough GASTROINTESTINAL - denies abdominal pain, no nausea vomiting, no changes in bowel habits GENITOURINARY - denies dysuria or urinary frequency MUSCULOSKELETAL-see HPI. SKIN -color change noted in the left great toe. NEUROLOGIC - denies focal weakness. Diabetic neuropathy present. HEMATOLOGIC/LYMPHATIC - denies easy bruising or lymphadenopathy. Const: Denies: fever(s), chills, body aches or malaise Eyes: Denies: change in vision or eye redness ENMT: Denies: throat pain, oral sores or ear or mastoid pain Card: Denies: chest pain, edema, pre-syncope or dyspnea on exertion Resp: Denies: dyspnea, productive cough, change in phlegm color or hemoptysis GI: Denies: abdominal pain, nausea, vomiting, diarrhea, constipation, hematochezia or melena : Denies: flank pain, urinary frequency or hematuria Musc: Denies: back pain, joint swelling, joint redness or joint warmth Skin/Breast: Reports: erythema, new lesions, surgical incision and other (Black and edwards L big toe, surrounding erythema) Neuro: Denies: headache(s), numbness in extremities, weakness in extremities, dizziness, confusion or seizure-like activity Endo: Denies: polyuria or polydipsia Johnny/Lymph: Denies: easy bleeding or purpura All/Imm: Denies: urticaria, throat swelling or tongue swelling Meds/Allergies Home Medications and Allergies Home Medications Medication Instructions Recorded Confirmed Last Taken Type CAM WALKER #1 each 05/24/20 04/08/21 Unknown Rx DIABETIC SHOES #1 ea 11/28/20 04/08/21 Unknown Rx Adult Aspirin Regimen 81 mg PO QAM 04/08/21 04/08/21 04/07/21 History Lantus Solostar U-100 Insulin 30 unit SUBCUT BEDTIME 04/08/21 04/08/21 04/07/21 History Norvasc 10 mg PO DAILY PRN 04/08/21 04/08/21 Unknown History Zoloft 50 mg PO QAM 04/08/21 04/08/21 04/07/21 History clopidogrel 75 mg PO QAM 04/08/21 04/08/21 04/07/21 History gabapentin 300 mg PO TID 04/08/21 04/08/21 04/07/21 History insulin aspart U-100 [Novolog 6 unit SUBCUT .BEFORE MEALS TID 04/08/21 04/08/21 04/07/21 History Flexpen U-100 Insulin] metformin 1,000 mg PO BID 04/08/21 04/08/21 04/07/21 History Lipitor 40 mg PO BEDTIME #0 tab 04/10/21 04/08/21 04/07/21 Rx doxycycline hyclate 100 mg PO BID 7 Days #14 tab 04/10/21 Unknown Rx levofloxacin 750 mg PO DAILY 7 Days #7 tab 04/10/21 Unknown Rx metronidazole [Flagyl] 500 mg PO Q8H 7 Days #21 tab 04/10/21 Unknown Rx nicotine 1 patch TRANSDERMAL DAILY #14 ea 04/10/21 Unknown Rx nicotine (polacrilex) 2 mg BUCCAL Q1H PRN #72 ea 04/10/21 Unknown Rx Allergies Allergy/AdvReac Type Severity Reaction Status Date / Time morphine Allergy ALGY-Hives Verified 04/08/21 11:53 Current Medications Current Medications Generic Name Dose Route Start Last Admin Trade Name Freq PRN Reason Stop Dose Admin Acetaminophen 650 mg 04/08/21 17:46 04/08/21 18:08 Acetaminophen 325 Mg Tablet PO 650 mg Q6H PRN Administration Mild/Mod Pain Or Temp >/= 101 Hydrocodone Bitart/Acetaminophen 1 tab 04/08/21 19:37 04/09/21 09:19 Hydrocodone-Acetaminophen 5-325 Mg Tablet PO 1 tab Q4H PRN Administration MODERATE PAIN Aspirin 81 mg 04/09/21 06:00 04/09/21 07:08 Aspirin 81 Mg Ec Tablet PO Not Given QAM LENA Gabapentin 300 mg 04/08/21 21:00 04/09/21 09:18 Gabapentin 300 Mg Capsule PO 300 mg TID LENA Administration Cefepime HCl 2,000 mg/ Sodium 100 mls @ 200 mls/hr 04/08/21 19:00 04/09/21 09:19 Chloride IV 200 mls/hr Q12H LENA Administration Protocol Metronidazole 500 mg in 100 mls @ 100 mls/hr 04/08/21 18:00 04/09/21 04:45 Flagyl Iv IV Infused Q8H LENA Infusion Protocol Vancomycin/PEG/NADA/Lysine/Water 1,500 mg in 300 mls @ 200 mls/hr 04/09/21 05:00 04/09/21 06:34 Vancocin IV Infused Q12H LENA Infusion Insulin Aspart 0 unit 04/08/21 18:00 04/09/21 08:45 Insulin Aspart 100 Unit/1 Ml SUBCUT Not Given TIDWM LENA Protocol Insulin Glargine 30 unit 04/08/21 21:00 04/08/21 20:09 Insulin Glargine 100 Units/1 Ml SUBCUT 30 unit BEDTIME LENA Administration Sertraline HCl 50 mg 04/09/21 06:00 04/09/21 06:43 Sertraline 50 Mg Tablet PO 50 mg QAM LENA Administration PFSH Acute PFSH: Medical History Anxiety and depression 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 Diabetes mellitus, type II Diabetic peripheral neuropathy associated with type 2 diabetes mellitus Diabetic ulcer of foot associated with diabetes mellitus due to underlying condition, with necrosis of bone Dry gangrene Gangrenous toe Status post amputation History of gestational diabetes Hyperlipidemia Hypertension Nicotine dependence Nicotine dependence, cigarettes, uncomplicated Non-pressure chronic ulcer 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 Non-pressure chronic ulcer of right ankle with fat layer exposed Peripheral arterial disease Peripheral neuropathy Toe osteomyelitis, right Surgical History H/O esophagogastroduodenoscopy (02/20/21) History of 2 sections History of carpal tunnel repair bilateral Status post colonoscopy (02/20/21) Repeat in 10 years Status post transmetatarsal amputation of right foot Family History Other Diabetes Hypertension Lung disease Denies family history of CAD (coronary artery disease) Chronic kidney disease (CKD) Anesthesia complication Social History Smoking and tobacco status: current every day smoker (1/2 pack a day) cigarettes Packs smoked per day: 1 Years cigarettes smoked: 34 Quit status (tobacco): has tried quititng Second hand smoke exposure: Yes Alcohol intake: never Lives independently: Yes Household members: spouse, family and children Marital status: service: No Current occupational status: unemployed History of recent travel: No Current gender identity: Female Female Reproductive History: Date of last menstrual period: 03/24/18 Dietary Habits: Current diet type/program: regular Caffeine: Yes Vitals/I&O/Wt Last Vital Signs Temp 98.7 F 04/09/21 07:21 Pulse 73 04/09/21 07:21 Resp 17 04/09/21 07:21 BP 163/84 04/09/21 07:21 Pulse Ox 96 04/09/21 07:21 04/08/21 04/09/21 04/09/21 22:59 06:59 14:59 Intake Total 800 / 800 400 / 1200 Output Total 1000 / 1000 Balance 800 / 800 -600 / 200 Weight last 48 hrs Weight 170 lb Weight 170 lb Physical Exam Narrative: EXAM NARRATIVE: GENERAL: Patient is alert, awake and oriented x3. NECK: No jugular vein distension. HEENT: No cyanosis. No icterus. No pallor. HEART: Regular S1 and S2. No murmur, rub or gallop. LUNGS: Clear to auscultate bilaterally. ABDOMEN: Soft, nontender and nondistended. Positive bowel sounds. No guarding, rebound or tenderness. CENTRAL NERVOUS SYSTEM: Grossly nonfocal. EXTREMITIES: Lower extremities with trace edema bilaterally. Pulses not palpable in the left leg right gangrenous big toe Data Labs: Other Labs: IMPRESSION: 1. Atherosclerotic plaque throughout the abdominal aorta with no aneurysm. Mild narrowing of the lumen in the infrarenal aorta. 2. Diffuse mild to moderate atherosclerotic changes with intimal thickening and plaque and multilevel level areas of stenosis from the RIGHT common iliac artery to Zachery's canal. 3. RIGHT proximal SFA stenosis 70%. 4. Small vessel runoff to the RIGHT ankle was intermittently visualized and occluded anterior tibial artery. 5. Diffuse mild to moderate atherosclerotic plaque throughout the LEFT lower extremity arteries. 70% stenosis SFA in Zachery's canal and 60% in the popliteal artery. Additional multi focal areas of 50% stenosis in the LEFT iliac arteries. 6. Occluded LEFT anterior tibial artery. Micro: Micro: Microbiology 04/08/21 14:50 Blood Culture - Pr eliminary Blood SPECIMEN [facility] 04/08/21 14:45 Blood Culture - Pr eliminary Blood SPECIMEN [facility] A&P Assessment and plan (1) Critical lower limb ischemia: Patient has gangrenous left toe with severe peripheral arterial disease. She is planned for possible amputation. We will proceed with peripheral angiogram of left leg and percutaneous angioplasty if requires in order to revascularize her left foot. Status: Acute (2) Hypertension: Well-controlled continue medicine Status: Acute Qualifiers: Hypertension type: essential hypertension Qualified Code(s): I10 - Essential (primary) hypertension Consult Attestations Medical Necessity Statement: Patient require continuation hospitalization for above defined care. Coding Level of Care Code New Pt Acute Entry Level Electrician for g Fwd Patient Type New History Expanded Problem Focused Exam Expanded Problem Focused Medical Decision Making Moderate Complexity Diagnoses Critical lower limb ischemia I70.229 Hypertension I10 Hypertension type: essential hypertension
--- NOTE | 2021-04-09 10:20 | W.PM.OPSUD ---
Surgery/Procedure H&P Update DATE OF PROCEDURE: April 09, 2021 DATE H&P PERFORMED: 04/09/21 H&P UPDATE INFORMATION: I have reviewed H&P completed within last 30 days, I have examined patient prior to procedure and H&P to be scanned into chart PREOP DIAGNOSIS: Gangrenous left big toe PATIENT REASSESSED PRIOR TO SEDATION, WITH NO CHANGE NOTED: Yes PHYSICAL EXAM: alert, oriented x 3 and clear to auscultation bilaterally AIRWAY EVAL/ANESTHESIA PLAN: ASA II, Risks, benefits & alternatives of sedation and/or procedure discussed and Patient agrees to continue as planned ADDITIONAL INFORMATION: I have personally explained all risk benefit and alternative for the procedure. Patient understand the risk of thromboembolic phenomena, acute closure of peripheral arteries leading to necrosis gangrene amputation of the limb below and above knee, vascular injury leading to urgent emergent surgery, retroperitoneal hemorrhage hematoma infection sepsis and worse case scenario . Patient would like to proceed with it.
--- NOTE | 2021-04-09 11:10 | PC.NURSE ---
PT HAS DONE WELL FOR ME TODAY. PTS ASSESSMENT WNL. NECROTIC L GREAT TOE. PT WENT DOWN FOR CT THIS MORNING. PT HAD SOME COMPLAINTS OF PAIN BUT HAS BEEN CONTROLLED WELL WITH ORDERED PAIN MEDICATION. PT WENT DOWN FOR ANGIOGRAM. PT LEFT FLOOR AT 1030.
--- NOTE | 2021-04-09 11:32 | P.PN_ITS ---
Subjective Subjective: Interval history: Denies any changes overnight. Denies any chills or fever. No trouble breathing. No chest pain. Vitals/I&O/Wt Last Vital Signs Temp 98.7 F 04/09/21 07:21 Pulse 73 04/09/21 07:21 Resp 17 04/09/21 07:21 BP 163/84 04/09/21 07:21 Pulse Ox 96 04/09/21 07:21 04/08/21 04/09/21 04/09/21 22:59 06:59 14:59 Intake Total 800 / 800 400 / 1200 100 / 100 Output Total 1000 / 1000 Balance 800 / 800 -600 / 200 100 / 100 Weight last 48 hrs Weight 77.111 kg Weight 77.111 kg Physical Exam Const: COMMON NORMALS: no acute distress and patient oriented x3 HENMT: COMMON NORMALS: oropharynx normal Neck/C-Spine: COMMON NORMALS: no JVD Resp: COMMON NORMALS: normal respiratory effort and clear to auscultation bilaterally AUSCULTATION: clear to auscultation bilaterally Cardio: COMMON NORMALS: no JVD, regular rhythm, S1 normal heart sound present, S2 normal heart sound present and No murmurs present (Cardio) RHYTHM: regular rhythm HEART SOUNDS: S1 normal heart sound present and S2 normal heart sound present GI: COMMON NORMALS: Normal to inspection, nondistended, normoactive bowel sounds present, Soft to palpation and non-tender PALPATION: Yes Soft to palpation Extremity: COMMON NORMALS: no joint enlargement and no pedal edema Neuro: COMMON NORMALS: patient oriented x3 and moves all extremities Skin: COMMON NORMALS: no rashes or lesions noted GENERAL SKIN EXAM: no rashes or lesions noted OTHER: Flores appearing distal first left toe, black midportion. Significant improvement of proximal erythema of the distal half of the left foot. Data : 04/09/21 04:14 04/09/21 04:14 Micro: Microbiology 04/08/21 14:50 Blood Culture - Preliminary Blood SPECIMEN COLLECTED 04/08/21 14:45 Blood Culture - Preliminary Blood SPECIMEN COLLECTED A&P Assessment and plan (1) Necrosis of toe: Severe PAD noted on ultrasound. CT angiogram obtained this morning with noted multivessel disease, diffuse to moderate atherosclerotic plaque through left lower extremity, 70% stenosis SFA, 60% popliteal artery, 50% left iliac arteries. Occluded left anterior tibial artery. Cardiology to additionally discussed with her pursuit of evaluation for consideration of percutaneous revascularization. At some point she will need an amputation, however, as per discussion with her safe level and vascular supply would be important factors when it comes to healing, especially in setting of diabetes, prior healing difficulties on the right foot, and clearly identified severe PAD, with active smoking status. Proximal area cellulitis with significant improvement today with antibiotics. Follow-up blood cultures. Continue insulin. Status: Acute (2) Diabetes mellitus, type II: Most recent A1c is 7.2. Continue Lantus. Short acting sliding scale. Status: Acute Qualifiers: Diabetes mellitus nursing home insulin use: without nursing home use Diabetes mellitus complication status: with skin complications Diabetes mellitus complication detail: with foot ulcer Qualified Code(s): E11.621 - Type 2 diabetes mellitus with foot ulcer; L97.509 - Non-pressure chronic ulcer of other part of unspecified foot with unspecified severity (3) PAD (peripheral artery disease): As above. Continue aspirin. Plavix as per cardiology. Status: Acute (4) Peripheral neuropathy: Continue gabapentin Status: Acute Qualifiers: Peripheral neuropathy type: polyneuropathy, unspecified Qualified Code(s): G62.9 - Polyneuropathy, unspecified (5) Smoking addiction: Discussed with her smoking cessation for 4 minutes. She states she has been trying to quit. She is down to half pack per day. Discussed with her risk of progression of peripheral arterial disease, limb ischemia and further tissue loss. Discussed other risks including PA, CVA. She intends to continue her attempts to quit. We will provide nicotine replacement in case of withdrawal symptoms. Status: Acute (6) Cellulitis: As above. Status: Acute Additional A&P Information Leukocytosis: Improving. Secondary to gangrene, surrounding infection of the left big toe, cellulitis of distal foot, at this time does not fit sepsis criteria. Attestations Medical Necessity Statement*: Continue assessment, possible intervention on severe PAD with left great toe gangrene to establish safe level of amputation with underlying diabetes, active smoking in a lady with poor prior healing of right lower extremity requiring TMA. Coding Level of Care Code Acute Grade Checker for Harley Patel Diagnoses Necrosis of toe I96 Diabetes mellitus, type II E11.621; L97.509 Diabetes mellitus nursing home insulin use: without nursing home use Diabetes mellitus complication status: with skin complications Diabetes mellitus complication detail: with foot ulcer PAD (peripheral artery disease) I73.9 Peripheral neuropathy G62.9 Peripheral neuropathy type: polyneuropathy, unspecified Smoking addiction F17.200 Cellulitis L03.90
--- NOTE | 2021-04-09 12:11 | PC.NURSE ---
PT TRANSFERRING TO CSU AFTER ANGIOGRAM. REPORT GIVEN TO JOSE M RAMOS. BELONGINGS TAKEN TO PTS NEW ROOM IN CSU.
[2021-04-09 13:08] LABS: Glucose Point of Care 115 mg/dL (70-110)
[2021-04-09] MEDS: clopidogrel 300 mg Tablet PO (14:30)
[2021-04-09 15:44] LABS: Partial Thromboplastin Time 43.2 SECONDS (23.9-36.7)
[2021-04-09 17:12] LABS: Glucose Point of Care 183 mg/dL (70-110)
--- NOTE | 2021-04-09 19:26 | PC.NURSE ---
Transfer Note Patient transferred to CSU room 105 from laborer poultry hatchery via bed. Handoff received from ben RN and Yenifer RN. Patient oriented to environment and equipment. Covering service notified. Orders reviewed and will continue to monitor. Family and/or event sales representative notified.
--- NOTE | 2021-04-09 19:28 | PC.NURSE ---
Shift Note Frequent safety and comfort rounds continue. Orders and/or nursing care completed as indicated. Patient monitored for response to intervention and treatment(s). Education provided includes medications and further treatment options. Patient and/or sales representative printing paper verbalized understanding. Will continue to monitor.
[2021-04-09] MEDS: atorvastatin 40 mg Tablet 20 MG PO (21:07)
[2021-04-09] MEDS: insulin glargine 100 units/1 mL 30 UNIT SUBCUT (21:07)
--- NOTE | 2021-04-09 21:24 | PC.NURSE ---
Patient ambulated to bedside commode with stand by assist. Patient tolerated well. Right groin site WNL. Distal pulses and distal skin WNL. VSS.
[2021-04-09 21:30] LABS: Glucose Point of Care 136 mg/dL (70-110)
[2021-04-10] MEDS: HYDROcodone-acetaminophen 5-325 mg Tablet 1 TAB PO ×2 (01:44→08:32)
[2021-04-10 03:48] VITALS: BP 133/68; PULSE 71; RESP 24; TEMP 36.8; O2SAT 97
[2021-04-10 04:20] VITALS: PULSE 70
--- NOTE | 2021-04-10 04:55 | PC.NURSE ---
Awaiting vanc trough results.
[2021-04-10 04:57] LABS: Basophils # 0.1 10^3/uL (0.0-0.1); Basophils % 0.5 %; Eosinophils # 0.3 10^3/uL (0.0-0.8); Eosinophils % 2.1 %; Hematocrit 32.7 % (37.0-47.0); Hemoglobin 9.6 g/dL (11.5-15.3); Lymphocytes # 1.7 10^3/uL (0.8-4.8); Lymphocytes % 13.2 %; Mean Corpuscular HGB Conc 29.4 g/dL (30.0-36.0); Mean Corpuscular Hemoglobin 26.1 pg (28.0-34.0); Mean Corpuscular Volume 88.9 fl (81-99); Mean Platelet Volume 9.4 fL (7.4-10.4); Monocytes # 0.8 10^3/uL (0.2-0.9); Monocytes % 6.1 %; Neutrophils # 9.75 10^3/uL (1.8-7.7); Neutrophils % 77.3 %; Nucleated Red Blood Cells % 0 %; Platelet Count 462 10^3/cmm (130-400); Red Blood Count 3.68 10^6/uL (4.1-5.3); Red Cell Distribution Width 15.2 % (12.1-15.1); White Blood Count 12.6 10^3/uL (4.0-10.0)
[2021-04-10] MEDS: clopidogrel 75 mg Tablet PO (05:17)
[2021-04-10] MEDS: metroNIDAZOLE IV 500 MG/100 ML PREMIX 100 MG IV (05:17)
[2021-04-10] MEDS: sertraline 50 mg Tablet PO (05:17)
[2021-04-10] MEDS: aspirin 81 mg EC Tablet PO (05:17)
[2021-04-10 05:27] LABS: Vancomycin Trough 24.5 ug/mL (10-15)
[2021-04-10 05:28] LABS: Alanine Aminotransferase 20 U/L (0-33); Albumin Level 2.6 g/dL (3.5-5.2); Alkaline Phosphatase 86 IU/L (35-105); Anion Gap 15.5 (5-19); Aspartate Amino Transferase 20 U/L (0-32); Blood Urea Nitrogen 15 mg/dL (6-20); Calcium 8.8 mg/dL (8.5-10.5); Carbon Dioxide 20 mmol/L (22-29); Chloride 98 mmol/L (98-107); Globulin 5.3 g/dL (1.3-4.6); Glomerular Filtration Rate 58.7 mL/min (90-130); Glucose 126 mg/dL (65-115); Osmolality Calculated 270 mOsm/kg (285-295); Potassium 4.5 mmol/L (3.5-5.1); Sodium 129 mmol/L (136-145); Total Bilirubin 0.2 mg/dL (0.15-1.2); Total Protein 7.9 g/dL (6.6-8.7)
--- NOTE | 2021-04-10 05:36 | PC.NURSE ---
Pharmacy notified of elevated vanc trough level.
--- NOTE | 2021-04-10 05:42 | PC.PHAR ---
Vancomycin trough level on dosage of 1500mg IVPB every 12 hours is 24.5. Hold Vancomycin for 24 hours and reduce to 1500mg IVPB every 24 hours with a trough to be obtained before the fourth dose at this level.
--- NOTE | 2021-04-10 06:28 | PC.NURSE ---
Shift Note Frequent safety and comfort rounds continue. Orders and/or nursing care completed as indicated. Patient monitored for response to intervention and treatment(s). Education provided includes post-cath care. Patient and/or insurance account representative verbalized understanding. Will continue to monitor.
[2021-04-10 06:44] LABS: Glucose Point of Care 122 mg/dL (70-110)
[2021-04-10] MEDS: gabapentin 300 mg Capsule PO (08:32)
[2021-04-10 09:00] VITALS: BP 130/76; PULSE 72; RESP 18
[2021-04-10 10:00] VITALS: BP 130/76; PULSE 75; TEMP 36.8
--- NOTE | 2021-04-10 10:52 | P.DS_ITS ---
Discharge Providers Date of Admission: 04/08/21 14:58 Date of Discharge: April 10, 2021 Attending Provider at Admission: Jason Moss Attending Provider at Discharge: Jason Moss Primary Care Provider: CLIFF Bellamy Diagnoses at Discharge Discharge Diagnosis (1) Critical lower limb ischemia: Status: Acute (2) Hypertension: Status: Acute Qualifiers: Hypertension type: essential hypertension Qualified Code(s): I10 - Esse ntial (primary) hypertension (3) Necrosis of toe: Status: Acute (4) PAD (peripheral artery disease): Status: Acute (5) Smoking addiction: Status: Acute (6) Cellulitis: Status: Acute (7) Diabetes mellitus, type II: Status: Acute Qualifiers: Diabetes mellitus intermediate designer insulin use: without intermediate designer use Diabetes mellitus complication status: with skin complications Diabetes mellitus complication detail: with foot ulcer Qualified Code(s): E11.621 - Type 2 diabetes mellitus with foot ulcer; L97.509 - Non-pressure chronic ulcer of other part of unspecified foot with unspecified severity (8) Peripheral neuropathy: Status: Acute Qualifiers: Peripheral neuropathy type: polyneuropathy, unspecified Qualified Code(s): G62.9 - Polyneuropathy, unspecified Reason for Visit Reason for Visit: Blackening toe on left foot Hospital Course Hospital Course Pleasant 51-year-old lady current smoker with history of PAD, diabetes, HTN, CVA , 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 Was started on IV antibiotics. Underwent additional assessment by ultrasonographic duplex study of left lower extremity arteries with finding of severe PAD, additionally assessed by CT angiogram aorta with runoff with finding of progression/worsening of peripheral artery disease since prior evaluation in March 2020, with currently noted atherosclerotic plaque throughout the abdominal aorta with no aneurysm, mild narrowing of lumen in the infrarenal aorta, diffuse mild to moderate atherosclerotic changes with intimal thickening and plaque and multilevel areas of stenosis from right common iliac artery to Zachery's canal, right proximal SFA stenosis 70%, small vessel runoff to right ankle intermittently visualized and occluded anterior tibial artery diffuse mild to moderate atherosclerotic plaque throughout left lower extremity arteries. 70% stenosis of vein Zachery's canal and 60% popliteal artery. Additional multifocal areas of 50% stenosis in the left iliac arteries. Occluded left anterior tibial artery. Underwent additional assessment as well as percutaneous intervention with interventional cardiology, full report pending, with reestablish flow, noted reestablished distal pulses on the left. Per discussion with orthopedics due to history of prior poor wound healing of right lower extremity after potation she is asked to come back for reevaluation on Thursday to establish definitive amputation level. In the meantime we will continue empiric antibiotic coverage. Cellulitis surrounding necrotic area at the distal half of the foot has so far resolved. No sign of sepsis. Leukocytosis improving. She is otherwise doing well, without systemic symptoms. She is agreeable with the plan. We are also asking physical therapy to set her up with an offloading shoe to use in the meantime. We have had several extensive discussions with regards to smoking cessation. She verbalized understanding that continued smoking will lead to continued progression of peripheral artery disease with continued worsening ischemic changes, tissue and limb loss, in addition to other risks. She has been cutting down and intends to quit smoking. Please assist her with this difficult task. Physical Exam Const: COMMON NORMALS: no acute distress and patient oriented x3 HENMT: COMMON NORMALS: oropharynx normal Neck/C-Spine: COMMON NORMALS: no JVD Resp: COMMON NORMALS: normal respiratory effort and clear to auscultation bilaterally AUSCULTATION: clear to auscultation bilaterally Cardio: COMMON NORMALS: no JVD, regular rhythm, S1 normal heart sound present, S2 normal heart sound present and No murmurs present (Cardio) RHYTHM: regular rhythm HEART SOUNDS: S1 normal heart sound present and S2 normal heart sound present GI: COMMON NORMALS: Normal to inspection, nondistended, normoactive bowel sounds present, Soft to palpation and non-tender PALPATION: Yes Soft to palp ation Extremity: COMMON NORMALS: no joint enlargement and no pedal edema Neuro: COMMON NORMALS: patient oriented x3 and moves all extremities Skin: COMMON NORMALS: no rashes or lesions noted GENERAL SKIN EXAM: no rashes or lesions noted Discharge Data Data Completed and Pending: Completed Studies During Hospitalization Category Date Time Status CT angio abd aort a runof [id number] Rout ine Cat Scan 04/09/21 08:29 Completed XR foot LT min 3V * [id number] Urgent Exams 04/08/21 11:58 [place] [id number] Urge nt Ultrasound 04/08/21 11:58 Completed Pending at discharge Category Date Time Status TECHNICAL SUPPORT ASSISTANT request for service Routin e Exams 04/09/21 10:03 Taken XR foot LT min 3V * [id number] Urgent Exams 04/08/21 12:00 Unverified Blood Culture Sta t Lab 04/08/21 14:50 Results Complete Blood Co unt w/Auto AM LABS Lab 04/11/21 04:00 Ordered Comprehensive Met abolic Panel AM LA BS Lab 04/11/21 04:00 Ordered Vancomycin Trough Timed Lab 04/13/21 16:00 Ordered Labs from last 24 hours 04/10/21 04/10/21 04/10/21 06:38 04:18 04:18 WBC RBC Hgb Hct MCV MCH MCHC RDW Plt Count MPV Neut % (Auto) Lymph % (Auto) [place] % (Auto) Eos % (Auto) Baso % (Auto) Neut # (Auto) Lymph # (Auto) [place] # (Auto) Eos # (Auto) Baso # (Auto) Nucleated RBC % (a uto) Nucleated RBCs # APTT Sodium 129 L Potassium 4.5 Chloride 98 Carbon Dioxide 20 L Anion Gap 15.5 BUN 15 Creatinine 1.0 H GFR Calculation 58.7 L Glucose 126 H POC Glucose 122 H Calculated Osmolal ity 270 L Calcium 8.8 Total Bilirubin 0.2 AST 20 ALT 20 Alkaline Phosphata se 86 Total Protein 7.9 Albumin 2.6 L Globulin 5.3 H Vancomycin Trough 24.5 H 04/10/21 04/09/21 04/09/21 04:18 19:52 16:49 WBC 12.6 H RBC 3.68 L Hgb 9.6 L Hct 32.7 L MCV 88.9 MCH 26.1 L MCHC 29.4 L RDW 15.2 H Plt Count 462 H MPV 9.4 Neut % (Auto) 77.3 Lymph % (Auto) 13.2 [place] % (Auto) 6.1 Eos % (Auto) 2.1 Baso % (Auto) 0.5 Neut # (Auto) 9.75 H Lymph # (Auto) 1.7 [place] # (Auto) 0.8 Eos # (Auto) 0.3 Baso # (Auto) 0.1 Nucleated RBC % (a uto) 0 Nucleated RBCs # 0.0 APTT Sodium Potassium Chloride Carbon Dioxide Anion Gap BUN Creatinine GFR Calculation Glucose POC Glucose 136 H 183 H Calculated Osmolal ity Calcium Total Bilirubin AST ALT Alkaline Phosphata se Total Protein Albumin Globulin Vancomycin Trough 04/09/21 04/09/21 15:20 13:04 WBC RBC Hgb Hct MCV MCH MCHC RDW Plt Count MPV Neut % (Auto) Lymph % (Auto) [place] % (Auto) Eos % (Auto) Baso % (Auto) Neut # (Auto) Lymph # (Auto) [place] # (Auto) Eos # (Auto) Baso # (Auto) Nucleated RBC % (a uto) Nucleated RBCs # APTT 43.2 H Sodium Potassium Chloride Carbon Dioxide Anion Gap BUN Creatinine GFR Calculation Glucose POC Glucose 115 H Calculated Osmolal ity Calcium Total Bilirubin AST ALT Alkaline Phosphata se Total Protein Albumin Globulin Vancomycin Trough Vitals: Last Vital Signs Temp 98.3 F 04/10/21 03:48 Pulse 70 04/10/21 04:20 Resp 24 H 04/10/21 03:48 BP 133/68 04/10/21 03:48 Pulse Ox 97 04/10/21 03:48 Discharge Plan Discharge Patient Disposition: Home Condition: Stable Prescriptions: New doxycycline hyclate 100 mg tablet 100 mg PO BID 7 Days Qty: 14 RF: 0 levofloxacin 750 mg tablet 750 mg PO DAILY 7 Days Qty: 7 RF: 0 metronidazole [Flagyl] 500 mg tablet 500 mg PO Q8H 7 Days Qty: 21 RF: 0 nicotine 7 mg/24 hr patch 24 hour 1 patch transdermal DAILY Qty: 14 RF: 0 nicotine (polacrilex) 2 mg lozenge 2 mg buccal Q1H PRN (Reason: nicotine cravings) Qty: 72 RF: 0 Continued (DME) CAM WALKER See Rx Instructions .ROUTE .MEDSUPPLY Qty: 1 RF: 0 (DME) DIABETIC SHOES See Rx Instructions .ROUTE .MEDSUPPLY Qty: 1 RF: 0 insulin aspart U-100 [Novolog Flexpen U-100 Insulin] 100 unit/mL (3 mL) insulin pen 6 unit SUBCUT .BEFORE MEALS TID RF: 0 clopidogrel 75 mg tablet 75 mg PO QAM RF: 0 Adult Aspirin Regimen 81 mg tablet,delayed release (DR/EC) 81 mg PO QAM RF: 0 metformin 1,000 mg tablet 1,000 mg PO BID RF: 0 gabapentin 300 mg capsule 300 mg PO TID RF: 0 Zoloft 50 mg tablet 50 mg PO QAM RF: 0 Lantus Solostar U-100 Insulin 100 unit/mL (3 mL) insulin pen 30 unit SUBCUT BEDTIME RF: 0 Norvasc 10 mg tablet 10 mg PO DAILY PRN (Reason: Blood Pressure) RF: 0 Changed Lipitor 20 mg tablet 40 mg PO BEDTIME Qty: 0 RF: 0 Discharge Orders: Discharge Order (Routine); Ordered 04/10/21 Ordered By: Jason Moss Referrals: Asha Quan MD [Physician] - 1 month Grazyna Bonner FNP [Primary Care Provider] - 4-7 days Edna Franco FNP [Nurse Practitioner] - 1 week Clive Campbell MD [Physician] - 04/16/21 Discharge Diet: Diabetic and Low Cholesterol Discharge Activity: Limit activity as instructed Patient Instructions: Doxycycline (By mouth), Metronidazole (By mouth), Levofloxacin (By mouth), How to Stop Smoking (GEN), Cigarette Smoking and Your Health (GEN), Diabetic Foot Care (GEN), Peripheral Artery Disease (GEN) Activity Restrictions/Additional Instructions: Please follow-up with orthopedic surgery Dr. Campbell on Thursday for delineation of level of amputation of gangrenous tissue. Please wear offloading shoe. Please continue antibiotics in the meantime. If you notice high fever, return of redness or spread of redness on your foot and leg, severe pain, bleeding, or any other concerning symptoms seek medical attention immediately. Please stop smoking, with progression of peripheral artery disease even from prior study, continued smoking will lead to continued worsening of the condition of your blood vessels with significant atherosclerosis, calcification, risking further limb ischemia, gangrene and loss of limb in addition to other risks including heart attack, stroke, various cancers. Please have your primary care doctor reassess your sodium level at next visit. Your sodium level has decreased somewhat. Please do not limit sodium intake in your diet for now. Continue to optimize other risk factors of cardiovascular disease with your primary doctor including hypertension, diabetes. Discharge Attestations Time Spent in Discharge Care*: greater than 30 min Status at Discharge: Cognitive status at discharge: cognitively intact , Behavioral status at discharge: cooperative , Quality Metrics Clinical Quality Measures During this hospital stay, did patient experience: None Coding Level of Care Code Acute Chg FW [place] note Diagnoses Critical lower limb ischemia I70.229 Hypertension I10 Hypertension type: essential hypertension Necrosis of toe I96 PAD (peripheral artery disease) I73.9 Smoking addiction F17.200 Cellulitis L03.90 Diabetes mellitus, type II E11.621; L97.509 Diabetes mellitus penitentiary insulin use: without intermediate designer use Diabetes mellitus complication status: with skin complications Diabetes mellitus complication detail: with foot ulcer Peripheral neuropathy G62.9 Peripheral neuropathy type: polyneuropathy, unspecified
[2021-04-10 11:06] VITALS: PULSE 70; O2SAT 96
--- NOTE | 2021-04-10 11:11 | PC.CHAP ---
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 geophysical observer visit [] Patient/Family/Request visit [] Outpatient visit [] Follow-up visit [] Physician referral [] Code/Alert [x] Routine visit [] Staff referral [] Actively dying [] Patient sleeping [] Family support [] [] Out of room [] Palliative care [] [] Receiving care in room [] Pre-surgical visit [] Trauma [] Long length of stay [] ICU visit [] Other: Relational/Emotional Strength [x] Patient feels connected with others/family/visitors/staff [] Distress [] Loneliness/isolation [] Abandonment Spirituality of Patient [x] Person of [place] [x] Attends Mu-Ism of their [place] [] Believes in Prayer [] Reads Bible or Roman Catholic materials [] There are Spiritual issues to be addressed Rat Culturist Interventions [x] Prayer [x] Active listening [x] Non-anxious presence [] Spiritual/emotional support [] Crisis/trauma care [] Spiritual counseling [] Bereavement support [] Provided bereavement packet [] Provided Bible/devotional materials [] Provided toy/stuffed animal, coloring book to patient or family member [] Provided Communion [] Anointing/[place] [] Salvation [x] Completed spiritual assessment [] Other: Impact on Illness or Injury [] Angry [] Fearful [] Anxious [] Often cries [] Exhaustion [] Unable to work [] Unable to attend scientology [] Unable to walk/stand [] Unable to read [] Unable to drive [] Unable to eat/drink [] Unable to sleep [] Unable to be with family [] Patient intubated [] Other: Summary Pt waiting daughter to pickling operator for discharge today. Time spent with patient 5m
[2021-04-10 11:34] LABS: Glucose Point of Care 174 mg/dL (70-110)
[2021-04-10 11:40] VITALS: BP 135/76; PULSE 70; RESP 18; O2SAT 96
--- NOTE | 2021-04-10 12:06 | PC.NURSE ---
Discharge Note Patient discharged to Home via Wheelchair to private vehicle accompanied by daughter. Discharge instructions reviewed with patient and/or commercial pest control representative. Mobile pharmacy medications and/or prescriptions provided. Belongings/home medications returned.
--- NOTE | 2021-04-12 16:01 | PC.RESP ---
SMOKING CESSATION INFORMATION SENT TO PATIENT.
== END 2021-04-10 12:04 | disposition home or self-care (01) | DRG 271 ==
LOC: ER 14:56 → MEDSURG 16:11 → CSU 04-09 12:14
PROVIDERS: Internal Medicine Cardiovascular Disease; Admitting Provider Internal Medicine; Emergency Provider Emergency Medicine; PCP Nurse Practitioner Family; Visit Provider Internal Medicine
DX: E11.52 Type 2 diabetes mellitus with diabetic peripheral angiopathy with gangrene (principal); I70.262 Atherosclerosis of native arteries of extremities with gangrene, left leg; E11.628 Type 2 diabetes mellitus with other skin complications; E11.621 Type 2 diabetes mellitus with foot ulcer; L97.509 Non-pressure chronic ulcer of other part of unspecified foot with unspecified severity; L03.032 Cellulitis of left toe; E11.42 Type 2 diabetes mellitus with diabetic polyneuropathy; D72.829 Elevated white blood cell count, unspecified; F17.210 Nicotine dependence, cigarettes, uncomplicated; I10 Essential (primary) hypertension; E78.5 Hyperlipidemia, unspecified; Z79.4 Long term (current) use of insulin; Z79.02 Long term (current) use of antithrombotics/antiplatelets; Z86.73 Personal history of transient ischemic attack (TIA), and cerebral infarction without residual deficits; Z83.3 Family history of diabetes mellitus; Z82.49 Family history of ischemic heart disease and other diseases of the circulatory system; Z85.118 Personal history of other malignant neoplasm of bronchus and lung; Z79.82 Long term (current) use of aspirin; Z87.59 Personal history of other complications of pregnancy, childbirth and the puerperium; Z89.431 Acquired absence of right foot; Z80.3 Family history of malignant neoplasm of breast
CPT/HCPCS: 36415; 36416; 37225; 37228; 73630; 75635; 75710; 80053; 80202; 82962; 83605; 85025; 85651; 85730; 86140; 87040; 93926; 96365; 96366; 96367; 96372; 97760; 99285; C1724; C1725; C1769; C1887; C1894; J0692; J1644; J1815 ×2; J2250; J2543; J3010; J3370; J3490; J7030; J7040; L3260; Q9967; S0030

== ENCOUNTER 2021-04-15 20:42 | Inpatient (IN) | payer MEDICAID, SELFPAY ==
--- NOTE | 2021-04-15 20:44 | XRR_ITS ---
PROCEDURE INFORMATION: Exam: XR Left Foot Exam date and time: 04/15/2021 8:44 PM Age: 51 years old Clinical indication: Patient HX: Left foot pain x 3wks TECHNIQUE: Imaging protocol: XR Left foot. Views: 3 or more views. COMPARISON: CR XR foot LT min 3V* [id number] 04/08/2021 12:40 PM FINDINGS: Bones/joints: No definite osteolytic lesion. No fractures. Joint spaces have anatomic alignment. No periosteal bone reaction. Soft tissues: Soft tissue gas in the left great toe. XR/XR foot LT min 3V* [id number] IMPRESSION: 1. Worsening soft tissue gas in the left foot great toe suggestive of necrotizing infection. 2. No convincing features of osteomyelitis.
[2021-04-15 21:26] VITALS: BP 118/73; PULSE 96; RESP 18; TEMP 36.8; O2SAT 96; BMI 31.1
[2021-04-16] VITALS (13 sets, daily range): BP systolic 112–175; BP diastolic 64–95; PULSE 67–79; RESP 14–20; TEMP 36.3–36.7; O2SAT 93–100
--- NOTE | 2021-04-16 01:33 | W.ED.EXTPRO ---
HPI - Extremity Problem General: Chief complaint: Extremity Injury, Lower Stated complaint: left foot pain Time Seen by Provider: 04/16/21 01:22 Source: patient Mode of arrival: ambulatory Limitations: no limitations History of Present Illness: HPI Narrative: Patient is a 51-year-old female who presents to ED today at the request of Dr. Vance for admission to the hospital with a plan for a transmetatarsal amputation of her left foot/great toe. Patient was seen at our facility approximately 2 weeks ago and admitted to the hospital for a left necrotic great toe. She underwent peripheral angiogram with percutaneous angioplasty by Dr. Quan. Patient saw Dr. Vance today who recommended admission. PMH significant for HTN, PVD, DM2. MD Complaint: extremity pain and other (L great toe necrosis) Onset (ago): day(s) Pain Consistency: constant Location: left and toe Radiation: none Relieving factors: nothing Exacerbating factors: nothing Associated symptoms: Reports no associated symptoms; Deny chest pain or fever(s) Review of Systems Const: Denies: fever(s), chills, body aches, fatigue or malaise Card: Denies: chest pain Resp: Denies: dyspnea GI: Denies: abdominal pain, nausea or vomiting Musc: Reports: extremity pain (L great toe) Neuro: Reports: sensory changes [facility] PFSH: Medical History Anxiety and depression 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 Diabetes mellitus, type II Diabetic peripheral neuropathy associated with type 2 diabetes mellitus Diabetic ulcer of foot associated with diabetes mellitus due to underlying condition, with necrosis of bone Dry gangrene Gangrenous toe Status post amputation History of gestational diabetes Hyperlipidemia Hypertension Nicotine dependence Nicotine dependence, cigarettes, uncomplicated Non-pressure chronic ulcer 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 Non-pressure chronic ulcer of right ankle with fat layer exposed Osteomyelitis PAD (peripheral artery disease) Peripheral arterial disease Peripheral neuropathy Peripheral neuropathy Toe osteomyelitis, right Surgical History H/O esophagogastroduodenoscopy (02/20/21) History of 2 sections History of carpal tunnel repair bilateral Status post colonoscopy (02/20/21) Repeat in 10 years Status post transmetatarsal amputation of right foot Family History Other Diabetes Hypertension Lung disease Denies family history of CAD (coronary artery disease) Chronic kidney disease (CKD) Anesthesia complication Social History Smoking and tobacco status: current some day smoker (Patient states she is trying to quit.) cigarettes Packs smoked per day: 1 Years cigarettes smoked: 34 Quit status (tobacco): has tried quititng Second hand smoke exposure: Yes Alcohol intake: never Lives independently: Yes Household members: spouse, family and children Marital status: service: No Current occupational status: unemployed History of recent travel: No Current gender identity: Female Female Reproductive History: Date of last menstrual period: 03/24/18 Physical Exam Const: COMMON NORMALS: no acute distress, patient oriented x3, no limitations, healthy appearing and alert GENERAL APPEARANCE: cooperative Resp: COMMON NORMALS: normal respiratory effort and clear to auscultation bilaterally AUSCULTATION: clear to auscultation bilaterally Cardio: COMMON NORMALS: regular rate and regular rhythm RATE: regular rate RHYTHM: regular rhythm Extremity: COMMON NORMALS: capillary refill normal, no calf tenderness and no pedal edema NARRATIVE EXTREMITY EXAM: DP/PT pulses palpable bilaterally; she has severe necrosis and foul odor of L great toe; no redness/warmth/cellultis to foot Neuro: COMMON NORMALS: patient oriented x3 SENSORIUM/ORIENTATION: Yes alert Course Consultations: Consultation #1: Dr. Verdin-ramona accepts admission Vital Signs: Vital signs: Vital Signs Temperature 98.3 F 04/15/21 21:26 Pulse Rate 96 04/15/21 21:26 Respiratory Rate 18 04/15/21 21:26 Blood Pressure 118/73 04/15/21 21:26 Pulse Oximetry 96 04/15/21 21:26 MDM - Extremity (Nontraumatic) MDM Narrative: Medical decision making narrative: Patient will be kept NPO per Dr. Vance's note. PCR COVID sent. She was started on Vanc/Zosyn. Spoke to hospitalist who will admit patient. Lab Data: Labs: Lab Results 08/04/16/21 04/16/21 Range/Units 01:35 01:35 01:35 WBC 16.1 H (4.0-10.0) 10^3/ uL RBC 3.88 L (4.1-5.3) 10^6/u L Hgb 10.2 L (11.5-15.3) g/dL Hct 33.3 L (37.0-47.0) % MCV 85.8 (81-99) fl MCH 26.3 L (28.0-34.0) pg MCHC 30.6 (30.0-36.0) g/dL RDW 15.9 H (12.1-15.1) % Plt Count 531 H (130-400) 10^3/c mm MPV 9.8 (7.4-10.4) fL Neut % (Auto) 75.3 % Lymph % (Auto) 15.4 % [place] % (Auto) 5.1 % Eos % (Auto) 2.6 % Baso % (Auto) 0.5 % Neut # (Auto) 12.14 H (1.8-7.7) 10^3/u L Lymph # (Auto) 2.5 (0.8-4.8) 10^3/u L [place] # (Auto) 0.8 (0.2-0.9) 10^3/u L Eos # (Auto) 0.4 (0.0-0.8) 10^3/u L Baso # (Auto) 0.1 (0.0-0.1) 10^3/u L Nucleated RBC % (a uto) 0 % Nucleated RBCs # 0.0 /100WBC PT 14.00 (12.1-14.9) SECO NDS INR 1.05 (0.8-1.2) APTT 37.2 H (23.9-36.7) SECO NDS Sodium 136 (136-145) mmol/L Potassium 4.5 (3.5-5.1) mmol/L Chloride 98 (98-107) mmol/L Carbon Dioxide 26 (22-29) mmol/L Anion Gap 16.5 (5-19) BUN 22 H (6-20) mg/dL Creatinine 1.0 H (0.5-0.9) mg/dL GFR Calculation 58.7 L (90-130) mL/min Glucose 122 H (65-115) mg/dL Calculated Osmolal ity 287 (285-295) mOsm/k g Calcium 10.0 (8.5-10.5) mg/dL C-Reactive Protein 65.8 H (0.0-4.9) mg/L SARS-CoV-2 Ag (Rap id) (Negative) 04/16/21 Range/Units 01:40 WBC (4.0-10.0) 10^3/ uL RBC (4.1-5.3) 10^6/u L Hgb (11.5-15.3) g/dL Hct (37.0-47.0) % MCV (81-99) fl MCH (28.0-34.0) pg MCHC (30.0-36.0) g/dL RDW (12.1-15.1) % Plt Count (130-400) 10^3/c mm MPV (7.4-10.4) fL Neut % (Auto) % Lymph % (Auto) % [place] % (Auto) % Eos % (Auto) % Baso % (Auto) % Neut # (Auto) (1.8-7.7) 10^3/u L Lymph # (Auto) (0.8-4.8) 10^3/u L [place] # (Auto) (0.2-0.9) 10^3/u L Eos # (Auto) (0.0-0.8) 10^3/u L Baso # (Auto) (0.0-0.1) 10^3/u L Nucleated RBC % (a uto) % Nucleated RBCs # /100WBC PT (12.1-14.9) SECO NDS INR (0.8-1.2) APTT (23.9-36.7) SECO NDS Sodium (136-145) mmol/L Potassium (3.5-5.1) mmol/L Chloride (98-107) mmol/L Carbon Dioxide (22-29) mmol/L Anion Gap (5-19) BUN (6-20) mg/dL Creatinine (0.5-0.9) mg/dL GFR Calculation (90-130) mL/min Glucose (65-115) mg/dL Calculated Osmolal ity (285-295) mOsm/k g Calcium (8.5-10.5) mg/dL C-Reactive Protein (0.0-4.9) mg/L SARS-CoV-2 Ag (Rap id) Negative (Negative) Discharge Plan Discharge Patient Disposition: Admitted As Inpatient Clinical Impression: Necrosis of toe, Diabetic peripheral neuropathy associated with type 2 diabetes mellitus Condition: Stable Coding Level of Care Code ED Cooler Servicer for Chg Fwd Exam Expanded Problem Focused
[2021-04-16 01:52] LABS: Basophils # 0.1 10^3/uL (0.0-0.1); Basophils % 0.5 %; Eosinophils # 0.4 10^3/uL (0.0-0.8); Eosinophils % 2.6 %; Hematocrit 33.3 % (37.0-47.0); Hemoglobin 10.2 g/dL (11.5-15.3); Lymphocytes # 2.5 10^3/uL (0.8-4.8); Lymphocytes % 15.4 %; Mean Corpuscular HGB Conc 30.6 g/dL (30.0-36.0); Mean Corpuscular Hemoglobin 26.3 pg (28.0-34.0); Mean Corpuscular Volume 85.8 fl (81-99); Mean Platelet Volume 9.8 fL (7.4-10.4); Monocytes # 0.8 10^3/uL (0.2-0.9); Monocytes % 5.1 %; Neutrophils # 12.14 10^3/uL (1.8-7.7); Neutrophils % 75.3 %; Nucleated Red Blood Cells % 0 %; Platelet Count 531 10^3/cmm (130-400); Red Blood Count 3.88 10^6/uL (4.1-5.3); Red Cell Distribution Width 15.9 % (12.1-15.1); White Blood Count 16.1 10^3/uL (4.0-10.0)
[2021-04-16 02:04] LABS: INR 1.05 (0.8-1.2)
[2021-04-16 02:05] LABS: Partial Thromboplastin Time 37.2 SECONDS (23.9-36.7)
[2021-04-16] MEDS: fentaNYL 50 mcg/mL INJ 2mL IVP (02:09)
[2021-04-16] MEDS: ondansetron 2 mg/ML SDV 2 mL 4 MG IVP (02:09)
[2021-04-16 02:11] LABS: SARS Covid-2 Antigen Negative (Negative)
[2021-04-16 02:13] LABS: Blood Urea Nitrogen 22 mg/dL (6-20); C Reactive Protein 65.8 mg/L (0.0-4.9); Carbon Dioxide 26 mmol/L (22-29); Chloride 98 mmol/L (98-107); Glomerular Filtration Rate 58.7 mL/min (90-130); Glucose 122 mg/dL (65-115); Osmolality Calculated 287 mOsm/kg (285-295); Sodium 136 mmol/L (136-145)
[2021-04-16 02:21] LABS: Anion Gap 16.5 (5-19); Creatinine Clr Calc Pharmacy 64.7109; Potassium 4.5 mmol/L (3.5-5.1)
[2021-04-16 02:31] LABS: Erythrocyte Sedimentation Rate 112 mm/hr (0-15)
[2021-04-16] MEDS: piperacillin-tazobactam 3.375 GM in sodium chloride 0.9% (plus) 50 ML IV ×2 (02:47→08:54)
[2021-04-16] MEDS: vancomycin 1,000 MG in sodium chloride 0.9% 250 ML 250 MG IV (02:48)
[2021-04-16] MEDS: HYDROmorphone 1 mg/mL INJ 1 mL IVP ×3 (04:29→10:51)
--- NOTE | 2021-04-16 05:31 | P.HP_ITS ---
Providers/Chief Complaint Admitting Physician: Karina Verdin MD Primary Care Provider: CLIFF Bellamy Chief Complaint: left foot pain History of Present Illness Adrianne Carranza is a 51 year old female with history of PAD, diabetes, HTN, CVA, history of right foot TMA had a chair dropped on her left big toe with resulting color change, surrounding cellulitis, underwent treatment with 10 days of Augmentin without resolution, came to ER recently due to progressive color change, edwards/black discoloration of the toe, with noted gangrene of the arm mid- distal toe, surrounding cellulitis approximately. Was treated with IV antibiotics. Underwent additional assessment by ultrasonographic duplex study of left lower extremity and CTA with finding of severe PAD. Underwent addit ional assessment as well as percutaneous intervention with interventional cardiology, with reestablish flow. She followed up with podiatry and has now been recommended a transmetatarsal amputation of the left foot for which she is directed to the emergency room with plan for OR intervention on Thursday. Review of Systems General: Reports: 10 or more systems reviewed and unremarkable except in HPI and below Const: Denies: fever(s), chills or body aches Eyes: Denies: change in vision, blurry vision or photophobia ENMT: Reports: hoarseness; Denies: throat pain, enlarged tonsils, odynophagia or nasal congestion Card: Denies: chest pain, palpitations, irregular heart rhythm, edema, swelling of feet/ankles, lightheadedness, pre-syncope, dyspnea on exertion or orthopnea Resp: Denies: dyspnea, productive cough, non-productive cough, wheezing, stridor, pain on inspiration, change in phlegm color, hemoptysis or chest congestion GI: Denies: abdominal pain, nausea, vomiting, hematemesis, coffee ground emesis, dysphagia, heartburn, diarrhea, constipation, GI cramping, change in stool character, hematochezia or melena : Denies: flank pain, difficulty voiding, dysuria, urinary frequency, urinary urgency, urinary hesitancy or hematuria Musc: Denies: neck pain, back pain, extremity pain, joint swelling, joint warmth or deformity Neuro: Denies: headache(s), numbness in extremities, weakness in extremities, sensory changes, difficulty walking, frequent falls, dizziness, vertigo, behavioral changes, Slurred speech present or seizure-like activity Psych: Denies: anxiety, depression, suicidal ideation or homicidal ideation Endo: Denies: polyuria, polydipsia, tired all the time, cold intolerance or hot flashes Johnny/Lymph: Denies: easy bruising or easy bleeding Medications/Allergies Home Medications Medication Instructions Recorded Confirmed Last Taken Type CAM WALKER #1 each 05/24/20 04/15/21 Unknown Rx DIABETIC SHOES #1 ea 11/28/20 04/15/21 Unknown Rx Adult Aspirin Regimen 81 mg PO QAM 04/08/21 04/15/21 04/07/21 History Lantus Solostar U-100 Insulin 30 unit SUBCUT BEDTIME 04/08/21 04/15/21 04/07/21 History Norvasc 10 mg PO DAILY PRN 04/08/21 04/15/21 Unknown History Zoloft 50 mg PO QAM 04/08/21 04/15/21 04/07/21 History clopidogrel 75 mg PO QAM 04/08/21 04/15/21 04/07/21 History gabapentin 300 mg PO TID 04/08/21 04/15/21 04/07/21 History insulin aspart U-100 [Novolog 6 unit SUBCUT .BEFORE MEALS TID 04/08/21 04/15/21 04/07/21 History Flexpen U-100 Insulin] metformin 1,000 mg PO BID 04/08/21 04/15/21 04/07/21 History Lipitor 40 mg PO BEDTIME #0 tab 04/10/21 04/15/21 04/07/21 Rx doxycycline hyclate 100 mg PO BID 7 Days #14 tab 04/10/21 04/15/21 Unknown Rx levofloxacin 750 mg PO DAILY 7 Days #7 tab 04/10/21 04/15/21 Unknown Rx metronidazole [Flagyl] 500 mg PO Q8H 7 Days #21 tab 04/10/21 04/15/21 Unknown Rx nicotine 1 patch TRANSDERMAL DAILY #14 ea 04/10/21 04/15/21 Unknown Rx nicotine (polacrilex) 2 mg BUCCAL Q1H PRN #72 ea 04/10/21 04/15/21 Unknown Rx Allergies Allergy/AdvReac Type Severity Reaction Status Date / Time morphine Allergy ALGY-Hives Verified 08/23/21 15:51 PFSH Acute PFSH: Medical History Anxiety and depression 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 Diabetes mellitus, type II Diabetic peripheral neuropathy associated with type 2 diabetes mellitus Diabetic ulcer of foot associated with diabetes mellitus due to underlying condition, with necrosis of bone Dry gangrene Gangrenous toe Status post amputation History of gestational diabetes Hyperlipidemia Hypertension Nicotine dependence Nicotine dependence, cigarettes, uncomplicated Non-pressure chronic ulcer 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 Non-pressure chronic ulcer of right ankle with fat layer exposed Osteomyelitis PAD (peripheral artery disease) Peripheral arterial disease Peripheral neuropathy Peripheral neuropathy Toe osteomyelitis, right Surgical History H/O esophagogastroduodenoscopy (02/20/21) History of 2 sections History of carpal tunnel repair bilateral Status post colonoscopy (02/20/21) Repeat in 10 years Status post transmetatarsal amputation of right foot Family History Other Diabetes Hypertension Lung disease Denies family history of CAD (coronary artery disease) Chronic kidney disease (CKD) Anesthesia complication Social History Smoking and tobacco status: current some day smoker (Patient states she is tr yvon to quit.) cigarettes Packs smoked per day: 1 Years cigarettes smoked: 34 Quit status (tobacco): has tried quititng Second hand smoke exposure: Yes Alcohol intake: never Lives independently: Yes Household members: spouse, family and children Marital status: service: No Current occupational status: unemployed History of recent travel: No Current gender identity: Female Female Reproductive History: Date of last menstrual period: 03/24/18 Vitals/I&O/Wt Last Vital Signs Temp 98.3 F 04/15/21 21:26 Pulse 96 04/15/21 21:26 Resp 18 04/16/21 04:29 BP 118/73 04/15/21 21:26 Pulse Ox 96 04/15/21 21:26 Weight last 48 hrs Weight 77.111 kg Physical Exam Narrative: EXAM NARRATIVE: GENERAL: Awake, alert, oriented, in no acute distress. [] HEENT: Normocephalic, atraumatic, PERRLA. [] CHEST: Clear to auscultation bilaterally. [] CVS: S1, S2 normal. No murmur, rubs, gallops. Peripheral pulses palpable. [] ABDOMEN: Soft, nontender. Nondistended. Bowel sounds heard. [] NEUROVASCULAR: Awake, alert. Power 5/5 all extremities. DTR+ [] EXTREMITIES: Dry gangrene of left distal hallux with surrounding cellulitic changes [] Data : 04/16/21 01:35 04/16/21 01:35 Other Labs: Laboratory Results WBC 16.1 10^3/uL (4.0-10.0) H 04/16/21 01:35 RBC 3.88 10^6/uL (4.1-5.3) L 04/16/21 01:35 Hgb 10.2 g/dL (11.5-15.3) L 04/16/21 01:35 Hct 33.3 % (37.0-47.0) L 04/16/21 01:35 MCV 85.8 fl (81-99) 04/16/21 01:35 MCH 26.3 pg (28.0-34.0) L 04/16/21 01:35 MCHC 30.6 g/dL (30.0-36.0) 04/16/21 01:35 RDW 15.9 % (12.1-15.1) H 04/16/21 01:35 Plt Count 531 10^3/cmm (130-400) H 04/16/21 01:35 MPV 9.8 fL (7.4-10.4) 04/16/21 01:35 Neut % (Auto) 75.3 % 04/16/21 01:35 Lymph % (Auto) 15.4 % 04/16/21 01:35 [place] % (Auto) 5.1 % 04/16/21 01:35 Eos % (Auto) 2.6 % 04/16/21 01:35 Baso % (Auto) 0.5 % 04/16/21 01:35 Neut # (Auto) 12.14 10^3/uL (1.8-7.7) H 04/16/21 01:35 Lymph # (Auto) 2.5 10^3/uL (0.8-4.8) 04/16/21 01:35 [place] # (Auto) 0.8 10^3/uL (0.2-0.9) 04/16/21 01:35 Eos # (Auto) 0.4 10^3/uL (0.0-0.8) 04/16/21 01:35 Baso # (Auto) 0.1 10^3/uL (0.0-0.1) 04/16/21 01:35 Nucleated RBC % (auto) 0 % 04/16/21 01:35 Nucleated RBCs # 0.0 /100WBC 04/16/21 01:35 ESR 112 mm/hr (0-15) H 04/16/21 01:35 PT 14.00 SECONDS (12.1-14.9) 04/16/21 01:35 INR 1.05 (0.8-1.2) 04/16/21 01:35 APTT 37.2 SECONDS (23.9-36.7) H 04/16/21 01:35 Sodium 136 mmol/L (136-145) 04/16/21 01:35 Potassium 4.5 mmol/L (3.5-5.1) 04/16/21 01:35 Chloride 98 mmol/L (98-107) 04/16/21 01:35 Carbon Dioxide 26 mmol/L (22-29) 04/16/21 01:35 Anion Gap 16.5 (5-19) 04/16/21 01:35 BUN 22 mg/dL (6-20) H 04/16/21 01:35 Creatinine 1.0 mg/dL (0.5-0.9) H 04/16/21 01:35 GFR Calculation 58.7 mL/min (90-130) L 04/16/21 01:35 Glucose 122 mg/dL (65-115) H 04/16/21 01:35 Calculated Osmolality 287 mOsm/kg (285-295) 04/16/21 01:35 Calcium 10.0 mg/dL (8.5-10.5) 04/16/21 01:35 C-Reactive Protein 65.8 mg/L (0.0-4.9) H 04/16/21 01:35 SARS-CoV-2 Ag (Rapid) Negative (Negative) 04/16/21 01:40 Impressions Foot X-Ray 04/15/21 20:44 IMPRESSION: 1. Worsening soft tissue gas in the left foot great toe suggestive of necrotizing infection. 2. No convincing features of osteomyelitis. A&P Assessment and plan (1) Necrosis of toe: Status: Acute (2) Gangrene of left foot: Status: Acute (3) Diabetic peripheral neuropathy associated with type 2 diabetes mellitus: Status: Acute Additional A&P Information Patient with severe peripheral artery disease, diabetes neuropathy, gangrene of left toe, status post recent angiographic intervention presenting today for planned transmetatarsal amputation. N.p.o. after midnight for planned surgery Covid PCR is presurgical screening. Empiric Zosyn and vancomycin for surrounding cellulitis Podiatry consult Continue aspirin, hold Plavix for today Insulin sliding scale for diabetes Attestations Medical Necessity Statement*: Anticipate greater than 2 midnight admission for above defined care Coding Level of Care Code Acute Marketing Project Coordinator for Harley Patel Diagnoses Necrosis of toe I96 Gangrene of left foot I96 Diabetic peripheral neuropathy associated with type 2 diabetes mellitus E11.42
--- NOTE | 2021-04-16 06:14 | PC.PHAR ---
Pharmacokinetic dosing service Date: 04/16/21 Time: 0600 Objective: Patient: Adrianne Carranza Floor: ed Age: 51 yo Serum creatinine: 1.0 mg/dL Height: 62.0 Inches Weight (kg): 77.111 Diagnosis: Relevant medical/social history: Cultures and sensitivities: Other labs: Assessment: IBW (kg): 50.10 Dosing wt(kg): 77.111 Estimated Creatinine clearance (ml/min): 53.2 CRCL method: Cockcroft and Gault using ibw(default). Drug selected: Vancomycin Loading dose (mg): 0 Vd (liters): 69.4 (factor used: 0.9 L/kg) Chris (hr-1): 0.049 Half life (hrs): 14.15 Recommended dose: 1250 mg Interval: 18 hrs Infusion time (hrs): 1.5 Predicted peak (mcg/mL): 29.6 Predicted trough (mcg/mL): 13.19 Total body weight is being used for vancomycin dosing. Renal function is stable [ ] /unstable [ ] Recommendations: Give Vancomycin 1250 mg q 18 hrs with an expected Cpeak of 29.6 mcg/ml and an expected Ctrough of 13.19 mcg/ml Renal dosing of other antibiotics (review renal dosing of other medications and list guidelines here): Thank you for the consult, will continue to follow. Signature: Marina [facility]
[2021-04-16 07:22] LABS: Glucose Point of Care 109 mg/dL (70-110)
[2021-04-16] MEDS: aspirin 81 mg EC Tablet PO (07:27)
[2021-04-16] MEDS: sodium chloride 0.9% 1,000 ML 75 ML IV (07:29)
[2021-04-16] MEDS: sertraline 50 mg Tablet PO (07:34)
[2021-04-16] MEDS: pantoprazole DR 40 mg Tablet PO (08:57)
[2021-04-16] MEDS: gabapentin 300 mg Capsule PO (08:57)
--- NOTE | 2021-04-16 09:42 | PC.NURSE ---
pt up to the bedside commade at this time. standby assist to the BSC. pt given call to assist her back to bed.
[2021-04-16 13:50] LABS: Glucose Point of Care 87 mg/dL (70-110)
--- NOTE | 2021-04-16 15:28 | ANES.PREANE2 ---
Pre-Anesthetic Assessment Pre-Anesthetic Assessment: Height/Weight: Height 1.57 m Weight 77.111 kg Temp Pulse Resp BP Pulse Ox 98.3 F 79 14 162/89 96 04/15/21 21:26 04/16/21 09:01 04/16/21 10:51 04/16/21 09:01 04/16/21 09:01 Preop Diagnosis: Gangrenous left big toe Proposed Procedure: Operation Date: 04/16/21 16:00 Proposed Procedures p Metarsal Head Resection(Left) - AMANDA GomezM Was Beta Marky taken within 24 hours: N/A Was Clonidine taken within 24 hours: N/A Last intake: Intake Last Liquid Date 04/15/21 Last Liquid Time 23:45 Last Solid Date 04/15/21 Last Solid Time 23:45 Social: Social History: Tobacco and No alcohol Exam: Pre-Anes Outpt Exam: alert, oriented x 3 and regular rate & rhythm Airway: Submandibular: WNL Cervical ROM: WNL MP: 2 Dentition: Loose (lower) and False (upper) Pulmonary: Pulmonary: COPD CV/HEM: CV/HEM: Anemia and HTN Metabolic: Metabolic: DM and Morbid obesity Neuropsych: Neuropsych: Anxiety, CVA, Deficit (right facial weakness), Depression and Neuropathy Anesthetic Plan: ASA status: 3 Anesthesia: MAC Risk of > 500 ml blood loss (7ml/kg in children): No Meds/Allergies Current Medications: Current Medications Generic Name Dose Route Start Last Admin Trade Name Freq PRN Reason Stop Dose Admin Aspirin 81 mg 04/16/21 06:00 04/16/21 07:27 Aspirin 81 Mg Ec Tablet PO 81 mg QAM LENA Administration Gabapentin 300 mg 04/16/21 09:00 04/16/21 15:09 Gabapentin 300 M g Capsule PO Not Given TID LENA Hydromorphone HCl 1 mg 04/16/21 04:12 04/16/21 10:51 Hydromorphone 1 Mg/Ml Inj 1 Ml IVP 1 mg Q2H PRN Administration PAIN Sodium Chloride 1,000 mls @ 75 ml s/hr 04/16/21 05:45 04/16/21 07:29 Sodium Chloride 0.9% IV 75 mls/hr .[id number] LENA Administration Piperacillin Sod/T azobactam 50 mls @ 12.5 mls /hr 04/16/21 09:00 04/16/21 12:58 Sod 3.375 gm/ So dium Chloride IV Infused Q8H LENA Infusion Insulin Aspart 0 unit 04/16/21 08:00 04/16/21 13:46 Insulin Aspart 1 00 Unit/1 Ml SUBCUT Not Given TIDWM LENA Protocol Nicotine 1 patch 04/16/21 09:00 04/16/21 08:59 Nicotine 7 Mg Pa tch TRANSDERMA Not Given DAILY LENA Pantoprazole Sodiu m 40 mg 04/16/21 09:00 04/16/21 08:[address] 40 Mg Tablet PO 40 mg DAILY LENA Administration Sertraline HCl 50 mg 04/16/21 06:00 04/16/21 07:34 Sertraline 50 Mg Tablet PO 50 mg QAM LENA Administration PFSH Anesthesia PFSH: Medical History Anxiety and depression 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 Diabetes mellitus, type II Diabetic peripheral neuropathy associated with type 2 diabetes mellitus Diabetic ulcer of foot associated with diabetes mellitus due to underlying condition, with necrosis of bone Dry gangrene Gangrenous toe Status post amputation History of gestational diabetes Hyperlipidemia Hypertension Nicotine dependence Nicotine dependence, cigarettes, uncomplicated Non-pressure chronic ulcer 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 Non-pressure chronic ulcer of right ankle with fat layer exposed Osteomyelitis PAD (peripheral artery disease) Peripheral arterial disease Peripheral neuropathy Peripheral neuropathy Toe osteomyelitis, right Surgical History H/O esophagogastroduodenoscopy (02/20/21) History of 2 sections History of carpal tunnel repair bilateral Status post colonoscopy (02/20/21) Repeat in 10 years Status post transmetatarsal amputation of right foot Family History Other Diabetes Hypertension Lung disease Denies family history of CAD (coronary artery disease) Chronic kidney disease (CKD) Anesthesia complication Social History Smoking and tobacco status: current some day smoker (Patient states she is trying to quit.) cigarettes Packs smoked per day: 1 Years cigarettes smoked: 34 Quit status (tobacco): has tried quititng Second hand smoke exposure: Yes Alcohol intake: never Lives independently: Yes Household members: spouse, family and children Marital status: service: No Current occupational status: unemployed History of recent travel: No Current gender identity: Female Female Reproductive History: Date of last menstrual period: 03/24/18 Data Anesthesia CBC & Chem 7: 04/16/21 01:35 04/16/21 01:35 Other Labs: Laboratory Results - last 48 hr 04/16/21 04/16/21 04/16/21 01:35 01:35 01:35 WBC 16.1 H RBC 3.88 L Hgb 10.2 L Hct 33.3 L MCV 85.8 MCH 26.3 L MCHC 30.6 RDW 15.9 H Plt Count 531 H MPV 9.8 Neut % (Auto) 75.3 Lymph % (Auto) 15.4 [place] % (Auto) 5.1 Eos % (Auto) 2.6 Baso % (Auto) 0.5 Neut # (Auto) 12.14 H Lymph # (Auto) 2.5 [place] # (Auto) 0.8 Eos # (Auto) 0.4 Baso # (Auto) 0.1 Nucleated RBC % (auto) 0 Nucleated RBCs # 0.0 ESR 112 H PT INR APTT Sodium 136 Potassium 4.5 Chloride 98 Carbon Dioxide 26 Anion Gap 16.5 BUN 22 H Creatinine 1.0 H GFR Calculation 58.7 L Glucose 122 H POC Glucose Calculated Osmolality 287 Calcium 10.0 C-Reactive Protein 65.8 H SARS-CoV-2 Ag (Rapid) 04/16/21 04/16/21 04/16/21 01:35 01:40 07:18 WBC RBC Hgb Hct MCV MCH MCHC RDW Plt Count MPV Neut % (Auto) Lymph % (Auto) [place] % (Auto) Eos % (Auto) Baso % (Auto) Neut # (Auto) Lymph # (Auto) [place] # (Auto) Eos # (Auto) Baso # (Auto) Nucleated RBC % (auto) Nucleated RBCs # ESR PT 14.00 INR 1.05 APTT 37.2 H Sodium Potassium Chloride Carbon Dioxide Anion Gap BUN Creatinine GFR Calculation Glucose POC Glucose 109 Calculated Osmolality Calcium C-Reactive Protein SARS-CoV-2 Ag (Rapid) Negative 04/16/21 13:45 WBC RBC Hgb Hct MCV MCH MCHC RDW Plt Count MPV Neut % (Auto) Lymph % (Auto) [place] % (Auto) Eos % (Auto) Baso % (Auto) Neut # (Auto) Lymph # (Auto) [place] # (Auto) Eos # (Auto) Baso # (Auto) Nucleated RBC % (auto) Nucleated RBCs # ESR PT INR APTT Sodium Potassium Chloride Carbon Dioxide Anion Gap BUN Creatinine GFR Calculation Glucose POC Glucose 87 Calculated Osmolality Calcium C-Reactive Protein SARS-CoV-2 Ag (Rapid) Micro: Microbiology 04/16/21 10:23 Blood Culture - Preliminary Blood SPECIMEN COLLECTED 04/16/21 10:20 Blood Culture - Preliminary Blood SPECIMEN COLLECTED Cardiac Studies: No Data to Display
--- NOTE | 2021-04-16 16:36 | P.HPUD_ITS ---
Surgery/Procedure H&P Update DATE OF PROCEDURE: April 16, 2021 DATE H&P PERFORMED: 04/09/21 H&P UPDATE INFORMATION: I have reviewed H&P completed within last 30 days, I have examined patient prior to procedure, No changes to prior documentation and H&P is in [facility] [place] on date indicated PREOP DIAGNOSIS: Gangrene left foot, left ankle equinus. PLANNED PROCEDURE: Operation Date: 04/16/21 16:00 Proposed Procedures p left transmetatarsal amputation with possible left Achilles lengthening percutaneously (Left) - Barber Vance DPM CPT 49584 and [id number]
--- NOTE | 2021-04-16 16:39 | P.OP_ITS ---
Operative Report Date of procedure: April 16, 2021 Pre-op Diagnosis: Gangrene left foot, left ankle equinus. Post-op diagnosis: same Post-op Findings: Gangrene left great toe extending to the medial aspect of the left forefoot Procedure Done: Partial first ray amputation left foot CPT 05030 Implants: None Specimens removed/disposition: Left first metatarsal head to microbiology for gram stain and culture Pathology: Left great toe Surgeon: Barber Vance D.P.M. Orthotic/Prosthetic Clinician: Sb Anesthesia: MAC Estimated blood loss: 10 mL Tourniquet time: None IV fluids: None Urine output: None Complications: None Findings: Gangrene Condition: stable Disposition: floor Brief History: Ms. Adrianne Carranza is a pleasant 51-year-old female with diabetes and peripheral arterial disease, multiple discussions and recommendations for smoking cessation have been unsuccessful. History of right transmetatarsal amputation. She presents with gangrene on her left foot, has soft tissue of edema at her left great toe. Recommending a staged approach initial of infection control followed by more declared primary delayed closure 1 soft tissue is agreeable will require inpatient status with IV antibiotics and close monitoring. Patient is agreeable wishes to proceed. She is consented for transmetatarsal potation and an Achilles lengthening. No guarantees written, expressed or implied. Risks include pain, bleeding, numbness, infection, transfer pressure, transfer lesions, new sore formation, new infection, failure to eliminate infection, concern for delayed healing and nonhealing due to underlying arterial disease and decreased perfusion. May ultimately require higher level of amputation which would necessitate fitting of a prosthetic. Patient is agreeable wishes to proceed. No guarantees written, expressed or implied. Procedure: Under mild sedation the patient was brought to the operating room and remained on the gurney in supine position. Timeout was performed. Anesthesia was then administered by the anesthesia service. Local anesthesia injected by myself consisting of 30 cc of one-to-one mixture 1% lidocaine 0.5% Marcaine plain and a left ankle block fashion. Well-padded pneumatic tourniquet applied to the left ankle. This was not inflated during the duration of the procedure. Left lower extremity was scrubbed, prepped and draped utilizing normal aseptic technique. Attention was directed to the left foot where dry and wet gangrene dry distally and wet more proximally at the left hallux was appreciated. #10 blade utilized circumferentially about the base of the left hallux which was then disarticulated sharply to the metatarsal phalangeal joint this left great toe was sent to pathology for permanent. Further dissection to the diaphyseal portion of the first metatarsal was performed and the head of the first metatarsal was transected and passed from operative field this will be sent to microbiology for Gram stain and culture. No further devitalized soft tissue or bone appreciated intraoperatively. Will ultimately require transmetatarsal ampu tation more than likely however will start with first ray and eliminating the original source of infection allow several days of IV antibiotics and soft tissue improvement this would then likely yield greater success should transmetatarsal amputation be attempted in conjunction with a primary delayed closure. Saline wet-to-dry dressing consisting of saline, sterile 4 x 4, Kerlix and Errol wrap without any compression applied to the left foot. Patient tolerated procedure and anesthesia well and was transferred to the PACU with vital signs stable and vascular status intact. Following a period of postoperative monitoring she will be transferred back to the floor will continue with empiric IV antibiotics over the next 1 to 2 days with close monitoring and have plans for returning to the operating room for primary delayed closure and likely transmetatarsal rotation with Achilles lengthening at that point. Should soft tissue decline further would require below-knee amputation.
--- NOTE | 2021-04-16 17:35 | XRR_ITS ---
PROCEDURE INFORMATION: Exam: XR Left Foot Exam date and time: 04/16/2021 5:35 PM Age: 51 years old Clinical indication: Prior surgery; Surgery date: Post-operative (0-2 days); Surgery type: Post op lt great toe TECHNIQUE: Imaging protocol: XR Left foot. Views: 3 or more views. COMPARISON: CR (LOW EXM, ) 04/15/2021 10:33 PM FINDINGS: Bones/joints: Amputation of the 1st ray through the mid diaphyseal aspect of the metatarsal bone. Joint spaces have anatomic alignment. No lytic bone lesion. Soft tissues: Soft tissue surgical changes are noted of the medial forefoot. XR/XR foot LT min 3V* [id number] IMPRESSION: Interval amputation of the great toe.
--- NOTE | 2021-04-16 17:36 | SUR.PHASEI ---
PT AWAKE ALERT TAKING SIPS OF WATER, X RAYS JUST NOW DONE PT TO FLOOR PER [facility] FAMILY (DAUGHTER) UPDATED AND WILL WALK UP TO ROOM.
[2021-04-16 20:45] LABS: Glucose Point of Care 142 mg/dL (70-110)
--- NOTE | 2021-04-16 20:46 | USR_ITS ---
PROCEDURE INFORMATION: Exam: US Duplex Left Lower Extremity Arteries Or Arterial Bypass Grafts Exam date and time: 04/16/2021 8:46 PM Age: 51 years old Clinical indication: Other: Gang green on toe; Additional info: Gangrene, please evaluate for pt/dp/pop pulses TECHNIQUE: Imaging protocol: Left Real-time duplex scan of the arteries or arterial bypass grafts of the left lower extremity with 2-D edwards scale, color Doppler flow and spectral waveform analysis. Images documented and saved. COMPARISON: CT abdomen pelvis w con* [id number] 02/18/2021 6:53 PM FINDINGS: Left common femoral artery: No occlusion or significant stenosis. Normal waveform. Peak velocity 125 cm/s. Left superficial femoral artery: No occlusion or significant stenosis. Normal waveform. Peak velocity 118 cm/s. Left popliteal artery: No occlusion or significant stenosis. Mildly abnormal monophasic waveform. Peak velocity 87 cm/s. Left calf/foot arteries: No occlusion or significant stenosis in the posterior tibial artery. Mildly abnormal monophasic waveforms. Dorsalis pedis artery is patent. US/CV arterial duplex [facility] [id number] IMPRESSION: No stenosis or occlusion.
--- NOTE | 2021-04-16 21:52 | PC.NURSE ---
Dressing Reinforcement Serosanguineous drainage noted in copious amounts on dressing and bedding. Dressing reinforced with ABDs, kerlux, and bre wrap
[2021-04-17] VITALS (16 sets, daily range): BP systolic 96–159; BP diastolic 62–90; PULSE 64–89; RESP 16–18; TEMP 36.4–37.6; O2SAT 93–99
[2021-04-17] MEDS: acetaminophen 325 mg Tablet 650 MG PO ×2 (00:54→07:52)
[2021-04-17] MEDS: vancomycin 1,250 MG/250 ML PIGGYBACK 250 MG IV ×2 (02:23→19:55)
[2021-04-17 02:28] LABS: Basophils # 0.1 10^3/uL (0.0-0.1); Basophils % 0.7 %; Eosinophils # 0.4 10^3/uL (0.0-0.8); Eosinophils % 3.4 %; Hematocrit 29.9 % (37.0-47.0); Lymphocytes # 2.4 10^3/uL (0.8-4.8); Lymphocytes % 20.6 %; Mean Corpuscular HGB Conc 30.1 g/dL (30.0-36.0); Mean Corpuscular Hemoglobin 26.6 pg (28.0-34.0); Mean Corpuscular Volume 88.5 fl (81-99); Mean Platelet Volume 9.7 fL (7.4-10.4); Monocytes # 0.7 10^3/uL (0.2-0.9); Neutrophils # 7.99 10^3/uL (1.8-7.7); Neutrophils % 68.5 %; Nucleated Red Blood Cells % 0 %; Platelet Count 430 10^3/cmm (130-400); Red Blood Count 3.38 10^6/uL (4.1-5.3); Red Cell Distribution Width 15.8 % (12.1-15.1); White Blood Count 11.7 10^3/uL (4.0-10.0)
[2021-04-17 02:49] LABS: Alanine Aminotransferase 11 U/L (0-33); Alkaline Phosphatase 66 IU/L (35-105); Aspartate Amino Transferase 16 U/L (0-32); Blood Urea Nitrogen 17 mg/dL (6-20); Calcium 8.6 mg/dL (8.5-10.5); Carbon Dioxide 23 mmol/L (22-29); Chloride 100 mmol/L (98-107); Globulin 3.5 g/dL (1.3-4.6); Glomerular Filtration Rate 66.3 mL/min (90-130); Glucose 111 mg/dL (65-115); Osmolality Calculated 280 mOsm/kg (285-295); Sodium 134 mmol/L (136-145); Total Bilirubin 0.2 mg/dL (0.15-1.2); Total Protein 6.5 g/dL (6.6-8.7)
[2021-04-17 02:50] LABS: Anion Gap 15.4 (5-19); Potassium 4.4 mmol/L (3.5-5.1)
[2021-04-17] MEDS: HYDROmorphone 1 mg/mL INJ 1 mL IVP ×4 (03:08→20:48)
[2021-04-17] MEDS: piperacillin-tazobactam 3.375 GM in sodium chloride 0.9% (plus) 50 ML IV ×3 (03:32→18:51)
--- NOTE | 2021-04-17 05:15 | ANE.PACU2 ---
Inpatient post-anesthesia follow up: Airway intact: Yes Vital signs: Temperature 97.5 F Pulse Rate [Monito r] 96 Pulse Rate 68 Respiratory Rate 16 Blood Pressure [Le ft Arm] 118/73 Blood Pressure 139/89 Pulse Oximetry 98 Oxygen Delivery Me thod Room Air Oxygen Flow Rate Fraction of Inspir ed Oxygen Hydration adequate: Yes Nausea and vomiting: No Pain level: 2 Mental status: Baseline
--- NOTE | 2021-04-17 05:31 | PM.PN ---
Subjective Subjective: Interval history: 1 day status post left partial first ray amputation secondary to gangrene. Patient blood through dressings which were reinforced overnight. Denies any pain. Tolerating regular diet. Plans for additional surgery to include primary delayed closure tomorrow 04/18/2021. Discharge planning following that. Patient denies any subjective nausea, vomiting, fever, chills, shortness of breath or chest pain. Vitals/I&O/Wt Last Vital Signs Temp 97.5 F L 04/17/21 02:15 Pulse 68 04/17/21 02:15 Resp 16 04/17/21 03:08 BP 139/89 04/17/21 02:15 Pulse Ox 98 04/17/21 02:15 04/16/21 04/16/21 04/17/21 14:59 22:59 06:59 Intake Total 50 / 50 843.75 / 893.75 250 / 1143.75 Output Total Balance 50 / 50 833.75 / 883.75 249 / 1132.75 Weight last 48 hrs Weight 170 lb Weight 170 lb Physical Exam Narrative: EXAM NARRATIVE: Patient is alert and oriented ?3 and in no acute distress. The following is a focused bilateral lower extremity exam. VASCULAR: Dorsalis pedis faintly palpable bilaterally. Posterior tibial arteries palpable +2 at the left. Capillary refill time less than 5 seconds to the distal left second toe. Brisk cap refill at right foot amputation site. Calf is supple and nontender proximally and distally. Decreased pedal hair growth. NEUROLOGICAL: Protective sensation intact 0/10 sites, tested with [place] monofilament to bilateral feet. DERMATOLOGICAL: No active bleeding at this time at amputation site no purulence, no malodor, improved erythema, at the amputation site 11 o'clock position there is some dusky edwards appearance to the skin edge. MUSCULOSKELETAL: Status post Lisfranc amputation right foot. Status post partial first ray amputation left foot. Data : 04/17/21 02:17 04/17/21 02:17 Micro: Microbiology 04/16/21 10:23 Blood Culture - Preliminary Blood SPECIMEN COLLECTED 04/16/21 10:20 Blood Culture - Preliminary Blood SPECIMEN COLLECTED A&P Assessment and plan (1) Necrosis of toe: Status: Acute (2) Gangrene of left foot: Status: Acute (3) Diabetic peripheral neuropathy associated with type 2 diabetes mellitus: Status: Acute Additional A&P Information 1 day status post partial first ray amputation secondary to gangrene. Continuing empiric IV antibiotics vancomycin and Zosyn, soft tissue showing improvement. Will likely transition to oral antibiotics on discharge following definitive amputation level. Nonweightbearing to the left lower extremity may heel touch only for transfers Saline wet-to-dry 3 times daily dressing change Plan for primary delayed closure tomorrow 04/18/2021 then discharge planning home. Patient to be n.p.o. at midnight tonight Attestations Medical Necessity Statement*: Gangrene left foot Coding Level of Care Code Acute Mechanical Spreader Operator for [facility] Diagnoses Necrosis of toe I96 Gangrene of left foot I96 Diabetic peripheral neuropathy associated with type 2 diabetes mellitus E11.42
[2021-04-17 06:28] LABS: Glucose Point of Care 91 mg/dL (70-110)
[2021-04-17] MEDS: atorvastatin 40 mg Tablet 20 MG PO (08:50)
--- NOTE | 2021-04-17 09:45 | PC.CHAP ---
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 data management consultant visit [] Patient/Family/Request visit [] Outpatient visit [] Follow-up visit [] Physician referral [] Code/Alert [x] Routine visit [] Staff referral [] Actively dying [] Patient sleeping [] Family support [] [] Out of room [] Palliative care [] [] Receiving care in room [] Pre-surgical visit [] Trauma [] Long length of stay [] ICU visit [] Other: Relational/Emotional Strength [x] Patient feels connected with others/family/visitors/staff [] Distress [] Loneliness/isolation [] Abandonment Spirituality of Patient [x] Person of Claritza [x] Attends Episcopalian of their Claritza [x] Believes in Prayer [] Reads Bible or Mormon materials [] There are Spiritual issues to be addressed Checkout Operator Interventions [x] Prayer [x] Active listening [x] Non-anxious presence [x] Spiritual/emotional support [] Crisis/trauma care [] Spiritual counseling [] Bereavement support [] Provided bereavement packet [] Provided Bible/devotional materials [] Provided toy/stuffed animal, coloring book to patient or family member [] Provided Communion [] Anointing/[place] [] Salvation [x] Completed spiritual assessment [] Other: Impact on Illness or Injury [] Angry [] Fearful [] Anxious [] Often cries [] Exhaustion [] Unable to work [] Unable to attend taoism [] Unable to walk/stand [] Unable to read [] Unable to drive [] Unable to eat/drink [] Unable to sleep [] Unable to be with family [] Patient intubated [] Other: Summary Checkout Operator had met with Pt on a previous hospital visit. For this stay, she had her toe amputated on her foot. This is not distressing her since all of the toes on her other foot have previously been amputated. She has a shoe insert which assists her balance and walking. Hoping to be released today or tomorrow. Time spent with patient
[2021-04-17 11:18] LABS: Glucose Point of Care 98 mg/dL (70-110)
[2021-04-17 15:53] LABS: Coronavirus Test Green County Detected
--- NOTE | 2021-04-17 17:01 | PM.PN ---
Subjective Subjective: Interval history: 1 day status post left partial first ray amputation secondary to gangrene. Overnight had bleeding through the dressing for which it had to be reinforced. Dressing clean earlier in the morning with Dr. Vance. Denies any nausea, vomiting, headache. Came back to be COVID-19 positive. On room air. Has remained hemodynamically stable and afebrile. Vitals/I&O/Wt Last Vital Signs Temp 98.1 F 04/17/21 16:00 Pulse 70 04/17/21 16:00 Resp 18 04/17/21 16:00 BP 111/76 04/17/21 16:00 Pulse Ox 93 04/17/21 16:00 04/17/21 04/17/21 04/17/21 06:59 14:59 22:59 Intake Total 250 / 1143.75 580 / 580 Output Total Balance 249 / 1132.75 580 / 580 Weight last 48 hrs Weight 77.111 kg Weight 77.111 kg Physical Exam Narrative: EXAM NARRATIVE: GENERAL: Awake, alert, oriented, in no acute distress. HEENT: Normocephalic, atraumatic, PERRLA. CHEST: Clear to auscultation bilaterally. CVS: S1, S2 normal. No murmur, rubs, gallops. Peripheral pulses palpable. ABDOMEN: Soft, nontender. Nondistended. Bowel sounds heard. NEUROVASCULAR: Awake, alert. Power 5/5 all extremities. DTR+ EXTREMITIES: Post surgical dressing present, not saturated Data : 04/17/21 02:17 04/17/21 02:17 Micro: Microbiology 04/16/21 16:59 Gram Stain - Final Toe - Toe 04/16/21 10:20 Blood Culture - Preliminary Blood NEGATIVE TO DATE 04/16/21 10:23 Blood Culture - Preliminary Blood NEGATIVE TO DATE A&P Assessment and plan (1) COVID-19: Status: Acute (2) Necrosis of toe: Status: Acute (3) Gangrene of left foot: Status: Acute (4) Diabetic peripheral neuropathy associated with type 2 diabetes mellitus: Status: Acute (5) Diabetes mellitus, type II: Status: Acute Qualifiers: Diabetes mellitus long wall shear operator insulin use: without long wall shear operator use Diabetes mellitus complication status: with skin complications Diabetes mellitus complication detail: with foot ulcer Qualified Code(s): E11.621 - Type 2 diabetes mellitus with foot ulcer; L97.509 - Non-pressure chronic ulcer of other part of unspecified foot with unspecified severity Additional A&P Information 1 day post partial amputation secondary to gangrene of left toe. Continue with empiric antibiotics with vancomycin and Zosyn. Blood cultures so far negative. OR wound cultures so far pending. Plan for closure tomorrow with Dr. Vance. Physical therapy as per Dr. Vance. N.p.o. after midnight. Most likely patient will need oral antibiotics on discharge for at least 7 days. Historically patient has had MSSA, staph epidermidis, Streptococcus viridans. COVID-19: Patient on room air. Monitor inflammatory markers though will be skewed as patient is postoperative. Pharmacy consult for monoclonal antibodies. We will continue to monitor oxygen requirement and if needed will start patient on dexamethasone, remdesivir. Vitamin C, zinc. Incentive spirometry. Tessalon Perles. Albuterol as needed. Type 2 diabetes mellitus: Most recent A1c 7.2. Continue with sliding scale. Patient has not required any insulin since admission. Hold off on Lantus. Peripheral arterial disease: Post percutaneous revascularization earlier this month. Continue with aspirin, statin. Continue to hold off Plavix as patient is planned to go for OR again tomorrow. Full code. SCDs for DVT prophylaxis, hold off on pharmacological DVT prophylaxis. Carb consistent diet. Attestations Medical Necessity Statement*: Requires further hospitalization for post operative for amputation care, secondary closure for dry gangrene, COVID-19 positive Time Spent in Patient Care: Greater than 35 minutes (>than 50% of time spent in counselling and/or direct pt care on unit). Coding Level of Care Code Acute Face Painter for [facility] Diagnoses COVID-19 U07.1 Necrosis of toe I96 Gangrene of left foot I96 Diabetic peripheral neuropathy associated with type 2 diabetes mellitus E11.42 Diabetes mellitus, type II E11.621; L97.509 Diabetes mellitus fdc insulin use: without long wall shear operator use Diabetes mellitus complication status: with skin complications Diabetes mellitus complication detail: with foot ulcer
[2021-04-17] MEDS: ascorbic acid 500 mg Tablet PO (17:32)
[2021-04-17 17:37] LABS: Glucose Point of Care 127 mg/dL (70-110)
[2021-04-17 17:39] LABS: Iron 30 ug/dL (37-145); Total Iron Binding Capacity 187 mcg/dl; Unsaturated Iron Binding 157 ug/dL (112-347)
[2021-04-17] MEDS: benzonatate 100 mg Capsule PO (20:30)
[2021-04-17 21:19] LABS: Glucose Point of Care 151 mg/dL (70-110)
[2021-04-18] VITALS (18 sets, daily range): BP systolic 93–156; BP diastolic 56–86; PULSE 66–86; RESP 16–18; TEMP 35.9–38.1; O2SAT 85–100
[2021-04-18] MEDS: piperacillin-tazobactam 3.375 GM in sodium chloride 0.9% (plus) 50 ML IV ×3 (02:48→20:51)
[2021-04-18] MEDS: HYDROmorphone 1 mg/mL INJ 1 mL IVP ×4 (02:53→20:48)
[2021-04-18 05:48] LABS: Basophils # 0.1 10^3/uL (0.0-0.1); Basophils % 0.6 %; Eosinophils # 0.4 10^3/uL (0.0-0.8); Eosinophils % 3.1 %; Hematocrit 27.4 % (37.0-47.0); Hemoglobin 8.1 g/dL (11.5-15.3); Lymphocytes # 2.6 10^3/uL (0.8-4.8); Lymphocytes % 17.9 %; Mean Corpuscular HGB Conc 29.6 g/dL (30.0-36.0); Mean Corpuscular Hemoglobin 25.9 pg (28.0-34.0); Mean Corpuscular Volume 87.5 fl (81-99); Mean Platelet Volume 9.1 fL (7.4-10.4); Monocytes # 0.7 10^3/uL (0.2-0.9); Monocytes % 4.9 %; Neutrophils # 10.43 10^3/uL (1.8-7.7); Nucleated Red Blood Cells % 0 %; Platelet Count 473 10^3/cmm (130-400); Red Blood Count 3.13 10^6/uL (4.1-5.3); Red Cell Distribution Width 15.7 % (12.1-15.1); White Blood Count 14.3 10^3/uL (4.0-10.0)
--- NOTE | 2021-04-18 05:52 | PC.NURSE ---
Patient AAOx4, VSS, resting in bed, left foot dressing completed during shift. No new events during shift. Room clutter free, call light in reach, isolation continued, no needs. Will report and handoff to oncoming nurse at shift change.
[2021-04-18 06:18] LABS: C Reactive Protein 40.1 mg/L (0.0-4.9)
[2021-04-18 06:20] LABS: Alanine Aminotransferase 10 U/L (0-33); Albumin Level 2.9 g/dL (3.5-5.2); Alkaline Phosphatase 75 IU/L (35-105); Anion Gap 12.3 (5-19); Aspartate Amino Transferase 14 U/L (0-32); Blood Urea Nitrogen 13 mg/dL (6-20); Calcium 8.7 mg/dL (8.5-10.5); Carbon Dioxide 26 mmol/L (22-29); Chloride 100 mmol/L (98-107); Glomerular Filtration Rate 66.3 mL/min (90-130); Glucose 125 mg/dL (65-115); Osmolality Calculated 280 mOsm/kg (285-295); Potassium 4.3 mmol/L (3.5-5.1); Sodium 134 mmol/L (136-145); Total Bilirubin 0.2 mg/dL (0.15-1.2); Total Protein 7.9 g/dL (6.6-8.7)
[2021-04-18 06:44] LABS: Glucose Point of Care 144 mg/dL (70-110)
[2021-04-18 07:10] LABS: Erythrocyte Sedimentation Rate > 120 mm/hr (0-15)
[2021-04-18] MEDS: zinc gluconate 50 mg Tablet PO (08:45)
[2021-04-18] MEDS: benzonatate 100 mg Capsule PO ×3 (08:46→20:50)
[2021-04-18] MEDS: atorvastatin 40 mg Tablet 20 MG PO (08:46)
[2021-04-18] MEDS: ascorbic acid 500 mg Tablet PO (08:46)
--- NOTE | 2021-04-18 10:43 | PC.CHAP ---
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 security inspector visit [] Patient/Family/Request visit [] Outpatient visit [] Follow-up visit [] Physician referral [] Code/Alert [] Routine visit [] Staff referral [] Actively dying [] Patient sleeping [] Family support [] [] Out of room [] Palliative care [] [] Receiving care in room [] Pre-surgical visit [] Trauma [] Long length of stay [] ICU visit [x] Other: Isolation Relational/Emotional Strength [] Patient feels connected with others/family/visitors/staff [] Distress [] Loneliness/isolation [] Abandonment Spirituality of Patient [] Person of Claritza [] Attends Baptist of their [place] [] Believes in Prayer [] Reads Bible or Rastafarian materials [] There are Spiritual issues to be addressed Other Sales Support Worker Interventions [] Prayer [] Active listening [] Non-anxious presence [] Spiritual/emotional support [] Crisis/trauma care [] Spiritual counseling [] Bereavement support [] Provided bereavement packet [] Provided Bible/devotional materials [] Provided toy/stuffed animal, coloring book to patient or family member [] Provided Communion [] Anointing/[place] [] Salvation [] Completed spiritual assessment [] Other: Impact on Illness or Injury [] Angry [] Fearful [] Anxious [] Often cries [] Exhaustion [] Unable to work [] Unable to attend orthodoxy [] Unable to walk/stand [] Unable to read [] Unable to drive [] Unable to eat/drink [] Unable to sleep [] Unable to be with family [] Patient intubated [] Other: Summary Isolation Time spent with patient 5 mins
[2021-04-18 12:53] LABS: Glucose Point of Care 114 mg/dL (70-110)
--- NOTE | 2021-04-18 12:54 | ANES.PAUD2 ---
Pre-Anesthetic Update Pre-Anesthetic Assessment: Date of Surgery/Procedure: 04/18/21 Preop Diagnosis: Gangrene left foot, left ankle equinus. Proposed Procedure: Operation Date: 04/16/21 16:00 Proposed Procedures p Metarsal Head Resection(Left) - Barber Vance DPM Operation Date: 04/18/21 13:30 Proposed Procedures p Delayed Wound Closure(Left) - Barber Vance DPM s achilles Lengthening Foot(Left) - Barber Vance DPM Any changes to Pre-Anesthetic Assessment?: No Last Intake: Intake Last Liquid Date 04/18/21 Last Liquid Time 23:00 Last Solid Date 04/17/21 Last Solid Time 19:00 Labs Last 48hrs: Laboratory Results - last 48 hr 04/16/21 04/16/21 04/16/21 04:00 13:45 20:37 WBC RBC Hgb Hct MCV MCH MCHC RDW Plt Count MPV Neut % (Auto) Lymph % (Auto) Dickinson % (Auto) Eos % (Auto) Baso % (Auto) Neut # (Auto) Lymph # (Auto) Dickinson # (Auto) Eos # (Auto) Baso # (Auto) Nucleated RBC % (a uto) Nucleated RBCs # ESR Sodium Potassium Chloride Carbon Dioxide Anion Gap BUN Creatinine GFR Calculation Glucose POC Glucose 87 142 H Calculated Osmolal ity Calcium Iron TIBC % Saturation Unsat Iron Binding Total Bilirubin AST ALT Alkaline Phosphata se C-Reactive Protein Total Protein Albumin Globulin Nasal/Oral COVID-1 9 PCR Detected H 04/17/21 04/17/21 04/17/21 02:17 02:17 02:17 WBC 11.7 H RBC 3.38 L Hgb 9.0 L Hct 29.9 L MCV 88.5 MCH 26.6 L MCHC 30.1 RDW 15.8 H Plt Count 430 H MPV 9.7 Neut % (Auto) 68.5 Lymph % (Auto) 20.6 Dickinson % (Auto) 6.0 Eos % (Auto) 3.4 Baso % (Auto) 0.7 Neut # (Auto) 7.99 H Lymph # (Auto) 2.4 Dickinson # (Auto) 0.7 Eos # (Auto) 0.4 Baso # (Auto) 0.1 Nucleated RBC % (a uto) 0 Nucleated RBCs # 0.0 ESR Sodium 134 L Potassium 4.4 Chloride 100 Carbon Dioxide 23 Anion Gap 15.4 BUN 17 Creatinine 0.9 GFR Calculation 66.3 L Glucose 111 POC Glucose Calculated Osmolal ity 280 L Calcium 8.6 Iron 30 L TIBC 187 % Saturation 16.0 L Unsat Iron Binding 157 Total Bilirubin 0.2 AST 16 ALT 11 Alkaline Phosphata se 66 C-Reactive Protein Total Protein 6.5 L Albumin 3.0 L Globulin 3.5 Nasal/Oral COVID-1 9 PCR 04/17/21 04/17/21 04/17/21 06:22 11:08 17:22 WBC RBC Hgb Hct MCV MCH MCHC RDW Plt Count MPV Neut % (Auto) Lymph % (Auto) Dickinson % (Auto) Eos % (Auto) Baso % (Auto) Neut # (Auto) Lymph # (Auto) Dickinson # (Auto) Eos # (Auto) Baso # (Auto) Nucleated RBC % (a uto) Nucleated RBCs # ESR Sodium Potassium Chloride Carbon Dioxide Anion Gap BUN Creatinine GFR Calculation Glucose POC Glucose 91 98 127 H Calculated Osmolal ity Calcium Iron TIBC % Saturation Unsat Iron Binding Total Bilirubin AST ALT Alkaline Phosphata se C-Reactive Protein Total Protein Albumin Globulin Nasal/Oral COVID-1 9 [facility] 04/17/21 04/18/21 04/18/21 21:05 05:26 05:26 WBC 14.3 H RBC 3.13 L Hgb 8.1 L Hct 27.4 L MCV 87.5 MCH 25.9 L MCHC 29.6 L RDW 15.7 H Plt Count 473 H MPV 9.1 Neut % (Auto) 73.0 Lymph % (Auto) 17.9 Dickinson % (Auto) 4.9 Eos % (Auto) 3.1 Baso % (Auto) 0.6 Neut # (Auto) 10.43 H Lymph # (Auto) 2.6 Dickinson # (Auto) 0.7 Eos # (Auto) 0.4 Baso # (Auto) 0.1 Nucleated RBC % (a uto) 0 Nucleated RBCs # 0.0 ESR Sodium 134 L Potassium 4.3 Chloride 100 Carbon Dioxide 26 Anion Gap 12.3 BUN 13 Creatinine 0.9 GFR Calculation 66.3 L Glucose 125 H POC Glucose 151 H Calculated Osmolal ity 280 L Calcium 8.7 Iron TIBC % Saturation Unsat Iron Binding Total Bilirubin 0.2 AST 14 ALT 10 Alkaline Phosphata se 75 C-Reactive Protein Total Protein 7.9 Albumin 2.9 L Globulin 5.0 H Nasal/Oral COVID-1 9 PCR 04/18/21 04/18/21 04/18/21 05:26 05:26 06:19 WBC RBC Hgb Hct MCV MCH MCHC RDW Plt Count MPV Neut % (Auto) Lymph % (Auto) Dickinson % (Auto) Eos % (Auto) Baso % (Auto) Neut # (Auto) Lymph # (Auto) Dickinson # (Auto) Eos # (Auto) Baso # (Auto) Nucleated RBC % (a uto) Nucleated RBCs # ESR > 120 H Sodium Potassium Chloride Carbon Dioxide Anion Gap BUN Creatinine GFR Calculation Glucose POC Glucose 144 H Calculated Osmolal ity Calcium Iron TIBC % Saturation Unsat Iron Binding Total Bilirubin AST ALT Alkaline Phosphata se C-Reactive Protein 40.1 H Total Protein Albumin Globulin Nasal/Oral COVID-1 9 PCR 04/18/21 12:27 WBC RBC Hgb Hct MCV MCH MCHC RDW Plt Count MPV Neut % (Auto) Lymph % (Auto) Dickinson % (Auto) Eos % (Auto) Baso % (Auto) Neut # (Auto) Lymph # (Auto) Dickinson # (Auto) Eos # (Auto) Baso # (Auto) Nucleated RBC % (a uto) Nucleated RBCs # ESR Sodium Potassium Chloride Carbon Dioxide Anion Gap BUN Creatinine GFR Calculation Glucose POC Glucose 114 H Calculated Osmolal ity Calcium Iron TIBC % Saturation Unsat Iron Binding Total Bilirubin AST ALT Alkaline Phosphata se C-Reactive Protein Total Protein Albumin Globulin Nasal/Oral COVID-1 9 PCR Vitals: Temperature 96.7 F L 04/18/21 08:00 Temperature Source Axillary 04/18/21 08:00 Pulse Rate 71 04/18/21 08:00 Pulse Rhythm 04/16/21 20:00 Pulse Strength 3+ Normal 04/16/21 20:00 Respiratory Rate 18 04/18/21 08:48 Respiratory Effort Non-Labored 04/18/21 08:48 Respiratory Depth Normal 04/18/21 08:48 Respiratory Patter n 04/18/21 02:53 Blood Pressure 156/78 04/18/21 08:00 Blood Pressure Whitney n 104 04/18/21 08:00 Blood Pressure Pos ition Supine 04/18/21 08:00 Pulse Oximetry 85 L 04/18/21 08:00 Oxygen Delivery Me thod 04/18/21 08:00 Sepsis Recent Feve r Within 48 Hours No 04/15/21 21:26 Sepsis New/Unexpla ined Change in Men geraldo Status No 04/15/21 21:26 Exam: Pre-Anes Outpt Exam: alert, oriented x 3 and regular rate & rhythm Cardiac Studies: No Data to Display
[2021-04-18 15:02] LABS: Vancomycin Trough 13.8 ug/mL (10-15)
[2021-04-18] MEDS: vancomycin 1,250 MG/250 ML PIGGYBACK 250 MG IV (15:29)
[2021-04-18 16:38] LABS: Glucose Point of Care 152 mg/dL (70-110)
[2021-04-18] MEDS: lidocaine 1% INJ 20 mL INJECTION (17:25)
--- NOTE | 2021-04-18 18:07 | PM.OP ---
Operative Report Date of procedure: April 18, 2021 Pre-op Diagnosis: Gangrene left foot, left ankle equinus. Post-op diagnosis: same Post-op Findings: Devitalized soft tissue and bone left foot Procedure Done: Left Achilles tendon lengthening and left foot primary delayed closure CPT code 40792 and 18313 Implants: 2-0 Vicryl, 3-0 nylon, 4-0 nylon Specimens removed/disposition: None Pathology: none sent Surgeon: Barber Vance D.P.M. Supervisor Special Services: Danae Anesthesia: MAC Estimated blood loss: Less than 10 mL Tourniquet time: None IV fluids: None Urine output: None Complications: None Condition: stable Disposition: floor Brief History: Ms. Carranza is a 51-year-old diabetic female with history of peripheral arterial disease and recent revascularization of the lower extremity. Presented with gangrene of her left great toe extending to the forefoot and is status post partial first ray amputation. She presents for primary delayed closure and Achilles tendon lengthening of the left lower extremity. Risks include pain, bleeding, numbness, infection, surgical site dehiscence, need for higher level of amputation, wound care modalities and prosthetic. Patient is agreeable wishes to proceed. No guarantees written, expressed or implied. Procedure: Under mild sedation under mild sedation the patient was brought to the operating room and remained on the gurney in supine position. A timeout was performed. Anesthesia was then administered by the anesthesia service. Local anesthesia injected by myself consisting of 20 cc of one-to-one mixture 1% lidocaine 0.5% Marcaine plain and a left ankle block fashion and proximal to the watershed zone of the Achilles in a V-block. Well-padded pneumatic tourniquet applied to the left high calf however this was never inflated during the duration of the procedure. Left lower extremity was scrubbed, prepped and draped utilizing normal aseptic technique. Left leg was elevated and attention was directed to the posterior aspect of the Achilles tendon and 1.5 cm proximal to its insertion a midline stab incision was performed to the Achilles tendon and a medial hemisection was performed followed by a second stab incision 1.5 cm proximal to the first with a lateral hemisection and a final third stab incision 1.5 cm proximal to the second performed with a medial hemisection in an accordion style of the Achilles tendon was lengthened and appreciated increased dorsiflexion intraoperatively. Incisions were flushed with saline, closed with 4-0 nylon and covered with an OpSite. Attention was then directed to the amputation site of the left medial forefoot where sharp debridement was performed of devitalized epidermis, dermis, subcutaneous tissue, fat layer and bone. Area was flushed with copious amounts of sterile saline solution. Close approximation was attempted however there was some gaping due to lack of soft tissue envelope they were brought into close approximation without strangulating the soft tissues utilizing a layered closure 2-0 Vicryl with fascial and subcutaneous tissue and 3-0 nylon at skin. Incision site was dressed with Xeroform, sterile 4 x 4, Kerlix and 4 inch Coban without compression or elasticity. Patient tolerated the procedure and anesthesia well she was transferred back to her floor with vascular status intact and vital signs stable. She is to remain strict nonweightbearing to the left lower extremity failure to comply with weightbearing status will likely result in dehiscence of the surgical site. She was also placed in the cam boot. Patient okay for discharge from podiatry standpoint and okay for discharge on oral antibiotics for 2 weeks for soft tissue.
--- NOTE | 2021-04-18 18:51 | ANE.PACU2 ---
Inpatient post-anesthesia follow up: Airway intact: Yes Vital signs: Temperature 97.7 F Pulse Rate [Monito r] 96 Pulse Rate 75 Respiratory Rate 16 Blood Pressure [Le ft Arm] 118/73 Blood Pressure 106/70 Pulse Oximetry 94 Oxygen Delivery Me thod [ Room Air Current Rate & Del rola] Oxygen Delivery Me thod Room Air Oxygen Flow Rate 8 Fraction of Inspir ed Oxygen Hydration adequate: Yes Nausea and vomiting: No Pain level: 1 Mental status: Baseline
[2021-04-18 19:50] LABS: Glucose Point of Care 106 mg/dL (70-110)
--- NOTE | 2021-04-18 20:08 | P.PN_ITS ---
Subjective Subjective: Interval history: Day 2 s/p amputation. Plan for closure in the afternoon today. Denies any nausea, vomiting, headache has remained on room air and hemodynamically stable. Vitals/I&O/Wt Last Vital Signs Temp 97.6 F 04/18/21 19:37 Pulse 75 04/18/21 19:37 Resp 17 04/18/21 19:37 BP 125/82 04/18/21 19:37 Pulse Ox 96 04/18/21 19:37 04/18/21 04/18/21 04/18/21 06:59 14:59 22:59 Intake Total 1.667 / 940.000 50 / 50 300 / 350 Output Total 4 / 4 Balance 1.667 / 940.000 50 / 50 296 / 346 Physical Exam Narrative: EXAM NARRATIVE: GENERAL: Awake, alert, oriented, in no acute distress. HEENT: Normocephalic, atraumatic, PERRLA. CHEST: Clear to auscultation bilaterally. CVS: S1, S2 normal. No murmur, rubs, gallops. Peripheral pulses palpable. ABDOMEN: Soft, nontender. Nondistended. Bowel sounds heard. NEUROVASCULAR: Awake, alert. Power 5/5 all extremities. DTR+ EXTREMITIES: Post surgical dressing present, not saturated Data : 04/18/21 05:26 04/18/21 05:26 Micro: Microbiology 04/16/21 16:59 Gram Stain - Final Toe - Toe Wound Culture - Preliminary A&P Assessment and plan (1) COVID-19: Status: Acute (2) Necrosis of toe: Status: Acute (3) Gangrene of left foot: Status: Acute (4) Diabetic peripheral neuropathy associated with type 2 diabetes mellitus: Status: Acute (5) Diabetes mellitus, type II: Status: Acute Qualifiers: Diabetes mellitus complication detail: with foot ulcer Diabetes mellitus complication status: with skin complications Diabetes mellitus halfway insulin use: without halfway use Qualified Code(s): E11.621 - Type 2 diabetes mellitus with foot ulcer; L97.509 - Non-pressure chronic ulcer of other part of unspecified foot with unspecified severity Additional A&P Information 2 day post partial amputation secondary to gangrene of left toe. Continue with empiric antibiotics with vancomycin and Zosyn. Blood cultures so far negative. OR wound cultures so far pending. Plan for closurewith Dr. Vnace. Physical therapy as per Dr. Vance. N.p.o. for now. Most likely patient will need oral antibiotics on discharge for at least 7 days. Historically patient has had MSSA, staph epidermidis, Streptococcus viridans. COVID-19: Patient on room air. Monitor inflammatory markers though will be skewed as patient is postoperative. Post monoclonal antibody. We will continue to monitor oxygen requirement and if needed will start patient on dexamethasone, remdesivir. Vitamin C, zinc. Incentive spirometry. Tessalon Perles. Albuterol as needed. Type 2 diabetes mellitus: Most recent A1c 7.2. Continue with sliding scale. Patient has not required any insulin since admission. Hold off on Lantus. Peripheral arterial disease: Post percutaneous revascularization earlier this month. Continue with aspirin, statin. Continue to hold off Plavix as patient is planned to go for OR again tomorrow. Full code. SCDs for DVT prophylaxis, hold off on pharmacological DVT prophylaxis. Carb consistent diet. Attestations Medical Necessity Statement*: Requires further hospitalization for secondary closure today post amputation, COVID-19 Time Spent in Patient Care: Greater than 35 minutes (>than 50% of time spent in counselling and/or direct pt care on unit) . Coding Level of Care Code Acute [employer] De[employer] for [facility] Fwd Diagnoses COVID-19 U07.1 Necrosis of toe I96 Gangrene of left foot I96 Diabetic peripheral neuropathy associated with type 2 diabetes mellitus E11.42 Diabetes mellitus, type II E11.621; L97.509 Diabetes mellitus complication detail: with foot ulcer Diabetes mellitus complication status: with skin complications Diabetes mellitus long term care phlebotomist insulin use: without long term care phlebotomist use
[2021-04-18] MEDS: acetaminophen 325 mg Tablet 650 MG PO (20:50)
[2021-04-18] MEDS: sodium chloride 0.9% 1,000 ML 30 ML IV (20:51)
[2021-04-19] VITALS (8 sets, daily range): BP systolic 96–146; BP diastolic 62–79; PULSE 74–77; RESP 14–20; TEMP 36.6–37.6; O2SAT 93–100
[2021-04-19] MEDS: HYDROmorphone 1 mg/mL INJ 1 mL IVP ×2 (03:08→09:03)
[2021-04-19] MEDS: piperacillin-tazobactam 3.375 GM in sodium chloride 0.9% (plus) 50 ML IV (05:46)
[2021-04-19 06:38] LABS: Glucose Point of Care 111 mg/dL (70-110)
[2021-04-19 09:01] LABS: Vancomycin Trough 14.4 ug/mL (10-15)
[2021-04-19] MEDS: zinc gluconate 50 mg Tablet PO (09:04)
[2021-04-19] MEDS: atorvastatin 40 mg Tablet 20 MG PO (09:04)
[2021-04-19] MEDS: ascorbic acid 500 mg Tablet PO (09:04)
[2021-04-19] MEDS: benzonatate 100 mg Capsule PO (09:04)
[2021-04-19] MEDS: vancomycin 1,250 MG/250 ML PIGGYBACK 250 MG IV (09:13)
[2021-04-19 10:50] LABS: Glucose Point of Care 138 mg/dL (70-110)
--- NOTE | 2021-04-19 11:05 | P.DS_ITS ---
Discharge Providers Date of Admission: 04/16/21 02:31 Date of Discharge: April 19, 2021 Attending Provider at Admission: Karina Verdin MD Attending Provider at Discharge: Kain Lopez MD Consults: Podiatry: Dr. Vance Primary Care Provider: CLIFF Bellamy Diagnoses at Discharge Discharge Diagnosis (1) COVID-19: Status: Acute (2) Necrosis of toe: Status: Acute (3) Gangrene of left foot: Status: Acute (4) Diabetic peripheral neuropathy associated with type 2 diabetes mellitus: Status: Acute (5) Diabetes mellitus, type II: Status: Acute Qualifiers: Diabetes mellitus penitentiary insulin use: without bed bug exterminator use Diabetes mellitus complication status: with skin complications Diabetes mellitus complication detail: with foot ulcer Qualified Code(s): E11.621 - Type 2 diabetes mellitus with foot ulcer; L97.509 - Non-pressure chronic ulcer of other part of unspecified foot with unspecified severity Reason for Visit Reason for Visit: left foot pain Hospital Course Hospital Course Adrianne Carranza is a 51 year old female with history of PAD, diabetes, HTN, CV A, history of right foot TMA had a chair dropped on her left big toe with resulting color change, surrounding cellulitis, underwent treatment with 10 days of Augmentin without resolution, came to ER recently due to progressive color change, edwards/black discoloration of the toe, with noted gangrene of the arm mid- distal toe, surrounding cellulitis approximately. Was treated with IV antibiotics. Underwent additional assessment by ultrasonographic duplex study of left lower extremity and CTA with finding of severe PAD. Underwent additional assessment as well as percutaneous intervention with interventional cardiology, with reestablish flow. She followed up with podiatry and has now been recommended a transmetatarsal amputation of the left foot for which she is directed to the emergency room with plan for OR intervention. Patient amputation on April 16 with secondary closure on April 18. Her perioperative stay remained unremarkable other than her COVID-19 PCR turning out to be positive. During hospitalization patient remained on room air. She was given monoclonal antibodies. Patient is been discharged in hemodynamically stable condition on oral antibiotics for 7 more days, wound care as per podiatry with advised to take vitamin C and zinc for next 2 weeks, come back to the ER if she has any difficulty in breathing or fever more than 101. Physical Exam Narrative: EXAM NARRATIVE: GENERAL: Awake, alert, oriented, in no acute distress. HEENT: Normocephalic, atraumatic, PERRLA. CHEST: Clear to auscultation bilaterally. CVS: S1, S2 normal. No murmur, rubs, gallops. Peripheral pulses palpable. ABDOMEN: Soft, nontender. Nondistended. Bowel sounds heard. NEUROVASCULAR: Awake, alert. Power 5/5 all extremities. DTR+ EXTREMITIES: Post surgical dressing present, not saturated Discharge Data Data Completed and Pending: Completed Studies During Hospitalization Category Date Time Status XR foot LT min 3V * [id number] Routine Exams 04/16/21 17:35 Completed XR foot LT min 3V * [id number] Urgent Exams 04/15/21 20:44 [place] [id number] Urge nt Ultrasound 04/16/21 20:46 Completed Pending at discharge Category Date Time Status Blood Culture Sta t Lab 04/16/21 10:23 Results C Reactive Protei n Q48H Lab 04/20/21 04:00 Ordered Erythrocyte Sedim entation Rate Q48H Lab 04/20/21 04:00 Ordered Wound Culture and Gram Stain Routin e Lab 04/16/21 16:59 Results Pathology: Surgic al [PTH] Routine Pth 04/16/21 19:31 Received Labs from last 24 hours 04/19/21 04/19/21 04/19/21 10:43 08:28 06:27 POC Glucose 138 H 111 H Vancomycin Trough 14.4 04/18/21 04/18/21 04/18/21 19:47 14:08 12:27 POC Glucose 106 114 H Vancomycin Trough 13.8 04/18/21 07:47 POC Glucose 152 H Vancomycin Trough Addt'l Data from Hospital Stay: Laboratory Results WBC 14.3 10^3/uL (4.0 -10.0) H 04/18/21 05:26 RBC 3.13 10^6/uL (4.1 -5.3) L 04/18/21 05:26 Hgb 8.1 g/dL (11.5-15 .3) L 04/18/21 05:26 Hct 27.4 % (37.0-47.0 ) L 04/18/21 05:26 MCV 87.5 fl (81-99) 04/18/21 05:26 MCH 25.9 pg (28.0-34. 0) L 04/18/21 05:26 MCHC 29.6 g/dL (30.0-3 6.0) L 04/18/21 05:26 RDW 15.7 % (12.1-15.1 ) H 04/18/21 05:26 Plt Count 473 10^3/cmm (130 -400) H 04/18/21 05:26 MPV 9.1 fL (7.4-10.4) 04/18/21 05:26 Neut % (Auto) 73.0 % 04/18/21 05:26 Lymph % (Auto) 17.9 % 04/18/21 05:26 Charles % (Auto) 4.9 % 04/18/21 05:26 Eos % (Auto) 3.1 % 04/18/21 05:26 Baso % (Auto) 0.6 % 04/18/21 05:26 Neut # (Auto) 10.43 10^3/uL (1. 8-7.7) H 04/18/21 05:26 Lymph # (Auto) 2.6 10^3/uL (0.8- 4.8) 04/18/21 05:26 Charles # (Auto) 0.7 10^3/uL (0.2- 0.9) 04/18/21 05:26 Eos # (Auto) 0.4 10^3/uL (0.0- 0.8) 04/18/21 05:26 Baso # (Auto) 0.1 10^3/uL (0.0- 0.1) 04/18/21 05:26 Nucleated RBC % (a uto) 0 % 04/18/21 05:26 Nucleated RBCs # 0.0 /100WBC 04/18/21 05:26 ESR > 120 mm/hr (0-15 ) H 04/18/21 05:26 PT 14.00 SECONDS (12 .1-14.9) 04/16/21 01:35 INR 1.05 (0.8-1.2) 04/16/21 01:35 APTT 37.2 SECONDS (23. 9-36.7) H 04/16/21 01:35 Sodium 134 mmol/L (136-1 45) L 04/18/21 05:26 Potassium 4.3 mmol/L (3.5-5 .1) 04/18/21 05:26 Chloride 100 mmol/L (98-10 7) 04/18/21 05:26 Carbon Dioxide 26 mmol/L (22-29) 04/18/21 05:26 Anion Gap 12.3 (5-19) 04/18/21 05:26 BUN 13 mg/dL (6-20) 04/18/21 05:26 Creatinine 0.9 mg/dL (0.5-0. 9) 04/18/21 05:26 GFR Calculation 66.3 mL/min (90-1 30) L 04/18/21 05:26 Glucose 125 mg/dL (65-115 ) H 04/18/21 05:26 POC Glucose 138 mg/dL (70-110 ) H 04/19/21 10:43 Calculated Osmolal ity 280 mOsm/kg (285- 295) L 04/18/21 05:26 Calcium 8.7 mg/dL (8.5-10 .5) 04/18/21 05:26 Iron 30 ug/dL (37-145) L 04/17/21 02:17 TIBC 187 mcg/dl 04/17/21 02:17 % Saturation 16.0 % (20-50) L 04/17/21 02:17 Unsat Iron Binding 157 ug/dL (112-34 7) 04/17/21 02:17 Total Bilirubin 0.2 mg/dL (0.15-1 .2) 04/18/21 05:26 AST 14 U/L (0-32) 04/18/21 05:26 ALT 10 U/L (0-33) 04/18/21 05:26 Alkaline Phosphata se 75 IU/L (35-105) 04/18/21 05:26 C-Reactive Protein 40.1 mg/L (0.0-4. 9) H 04/18/21 05:26 Total Protein 7.9 g/dL (6.6-8.7 ) 04/18/21 05:26 Albumin 2.9 g/dL (3.5-5.2 ) L 04/18/21 05:26 Globulin 5.0 g/dL (1.3-4.6 ) H 04/18/21 05:26 Vancomycin Trough 14.4 ug/mL (10-15 ) 04/19/21 08:28 Nasal/Oral COVID-1 9 PCR Detected H 04/16/21 04:00 SARS-CoV-2 Ag (Rap id) Negative (Negati ve) 04/16/21 01:40 Impressions Foot X-Ray 04/16/21 17:35 IMPRESSION: Interval amputation of the great toe. Duplex Scan Lower Extremity Artery 04/16/21 20:46 IMPRESSION: No stenosis or occlusion. Vitals: Last Vital Signs Temp 98.2 F 04/19/21 08:00 Pulse 77 04/19/21 08:00 Resp 16 04/19/21 09:03 BP 146/78 04/19/21 08:00 Pulse Ox 97 04/19/21 08:00 Discharge Plan Discharge Patient Disposition: Home Health Service Condition: Stable Prescriptions: New Vitamin C 500 mg Tablet 500 mg PO BID 14 Days Qty: 28 RF: 0 zinc gluconate 50 mg Tablet 50 mg PO DAILY 14 Days Qty: 14 RF: 0 ProAir HFA 90 mcg/actuation HFA aerosol inhaler 1 inh inhalation Q6H PRN (Reason: shortness of breath or wheezing) Qty: 8.5 RF: 0 Continued (DME) CAM WALKER See Rx Instructions .ROUTE .MEDSUPPLY Qty: 1 RF: 0 (DME) DIABETIC SHOES See Rx Instructions .ROUTE .MEDSUPPLY Qty: 1 RF: 0 insulin aspart U-100 [Novolog Flexpen U-100 Insulin] 100 unit/mL (3 mL) insulin pen 6 unit SUBCUT .BEFORE MEALS TID RF: 0 clopidogrel 75 mg tablet 75 mg PO QAM RF: 0 aspirin [Adult Aspirin Regimen] 81 mg tablet,delayed release (DR/EC) 81 mg PO QAM RF: 0 metformin 1,000 mg tablet 1,000 mg PO BID RF: 0 gabapentin 300 mg capsule 300 mg PO TID RF: 0 sertraline [Zoloft] 50 mg tablet 50 mg PO QAM RF: 0 Lantus Solostar U-100 Insulin 100 unit/mL (3 mL) insulin pen 30 unit SUBCUT BEDTIME RF: 0 amlodipine [Norvasc] 10 mg tablet 10 mg PO DAILY PRN (Reason: Blood Pressure) RF: 0 metronidazole [Flagyl] 500 mg tablet 500 mg PO Q8H 7 Days Qty: 21 RF: 0 nicotine (polacrilex) 2 mg lozenge 2 mg buccal Q1H PRN (Reason: nicotine cravings) Qty: 72 RF: 0 nicotine 7 mg/24 hr patch 24 hour 1 patch transdermal DAILY Qty: 14 RF: 0 atorvastatin 20 mg tablet 20 mg PO DAILY RF: 0 levofloxacin 750 mg tablet 750 mg PO DAILY 7 Days Qty: 7 RF: 0 doxycycline hyclate 100 mg tablet 100 mg PO BID 7 Days Qty: 14 RF: 0 Discharge Orders: Discharge Order (Routine); Ordered 04/19/21 Ordered By: Kain Lopez Referrals: Barber Vance DPM [Physician] - 7-10 days Asha Quan MD [Physician] - 05/09/21 12:45 pm Grazyna Bonner FNP [Primary Care Provider] - 04/22/21 1:20 pm () Edna Franco FNP [Nurse Practitioner] - (Please call office to reschedule your appointment per the clinic once you are discharged.) Discharge Diet: Cardiac and Diabetic Discharge Activity: Resume usual activity Patient Instructions: Opioid Safety Activity Restrictions/Additional Instructions: Please follow-up with Dr. Vance in next 7 to 10 days. Please continue taking antibiotics with doxycycline levofloxacin for next 14 days. If you have any fever more than 101 Fahrenheit or any difficulty in breathing please come to the ER. Discharge Attestations Time Spent in Discharge Care*: greater than 30 min Specific Discharge Activities: educating patient, discussing with pcp/other providers, discussing with case manager/social workers/dc planners, documenting/other paperwork and evaluating patient/reviewing data Status at Discharge: Cognitive status at discharge: cognitively intact , Behavioral status at discharge: cooperative , Functional status at discharge: uses cane/walker Overall status at discharge: patient is back to baseline Quality Metrics Clinical Quality Measures During this hospital stay, did patient experience: None Coding Level of Care Code Acute [facility] note Diagnoses COVID-19 U07.1 Necrosis of toe I96 Gangrene of left foot I96 Diabetic peripheral neuropathy associated with type 2 diabetes mellitus E11.42 Diabetes mellitus, type II E11.621; L97.509 Diabetes mellitus bed bug exterminator insulin use: without penitentiary use Diabetes mellitus complication status: with skin complications Diabetes mellitus complication detail: with foot ulcer
== END 2021-04-19 12:00 | disposition home or self-care (01) | DRG 255 ==
LOC: ER 04-16 06:41 → ER IP 04-16 07:30 → MEDSURG 04-16 12:11
PROVIDERS: Emergency Medicine; Podiatrist Foot & Ankle Surgery; Admitting Provider Student in an Organized Health Care Education/Training Program; Emergency Provider Physician Assistant; PCP Nurse Practitioner Family; Visit Provider Student in an Organized Health Care Education/Training Program
PROC: 0Y6Q0Z0 Detachment at Left 1st Toe, Complete, Open Approach (ICD-10-PCS; principal; 2021-04-16 15:50)
PROC: 0L8P3ZZ Division of Left Lower Leg Tendon, Percutaneous Approach (ICD-10-PCS; CPT 13160; principal; 2021-04-18 13:20)
PROC: 0L8P3ZZ Division of Left Lower Leg Tendon, Percutaneous Approach (ICD-10-PCS; CPT 28261; 2021-04-18 13:20)
DX: E11.52 Type 2 diabetes mellitus with diabetic peripheral angiopathy with gangrene (principal); U07.1 COVID-19; I96 Gangrene, not elsewhere classified; E11.42 Type 2 diabetes mellitus with diabetic polyneuropathy; I10 Essential (primary) hypertension; Z86.73 Personal history of transient ischemic attack (TIA), and cerebral infarction without residual deficits; F41.8 Other specified anxiety disorders; E78.5 Hyperlipidemia, unspecified; F17.210 Nicotine dependence, cigarettes, uncomplicated; Z89.411 Acquired absence of right great toe; Z89.421 Acquired absence of other right toe(s); Z79.4 Long term (current) use of insulin; Z79.02 Long term (current) use of antithrombotics/antiplatelets
CPT/HCPCS: 36415; 36416; 73630; 80048; 80053; 80202; 82962; 83540; 83550; 85025; 85610; 85651; 85730; 86140; 87040; 87070; 87075; 87205; 87426; 87635; 88305; 88311; 93926; 94664; 96365; 96367; 96375; 96376; 99285; J1170; J1815; J2405; J2543; J2704; J3010; J3370; J3490; J7030; J7050

== ENCOUNTER → 2021-06-20 15:16 | Outpatient (BNVA) | payer MEDICAID, SELFPAY | PROVIDERS: PCP Nurse Practitioner Family; Visit Provider Podiatrist Foot & Ankle Surgery | DX: I96 Gangrene, not elsewhere classified (principal); Z89.422 Acquired absence of other left toe(s) | CPT/HCPCS: 73630 ==

== ENCOUNTER 2021-07-03 16:22 | Emergency (ER) | payer MEDICAID, SELFPAY ==
--- NOTE | 2021-07-03 16:30 | XRR_ITS ---
PROCEDURE INFORMATION: Exam: XR Chest Exam date and time: 07/03/2021 4:30 PM Age: 51 years old Clinical indication: Dyspnea TECHNIQUE: Imaging protocol: XR of the chest. Views: 1 view. COMPARISON: CR XR chest 1V portable [id number] 02/18/2021 3:52 PM FINDINGS: Lungs: Unremarkable. No consolidation. Pleural spaces: Unremarkable. No pleural effusion. No pneumothorax. Heart/Mediastinum: Unremarkable. No cardiomegaly. Bones/joints: Unremarkable. XR/XR chest 1V portable [id number] IMPRESSION: No acute findings. Radiation Dose CTDIVOL = (mGy): DLP = (mGy-cm)
--- NOTE | 2021-07-03 16:30 | ECG_ITS ---
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 Measurements Intervals [place] Rate: 80 P: 60 [place]: 183 QRS: 62 QRSD: 94 T: 66 QT: 359 QTc: 416 Interpretive Statements SINUS RHYTHM Possible old inferior wall CO. Nonspecific ST changes. Compared to ECG 02/18/2021 21:24:34 No significant change Electronically Signed On 07-03-2021 20:45:16 SAND WORKER by Radha Grant M.D. [email or web address]
--- NOTE | 2021-07-03 16:30 | CTR_ITS ---
PROCEDURE INFORMATION: Exam: CT Head Without Contrast Exam date and time: 07/03/2021 4:30 PM Age: 51 years old Clinical indication: Weakness, extremity and weakness, facial; Right; Additional info: Stroke alert TECHNIQUE: Imaging protocol: Computed tomography of the head without contrast. Radiation optimization: All CT scans at this facility use at least one of these dose optimization techniques: automated exposure control; mA and/or kV adjustment per patient size (includes targeted exams where dose is matched to clinical indication); or iterative reconstruction. Other technique: STROKE PROTOCOL was implemented. COMPARISON: No relevant prior studies available. RADIATION DOSE METRICS: Total DLP (mGy-cm): 962.56 FINDINGS: Brain: Chronic infarct in the left basal ganglia. The edwards-white differentiation is maintained. No hemorrhage. No edema.There are mild periventricular and subcortical lucencies consistent with chronic microvascular ischemic changes. Cerebral ventricles: No ventriculomegaly. Paranasal sinuses: Visualized sinuses are unremarkable. No fluid levels. Mastoid air cells: Visualized mastoid air cells are well aerated. Bones/joints: Unremarkable. No acute fracture. Soft tissues: Unremarkable. CT/CT head wo con* [id number] IMPRESSION: No acute intracranial abnormality. Chronic microvascular ischemic changes. ASSESSMENT: ASPECTS ([place] Stroke Program Early CT Score) is 10. Radiation Dose CTDIVOL = (mGy): DLP = 962.56 (mGy-cm)
--- NOTE | 2021-07-03 16:30 | ED_ITS ---
Documented by User: Abdelrahman Brown DO 07/05/21 09:15 HPI - Neuro Symptoms/Deficit General: Chief Complaint: Neuro Symptoms/Deficit Stated Complaint: POSSIBLE STROKE Time Seen by Provider: 07/03/21 16:29 History of Present Illness: HPI Narrative: 51-year-old female presents to the emergency room with complaint of right-sided facial droop slurred speech and right arm and leg weakness. She had been smoking outside onset of symptoms was at 345. At times patient told me that she did have a previous right-sided weakness at the time she said all of her symptoms were new. On-call [facility] neurology was consulted and seen patient by telemed see notes below Onset (ago): minute(s) Time: 16:22 Last Observed Normal: 15:45 Timing confirmed by: family member Location: right face, right arm and right leg History of same: Yes Severity: moderate Quality: weak and tingling Relieving factors: none Exacerbating factors: none Context: gradual onset Associated symptoms: Reports weakness; Deny chest pain, cough, diaphoresis, fevers/chills, headache(s), anorexia, malaise, nausea, seizures, short of breath, syncope, tingling, vertigo or vomiting Treatments Prior to Arrival: none Review of Systems Const: Denies: malaise or diaphoresis ENMT: Denies: throat pain, ear or mastoid pain, nasal discharge or nasal congestion Card: Denies: chest pain or syncope Resp: Denies: dyspnea, productive cough or non-productive cough GI: Denies: nausea or vomiting : Denies: flank pain, difficulty voiding, dysuria, urinary frequency or urinary urgency Skin/Breast: Denies: rash or pruritus Neuro: Denies: headache(s) or vertigo [facility] ED PFSH: Medical History Anxiety and depression 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 Diabetes mellitus, type II Diabetic peripheral neuropathy associated with type 2 diabetes mellitus Diabetic peripheral neuropathy associated with type 2 diabetes mellitus Diabetic ulcer of foot associated with diabetes mellitus due to underlying condition, with necrosis of bone Dry gangrene Gangrene of left foot Gangrenous toe Status post amputation History of gestational diabetes Hyperlipidemia Hypertension Necrosis of toe Nicotine dependence Nicotine dependence, cigarettes, uncomplicated Non-pressure chronic ulcer 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 Non-pressure chronic ulcer of right ankle with fat layer exposed Osteomyelitis PAD (peripheral artery disease) Peripheral arterial disease Peripheral neuropathy Peripheral neuropathy Toe osteomyelitis, right Surgical History H/O esophagogastroduodenoscopy (02/20/21) History of 2 sections History of carpal tunnel repair bilateral Status post colonoscopy (02/20/21) Repeat in 10 years Status post transmetatarsal amputation of right foot Family History Other Diabetes Hypertension Lung disease Denies family history of CAD (coronary artery disease) Chronic kidney disease (CKD) Anesthesia complication Social History Quit status (tobacco): has tried quititng Second hand smoke exposure: Yes Alcohol intake: never Lives independently: Yes Household members: spouse, family and children Marital status: service: No Current occupational status: unemployed History of recent travel: No Current gender identity: Female Female Reproductive History: Date of last menstrual period: 03/24/18 NIH stroke score NIHSS: Level Of Consciousness - 1a: 0 Level Of Consciousness Questions - 1b: Both Correct Level Of Consciousness Commands - 1c: Both Correct Best Gaze - 2: Normal Visual Cohen - 3: No Visual Loss Facial Palsy - 4: Minor Paralysis Motor Arm Right - 5: Drift Motor Arm Left - 5: No Drift Motor Leg Right - 6: No Drift Motor Leg Left - 6: No Drift Limb Ataxia - 7: Present In One Limb Sensory - 8: Mild To Moderate Loss Best Language - 9: No Aphasia Dysarthia - 10: Mild/Moderate Dysarthia Extinction And Inattention - 11: 0 Score: Total Score: 5 Physical Exam Const: COMMON NORMALS: no acute distress GENERAL APPEARANCE: cooperative and comfortable ORIENTATION/CONSCIOUSNESS: Yes awake, Yes oriented to person, Yes oriented to place and Yes oriented to time HENMT: COMMON NORMALS: normocephalic, atraumatic and hearing grossly normal bilaterally HEAD & SCALP: normocephalic and atraumatic Neck/C-Spine: COMMON NORMALS: no JVD Resp: COMMON NORMALS: normal respiratory effort, No retractions, No use of accessory muscles and clear to auscultation bilaterally AUSCULTATION: clear to auscultation bilaterally Cardio: COMMON NORMALS: no JVD, regular rate, regular rhythm and No murmurs present (Cardio) RATE: regular rate RHYTHM: regular rhythm GI: COMMON NORMALS: Soft to palpation and No hepatosplenomegaly present AUSCULTATION: Yes normoactive bowel sounds PALPATION: Yes Soft to palpation, No Tenderness to palpation present (GI), No Guarding due to palpation present (GI) and Yes No hepatosplenomegaly present Extremity: COMMON NORMALS: normal to inspection, capillary refill normal, no clubbing, cyanosis or edema, no calf tenderness and no pedal edema Neuro: SENSORIUM/ORIENTATION: Yes oriented to person, Yes oriented to place and Yes oriented to time OTHER: Right-sided facial droop right arm drift and right leg weakness. NIH score of 5 see scoring above. He also has decrease in sensation on the right side. Skin: COMMON NORMALS: no rashes or lesions noted GENERAL SKIN EXAM: no rashes or lesions noted Course Vital Signs: Vital signs: Vital Signs Temperature 99.5 F 07/03/21 16:42 Pulse Rate 94 07/03/21 19:39 Respiratory Rate 16 07/03/21 19:39 Blood Pressure 140/76 07/03/21 19:39 Pulse Oximetry 100 07/03/21 19:39 MDM - Neuro Symptoms/Deficit MDM Narrative: Medical decision making narrative: Consult with on-call neurology via telemedicine with [facility]. They recommend TPA. TPA administered per protocol patient had improvement. Care turned over to Dr. Pollard at change of shift we are still working on making arrangements for transfer to [facility] is anticipating excepting the patient we are waiting for bed assignment. Lab Data: Labs: Lab Results 07/03/21 07/03/21 07/03/21 16:41 16:45 16:45 WBC 10.8 10^3/uL H 10 ^3/uL (4.0-10.0) RBC 4.18 10^6/uL 10^6 /uL (4.1-5.3) Hgb 9.9 g/dL L g/dL (11.5-15.3) Hct 33.3 % L % (37.0-47.0) MCV 79.7 fl L fl (81-99) MCH 23.7 pg L pg (28.0-34.0) MCHC 29.7 g/dL L g/dL (30.0-36.0) RDW 17.1 % H % (12.1-15.1) Plt Count 486 10^3/cmm H 10 ^3/cmm (130-400) MPV 9.4 fL fL (7.4-10.4) Neut % (Auto) 64.3 % % Lymph % (Auto) 27.1 % % Charles % (Auto) 5.4 % % Eos % (Auto) 2.1 % % Baso % (Auto) 0.6 % % Neut # (Auto) 6.94 10^3/uL 10^3 /uL (1.8-7.7) Lymph # (Auto) 2.9 10^3/uL 10^3/ uL (0.8-4.8) Charles # (Auto) 0.6 10^3/uL 10^3/ uL (0.2-0.9) Eos # (Auto) 0.2 10^3/uL 10^3/ uL (0.0-0.8) Baso # (Auto) 0.1 10^3/uL 10^3/ uL (0.0-0.1) Nucleated RBC % (a uto) 0 % % Nucleated RBCs # 0.0 /100WBC /100W BC PT 13.40 SECONDS SEC ONDS (12.1-14.9) INR 0.99 (0.8-1.2) APTT 32.1 SECONDS SECO NDS (23.9-36.7) Sodium Potassium Chloride Carbon Dioxide Anion Gap BUN Creatinine GFR Calculation Glucose POC Glucose 168 mg/dL H mg/dL (70-110) Calculated Osmolal ity Calcium Total Bilirubin AST ALT Alkaline Phosphata se Total Protein Albumin Globulin Urine Color Urine Appearance Urine pH Ur Specific Gravit y Urine Protein Urine Glucose (UA) Urine Ketones Urine Blood Urine Nitrate Urine Bilirubin Urine Urobilinogen Ur Leukocyte Charity ase Urine Opiates Scre en Ur Barbiturates Sc reen Ur Phencyclidine S crn Ur Amphetamines Sc reen U Benzodiazepines Scrn Urine Cocaine Scre en U Marijuana (THC) Screen 07/03/21 07/03/21 07/03/21 16:45 17:13 17:13 WBC RBC Hgb Hct MCV MCH MCHC RDW Plt Count MPV Neut % (Auto) Lymph % (Auto) Charles % (Auto) Eos % (Auto) Baso % (Auto) Neut # (Auto) Lymph # (Auto) Charles # (Auto) Eos # (Auto) Baso # (Auto) Nucleated RBC % (a uto) Nucleated RBCs # PT INR APTT Sodium 134 mmol/L L mmol /L (136-145) Potassium 3.9 mmol/L mmol/L (3.5-5.1) Chloride 100 mmol/L mmol/L (98-107) Carbon Dioxide 23 mmol/L mmol/L (22-29) Anion Gap 14.9 (5-19) BUN 14 mg/dL mg/dL (6-20) Creatinine 0.7 mg/dL mg/dL (0.5-0.9) GFR Calculation 88.6 mL/min L mL/ min (90-130) Glucose 170 mg/dL H mg/dL (65-115) POC Glucose Calculated Osmolal ity 282 mOsm/kg L mOs m/kg (285-295) Calcium 9.0 mg/dL mg/dL (8.5-10.5) Total Bilirubin 0.2 mg/dL mg/dL (0.15-1.2) AST 10 U/L U/L (0-32) ALT 10 U/L U/L (0-33) Alkaline Phosphata se 90 IU/L IU/L (35-105) Total Protein 7.6 g/dL g/dL (6.6-8.7) Albumin 3.2 g/dL L g/dL (3.5-5.2) Globulin 4.4 g/dL g/dL (1.3-4.6) Urine Color Yellow (Yellow) Urine Appearance Clear (CLEAR) Urine pH 5 (5-7) Ur Specific Gravit y 1.020 (1.005-1.030) Urine Protein Neg (Negative) Urine Glucose (UA) Norm (Normal) Urine Ketones Negative (Negative) Urine Blood Neg (Negative) Urine Nitrate Negative (Negative) Urine Bilirubin Neg (Negative) Urine Urobilinogen Norm mg/dL mg/dL (Negative) Ur Leukocyte Charity ase Negative (Negative) Urine Opiates Scre en Negative ng/mL ng /mL (Negative) Ur Barbiturates Sc reen Negative ng/mL ng /mL (Negative) Ur Phencyclidine S crn Negative ng/mL ng /mL (Negative) Ur Amphetamines Sc reen Negative ng/mL ng /mL (Negative) U Benzodiazepines Scrn Negative ng/mL ng /mL (Negative) Urine Cocaine Scre en Negative ng/mL ng /mL (Negative) U Marijuana (THC) Screen Negative ng/mL ng /mL (Negative) 07/03/21 18:57 WBC RBC Hgb Hct MCV MCH MCHC RDW Plt Count MPV Neut % (Auto) Lymph % (Auto) Charles % (Auto) Eos % (Auto) Baso % (Auto) Neut # (Auto) Lymph # (Auto) Charles # (Auto) Eos # (Auto) Baso # (Auto) Nucleated RBC % (a uto) Nucleated RBCs # PT INR APTT Sodium Potassium Chloride Carbon Dioxide Anion Gap BUN Creatinine GFR Calculation Glucose POC Glucose 162 mg/dL H mg/dL (70-110) Calculated Osmolal ity Calcium Total Bilirubin AST ALT Alkaline Phosphata se Total Protein Albumin Globulin Urine Color Urine Appearance Urine pH Ur Specific Gravit y Urine Protein Urine Glucose (UA) Urine Ketones Urine Blood Urine Nitrate Urine Bilirubin Urine Urobilinogen Ur Leukocyte Charity ase Urine Opiates Scre en Ur Barbiturates Sc reen Ur Phencyclidine S crn Ur Amphetamines Sc reen U Benzodiazepines Scrn Urine Cocaine Scre en U Marijuana (THC) Screen Critical Care Time Critical Care Time: Critical Care Time: Yes Total Critical Care Time: 20 Attestation: This case had a high probability of a clinically significant, sudden, or life threatening deterioration of this patient's condition which required my full and direct attention, intervention and personal management. Patient presents as a stroke alert. Critical care time for initial assessment and review of imaging discussion with on-call neurology and initiation of TPA protocols. Discharge Plan Discharge Patient Disposition: Xfer Short-Term Hosp Clinical Impression: Cerebrovascular accident Condition: Stable Referrals: Grazyna Bonner FNP [Primary Care Provider] - Coding Level of Care Code ED Assignment Desk Assistant for Chg Fwd Documented by User: Adeola Pollard MD 07/03/21 19:35 HPI - Neuro Symptoms/Deficit General: Chief Complaint: Neuro Symptoms/Deficit Stated Complaint: POSSIBLE STROKE Time Seen by Provider: 07/03/21 16:29 PFSH ED PFSH: Medical History Anxiety and depression 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 Diabetes mellitus, type II Diabetic peripheral neuropathy associated with type 2 diabetes mellitus Diabetic peripheral neuropathy associated with type 2 diabetes mellitus Diabetic ulcer of foot associated with diabetes mellitus due to underlying condition, with necrosis of bone Dry gangrene Gangrene of left foot Gangrenous toe Status post amputation History of gestational diabetes Hyperlipidemia Hypertension Necrosis of toe Nicotine dependence Nicotine dependence, cigarettes, uncomplicated Non-pressure chronic ulcer 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 Non-pressure chronic ulcer of right ankle with fat layer exposed Osteomyelitis PAD (peripheral artery disease) Peripheral arterial disease Peripheral neuropathy Peripheral neuropathy Toe osteomyelitis, right Surgical History H/O esophagogastroduodenoscopy (02/20/21) History of 2 sections History of carpal tunnel repair bilateral Status post colonoscopy (02/20/21) Repeat in 10 years Status post transmetatarsal amputation of right foot Family History Other Diabetes Hypertension Lung disease Denies family history of CAD (coronary artery disease) Chronic kidney disease (CKD) Anesthesia complication Social History Quit status (tobacco): has tried quititng Second hand smoke exposure: Yes Alcohol intake: never Lives independently: Yes Household members: spouse, family and children Marital status: service: No Current occupational status: unemployed History of recent travel: No Current gender identity: Female Course Reevaluation(s): Reevaluation #1: Patient became minimally responsive she will open her eyes but has no verbal communication and is not following any commands. Patient did receive TPA from previous provider will get emergent CT scan of her head to rule out hemorrhage patient's blood pressure is currently in the 130s. We will get a Accu-Chek as well. Time: 18:39 Vital Signs: Vital signs: Vital Signs Temperature 99.5 F 07/03/21 16:42 Pulse Rate 94 07/03/21 19:39 Respiratory Rate 16 07/03/21 19:39 Blood Pressure 140/76 07/03/21 19:39 Pulse Oximetry 100 07/03/21 19:39 MDM - Neuro Symptoms/Deficit MDM Narrative: Medical decision making narrative: Patient had been seen by Dr. Castelan and transferred after he left her mental status change was concerned she was going to have a hemorrhage from the CP CT head was normal glucose is normal blood pressure here has been stable pulse ox is normal patient could have had a possible seizure did update balance have a bed for her will transfer immediately by air. She is protecting her own airway and does not need to be intubated at this time. Lab Data: Labs: Lab Results 07/03/21 07/03/21 07/03/21 16:41 16:45 16:45 WBC 10.8 10^3/uL H 10 ^3/uL (4.0-10.0) RBC 4.18 10^6/uL 10^6 /uL (4.1-5.3) Hgb 9.9 g/dL L g/dL (11.5-15.3) Hct 33.3 % L % (37.0-47.0) MCV 79.7 fl L fl (81-99) MCH 23.7 pg L pg (28.0-34.0) MCHC 29.7 g/dL L g/dL (30.0-36.0) RDW 17.1 % H % (12.1-15.1) Plt Count 486 10^3/cmm H 10 ^3/cmm (130-400) MPV 9.4 fL fL (7.4-10.4) Neut % (Auto) 64.3 % % Lymph % (Auto) 27.1 % % Charles % (Auto) 5.4 % % Eos % (Auto) 2.1 % % Baso % (Auto) 0.6 % % Neut # (Auto) 6.94 10^3/uL 10^3 /uL (1.8-7.7) Lymph # (Auto) 2.9 10^3/uL 10^3/ uL (0.8-4.8) Charles # (Auto) 0.6 10^3/uL 10^3/ uL (0.2-0.9) Eos # (Auto) 0.2 10^3/uL 10^3/ uL (0.0-0.8) Baso # (Auto) 0.1 10^3/uL 10^3/ uL (0.0-0.1) Nucleated RBC % (a uto) 0 % % Nucleated RBCs # 0.0 /100WBC /100W BC PT 13.40 SECONDS SEC ONDS (12.1-14.9) INR 0.99 (0.8-1.2) APTT 32.1 SECONDS SECO NDS (23.9-36.7) Sodium Potassium Chloride Carbon Dioxide Anion Gap BUN Creatinine GFR Calculation Glucose POC Glucose 168 mg/dL H mg/dL (70-110) Calculated Osmolal ity Calcium Total Bilirubin AST ALT Alkaline Phosphata se Total Protein Albumin Globulin Urine Color Urine Appearance Urine pH Ur Specific Gravit y Urine Protein Urine Glucose (UA) Urine Ketones Urine Blood Urine Nitrate Urine Bilirubin Urine Urobilinogen Ur Leukocyte Charity ase Urine Opiates Scre en Ur Barbiturates Sc reen Ur Phencyclidine S crn Ur Amphetamines Sc reen U Benzodiazepines Scrn Urine Cocaine Scre en U Marijuana (THC) Screen 07/03/21 07/03/21 07/03/21 16:45 17:13 17:13 WBC RBC Hgb Hct MCV MCH MCHC RDW Plt Count MPV Neut % (Auto) Lymph % (Auto) Charles % (Auto) Eos % (Auto) Baso % (Auto) Neut # (Auto) Lymph # (Auto) Charles # (Auto) Eos # (Auto) Baso # (Auto) Nucleated RBC % (a uto) Nucleated RBCs # PT INR APTT Sodium 134 mmol/L L mmol /L (136-145) Potassium 3.9 mmol/L mmol/L (3.5-5.1) Chloride 100 mmol/L mmol/L (98-107) Carbon Dioxide 23 mmol/L mmol/L (22-29) Anion Gap 14.9 (5-19) BUN 14 mg/dL mg/dL (6-20) Creatinine 0.7 mg/dL mg/dL (0.5-0.9) GFR Calculation 88.6 mL/min L mL/ min (90-130) Glucose 170 mg/dL H mg/dL (65-115) POC Glucose Calculated Osmolal ity 282 mOsm/kg L mOs m/kg (285-295) Calcium 9.0 mg/dL mg/dL (8.5-10.5) Total Bilirubin 0.2 mg/dL mg/dL (0.15-1.2) AST 10 U/L U/L (0-32) ALT 10 U/L U/L (0-33) Alkaline Phosphata se 90 IU/L IU/L (35-105) Total Protein 7.6 g/dL g/dL (6.6-8.7) Albumin 3.2 g/dL L g/dL (3.5-5.2) Globulin 4.4 g/dL g/dL (1.3-4.6) Urine Color Yellow (Yellow) Urine Appearance Clear (CLEAR) Urine pH 5 (5-7) Ur Specific Gravit y 1.020 (1.005-1.030) Urine Protein Neg (Negative) Urine Glucose (UA) Norm (Normal) Urine Ketones Negative (Negative) Urine Blood Neg (Negative) Urine Nitrate Negative (Negative) Urine Bilirubin Neg (Negative) Urine Urobilinogen Norm mg/dL mg/dL (Negative) Ur Leukocyte Charity ase Negative (Negative) Urine Opiates Scre en Negative ng/mL ng /mL (Negative) Ur Barbiturates Sc reen Negative ng/mL ng /mL (Negative) Ur Phencyclidine S crn Negative ng/mL ng /mL (Negative) Ur Amphetamines Sc reen Negative ng/mL ng /mL (Negative) U Benzodiazepines Scrn Negative ng/mL ng /mL (Negative) Urine Cocaine Scre en Negative ng/mL ng /mL (Negative) U Marijuana (THC) Screen Negative ng/mL ng /mL (Negative) 07/03/21 18:57 WBC RBC Hgb Hct MCV MCH MCHC RDW Plt Count MPV Neut % (Auto) Lymph % (Auto) Charles % (Auto) Eos % (Auto) Baso % (Auto) Neut # (Auto) Lymph # (Auto) Charles # (Auto) Eos # (Auto) Baso # (Auto) Nucleated RBC % (a uto) Nucleated RBCs # PT INR APTT Sodium Potassium Chloride Carbon Dioxide Anion Gap BUN Creatinine GFR Calculation Glucose POC Glucose 162 mg/dL H mg/dL (70-110) Calculated Osmolal ity Calcium Total Bilirubin AST ALT Alkaline Phosphata se Total Protein Albumin Globulin Urine Color Urine Appearance Urine pH Ur Specific Gravit y Urine Protein Urine Glucose (UA) Urine Ketones Urine Blood Urine Nitrate Urine Bilirubin Urine Urobilinogen Ur Leukocyte Charity ase Urine Opiates Scre en Ur Barbiturates Sc reen Ur Phencyclidine S crn Ur Amphetamines Sc reen U Benzodiazepines Scrn Urine Cocaine Scre en U Marijuana (THC) Screen Critical Care Time Critical Care Time: Critical Care Time: Yes Total Critical Care Time: 35 Attestation: The high probability of a clinically significant, sudden or life threatening deterioration of the patient's [] system(s) required my full and direct attention, intervention and personal management. The critical care time is as shown. This time is in addition to time spent performing any reported procedures but includes the following: [x] Data and vital sign review and interpretation [x] Patient assessment, examination and intervention [x] Documentation [x] Medication orders and management Discharge Plan Discharge Patient Disposition: Xfer Short-Term Hosp Clinical Impression: Cerebrovascular accident Condition: Stable Referrals: Grazyna Bonner FNP [Primary Care Provider] - Coding Level of Care Code ED Assignment Desk Assistant for Harley Patel
[2021-07-03 16:42] VITALS: BP 170/95; PULSE 82; RESP 16; TEMP 37.5; O2SAT 96; BMI 34.2
[2021-07-03 16:51] LABS: Glucose Point of Care 168 mg/dL (70-110)
[2021-07-03 16:56] LABS: Basophils # 0.1 10^3/uL (0.0-0.1); Basophils % 0.6 %; Eosinophils # 0.2 10^3/uL (0.0-0.8); Eosinophils % 2.1 %; Hematocrit 33.3 % (37.0-47.0); Hemoglobin 9.9 g/dL (11.5-15.3); Lymphocytes # 2.9 10^3/uL (0.8-4.8); Lymphocytes % 27.1 %; Mean Corpuscular HGB Conc 29.7 g/dL (30.0-36.0); Mean Corpuscular Hemoglobin 23.7 pg (28.0-34.0); Mean Corpuscular Volume 79.7 fl (81-99); Mean Platelet Volume 9.4 fL (7.4-10.4); Monocytes # 0.6 10^3/uL (0.2-0.9); Monocytes % 5.4 %; Neutrophils # 6.94 10^3/uL (1.8-7.7); Neutrophils % 64.3 %; Nucleated Red Blood Cells % 0 %; Platelet Count 486 10^3/cmm (130-400); Red Blood Count 4.18 10^6/uL (4.1-5.3); Red Cell Distribution Width 17.1 % (12.1-15.1); White Blood Count 10.8 10^3/uL (4.0-10.0)
[2021-07-03 17:15] LABS: Alanine Aminotransferase 10 U/L (0-33); Albumin Level 3.2 g/dL (3.5-5.2); Alkaline Phosphatase 90 IU/L (35-105); Anion Gap 14.9 (5-19); Aspartate Amino Transferase 10 U/L (0-32); Blood Urea Nitrogen 14 mg/dL (6-20); Carbon Dioxide 23 mmol/L (22-29); Chloride 100 mmol/L (98-107); Globulin 4.4 g/dL (1.3-4.6); Glomerular Filtration Rate 88.6 mL/min (90-130); Glucose 170 mg/dL (65-115); Osmolality Calculated 282 mOsm/kg (285-295); Potassium 3.9 mmol/L (3.5-5.1); Sodium 134 mmol/L (136-145); Total Bilirubin 0.2 mg/dL (0.15-1.2); Total Protein 7.6 g/dL (6.6-8.7)
[2021-07-03 17:25] LABS: Add Urine Microscopic? NO; Charge for UA Resulting for Rev
[2021-07-03 17:31] VITALS: BP 149/89; PULSE 798; O2SAT 96
[2021-07-03 17:36] LABS: Amphetamines Screen Urine Negative (Negative); Barbiturates Screen Urine Negative (Negative); Benzodiazepines Screen Urine Negative (Negative); Cocaine Screen Urine Negative (Negative); Opiate Screen Urine Negative (Negative); PCP Screen Urine Negative (Negative); THC Screen Urine Negative (Negative)
[2021-07-03 17:42] LABS: Bilirubin Urine Neg (Negative); Blood Urine Neg (Negative); Glucose Urine UA Norm (Normal); Ketones Urine Negative (Negative); Leukocyte Esterase Urine Negative (Negative); Nitrate Urine Negative (Negative); Protein Urine Neg (Negative); Urine Color Yellow (Yellow); Urobilinogen Urine Norm (Negative); pH Urine 5 (5-7)
[2021-07-03 17:43] LABS: Urine Appearance Clear (CLEAR)
[2021-07-03 17:58] LABS: INR 0.99 (0.8-1.2)
[2021-07-03 17:59] LABS: Partial Thromboplastin Time 32.1 SECONDS (23.9-36.7)
[2021-07-03 18:01] VITALS: BP 161/87; PULSE 89; O2SAT 96
--- NOTE | 2021-07-03 18:48 | CTR_ITS ---
PROCEDURE INFORMATION: Exam: CT Head Without Contrast Exam date and time: 07/03/2021 6:48 PM Age: 51 years old Clinical indication: Altered mental status/memory loss; Additional info: Post tpa, AMS TECHNIQUE: Imaging protocol: Computed tomography of the head without contrast. Radiation optimization: All CT scans at this facility use at least one of these dose optimization techniques: automated exposure control; mA and/or kV adjustment per patient size (includes targeted exams where dose is matched to clinical indication); or iterative reconstruction. COMPARISON: CT head wo con* [id number] 07/03/2021 4:23 PM RADIATION DOSE METRICS: Total DLP (mGy-cm): 1501.7 FINDINGS: Brain: Chronic infarct of the left basal ganglia. There are moderate periventricular and subcortical lucencies consistent with chronic microvascular ischemic changes. The edwards-white differentiation is maintained. No hemorrhage. No edema. Cerebral ventricles: No ventriculomegaly. Paranasal sinuses: Visualized sinuses are unremarkable. No fluid levels. Mastoid air cells: Visualized mastoid air cells are well aerated. Vasculature: Vascular calcifications. Bones/joints: Unremarkable. No acute fracture. Soft tissues: Unremarkable. CT/CT head wo con* [id number] IMPRESSION: No acute intracranial abnormality. Chronic microvascular ischemic changes. Radiation Dose CTDIVOL = (mGy): DLP = 1501.7 (mGy-cm)
[2021-07-03 19:04] LABS: Glucose Point of Care 162 mg/dL (70-110)
[2021-07-03 19:39] VITALS: BP 140/76; PULSE 94; RESP 16; O2SAT 100
--- NOTE | 2021-07-04 12:27 | PC.SOCIAL ---
Followed up with spouse after patient was transferred to see how she is doing. He indicates provider at facility called to update that his is improving some. She is sitting up on her own but is not speaking at this time. He is waiting on nurse to provider more information. We discussed PCP listed as Grazyna Bonner and he indicates he believes so but not sure exactly. We discussed that her [facility] does not cover skilled care but to discuss with therapy and staff to ensure patient is being evaluated and sent home with detailed instructions for rehab as she improves. He verbalized understanding.
== END 2021-07-03 20:00 | disposition short-term general hospital (02) ==
PROVIDERS: Family Medicine; Emergency Provider Emergency Medicine; PCP Nurse Practitioner Family
DX: I63.9 Cerebral infarction, unspecified (principal); E11.42 Type 2 diabetes mellitus with diabetic polyneuropathy; I10 Essential (primary) hypertension; E78.5 Hyperlipidemia, unspecified; I73.9 Peripheral vascular disease, unspecified; Z79.82 Long term (current) use of aspirin; Z79.4 Long term (current) use of insulin
CPT/HCPCS: 36416; 70450; 71045; 80053; 80306; 81003; 82962; 85025; 85610; 85730; 93005; 96374; 99291; J2997

== ENCOUNTER 2021-08-13 16:22 | Outpatient (CLI) | payer MEDICAID, SELFPAY ==
[2021-08-13 16:46] LABS: Hematocrit 34.5 % (37.0-47.0); Mean Corpuscular Hemoglobin 24.8 pg (28.0-34.0); Mean Corpuscular Volume 85.4 fl (81-99); Platelet Count 461 10^3/cmm (130-400); Red Blood Count 4.04 10^6/uL (4.1-5.3); Red Cell Distribution Width 19.8 % (12.1-15.1); White Blood Count 8.5 10^3/uL (4.0-10.0)
[2021-08-13 17:12] LABS: Estmated Average Glucose 174; Hemoglobin A1C 7.7 % (4.0-6.0)
[2021-08-13 17:32] LABS: Absolute Eosinophils 0.1 10^3/cmm (0.0-0.7); Absolute Neutrophil 5.5 10^3/cmm (1.4-6.5); Absolute Segmented Neutrophil 5.5 10/cmm (1.6-7.1); Eosinophils 2 %; Lymphocytes 19 %; Monocytes Absolute 0.9 10^3/cmm (0.1-0.6); Platelet Estimate Increased (Normal); Segmented Neutrophils 65 %; Total Cells Counted 100 (0-100)
[2021-08-13 17:49] LABS: Alanine Aminotransferase 12 U/L (0-33); Albumin Level 3.7 g/dL (3.5-5.2); Alkaline Phosphatase 68 IU/L (35-105); Anion Gap 22.6 (5-19); Aspartate Amino Transferase 23 U/L (0-32); Blood Urea Nitrogen 53 mg/dL (6-20); Carbon Dioxide 23 mmol/L (22-29); Chloride 98 mmol/L (98-107); Chol HDL Ratio 5.18 mg/dL (0.0-4.40); Cholesterol 88 mg/dL (0-200); Glomerular Filtration Rate 39.8 mL/min (90-130); Glucose 115 mg/dL (65-115); HDL Cholesterol 17 mg/dL (60-100); LDL Cholesterol Calculated 32 mg/dL (50-129); LDL HDL Ratio 1.88 RATIO (0.00-3.22); Osmolality Calculated 301 mOsm/kg (285-295); Potassium 5.6 mmol/L (3.5-5.1); Sodium 138 mmol/L (136-145); Total Bilirubin 0.2 mg/dL (0.15-1.2); Total Protein 7.7 g/dL (6.6-8.7); Triglycerides 197 mg/dL (0-150)
[2021-08-13 18:04] LABS: 25 Hydroxy Vitamin D 19 ng/mL (30-100); Thyroid Stimulating Hormone 2.25 uIU/mL (0.27-4.20); Vitamin B12 463 pg/mL (232-1245)
== END 2021-08-13 16:23 | disposition home or self-care (01) ==
LOC: LAB 16:27
PROVIDERS: PCP Nurse Practitioner Family; Visit Provider Nurse Practitioner Family
DX: Z47.81 Encounter for orthopedic aftercare following surgical amputation (principal)
CPT/HCPCS: 80053; 80061; 82306; 82607; 83036; 84443; 85007; 85027

== ENCOUNTER → 2022-03-03 11:58 | Outpatient (BNVA) | payer MEDICAID, SELFPAY | PROVIDERS: PCP Nurse Practitioner Family; Visit Provider Nurse Practitioner Family | DX: I10 Essential (primary) hypertension (principal); F41.9 Anxiety disorder, unspecified; F32.9 Major depressive disorder, single episode, unspecified; K52.9 Noninfective gastroenteritis and colitis, unspecified; E11.9 Type 2 diabetes mellitus without complications; D64.9 Anemia, unspecified; Z78.0 Asymptomatic menopausal state; Z93.1 Gastrostomy status; R32 Unspecified urinary incontinence; R15.9 Full incontinence of feces | CPT/HCPCS: 80053; 80061; 82306; 83036; 84443 ==

== ENCOUNTER → 2022-10-14 17:16 | Outpatient (BNVA) | payer MEDICARE, MEDICAID, SELFPAY | PROVIDERS: PCP Nurse Practitioner Family; Visit Provider Nurse Practitioner Family | DX: E11.9 Type 2 diabetes mellitus without complications (principal); I10 Essential (primary) hypertension; E55.9 Vitamin D deficiency, unspecified | CPT/HCPCS: 80053; 80061; 82306; 82607; 83036; 84443; 85025 ==

== ENCOUNTER → 2023-03-03 13:56 | Outpatient (BNVA) | payer MEDICARE, MEDICAID, SELFPAY | PROVIDERS: PCP Nurse Practitioner Family; Visit Provider Nurse Practitioner Family | DX: I96 Gangrene, not elsewhere classified (principal); L97.522 Non-pressure chronic ulcer of other part of left foot with fat layer exposed | CPT/HCPCS: 97597; 99213 ==

== ENCOUNTER → 2023-03-10 14:41 | Outpatient (BNVA) | payer MEDICARE, MEDICAID, SELFPAY | PROVIDERS: PCP Nurse Practitioner Family; Visit Provider Nurse Practitioner Family | DX: I96 Gangrene, not elsewhere classified (principal); L97.512 Non-pressure chronic ulcer of other part of right foot with fat layer exposed | CPT/HCPCS: 97597; A6210 ==

== ENCOUNTER → 2023-03-17 13:55 | Outpatient (BNVA) | payer MEDICARE, MEDICAID, SELFPAY | PROVIDERS: PCP Nurse Practitioner Family; Visit Provider Nurse Practitioner Family | DX: I96 Gangrene, not elsewhere classified (principal); L97.512 Non-pressure chronic ulcer of other part of right foot with fat layer exposed | CPT/HCPCS: 97597; A6210 ==

== ENCOUNTER → 2023-03-24 13:01 | Outpatient (BNVA) | payer MEDICARE, MEDICAID, SELFPAY | PROVIDERS: PCP Nurse Practitioner Family; Visit Provider Nurse Practitioner Family | DX: I96 Gangrene, not elsewhere classified (principal); L97.512 Non-pressure chronic ulcer of other part of right foot with fat layer exposed | CPT/HCPCS: 97597 ==

== ENCOUNTER → 2023-04-07 12:54 | Outpatient (BNVA) | payer MEDICARE, MEDICAID, SELFPAY | PROVIDERS: PCP Nurse Practitioner Family; Visit Provider Nurse Practitioner Family | DX: I96 Gangrene, not elsewhere classified (principal); L97.512 Non-pressure chronic ulcer of other part of right foot with fat layer exposed | CPT/HCPCS: 97597; A6210; A6220 ==

== ENCOUNTER → 2023-04-21 12:52 | Outpatient (BNVA) | payer MEDICARE, MEDICAID, SELFPAY | PROVIDERS: PCP Nurse Practitioner Family; Visit Provider Nurse Practitioner Family | DX: I96 Gangrene, not elsewhere classified (principal); L97.512 Non-pressure chronic ulcer of other part of right foot with fat layer exposed | CPT/HCPCS: 97597; A6210; A6251 ==

== ENCOUNTER → 2023-04-28 14:10 | Outpatient (BNVA) | payer MEDICARE, MEDICAID, SELFPAY | PROVIDERS: PCP Nurse Practitioner Family; Visit Provider Nurse Practitioner Family | DX: I96 Gangrene, not elsewhere classified (principal); L97.512 Non-pressure chronic ulcer of other part of right foot with fat layer exposed | CPT/HCPCS: 97597; A6210; A6212; A6251 ==

== ENCOUNTER → 2023-05-05 13:47 | Outpatient (BNVA) | payer MEDICARE, MEDICAID, SELFPAY | PROVIDERS: PCP Nurse Practitioner Family; Visit Provider Nurse Practitioner Family | DX: I96 Gangrene, not elsewhere classified (principal); L97.412 Non-pressure chronic ulcer of right heel and midfoot with fat layer exposed; S80.811A Abrasion, right lower leg, initial encounter; W22.8XXA Striking against or struck by other objects, initial encounter | CPT/HCPCS: 97597; A6210; A6219; A6220 ==

== ENCOUNTER → 2023-05-12 13:51 | Outpatient (BNVA) | payer MEDICARE, MEDICAID, SELFPAY | PROVIDERS: PCP Nurse Practitioner Family; Visit Provider Nurse Practitioner Family | DX: I96 Gangrene, not elsewhere classified (principal); S80.811D Abrasion, right lower leg, subsequent encounter; X58.XXXD Exposure to other specified factors, subsequent encounter; Z09 Encounter for follow-up examination after completed treatment for conditions other than malignant neoplasm | CPT/HCPCS: 97597; A6210; A6219; A6220 ==

== ENCOUNTER 2023-05-19 14:30 | Emergency (ER) | payer MEDICARE, MEDICAID, SELFPAY | END 2023-05-19 14:44 | disposition home or self-care (01) | LOC: ER 14:39 | PROVIDERS: Emergency Provider Family Medicine; PCP Nurse Practitioner Family | DX: S80.811D Abrasion, right lower leg, subsequent encounter (principal); X58.XXXD Exposure to other specified factors, subsequent encounter | CPT/HCPCS: 99212; A6210; A6212 ×2 ==

== ENCOUNTER → 2023-07-28 12:12 | Outpatient (BNVA) | payer MEDICARE, MEDICAID, SELFPAY | PROVIDERS: PCP Nurse Practitioner Family; Visit Provider Nurse Practitioner Family | DX: E55.9 Vitamin D deficiency, unspecified (principal); E78.5 Hyperlipidemia, unspecified; E11.9 Type 2 diabetes mellitus without complications; I10 Essential (primary) hypertension; D64.9 Anemia, unspecified; E53.8 Deficiency of other specified B group vitamins | CPT/HCPCS: 80053; 80061; 82306; 82607; 83036; 84443; 85025 ==

== ENCOUNTER → 2024-04-11 16:35 | Outpatient (BNVA) | payer MEDICARE, MEDICAID, SELFPAY | PROVIDERS: PCP Nurse Practitioner Family; Visit Provider Nurse Practitioner Family | DX: E11.65 Type 2 diabetes mellitus with hyperglycemia (principal) | CPT/HCPCS: 80053; 80061; 83036; 84443; 85025 ==

== ENCOUNTER → 2024-04-18 15:48 | Outpatient (BNVA) | payer MEDICARE, MEDICAID, SELFPAY | PROVIDERS: PCP Nurse Practitioner Family; Visit Provider Nurse Practitioner Family | DX: E11.65 Type 2 diabetes mellitus with hyperglycemia (principal) | CPT/HCPCS: 80053 ==

== ENCOUNTER → 2024-08-25 12:03 | Outpatient (BNVA) | payer MEDICARE, MEDICAID, SELFPAY | PROVIDERS: PCP Nurse Practitioner Family; Visit Provider Nurse Practitioner Family | DX: E11.65 Type 2 diabetes mellitus with hyperglycemia (principal); E78.5 Hyperlipidemia, unspecified; E55.9 Vitamin D deficiency, unspecified | CPT/HCPCS: 80053; 80061; 82306; 83036; 85025 ==

== ENCOUNTER → 2025-03-13 15:16 | Outpatient (BNVA) | payer MEDICARE, MEDICAID, SELFPAY | PROVIDERS: PCP Nurse Practitioner Family; Visit Provider Nurse Practitioner Family | DX: E11.65 Type 2 diabetes mellitus with hyperglycemia (principal); E55.9 Vitamin D deficiency, unspecified; N18.9 Chronic kidney disease, unspecified; E78.5 Hyperlipidemia, unspecified | CPT/HCPCS: 80053; 80061; 82306; 82310; 83036; 83970; 84443; 85025 ==

== ENCOUNTER → 2025-03-14 13:20 | Outpatient (BNVA) | payer MEDICARE, MEDICAID, SELFPAY | PROVIDERS: PCP Nurse Practitioner Family; Visit Provider Nurse Practitioner Family | DX: E11.65 Type 2 diabetes mellitus with hyperglycemia (principal); N18.9 Chronic kidney disease, unspecified | CPT/HCPCS: 82043 ==

== ENCOUNTER 2025-03-23 12:01 | Outpatient (CLI) | payer MEDICARE, SELFPAY ==
--- NOTE | 2025-03-23 12:04 | XR_ITS ---
WS: [id number] Right foot, 3 views, 03/23/2025 Clinical Data: non healing wound to ankle, r/o osteo Comparison: Right foot, 09/17/2020 Findings: The amputation of the forefoot distal to the cuneiforms has not changed. There are no fractures. There is loss of definition of the distal fibula. No sequestra are seen. The remainder of the tarsal bones are normal. XR/XR foot RT min 3V* [id number] Impression: Loss of definition of tip of distal right fibula which could indicate bone eros ion and osteomyelitis.
[2025-03-23 13:14] LABS: Hematocrit 41.7 % (36-47); Hemoglobin 12.40 g/dL (11.27-16.99); Mean Corpuscular HGB Conc 29.7 g/dL (30-55); Mean Corpuscular Hemoglobin 25.4 pg (27-33); Mean Corpuscular Volume 85.5 fl (85-98); Platelet Count 344 10^3/cmm (157-399); Red Blood Count 4.88 10^6/uL (3.85-5.65); White Blood Count 7.47 10^3/uL (3.29-11.43)
[2025-03-23 13:15] LABS: Nucleated Red Blood Cells % 0 %
== END 2025-03-23 12:02 | disposition home or self-care (01) ==
PROVIDERS: PCP Nurse Practitioner Family; Visit Provider Thoracic Surgery (Cardiothoracic Vascular Surgery)
DX: E11.621 Type 2 diabetes mellitus with foot ulcer (principal); L97.509 Non-pressure chronic ulcer of other part of unspecified foot with unspecified severity; E11.65 Type 2 diabetes mellitus with hyperglycemia; N18.9 Chronic kidney disease, unspecified; M84.863 Other disorders of continuity of bone, right fibula
CPT/HCPCS: 11043; 36415; 73630; 85025; 85651; 86140; 87070; 87176; 87186; 87205; 99203

== ENCOUNTER 2025-03-28 13:25 | Outpatient (CLI) | payer MEDICARE, SELFPAY ==
--- NOTE | 2025-03-28 13:29 | US_ITS ---
WS: [id number] RENAL ULTRASOUND HISTORY: STAGE 3B CHRONIC KIDNEY DZ COMPARISON: CT 02/18/2021 TECHNIQUE: 2-D and color Doppler imaging of the kidney submitted. Right kidney: 9.0 cm x 4.5 cm x 5.6 cm. Cortex: 1.1 cm Low normal size kidney. Normal thickening of the cortex. No obstruction or mass. Left kidney: 8.3 cm x 5.5 cm x 5.0 cm. Cortex: 0.6 cm Mild atrophy LEFT kidney. Diffuse cortical thinning. No renal obstruction. Aorta: Mild atherosclerosis. No aneurysm. Urinary Bladder: Normal distention. US/US renal BI* [id number] IMPRESSION: 1. Low normal size RIGHT kidney and mild atrophy LEFT kidney. Renal size has s lightly decreased from the CT of 02/18/2021. 2. Diffuse cortical thinning LEFT kidney. 3. No renal obstruction.
== END 2025-03-28 13:26 | disposition home or self-care (01) ==
LOC: RAD 13:26
PROVIDERS: PCP Nurse Practitioner Family; Visit Provider Internal Medicine Nephrology
DX: N18.32 Chronic kidney disease, stage 3b (principal)
CPT/HCPCS: 76770

== ENCOUNTER 2025-04-05 09:15 | Outpatient (CLI) | payer MEDICARE, SELFPAY ==
--- NOTE | 2025-04-05 09:00 | NM_ITS ---
WS: [email or web address] THREE-PHASE BONE SCAN HISTORY: L97.822 - Non-pressure chronic ulcer of other part RIGHT ankle COMPARISON: RIGHT foot radiographs 03/23/2025. Patient is is injected with 24.1 mCi Tc99m HDP intravenously. Immediate angiographic phase imaging is performed over the area of concern. Static blood pool imaging also performed. Two-hour whole-body scintigrams performed in anterior and posterior projections. Additional large field of view imaging sub mitted as necessary. All 3 phases the bone scan are positive involving the distal lateral ankle at the level of the fibular tip. This corresponds to the loss of the normal cortex seen radiographically. Short segment area of osteomyelitis. There is overlying subcutaneous emphysema and cellulitis. The increased uptake extends along the talar dome. Mild bilateral AC joint arthropathy. There is subtle area of increased uptake in the posterior LEFT ankle. Increased intermediate uptake in the posterior calcaneal facets. NM/NM bone 3 phase [id number] IMPRESSION: Osteomyelitis with cellulitis involving the distal fibula which corresponds to the recent radiographic findings. There is also abnormal uptake extending along the talar dome of the RIGHT ankle. Suspicious for osteomyelitis involving the talar dome. Intermediate uptake bilaterally in the posterior calcaneal facets. May be due t o arthropathy.
== END 2025-04-05 09:16 | disposition home or self-care (01) ==
PROVIDERS: PCP Nurse Practitioner Family; Visit Provider Thoracic Surgery (Cardiothoracic Vascular Surgery)
DX: L97.822 Non-pressure chronic ulcer of other part of left lower leg with fat layer exposed (principal); M89.8X7 Other specified disorders of bone, ankle and foot; M24.171 Other articular cartilage disorders, right ankle
CPT/HCPCS: 78315; A9561

== ENCOUNTER → 2025-04-06 14:08 | Outpatient (BNVA) | payer MEDICARE, SELFPAY | PROVIDERS: PCP Nurse Practitioner Family; Visit Provider Thoracic Surgery (Cardiothoracic Vascular Surgery) | DX: E11.52 Type 2 diabetes mellitus with diabetic peripheral angiopathy with gangrene (principal); E11.622 Type 2 diabetes mellitus with other skin ulcer; L89.512 Pressure ulcer of right ankle, stage 2 | CPT/HCPCS: 97597 ==

== ENCOUNTER → 2025-04-10 11:41 | Day surgery (SDC) | payer MEDICARE, SELFPAY ==
[2025-04-10 11:40] VITALS: BP 108/65; PULSE 78; RESP 16; TEMP 36.1; O2SAT 98
--- NOTE | 2025-04-10 12:02 | XR_ITS ---
WS: [id number] Portable AP upright chest, 04/10/2025 Clinical Data: post picc insertion Comparison: Portable chest, 07/03/2021 Findings: The left PICC line ends at the caval atrial junction. No pneumothorax is seen. XR/XR chest 1V portable [id number] Impression: Satisfactory insertion of left PICC line.
[2025-04-10] MEDS: cefTRIAXone 1,000 mg SDV 1000 MG IVP (12:30)
--- NOTE | 2025-04-10 13:10 | PICC.NOTE ---
Single lumen PICC placed to left basilic vein. Referred to vascular access nurse for PICC placement from wound care due to osteo and need for IV antibiotics x 6 weeks. Risks and benefits discussed and informed consent obtained from patient significant other, Shamir. Pt with history of stroke and right sided weakness. Left arm assessed with left basilic vein measuring 4.8 mm, straight, and apparent best choice for placement. Using sterile technique and MST, left basilic vein accessed x 1 stick. Mid-arm circumference measured 10 cm from left AC 29 cm. Trimmed cath 45 cm with 1 cm external length noted. CXR shows tip in cavoatrial junction, in good position for use per radiologist. Line secured with stat-lock. Insertion site covered with Biopatch and TSM. Report called and faxed to [facility] and [employer].
== END ==
LOC: GILAB 11:42
PROVIDERS: PCP Nurse Practitioner Family; Visit Provider Thoracic Surgery (Cardiothoracic Vascular Surgery)
DX: M86.162 Other acute osteomyelitis, left tibia and fibula (principal)
CPT/HCPCS: 36573; 71045; 96374; J0696

== ENCOUNTER → 2025-04-12 13:04 | Outpatient (BNVA) | payer MEDICARE, SELFPAY | PROVIDERS: PCP Nurse Practitioner Family; Visit Provider Thoracic Surgery (Cardiothoracic Vascular Surgery) | DX: E11.52 Type 2 diabetes mellitus with diabetic peripheral angiopathy with gangrene (principal); E11.622 Type 2 diabetes mellitus with other skin ulcer; L89.512 Pressure ulcer of right ankle, stage 2 | CPT/HCPCS: 97597 ==

== ENCOUNTER → 2025-04-20 13:17 | Outpatient (BNVA) | payer MEDICARE, SELFPAY | PROVIDERS: PCP Nurse Practitioner Family; Visit Provider Thoracic Surgery (Cardiothoracic Vascular Surgery) | DX: E11.52 Type 2 diabetes mellitus with diabetic peripheral angiopathy with gangrene (principal); E11.622 Type 2 diabetes mellitus with other skin ulcer; L89.512 Pressure ulcer of right ankle, stage 2 | CPT/HCPCS: 97597; A6210 ==

== ENCOUNTER → 2025-04-27 13:53 | Outpatient (BNVA) | payer MEDICARE, SELFPAY | PROVIDERS: PCP Nurse Practitioner Family; Visit Provider Thoracic Surgery (Cardiothoracic Vascular Surgery) | DX: E11.52 Type 2 diabetes mellitus with diabetic peripheral angiopathy with gangrene (principal); E11.622 Type 2 diabetes mellitus with other skin ulcer; L89.512 Pressure ulcer of right ankle, stage 2 | CPT/HCPCS: 97597 ==

== ENCOUNTER → 2025-05-04 14:19 | Outpatient (BNVA) | payer MEDICARE, SELFPAY | PROVIDERS: PCP Nurse Practitioner Family; Visit Provider Thoracic Surgery (Cardiothoracic Vascular Surgery) | DX: E11.52 Type 2 diabetes mellitus with diabetic peripheral angiopathy with gangrene (principal); E11.622 Type 2 diabetes mellitus with other skin ulcer; L89.512 Pressure ulcer of right ankle, stage 2 | CPT/HCPCS: 97597; A6210 ==

== ENCOUNTER → 2025-06-29 12:56 | Outpatient (BNVA) | payer MEDICARE, MEDICAID, SELFPAY | PROVIDERS: PCP Nurse Practitioner Family; Visit Provider Nurse Practitioner Family | DX: E11.65 Type 2 diabetes mellitus with hyperglycemia (principal); E78.5 Hyperlipidemia, unspecified | CPT/HCPCS: 80053; 80061; 83036; 84443; 85025 ==